=== PATIENT | male | born 1965 | race Caucasian/White ===

== ENCOUNTER 2019-01-05 01:59 | Inpatient (IN) | payer SELFPAY ==
[2019-01-05] MEDS ORDERED: MORPHINE 4 MG/ML SYR ONE ×2 (02:29→03:35)
[2019-01-05] MEDS ORDERED: ONDANSETRON 4 MG/2 ML VIAL ONE ×2 (02:29→03:35)
[2019-01-05] MEDS ORDERED: METRONIDAZOLE 500mg IVPB 500 MG/100 ML BAG IV ONE (02:30)
[2019-01-05] MEDS ORDERED: Levofloxacin 750mg IV 750 MG/150 ML BAG IV ONE (02:30)
[2019-01-05] MEDS ORDERED: NA CHLORIDE 0.9% 1,000 ML ONE (02:30)
[2019-01-05 02:39] LABS: Urine Blood NEGATIVE (NEG); Urine Glucose NEGATIVE (NEG); Urine Protein NEGATIVE (NEG); Urine Specific Gravity 1.025 (1.005-1.030); Urine pH 5.5 (5.0-7.0)
[2019-01-05 04:05] LABS: Absolute Lymphocytes (CBC) 1.2 K/uL (0.7-4.9); Absolute Neutrophil 7.2 K/uL (1.8-8.0); Basophils % 0.3 % (0-1.3); Hematocrit 43.6 % (39.6-49.0); Lymphocytes % 12.7 % (15.3-44.8); MPV 9.5 fL (7.6-11.3); Monocytes % 10.5 % (3.3-12.3); RBC Red Blood Cell Count 4.79 M/uL (4.33-5.43)
[2019-01-05 04:33] LABS: ALT/SGPT 35 U/L (12-78); AST/SGOT 19 U/L (15-37); Albumin 3.5 g/dL (3.4-5.0); Alkaline Phosphatase 77 U/L (45-117); BUN Blood Urea Nitrogen 16 mg/dL (7-18); Bicarbonate 25 mmol/L (21-32); Bilirubin Direct < 0.1 mg/dL (0-0.2); Bilirubin Total 0.2 mg/dL (0.2-1.0); Glucose Level 112 mg/dL (74-106); Lipase 124 U/L (73-393); Potassium 4.5 mmol/L (3.5-5.1); Protein, Total 7.3 g/dL (6.4-8.2); Sodium Level 139 mmol/L (136-145)
--- NOTE | 2019-01-05 05:21 | EDPHYS ---
Physician Documentation [facility] Name: Martin Napoles Age: 53 yrs Sex: Male : 1965 Arrival Date: 01/05/2019 Time: 02:01 Bed 15 Private MD: ED Physician Michael Landaverde HPI: 01/05 02:13 This 53 yrs old Male presents to ER via Unassigned with complaints of Lower jerome Abd Pain. 02:13 The patient presents with abdominal pain in the lower abdomen. Onset: The jerome symptoms/episode began/occurred 1 day(s) ago. The symptoms do not radiate. Associated signs and symptoms: none. The symptoms are described as constant, crampy. Modifying factors: The symptoms are alleviated by nothing. Severity of pain: At its worst the pain was moderate in the emergency department the pain is unchanged. The patient has not experienced similar symptoms in the past. Historical: - Allergies: 02:10 No Known Allergies; rr5 - Home Meds: 02:10 None [Active]; rr5 - PMHx: 02:10 ADD/ADHD; rr5 - PSHx: 02:10 back surgery; rr5 - Immunization history:: Adult Immunizations not up to date. - Social history:: Smoking status: Patient/guardian denies using tobacco, Patient/guardian denies using alcohol, street drugs. - Family history:: not pertinent. - Ebola Screening: : Patient negative for fever greater than or equal to 101.5 degrees Fahrenheit, and additional compatible Ebola Virus Disease symptoms Patient denies exposure to infectious person Patient denies travel to an Ebola-affected area in the 21 days before illness onset. ROS: 02:13 Constitutional: Negative for fever, chills, and weight loss, Eyes: Negative for injury, jerome pain, redness, and discharge, ENT: Negative for injury, pain, and discharge, Neck: Negative for injury, pain, and swelling, Cardiovascular: Negative for chest pain, palpitations, and edema, Respiratory: Negative for shortness of breath, cough, wheezing, and pleuritic chest pain, Back: Negative for injury and pain, : Negative for injury, bleeding, discharge, and swelling, MS/Extremity: Negative for injury and deformity, Skin: Negative for injury, rash, and discoloration, Neuro: Negative for headache, weakness, numbness, tingling, and seizure, Psych: Negative for depression, anxiety, suicide ideation, homicidal ideation, and hallucinations, Allergy/Immunology: Negative for hives, rash, and allergies, Endocrine: Negative for neck swelling, polydipsia, polyuria, polyphagia, and marked weight changes. 02:13 Abdomen/GI: Positive for abdominal pain, of the right lower quadrant and left lower quadrant. 02:15 Abdomen/GI: Positive for abdominal cramps. jerome Exam: 02:13 Constitutional: This is a well developed, well nourished patient who is awake, alert, jerome and in no acute distress. Head/Face: Normocephalic, atraumatic. Eyes: Pupils equal round and reactive to light, extra-ocular motions intact. Lids and lashes normal. Conjunctiva and sclera are non-icteric and not injected. Cornea within normal limits. Periorbital areas with no swelling, redness, or edema. ENT: Nares patent. No nasal discharge, no septal abnormalities noted. Tympanic membranes are normal and external auditory canals are clear. Oropharynx with no redness, swelling, or masses, exudates, or evidence of obstruction, uvula midline. Mucous membranes moist. Neck: Trachea midline, no thyromegaly or masses palpated, and no cervical lymphadenopathy. Supple, full range of motion without nuchal rigidity, or vertebral point tenderness. No Meningismus. Chest/axilla: Normal chest wall appearance and motion. Nontender with no deformity. No lesions are appreciated. Cardiovascular: Regular rate and rhythm with a normal S1 and S2. No gallops, murmurs, or rubs. Normal PMI, no JVD. No pulse deficits. Respiratory: Lungs have equal breath sounds bilaterally, clear to auscultation and percussion. No rales, rhonchi or wheezes noted. No increased work of breathing, no retractions or nasal flaring. Back: No spinal tenderness. No costovertebral tenderness. Full range of motion. Male : Normal genitalia with no discharge or lesions. Skin: Warm, dry with normal turgor. Normal color with no rashes, no lesions, and no evidence of cellulitis. MS/ Extremity: Pulses equal, no cyanosis. Neurovascular intact. Full, normal range of motion. Neuro: Awake and alert, GCS 15, oriented to person, place, time, and situation. Cranial nerves II-XII grossly intact. Motor strength 5/5 in all extremities. Sensory grossly intact. Cerebellar exam normal. Normal gait. Psych: Awake, alert, with orientation to person, place and time. Behavior, mood, and affect are within normal limits. 02:13 Abdomen/GI: Inspection: distension, Bowel sounds: normal, Palpation: moderate abdominal tenderness, in the right lower quadrant and left lower quadrant. 06:48 Musculoskeletal/extremity: Extremities: all appear grossly normal, with no appreciated jerome pain with palpation, ROM: no acute changes, intact in all extremities, full active range of motion, full passive range of motion, Circulation is intact in all extremities. Pulses: noted to be 4+ in the bilateral radial, brachial, femoral, popliteal, posterior tibial and and dorsalis pedis arteries., Compartment Syndrome exam of affected extremity: is normal. DVT Exam: No signs of deep vein thrombosis. no pain, no swelling, no tenderness, negative Homans' sign noted on exam, no appreciated bluish discoloration, no erythema, no increased warmth. Vital Signs: 02:10 BP 135 / 86; Pulse 78; Resp 18; Temp 97.8; Pulse Ox 99% ; Weight 83.91 kg; Height 5 ft. rr5 10 in. (177.80 cm); Pain 8/10; 03:15 BP 131 / 80; Pulse 73; Resp 17; Pulse Ox 99% ; rr5 04:15 BP 126 / 71; Pulse 64; Resp 17; Pulse Ox 97% ; rr5 05:15 BP 119 / 70; Pulse 75; Resp 20; Pulse Ox 98% ; rr5 06:00 BP 141 / 70; Pulse 79; Resp 19; Pulse Ox 98% ; Pain 0/10; rr5 06:35 BP 157 / 82; Pulse 81; Resp 17; Pulse Ox 98% ; Pain 10/10; rr5 02:10 Body Mass Index 26.54 (83.91 kg, 177.80 cm) rr5 MDM: 02:07 Patient medically screened. [facility] 02:13 Data reviewed: vital signs, nurses notes, lab test result(s), EKG, radiologic studies, [facility] CT scan. 01/05 02:12 Order name: Basic Metabolic Panel [facility] 01/05 02:12 Order name: CBC with Diff; Complete Time: 05:11 [facility] 01/05 02:12 Order name: Creatinine for Radiology; Complete Time: 05:11 [facility] 01/05 02:12 Order name: Hepatic Function; Complete Time: 05:11 jerome 01/05 02:12 Order name: Lipase; Complete Time: 05:11 jerome 01/05 02:13 Order name: Basic Metabolic Panel; Complete Time: 05:11 EDMS 01/05 02:12 Order name: CT Abd/Pelvis - W/Contrast [facility] 01/05 02:33 Order name: Urine Dipstick--Ancillary (enter results); Complete Time: 05:11 mw2 01/05 02:12 Order name: IV Saline Lock; Complete Time: 02:22 jerome 01/05 02:12 Order name: Labs collected and sent; Complete Time: : [facility] Administered Medications: 02:30 Drug: NS 0.9% 1000 ml Route: IV; Rate: 1 bolus; Site: right forearm; cc3 04:00 Follow up: Response: No adverse reaction; IV Status: Completed infusion; IV Intake: rr5 1000ml 02:30 Drug: Zofran 4 mg Route: IVP; Site: right forearm; rr5 07:00 Follow up: Response: No adverse reaction rr5 02:32 Drug: morphine 4 mg Route: IVP; Site: right forearm; rr5 07:00 Follow up: Response: No adverse reaction rr5 02:35 Drug: Flagyl 500 mg Volume: 100 ml; Route: IVPB; Rate: 200 ml/hr; Infused Over: 30 rr5 mins; Site: right forearm; 03:05 Follow up: Response: No adverse reaction; IV Status: Completed infusion; IV Intake: rr5 100ml 02:58 Drug: Zofran 4 mg Route: IVP; Site: right forearm; rr5 07:00 Follow up: Response: No adverse reaction rr5 03:03 Drug: morphine 4 mg Route: IVP; Site: right forearm; rr5 07:00 Follow up: Response: No adverse reaction rr5 03:05 Drug: levofloxacin 750 mg Volume: 150 ml; Route: IVPB; Infused Over: 90 mins; Site: rr5 right forearm; 05:00 Follow up: Response: No adverse reaction; IV Status: Completed infusion; IV Intake: rr5 150ml 05:20 Drug: Rocephin 1 grams Route: IV; Rate: per protocol; Site: right forearm; rr5 06:37 Follow up: Response: No adverse reaction; IV Status: Completed infusion; IV Intake: [id number] 05:28 Drug: NS 0.9% 1000 ml Route: IV; Rate: 1 bolus; Site: right forearm; rr5 06:35 Follow up: Response: No adverse reaction; IV Status: Completed infusion; IV Intake: rr5 1000ml 05:28 Drug: Dilaudid 1 mg Route: IVP; Site: right forearm; rr5 07:00 Follow up: Response: No adverse reaction rr5 06:36 Drug: NS 0.9% 1000 ml Route: IV; Rate: 125 ml/hr; Site: right forearm; rr5 07:00 Follow up: Response: No adverse reaction; IV Status: Infusion continued upon admission; rr5 IV Intake: 60ml 07:05 Drug: Dilaudid 1 mg Route: IVP; Site: right forearm; rr5 07:45 Follow up: Response: No adverse reaction; Pain is decreased jl7 Disposition: 01/05/19 05:20 Hospitalization ordered by Black Nowak for Inpatient Admission. Preliminary diagnosis are Abdominal tenderness, Diverticular disease of intestine, Diverticulitis of large intestine without perforation or abscess without bleeding - sigmoiddiverticulitis, no perforation , no abscess. - Bed requested for Telemetry/MedSurg (Inpatient). - Status is Inpatient Admission. jl7 - Condition is Stable. - Problem is new. - Symptoms have improved. UTI on Admission? No Signatures: Dispatcher [employer] EDMS She Crain RN RN kl Anderson, Corey, MD MD cha Leal, Jahala, RN RN jl7 Elif Ruiz 3 Garrett Patterson RN RN rr5 Corrections: (The following items were deleted from the chart) 06:36 05:20 Hospitalization Ordered by Black Nowak MD for Inpatient Admission. Preliminary shahriar diagnosis is Abdominal tenderness; Diverticular disease of intestine; Diverticulitis of large intestine without perforation or abscess without bleeding. Bed requested for Telemetry/MedSurg (Inpatient). Status is Inpatient Admission. Condition is Stable. Problem is new. Symptoms have improved. UTI on Admission? No. jerome 06:49 06:36 01/05/2019 05:20 Hospitalization Ordered by Black Nowak MD for Inpatient [facility] Admission. Preliminary diagnosis is Abdominal tenderness; Diverticular disease of intestine; Diverticulitis of large intestine without perforation or abscess without bleeding. Bed requested for Telemetry/MedSurg (Inpatient). Status is Inpatient Admission. Condition is Stable. Problem is new. Symptoms have improved. UTI on Admission? No. kl 08:09 06:49 01/05/2019 05:20 Hospitalization Ordered by Black Nowak MD for Inpatient jl7 Admission. Preliminary diagnosis is Abdominal tenderness; Diverticular disease of intestine; Diverticulitis of large intestine without perforation or abscess without bleeding - sigmoiddiverticulitis, no perforation , no abscess. Bed requested for Telemetry/MedSurg (Inpatient). Status is Inpatient Admission. Condition is Stable. Problem is new. Symptoms have improved. UTI on Admission? No. jerome
--- NOTE | 2019-01-05 05:21 | ER ---
Nurse's Notes [facility] Name: Martin Napoles Age: 53 yrs Sex: Male : 1965 Arrival Date: 01/05/2019 Time: 02:01 Bed 15 Private MD: Diagnosis: Abdominal tenderness;Diverticular disease of intestine;Diverticulitis of large intestine without perforation or abscess without bleeding-sigmoiddiverticulitis, no perforation , no abscess Presentation: 01/05 02:10 Presenting complaint: Patient states: sudden lower quadrant abdominal pain started rr5 around 1800 last night but its getting worst now. no Nausea or vomiting. had an episodes of diarrhea 2x. 02:10 Transition of care: patient was not received from another setting of care. Onset of rr5 symptoms was January 04, 2019 at 18:00. Risk Assessment: Do you want to hurt yourself or someone else? Patient reports no desire to harm self or others. Initial Sepsis Screen: Does the patient meet any 2 criteria? No. Patient's initial sepsis screen is negative. Does the patient have a suspected source of infection? No. Patient's initial sepsis screen is negative. Care prior to arrival: None. 02:10 Method Of Arrival: Ambulatory rr5 02:10 Acuity: ABBY 3 rr5 Historical: - Allergies: 02:10 No Known Allergies; rr5 - Home Meds: 02:10 None [Active]; rr5 - PMHx: 02:10 ADD/ADHD; rr5 - PSHx: 02:10 back surgery; rr5 - Immunization history:: Adult Immunizations not up to date. - Social history:: Smoking status: Patient/guardian denies using tobacco, Patient/guardian denies using alcohol, street drugs. - Family history:: not pertinent. - Ebola Screening: : Patient negative for fever greater than or equal to 101.5 degrees Fahrenheit, and additional compatible Ebola Virus Disease symptoms Patient denies exposure to infectious person Patient denies travel to an Ebola-affected area in the 21 days before illness onset. Screenin:31 Abuse screen: Denies threats or abuse. Nutritional screening: No deficits noted. rr5 Tuberculosis screening: No symptoms or risk factors identified. 02:31 Fall Risk IV access (20 points). Total Trammell Fall Scale indicates No Risk (0-24 pts). rr5 Assessment: 02:10 General: Appears in no apparent distress. uncomfortable, Behavior is calm, cooperative, rr5 appropriate for age. 02:10 Pain: Complains of pain in right lower quadrant and left lower quadrant Pain does not rr5 radiate. Pain currently is 8 out of 10 on a pain scale. Quality of pain is described as aching, Pain began suddenly, Is intermittent. Neuro: Level of Consciousness is awake, alert, obeys commands, Oriented to person, place, time, situation, Appropriate for age. Cardiovascular: Capillary refill < 3 seconds Patient's skin is warm and dry. Respiratory: Airway is patent Respiratory effort is even, unlabored, Respiratory pattern is regular, symmetrical. GI: Abdomen is round non-distended, Reports lower abdominal pain, diarrhea, gaseousness. : No signs and/or symptoms were reported regarding the genitourinary system. EENT: No signs and/or symptoms were reported regarding the EENT system. Derm: Skin is intact, Skin temperature is warm. Musculoskeletal: Capillary refill < 3 seconds, Range of motion: intact in all extremities. 02:40 Reassessment: Patient finished his oral contrast, mechanical test technician informed. cc3 02:58 Reassessment: Patient appears in no apparent distress at this time. not relieved from rr5 pain ED provider aware with order and carried out. Patient states symptoms have not improved. 04:00 Reassessment: Patient appears in no apparent distress at this time. Patient is alert, rr5 oriented x 3, equal unlabored respirations, skin warm/dry/pink. asleep on bed no complaints made. 05:00 Reassessment: Patient appears in no apparent distress at this time. back from CT scan, rr5 placed on bed comfortably, awaiting for report. 05:10 Reassessment: Patient appears in no apparent distress at this time. complaining of rr5 severe abdominal pain. ED provider informed with order made and carried out. 06:00 Reassessment: Patient appears in no apparent distress at this time. Patient is alert, rr5 oriented x 3, equal unlabored respirations, skin warm/dry/pink. pain free Patient denies pain at this time. Patient states feeling better. Patient states symptoms have improved. 06:17 Reassessment: Patient appears in no apparent distress at this time. Patient is alert, rr5 oriented x 3, equal unlabored respirations, skin warm/dry/pink. seen and examined by explained the need for admission, patients agreed. 06:55 Reassessment: Patient appears in no apparent distress at this time. complaining of rr5 abdominal pain. ED provider informed with order made and carried out. 07:45 Reassessment: Patient appears in no apparent distress at this time. Patient is alert, jl7 oriented x 3, equal unlabored respirations, skin warm/dry/pink. Vital Signs: 02:10 BP 135 / 86; Pulse 78; Resp 18; Temp 97.8; Pulse Ox 99% ; Weight 83.91 kg; Height 5 ft. rr5 10 in. (177.80 cm); Pain 8/10; 03:15 BP 131 / 80; Pulse 73; Resp 17; Pulse Ox 99% ; rr5 04:15 BP 126 / 71; Pulse 64; Resp 17; Pulse Ox 97% ; rr5 05:15 BP 119 / 70; Pulse 75; Resp 20; Pulse Ox 98% ; rr5 06:00 BP 141 / 70; Pulse 79; Resp 19; Pulse Ox 98% ; Pain 0/10; rr5 06:35 BP 157 / 82; Pulse 81; Resp 17; Pulse Ox 98% ; Pain 10/10; rr5 02:10 Body Mass Index 26.54 (83.91 kg, 177.80 cm) rr5 ED Course: 02:01 Patient arrived in ED. am2 02:07 Michael Landaverde MD is Attending Physician. jerome 02:10 Arm band placed on. rr5 02:15 Patient has correct armband on for positive identification. Placed in gown. Bed in low rr5 position. Call light in reach. Side rails up X2. Pulse ox on. NIBP on. 02:25 Garrett Patterson, YUSUF is Primary Nurse. rr5 02:28 Missed attempt(s): 22 gauge in right antecubital area. mt 02:29 Triage completed. rr5 02:30 Inserted saline lock: 20 gauge in right forearm, using aseptic technique. cc3 02:42 Oral contrast reported to be complete. eh 05:04 CT completed. Patient tolerated procedure well. Patient moved to CT via wheelchair. Patient moved back from CT. 05:09 CT Abd/Pelvis - W/Contrast In Process Unspecified. EDMS 05:17 Black Nowak MD is Hospitalizing Provider. [facility] 08:07 No provider procedures requiring assistance completed. Patient admitted, IV remains in jl7 place. intact, No redness/swelling at site. Administered Medications: 02:30 Drug: NS 0.9% 1000 ml Route: IV; Rate: 1 bolus; Site: right forearm; cc3 04:00 Follow up: Response: No adverse reaction; IV Status: Completed infusion; IV Intake: rr5 1000ml 02:30 Drug: Zofran 4 mg Route: IVP; Site: right forearm; rr5 07:00 Follow up: Response: No adverse reaction rr5 02:32 Drug: morphine 4 mg Route: IVP; Site: right forearm; rr5 07:00 Follow up: Response: No adverse reaction rr5 02:35 Drug: Flagyl 500 mg Volume: 100 ml; Route: IVPB; Rate: 200 ml/hr; Infused Over: 30 rr5 mins; Site: right forearm; 03:05 Follow up: Response: No adverse reaction; IV Status: Completed infusion; IV Intake: rr5 100ml 02:58 Drug: Zofran 4 mg Route: IVP; Site: right forearm; rr5 07:00 Follow up: Response: No adverse reaction rr5 03:03 Drug: morphine 4 mg Route: IVP; Site: right forearm; rr5 07:00 Follow up: Response: No adverse reaction rr5 03:05 Drug: levofloxacin 750 mg Volume: 150 ml; Route: IVPB; Infused Over: 90 mins; Site: rr5 right forearm; 05:00 Follow up: Response: No adverse reaction; IV Status: Completed infusion; IV Intake: rr5 150ml 05:20 Drug: Rocephin 1 grams Route: IV; Rate: per protocol; Site: right forearm; rr5 06:37 Follow up: Response: No adverse reaction; IV Status: Completed infusion; IV Intake: [id number] 05:28 Drug: NS 0.9% 1000 ml Route: IV; Rate: 1 bolus; Site: right forearm; rr5 06:35 Follow up: Response: No adverse reaction; IV Status: Completed infusion; IV Intake: rr5 1000ml 05:28 Drug: Dilaudid 1 mg Route: IVP; Site: right forearm; rr5 07:00 Follow up: Response: No adverse reaction rr5 06:36 Drug: NS 0.9% 1000 ml Route: IV; Rate: 125 ml/hr; Site: right forearm; rr5 07:00 Follow up: Response: No adverse reaction; IV Status: Infusion continued upon admission; rr5 IV Intake: 60ml 07:05 Drug: Dilaudid 1 mg Route: IVP; Site: right forearm; rr5 07:45 Follow up: Response: No adverse reaction; Pain is decreased jl7 Intake: 03:05 IV: 100ml; Total: 100ml. rr5 04:00 IV: 1000ml; Total: 1100ml. rr5 05:00 IV: 150ml; Total: 1250ml. rr5 06:35 IV: 1000ml; Total: 2250ml. rr5 06:37 IV: 10ml; Total: 2260ml. rr5 07:00 IV: 60ml; Total: 2320ml. rr5 07:00 from [id number] H voided freely 3x rr5 Outcome: 05:20 Decision to Hospitalize by Provider. jerome 08:07 Admitted to Med/surg accompanied by tech, via wheelchair, room 211, with chart, Report jl7 called to YUSUF Szymanski 08:07 Condition: stable 08:07 Discharge instructions given to patient, Instructed on the need for admit, Demonstrated understanding of instructions. 08:09 Patient left the ED. jl7 Signatures: Dispatcher [employer] EDMichael Maria MD MD cha Hagler, David Whyte RN RN jl7 Liss Contreras Moriah mt Cordel, Charlene cc3 Garrett Patterson, RN RN rr5 Corrections: (The following items were deleted from the chart) 04:21 03:00 morphine 4 mg IVP in right forearm rr5 rr5
[2019-01-05] MEDS ORDERED: CEFTRIAXONE/SWI 1gm 1 GM/10 ML SYR ONE (05:29)
[2019-01-05] MEDS ORDERED: NA CHLORIDE 0.9% 2,000 ML ONE (05:29)
[2019-01-05] MEDS ORDERED: HYDROMORPHONE HCL 2 MG/ML inj ONE (05:29)
--- NOTE | 2019-01-05 06:30 | P.HP ---
Certification for Inpatient Patient admitted to: Inpatient With expected LOS: >2 Midnights Practitioner: I am a practitioner with admitting privileges, knowledge of patient current condition, hospital course, and medical plan of care. Services: Services provided to patient in accordance with Admission requirements found in Title 42 Section 412.3 of the Code of Federal Regulations Patient History Date of Service: 01/05/19 Reason for admission: acute diverticulitis History of Present Illness: Mr Napoles is a 53 years old male with history of ADD, previous episode of diverticulitis on 09/13, who came to ED complaining of severe abdominal pain, located on LLQ, 10/10 of intensity, no radiated, associated with nausea and diarrhea, no vomiting. He denied any blood in his stools. No history of fever or chills. The pain started last night around 1800. The pain is similar to previous episodes of diverticulitis. Lab work shows normal WBC count, he is afebrile, CT abdo/pelivs consistent with diverticulitis without abscess or perforation. Allergies No Known Allergies Allergy (Verified 12/28/12 10:58) Home Medications: NK [No Home Meds] 01/05/19 - Past Medical/Surgical History Diabetic: No -: diverticulitis -: back surgery - Family History Family History: Reviewed- Non-Contributory - Social History Smoking Status: Former smoker Alcohol use: No CD- Drugs: No Caffeine use: No Place of Residence: Home Review of Systems 10-point ROS is otherwise unremarkable Physical Examination - Physical Exam General: Alert, Moderate distress (due to abdominal pain) HEENT: Atraumatic, PERRLA, Mucous membr. moist/pink, EOMI, Sclerae nonicteric Neck: Supple, 2+ carotid pulse no bruit, No LAD, Without JVD or thyroid abnormality Respiratory: Clear to auscultation bilaterally, Normal air movement Cardiovascular: Regular rate/rhythm, Normal S1 S2 Gastrointestinal: Normal bowel sounds, Tenderness (severe tender to palpation on LLQ) Musculoskeletal: No tenderness Integumentary: No rashes Neurological: Normal speech, Normal strength at 5/5 x4 extr, Normal tone, Normal affect Lymphatics: No axilla or inguinal lymphadenopathy - Studies Laboratory Data (last 24 hrs) 01/05/19 02:15: Creatinine 0.87 01/05/19 02:15: WBC 9.7, Hgb 14.7, Hct 43.6, Plt Count 194 01/05/19 02:15: Sodium 139, Potassium 4.5, BUN 16, Creatinine 0.92, Glucose 112 H, Total Bilirubin 0.2, AST 19, ALT 35, Alkaline Phosphatase 77, Lipase 124 Assessment and Plan - Problems (Diagnosis) (1) Diverticulitis Onset Date: 09/08/17 Current Visit: No Status: Resolved Qualifiers: Diverticulitis site: large intestine Diverticulitis bleeding: without bleeding Diverticulitis complication: without perforation or abscess Qualified Code(s): K57.32 - Diverticulitis of large intestine without perforation or abscess without bleeding - Plan will admit the patient to the hospital due to acute diverticulitis. Start empiric treatment with IV Cipro and Flagyl. Continue IV fluids and symptomatic medication. - Advance Directives Does patient have a Living Will: No Does patient have a Durable POA for Healthcare: No - Code Status/Comfort Care Code Status Assessed: Yes Code Status: Full Code
[2019-01-05] MEDS ORDERED: MORPHINE 2 MG/ML SYR IV PRN (08:33)
[2019-01-05] MEDS ORDERED: ONDANSETRON 4 MG/2 ML VIAL IV PRN (08:33)
[2019-01-05] MEDS: NA CHLORIDE 0.9% 1,000 ML IV SCH ×3 (08:33→23:36)
[2019-01-05] MEDS ORDERED: ACETAMINOPHEN 500 MG TAB PO PRN (08:33)
[2019-01-05 09:01] VITALS: BMI 26.5
[2019-01-05] MEDS: METRONIDAZOLE 500mg IVPB 500 MG/100 ML BAG IV SCH ×2 (09:52→17:45)
[2019-01-05] MEDS ORDERED: INFLUENZA VACCINE (for 3y+) 0.5 ML DOSE IMVAC ONE ×2 (10:00→21:30)
--- NOTE | 2019-01-05 10:45 | RAD REPORT ---
EXAM DESCRIPTION: RAD - Abdomen W Erect - 01/05/2019 10:19 am CLINICAL HISTORY: Abdominal pain, suspected free air COMPARISON: None. TECHNIQUE: Supine and upright views of the abdomen were obtained. FINDINGS: Supine and upright views of the abdomen were obtained. There is no free air under the diap hragm. No evidence for free air or pneumatosis elsewhere on the examination. Moderate stool volume di luted contrast are present throughout the colon. No small bowel dilatation identified. No suspicious calcifications. IMPRESSION: No free air confirmed on this study. Ongoing clinical concerns for bowel perforation or free air can be addressed with CT imaging. This ca n identify free air that may be occult on plain film.
[2019-01-05] MEDS: CIPROFLOXACIN 400mg IV 400 MG/200 ML BAG IV SCH ×2 (10:54→21:29)
[2019-01-05] MEDS ORDERED: HYDROMORPHONE HCL 0.5 MG/0.5 ML INJ IV SCH (12:00)
--- NOTE | 2019-01-05 17:35 | PN ---
Date of Progress Note: 01/05/2019 Subjective: The patient was seen and examined. Chart reviewed and case discussed with RN and Dr. Sandoval nick. The patient in significant amount of abdominal pain, doubled over. Medication List: Reviewed. Physical Examination: Vital Signs: Temperature 97.7, heart rate 72, blood pressure 103/69, respirations 16, O2 97% on room air. General: Awake, alert, oriented x3. Ill-appearing male. CV: S1, S2. Regular rate and rhythm. Peripheral pulses present. Respiratory: Moving air well bilaterally. No wheezing. Gastrointestinal: Abdomen is tender to palpation, mildly distended. Rebound and guarding are presen t. Bowel sounds are hypoactive. Extremities: No clubbing, cyanosis, edema. Neurologic: Nonfocal. Laboratory Data: WBC 9.7, H and H 14.7 and 43.6, platelets 194. Abdominal x-ray, personally reviewe d, shows no free air. Does show moderate stool volume diluted contrast present throughout the colon. No bowel dilatation identified. Assessment And Plan: A 53-year-old male with: 1.Acute diverticulitis without bleeding, perforation, or abscess of large intestine. We will contin ue with IV antibiotics. Appreciate Dr. Randle's input. Abdominal x-ray does not show any perforat ion or free air under the diaphragm. We will adjust pain medications. 2.Gastrointestinal and deep venous thrombosis prophylaxis addressed. 3.Attention deficit disorder. Plan: Continue IV antibiotics, follow up with surgical recommendations. /SERGEY Voice ID: [id number] Report ID: [id number]
[2019-01-05] MEDS: HYDROMORPHONE HCL 0.5 MG/0.5 ML INJ IV PRN (18:54)
--- NOTE | 2019-01-06 00:20 | CON ---
Date of Consultation: 01/05/2019 Diagnosis: Diverticulitis, left lower quadrant abdominal pain. History Of Present Illness: This is the case of a 53-year-old patient, comes to the hospital [facility] of left lower quadrant tenderness associated with nausea and diarrhea with no vomiting. He had an episode like that about 3 months ago, improved on its own. He has not followed up on that. This pain started yesterday afternoon. He came to the hospital this morning, was admitted to the hospital for diverticulitis. He denies any dysuria, hematuria, hematochezia, or melena. He denies any recen t traveling out of the country. He denies any family member sick at home. The patient was advised t he importance of colonoscopy since we have no evidence of one. Allergies: NONE. Medications: Levaquin and Flagyl. Surgical History: Back surgery. Medical Problems: Diverticulitis. Family History: Noncontributory. Social History: He does not smoke. He does not drink alcohol. Physical Examination: General: The patient is awake and alert. HEENT: Pupils are equal and reactive, anicteric. Neck: Supple. Chest: Clear. Abdomen: Left lower quadrant tenderness. No guarding. No rebound. The rest of the abdomen is soft and depressible. Rectal: Deferred. Extremities: Good capillary refill. Laboratory Data: Blood work shows WBC count of 9.7 with hemoglobin of 14.7, and potassium 4.5. CAT scan of the abdomen and pelvis, official result still pending. We have preliminary, it shows acute s igmoid diverticulitis, no free air. Assessment: A 53-year-old patient, comes to us with acute diverticulitis. The patient will need ant ibiotics if he does not improve and develops perforation. He understands the need for emergent lapar otomy, possible resection and ostomy with benefits, alternatives, and risks including, but not limite d to infection, bleeding, damage to adjacent structures, anesthesia complication, nonhealing wound, a bscesses, NC, even . He also understands this may not relieve any symptoms. He might need more than one surgical intervention. He also understands the colostomy may or may not be reversible. Ri ght now, he has no perforation so we are going to give antibiotics and explained to him the importanc e of bowel rest and being compliant with treatment. 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 Also he might have a chance to do elective resection of the area if this end out to be recurrent diverticulitis. He was fully explained the pros and cons of each intervention in details. JAIRO Voice ID: [id number] Report ID: [id number]
[2019-01-06] MEDS: METRONIDAZOLE 500mg IVPB 500 MG/100 ML BAG IV SCH ×4 (00:57→23:55)
[2019-01-06] MEDS: HYDROMORPHONE HCL 0.5 MG/0.5 ML INJ IV PRN ×2 (02:45→09:10)
[2019-01-06] MEDS: NA CHLORIDE 0.9% 1,000 ML IV SCH ×4 (04:12→23:53)
[2019-01-06 06:56] LABS: BUN Blood Urea Nitrogen 10 mg/dL (7-18); Bicarbonate 27 mmol/L (21-32); Glucose Level 99 mg/dL (74-106); Magnesium 2.2 mg/dL (1.8-2.4); Potassium 4.1 mmol/L (3.5-5.1); Sodium Level 142 mmol/L (136-145)
[2019-01-06 06:57] LABS: Absolute Lymphocytes (CBC) 1.3 K/uL (0.7-4.9); Absolute Monocytes 0.7 K/uL (0.1-1.3); Absolute Neutrophil 4.7 K/uL (1.8-8.0); Basophils % 0.3 % (0-1.3); Eosinophils % 1.3 % (0-4.4); Hematocrit 37.3 % (39.6-49.0); Lymphocytes % 18.9 % (15.3-44.8); MPV 8.8 fL (7.6-11.3); Monocytes % 10.5 % (3.3-12.3); RBC Red Blood Cell Count 4.12 M/uL (4.33-5.43)
[2019-01-06] MEDS: CIPROFLOXACIN 400mg IV 400 MG/200 ML BAG IV SCH ×2 (09:10→20:00)
[2019-01-06] MEDS: MORPHINE 2 MG/ML SYR IV PRN ×2 (12:14→17:51)
[2019-01-06] MEDS: HYDROCODONE/APAP 7.5/325 MG TAB PO PRN ×2 (15:42→19:59)
--- NOTE | 2019-01-06 16:11 | PN ---
Date of Progress Note: 01/06/2019 Subjective: The patient seen and examined. Chart reviewed and case discussed with RN. The patient had uneventful night. Per nursing staff yesterday was sleeping for most of the day. However, once e valuated, was asking for stronger pain medications. No physiological signs of pain. Medications: List reviewed. Physical Examination: Vital Signs: Temperature 98.6, heart rate 57, blood pressure 110/69, respirations 20, O2 98% on room air. General: Awake, alert, oriented x3. No acute distress. CV: S1 and S2. Regular rate and rhythm. Peripheral pulses present. Respiratory: Moving air well bilaterally. Abdomen: Tenderness to palpation in the left lower quadrant with rebound and guarding. The patient jumps off the bed with minimal palpation. Bowel sounds present. No distention. Extremities: No clubbing, cyanosis, or edema. Neurologic: Nonfocal. Laboratory Data: Sodium 142, potassium 4.1, chloride 109, CO2 27, BUN 10, creatinine 0.76, glucose 9 9, calcium 8.2, magnesium 2.2. WBC 6.8, H and H 12.6 and 37.3, platelets 166, neutrophils 69%. Assessment And Plan: A 53-year-old male with: 1.Acute diverticulitis without perforation or abscess of large intestine. We will continue with IV antibiotics. Pain seems to be out of proportion to his physiological response. We will wean off sobeida n medications. No further nausea or vomiting. Did well with ice chips. We will advance to clear li quid diet. Appreciate Dr. Randle's input. 2.Attention deficit disorder. 3.Deep vein thrombosis prophylaxis with sequential compression devices. No chemical anticoagulation due to possible surgery. Plan: We will advance diet to clear liquids. Continue IV fluids. Adjust pain medications, disconti nue once tolerating a soft diet and pain is improved. If pain does not improve may need to repeat CT scan to look for signs of perforati on on upright abdomen. SA/MODL Voice ID: [id number] Report ID: [id number]
[2019-01-06 22:40] VITALS: O2SAT 99
[2019-01-07] MEDS: NA CHLORIDE 0.9% 1,000 ML IV SCH (08:43)
[2019-01-07] MEDS: CIPROFLOXACIN 400mg IV 400 MG/200 ML BAG IV SCH (08:44)
[2019-01-07] MEDS: METRONIDAZOLE 500mg IVPB 500 MG/100 ML BAG IV SCH (08:44)
[2019-01-07] MEDS ORDERED: MORPHINE 2 MG/ML SYR IV PRN (10:10)
[2019-01-07 11:46] LABS: Absolute Lymphocytes (CBC) 0.9 K/uL (0.7-4.9); Absolute Monocytes 0.6 K/uL (0.1-1.3); Absolute Neutrophil 3.6 K/uL (1.8-8.0); Basophils % 0.3 % (0-1.3); Eosinophils % 1.6 % (0-4.4); Hematocrit 41.6 % (39.6-49.0); Lymphocytes % 17.4 % (15.3-44.8); MPV 8.7 fL (7.6-11.3); Monocytes % 11.6 % (3.3-12.3); RBC Red Blood Cell Count 4.56 M/uL (4.33-5.43)
[2019-01-07 13:39] VITALS: BP 114/70; TEMP 98
--- NOTE | 2019-01-08 11:12 | RAD REPORT ---
EXAM DESCRIPTION: CT - Abdomen Pelvis W Contrast - 01/05/2019 6:31 am CLINICAL HISTORY: 53-year-old male with lower abdominal pain since 6:00 PM with diarrhea TECHNIQUE: Axial CT images of the abdomen and pelvis was performed following the administration of intravenous c ontrast. Sagittal and coronal reconstructed images were then performed. The CT study is performed acc ording to ALARA (as low as reasonably achievable) or ALARA/IMAGE GENTLY, with automatic adjustment of mA and/or kV according to patient size. COMPARISON: Prior CT abdomen and pelvis performed on 09/07/2017 FINDINGS: Lung bases: The lung bases are clear. Liver: The liver is normal in size and configuration. No focal hepatic abnormalities are identified. Liver attenuation is within normal limits. Spleen: The spleen is normal is size, configuration and attenuation. Gallbladder and bile duct: The gallbladder is well distended and unremarkable. There is no biliary du ctal dilatation. Pancreas: The pancreas is grossly normal in size and configuration. Adrenal Glands: The adrenal glands ar normal in size and configuration. Kidneys: The kidneys are normal in size and configuration. There is no evidence of diverticulitis. Th ere is stranding of the pericolonic fat bilaterally which is nonspecific but can be seen with chronic medical renal disease. Stomach: The stomach is grossly normal. There is a very small hiatal hernia. Bowel: The bowel gas pattern is non specific and non obstructive. There is colonic diverticulosis. Th ere is stranding of the pericolonic fat in the anterior left lower quadrant consistent with acute sig moid colonic diverticulitis. There is no evidence of perforation or peridiverticular abscess. Appendix: The appendix is normal. Free air: There is no evidence of free air. Free fluid: There is no evidence of free fluid. Vasculature: The aorta is normal in caliber and contour. The inferior vena cava is grossly unremarkab le. Lymphadenopathy: No pathologic lymphadenopathy is identified. Bladder: The bladder is incompletely distended and smooth in contour. Reproductive: The prostate gland is grossly within normal limits. Bones: NO acute osseous abnormalities are identified. There is a prominent disc osteophyte complex at L5-S1 resulting in mild to moderate canal stenosis and there is bilateral renal foraminal stenosis g reater on the right. Soft tissues: No focal soft tissue abnormalities are identified. There are small bilateral fat-contai jacobo inguinal hernias. IMPRESSION: 1. Acute sigmoid colon diverticulitis without perforation or pericardial abscess. 2. Very small hiatal hernia. 3. Prominent disc osteophyte complex at L5-S1 resulting in at least mild to moderate canal stenosis a nd bilateral neural foraminal stenosis at this level greater on the right. 4. Very small bilateral fat-containing inguinal hernias. 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 The interpreting radiologist is f ully responsible for the content of the report.
--- NOTE | 2019-01-08 13:50 | DS ---
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 Procedure: None. Admitting Diagnoses: 1.Acute diverticulitis. 2.Attention deficit disorder. Discharge Diagnoses: 1.Acute diverticulitis without perforation or abscess of large intestine. 2.Attention deficit disorder. Hospital Course: The patient is a 53-year-old male, who comes into the hospital for abdominal pain, found to have acute diverticulitis. The patient was started on IV antibiotics and IV fluids. He was kept n.p.o. The patient requested pain medications by name, although physiologically did not have s igns of pain. His condition improved. He was also seen by Dr. Randle for surgical evaluation. He did not recommend any intervention at that time. Abdominal x-ray was done to rule out free air. Th ere was no free air found on the x-ray. The patient did well. His white blood cell count remained s table the entire visit. He was able to tolerate a soft diet. His pain was out of proportion to his exam. The patient would be asleep and would be requesting pain medications. He also refused morphin e when he was being weaned off Dilaudid. The patient was then cleared for discharge and was sent brian e in a stable condition. Activity: As tolerated. Diet: [place] diet. Followup: Follow up with primary care physician in 2 to 3 days. Follow up with surgeon, Dr. Elvira jade in 2 weeks. The patient needs to establish care with GI in the next 2 to 4 weeks for outpatient co lonoscopy once his diverticulitis has resolved. He is to return to the ER for worsening condition. Medications: As per medication reconciliation list. He will finish a course of Cipro and Flagyl. Physical Examination: General: Awake, alert, oriented x3, not in any acute distress. CV: S1, S2. No murmurs. Respiratory: Moving air well bilaterally. Abdomen: Soft, nontender, nondistended. Positive bowel sounds. No guarding or rigidity. No signs of peritonitis. Bowel sounds are positive. Extremities: No clubbing, cyanosis, or edema. Neurologic: Nonfocal. Total time spent discharging the patient was 33 minutes. /SERGEY Voice ID: [id number] Report ID: [id number]
== END 2019-01-07 13:14 | disposition home or self-care (01) | DRG 392 ==
LOC: ER 01:59 → ERHOLD 06:19 → 2ND 07:39
PROVIDERS: ADMIT Internal Medicine; ATTEND Family Medicine
DX: K57.32 Diverticulitis of large intestine without perforation or abscess without bleeding (principal); F98.8 Other specified behavioral and emotional disorders with onset usually occurring in childhood and adolescence
CPT/HCPCS: 36415; 74019; 74177; 80048; 80076; 81003; 83690; 83735; 85025; 96365; 96366; 96367; 96375; 99285; G0008; J0696; J0744; J1170; J2270; J2405; J7030; Q2035; Q9967

== ENCOUNTER 2019-04-19 09:32 | Emergency (ER) | payer SELFPAY ==
[2019-04-19 11:18] LABS: Absolute Lymphocytes (CBC) 1.3 K/uL (0.7-4.9); Absolute Monocytes 0.5 K/uL (0.1-1.3); Absolute Neutrophil 3.4 K/uL (1.8-8.0); Albumin 4.4 g/dL (3.4-5.0); Basophils % 0.3 % (0-1.3); Bilirubin Total 0.5 mg/dL (0.2-1.0); Eosinophils % 2.1 % (0-4.4); Hematocrit 44.9 % (39.6-49.0); Lymphocytes % 25.2 % (15.3-44.8); MPV 8.8 fL (7.6-11.3); Potassium 4.1 mmol/L (3.5-5.1); Protein, Total 7.3 g/dL (6.4-8.2); RBC Red Blood Cell Count 4.86 M/uL (4.33-5.43)
--- NOTE | 2019-04-19 11:40 | RAD REPORT ---
EXAM DESCRIPTION: MRI - Lumbar Spine Wo Con - 04/19/2019 11:15 am CLINICAL HISTORY: Right leg radiculopathy/numbness COMPARISON: None. TECHNIQUE: Sagittal T1, T2 and STIR weighted sequences were obtained. Axial T1 and T2 sequences were obtained through the lumbar disc levels. FINDINGS: L1-2, L2-3 and L3-4 demonstrate no significant abnormality Disc bulge with annular fissure L4-5. Facet hypertrophy. Mild narrowing of the neural foramina bilate rally. Thecal sac measures 10 millimeters Moderate to large right paracentral disc herniation L5-S1 compresses the right S1 nerve root Large osteophyte present as well. 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 No significant abnormal signal within the bones IMPRESSION: Moderate to large right paracentral disc herniation L5-S1
[2019-04-19] MEDS ORDERED: ONDANSETRON 4 MG/2 ML VIAL ONE (11:45)
[2019-04-19] MEDS ORDERED: MORPHINE 4 MG/ML SYR ONE ×2 (11:45→14:46)
--- NOTE | 2019-04-19 12:19 | RAD REPORT ---
EXAM DESCRIPTION: CT - Stone Protocol - 04/19/2019 12:04 pm CLINICAL HISTORY: Abdominal pain. Right lower abdominal pain COMPARISON: December 2018 TECHNIQUE: Computed axial tomography of the abdomen pelvis was obtained without oral or IV contrast. Lack of IV and oral contrast limits evaluation of solid organs, bowel, and vessels. Coronal reformat perry images were obtained and reviewed. All CT scans are performed using dose optimization technique as appropriate and may include automated exposure control or mA/KV adjustment according to patient size. FINDINGS: A renal calculus is not seen. An ureteral calculus is not noted. A bladder calculus is not present. The liver, spleen, pancreas and adrenals appear grossly normal Diverticula stem from the colon without evidence of diverticulitis. The appendix appears normal Small inguinal hernias contain fat. Small umbilical hernia Moderate to large right paracentral disc herniation L5-S1 with osteophytes IMPRESSION: Negative for a genitourinary calculus Moderate to large right paracentral disc herniation L5-S1 with osteophytes
--- NOTE | 2019-04-19 12:56 | EDPHYS ---
Physician Documentation [facility] Name: Martin Napoles Age: 53 yrs Sex: Male : 1965 Arrival Date: 04/19/2019 Time: 09:35 Bed 14 Private MD: ED Physician Jae Draper HPI: 04/19 10:43 This 53 yrs old Male presents to ER via Ambulatory with complaints of Back jmm Pain, Diarrhea. 10:43 The patient presents with pain that is chronic, with no known mechanism of injury. jmm Onset: The symptoms/episode began/occurred gradually, 3 month(s) ago. The pain radiates to the right flank. This is a 53 year old male that presents to the ED with complaints of lower back pain which radiates to his right leg. Patient states developing increased pain upon standing. Patient states symptoms have been ongoing for the past 3 months. Patient became concerned after developing episodes of loose stool and urinary symptoms over the past 2 days. Patient has a remote history of lumbar surgery performed approx 15 years ago. Patient states he has been taking alieve alternating with tylenol arthritis. Patient also complaints of mild epigastric and left lower abdominal pain. . Historical: - Allergies: 10:06 No Known Allergies; tw2 - Home Meds: 10:06 None [Active]; tw2 - PMHx: 10:06 ADD/ADHD; tw2 - PSHx: 10:06 back surgery; tw2 - Immunization history:: Adult Immunizations. - Social history:: Smoking status: Patient uses tobacco products, smokes one pack cigarettes per day. - Ebola Screening: : Patient denies travel to an Ebola-affected area in the 21 days before illness onset. ROS: 10:43 Constitutional: Negative for fever, chills, and weight loss, Cardiovascular: Negative jmm for chest pain, palpitations, and edema, Respiratory: Negative for shortness of breath, cough, wheezing, and pleuritic chest pain. 10:43 Abdomen/GI: Positive for abdominal pain, diarrhea. 10:43 Back: Positive for pain with movement. 10:43 Neuro: Positive for numbness. 10:43 All other systems are negative. Exam: 10:43 Constitutional: This is a well developed, well nourished patient who is awake, alert, jmm and in no acute distress. Head/Face: atraumatic. Eyes: EOMI, no conjunctival erythema appreciated ENT: Moist Mucus Membranes Neck: Trachea midline, Supple Chest/axilla: Normal chest wall appearance and motion. Cardiovascular: Regular rate and rhythm. No edema appreciated Respiratory: Normal respirations, no respiratory distress appreciated Abdomen/GI: Non distended, soft Back: Normal ROM 10:43 Abdomen/GI: Inspection: distension, Bowel sounds: normal, Palpation: soft, mild abdominal tenderness, in the epigastric area and left lower quadrant, Rectal exam: rectal tone normal. 10:43 Musculoskeletal/extremity: ROM: intact in all extremities. 10:43 Neuro: Orientation: is normal, Mentation: is normal, Memory: is normal, extensor hallucis longus intact bilaterally. 10:43 Psych: Behavior/mood is pleasant, cooperative. 13:13 Neuro: Deep tendon reflexes are 1 (trace) + in the right patellar and left patellar. [facility] Vital Signs: 10:05 BP 145 / 91; Pulse 79; Resp 17; Temp 96.7(TE); Pulse Ox 96% on R/A; Weight 90.72 kg tw2 (R); Height 5 ft. 10 in. (177.80 cm); Pain 3/10; 11:04 BP 122 / 74; Pulse 60; Resp 16; Pulse Ox 99% on R/A; Pain 3/10; ls4 12:00 BP 119 / 83; Pulse 64; Resp 16; Pulse Ox 99% ; Pain 3/10; ls4 13:00 BP 118 / 74; Pulse 62; Resp 16; Pulse Ox 99% on R/A; Pain 5/10; ls4 14:00 BP 116 / 70; Pulse 63; Resp 16; Pulse Ox 99% on R/A; Pain 8/10; ls4 14:44 BP 116 / 68; Pulse 62; Resp 16; Temp 98.3; Pulse Ox 100% on R/A; Pain 3/10; ls4 10:05 Body Mass Index 28.70 (90.72 kg, 177.80 cm) tw2 10:05 standing or sitting makes the pain go up to 10 tw2 MDM: 10:19 Patient medically screened. [facility] 12:53 Data reviewed: vital signs, nurses notes. Counseling: I had a detailed discussion with kumar the patient and/or guardian regarding: the historical points, exam findings, and any diagnostic results supporting the discharge/admit diagnosis, lab results, radiology results. ED course: I discussed the patient with Dr. Jefferson whom accepted transfer. . 13:21 ED course: I discussed the patient with Dr. Garcai whom accepted transfer.. ED [facility] course: Patient transferred due to no neuro or neuro surgery services. . 04/19 10:31 Order name: CBC with Diff; Complete Time: 11:35 [facility] 04/19 10:31 Order name: CMP; Complete Time: 11:29 [facility] 04/19 10:31 Order name: MRI Lumbar Spine wo Con; Complete Time: 11:44 [facility] 04/19 11:50 Order name: CT Stone Protocol; Complete Time: 12:23 [facility] 04/19 10:31 Order name: Saline Lock; Complete Time: 10:50 [facility] Administered Medications: 11:37 Drug: morphine 4 mg Route: IVP; Site: right hand; ls4 12:01 Follow up: Response: No adverse reaction; Marked relief of symptoms ls4 11:37 Drug: Zofran 4 mg Route: IVP; Site: right hand; ls4 12:01 Follow up: Response: No adverse reaction; Marked relief of symptoms ls4 14:35 Drug: morphine 4 mg Route: IVP; Site: right hand; ls4 14:42 Follow up: Response: No adverse reaction; Marked relief of symptoms ls4 Disposition: 04/20 09:12 Co-signature as Attending Physician, Jae Draper MD I agree with the assessment and kdr plan of care. Disposition: 04/19/19 12:56 Transfer ordered to [facility]. Diagnosis are Sciatica, right side, Unspecified urinary incontinence. - Reason for transfer: Higher level of care. - Accepting physician is Dr. Jefferson. - Condition is Stable. - Problem is new. - Symptoms are unchanged. Signatures: Dispatcher [employer] EDMS Jae Draper MD MD kdr Mickail, Joel, PA PA Vanessa Rdz RN RN tw2 Barby Daniel RN RN ls4 Corrections: (The following items were deleted from the chart) 04/19 14:46 12:56 04/19/2019 12:56 Transfer ordered to [facility]. Diagnosis is ls4 Sciatica, right side; Unspecified urinary incontinence. Reason for transfer: Higher level of care. Accepting physician is Dr. Jefferson. Condition is Stable. Problem is new. Symptoms are unchanged. jm
--- NOTE | 2019-04-19 12:56 | ER ---
Nurse's Notes [facility] Name: Martin Napoles Age: 53 yrs Sex: Male : 1965 Arrival Date: 04/19/2019 Time: 09:35 Bed 14 Private MD: Diagnosis: Sciatica, right side;Unspecified urinary incontinence Presentation: 04/19 10:04 Presenting complaint: Patient states: my right leg is hurting has been for 3 or 4 tw2 months, they said pinched nerve, back surgery years ago. Transition of care: patient was not received from another setting of care. Onset of symptoms was April 19, 2019. Risk Assessment: Do you want to hurt yourself or someone else? Patient reports no desire to harm self or others. Initial Sepsis Screen: Does the patient meet any 2 criteria? No. Patient's initial sepsis screen is negative. Does the patient have a suspected source of infection? No. Patient's initial sepsis screen is negative. Care prior to arrival: None. 10:04 Method Of Arrival: Ambulatory tw2 10:04 Acuity: ABBY 4 tw2 10:04 Note pt sitting in lobby chair in ER able to get up from chair and walk without tw2 problems. 10:07 Note pt in chair in triage room, able to stand quickly and walk to exam room at this tw2 time without distress. Triage Assessment: 10:05 General: Appears in no apparent distress. Behavior is calm, cooperative, appropriate tw2 for age. Pain: Complains of pain in right leg. Musculoskeletal: Range of motion: intact in all extremities, Reports pain in right leg. Historical: - Allergies: 10:06 No Known Allergies; tw2 - Home Meds: 10:06 None [Active]; tw2 - PMHx: 10:06 ADD/ADHD; tw2 - PSHx: 10:06 back surgery; tw2 - Immunization history:: Adult Immunizations. - Social history:: Smoking status: Patient uses tobacco products, smokes one pack cigarettes per day. - Ebola Screening: : Patient denies travel to an Ebola-affected area in the 21 days before illness onset. Screenin:28 Abuse screen: Denies threats or abuse. Denies injuries from another. Nutritional ls4 screening: No deficits noted. Tuberculosis screening: No symptoms or risk factors identified. The patient has not been NPO before screening. The patient is alert, able to follow commands. The patient does not exhibit slurred or garbled speech The patient is not exhibiting difficulty speaking. The patient does not exhibit difficulty understanding words. The patient is able to swallow own secretions with no drooling or need for suction. Patient tolerated one teaspoon of water. No drooling, immediate coughing, gurgling, or clearing of the throat was noted. The patient tolerated 90mL of water. No drooling, immediate coughing, gurgling, or clearing of the throat was noted. The patient passed the bedside swallow screening. Oral medications may be given as ordered. Contact Physician for further diet orders. Fall Risk No fall in past 12 months (0 pts). No secondary diagnosis (0 pts). No IV (0 pts). Ambulatory Aid- None/Bed Rest/Nurse Assist (0 pts). Gait- Normal/Bed Rest/Wheelchair (0 pts) Mental Status- Oriented to own ability (0 pts). Total Trammell Fall Scale indicates No Risk (0-24 pts). Assessment: 10:51 Neuro: Level of Consciousness is awake, alert, obeys commands, Oriented to person, ls4 place, time, situation, Certified Scrub Tech are equal bilaterally Moves all extremities. Gait is steady, Speech is normal, Facial symmetry appears normal, Pupils are PERRLA, Intact Babinski Reports uncontrollable bowel movements. Respiratory: Airway is patent Respiratory effort is even, unlabored, Respiratory pattern is regular, Breath sounds are clear bilaterally. GI: Abdomen is non-distended, Bowel sounds present X 4 quads. Abd is soft and non tender X 4 quads. Musculoskeletal: Circulation, motion, and sensation intact. Capillary refill < 3 seconds, Range of motion: intact in all extremities, Reports Pain is 3 out of 10 on a pain scale. 11:45 Reassessment: Patient and/or family updated on plan of care and expected duration. Pain ls4 level reassessed. Patient is alert, oriented x 3, equal unlabored respirations, skin warm/dry/pink. Patient states symptoms have improved. 12:45 Reassessment: Patient and/or family updated on plan of care and expected duration. Pain ls4 level reassessed. Patient is alert, oriented x 3, equal unlabored respirations, skin warm/dry/pink. Patient states symptoms have improved. Vital Signs: 10:05 BP 145 / 91; Pulse 79; Resp 17; Temp 96.7(TE); Pulse Ox 96% on R/A; Weight 90.72 kg tw2 (R); Height 5 ft. 10 in. (177.80 cm); Pain 3/10; 11:04 BP 122 / 74; Pulse 60; Resp 16; Pulse Ox 99% on R/A; Pain 3/10; ls4 12:00 BP 119 / 83; Pulse 64; Resp 16; Pulse Ox 99% ; Pain 3/10; ls4 13:00 BP 118 / 74; Pulse 62; Resp 16; Pulse Ox 99% on R/A; Pain 5/10; ls4 14:00 BP 116 / 70; Pulse 63; Resp 16; Pulse Ox 99% on R/A; Pain 8/10; ls4 14:44 BP 116 / 68; Pulse 62; Resp 16; Temp 98.3; Pulse Ox 100% on R/A; Pain 3/10; ls4 10:05 Body Mass Index 28.70 (90.72 kg, 177.80 cm) tw2 10:05 standing or sitting makes the pain go up to 10 tw2 ED Course: 09:35 Patient arrived in ED. mr 10:05 Triage completed. tw2 10:05 Arm band placed on. tw2 10:12 Silas Traore PA is PHCP. [facility] 10:12 Jae Draper MD is Attending Physician. [facility] 10:13 Barby Daniel, YUSUF is Primary Nurse. ls4 10:28 Patient has correct armband on for positive identification. Bed in low position. Call ls4 light in reach. Side rails up X 1. 10:28 No provider procedures requiring assistance completed. ls4 10:50 Pulse ox on. NIBP on. Pillow given. Verbal reassurance given. Head of bed elevated. ls4 10:50 Initial lab(s) drawn, by me, sent to lab. Inserted saline lock: 20 gauge in right hand, ls4 using aseptic technique. Blood collected. 11:01 MRI Lumbar Spine wo Con In Process Unspecified. EDMS 12:05 CT Stone Protocol In Process Unspecified. EDMS 12:05 CT completed. Patient tolerated procedure well. Patient moved to [place]. Patient moved back from [place]. 12:40 initiated a transfer with Claire at the [facility]. eb 12:49 connected the neurologist corrosion control technician for [facility] Dr. Man with Silas FERGUSON for eb patient transfer consultation. 13:19 connected the hospitalist corrosion control technician for [facility] with Silas FERGUSON for patient transfer eb consultation. 13:41 administrative approval given by Claire Chino RN at the [facility]/ eb patient has been accepted by Dr. Radha V at the [facility]/ patient is going to 22 [address] bed 2247/ report to be called to [phone]. 14:46 Patient transferred, IV remains in place. ls4 Administered Medications: 11:37 Drug: morphine 4 mg Route: IVP; Site: right hand; ls4 12:01 Follow up: Response: No adverse reaction; Marked relief of symptoms ls4 11:37 Drug: Zofran 4 mg Route: IVP; Site: right hand; ls4 12:01 Follow up: Response: No adverse reaction; Marked relief of symptoms ls4 14:35 Drug: morphine 4 mg Route: IVP; Site: right hand; ls4 14:42 Follow up: Response: No adverse reaction; Marked relief of symptoms ls4 Outcome: 12:56 ER care complete, transfer ordered by MD. heath 14:45 Transferred by ground EMS to [facility], Transfer form completed. ls4 X-rays sent w/ patient. 14:45 Transferred Note: report called to Damaso Azul RN 14:45 Condition: stable 14:45 Discharge instructions given to EMS. 14:46 Patient left the ED. ls4 Signatures: Dispatcher [employer] EDMS Silas Traore PA PA jmm Rivera, Mary mr Peñaloza, Vanessa Osullivan, RN RN tw2 Jen Negrete Lisa RN RN ls4
[2019-04-19 15:54] VITALS: BP 116/68; TEMP 98.3; O2SAT 100
== END 2019-04-19 14:46 | disposition short-term general hospital (02) ==
LOC: ER 09:32
DX: M54.31 Sciatica, right side (principal); R32 Unspecified urinary incontinence; F17.210 Nicotine dependence, cigarettes, uncomplicated
CPT/HCPCS: 36415; 72148; 74176; 76377; 80053; 85025; 96374; 96375; 99285; J2405

== ENCOUNTER 2019-05-25 21:13 | Emergency (ER) | payer SELFPAY ==
--- OUTSIDE RECORDS SUMMARY | 2019-05-25 21:15 | XMS REPORT | Clinical Summary ---
:1965 Author Organization [facility] Address [address] [place] [address] Care Team Providers Name Role Phone Unavailable Primary Care Provider Unavailable Allergies No Known Allergies Medications Medication Sig Dispensed Refills Start Date End Date Status lidocaine Place 1 patch 30 patch 0 04/26/2019 Active (LIDODERM) 5 % onto the skin 9 patch daily for 30 days Remove & Discard patch within 12 hours or as directed by MD. bisacodyl Take 1 tablet (5 30 tablet 0 04/26/2019 Active (DULCOLAX) 5 mg EC mg total) by 9 tablet mouth daily as needed for Constipation for up to 30 days. acetaminophen Take 500 mg by 0 Discontinued (TYLENOL) 325 mg mouth 4 (four) 9 CapIndications: times daily as Arthritic Pain, needed. back pain naproxen Take 220 mg by 0 Discontinued (ALEVE,ANAPROX,MID mouth 3 (three) 9 OL) 220 MG tablet times daily with meals. HYDROcodone-acetam Take 1 tablet by 30 tablet 0 04/26/2019 Discontinued inophen (NORCO mouth every 6 9 10-325) 10-325 mg (six) hours as per tablet needed for up to 10 days. Max Daily Amount: 4 tablets oxyCODONE-acetamin Take 1 tablet by 30 tablet 0 04/26/2019 ophen (PERCOCET) mouth every 6 9 10-325 mg per (six) hours as tablet needed for Pain for up to 10 days. Max Daily Amount: 4 tablets Active Problems Problem Noted Date Back pain 04/20/2019 Lumbosacral disc herniation 04/19/2019 Acute pain 04/19/2019 Radiculopathy 04/19/2019 ADHD 04/19/2019 Encounters Date Type Specialty Care Team Description 04/25/2019 Anesthesia Event Loraine Christianson, HEATER TENDER 04/25/2019 Surgery Eliu Dennis LAMINECTOMY,LUMBAR MD Sanchez W/DISCECTOMY 04/19/2019 - Hospital Encounter General Internal Kiko Garcia Lumbosacral disc 04/26/2019 Medicine Pillo HANNAH MD herniation (Primary Yudy, Yashash D Dx) Albina Hernández MD 04/19/2019 Travel after 05/24/2018 Social History Tobacco Use Types Packs/Day Years Used Date Never Smoker Alcohol Use Drinks/Week oz/Week Comments No Alcohol Habits Answer Date Recorded How often do you have a drink containing alcohol? Never 04/19/2019 How many drinks containing alcohol do you have on a typical Not asked day when you are drinking? How often do you have six or more drinks on one occasion? Not asked Sex Assigned at Date Recorded Not on file Job Start Date Occupation Industry Not on file Not on file Not on file Travel History Travel Start Travel End No recent travel history available. Last Filed Vital Signs Vital Sign Reading Time Taken Blood Pressure 122/65 04/26/2019 7:48 AM CDT Pulse 86 04/26/2019 7:48 AM CDT Temperature 36.6 C (97.9 F) 04/26/2019 7:48 AM CDT Respiratory Rate 18 04/26/2019 7:48 AM CDT Oxygen Saturation 95% 04/26/2019 7:48 AM CDT Inhaled Oxygen Concentration - - Weight 95.3 kg (210 lb) 04/19/2019 5:00 PM CDT Height 177.8 cm (5' 10") 04/19/2019 5:00 PM CDT Body Mass Index 30.13 04/19/2019 5:00 PM CDT Plan of Treatment Not on file Procedures Procedure Name Priority Date/Time Associated Comments Diagnosis CBC W/PLT COUNT & Routine 04/26/2019 6:31 Results for this AUTO DIFFERENTIAL AM CDT procedure are in the results section. PHOSPHORUS Routine 04/26/2019 6:31 Results for this AM CDT procedure are in the results section. MAGNESIUM Routine 04/26/2019 6:31 Results for this AM CDT procedure are in the results section. BASIC METABOLIC PANEL Routine 04/26/2019 6:31 Results for this (7) AM CDT procedure are in the results section. CBC W/PLT COUNT & Routine 04/26/2019 6:31 Results for this AUTO DIFFERENTIAL AM CDT procedure are in the results section. TRANSFUSION SERVICE 04/25/2019 6:04 REPORT - SCAN PM CDT NEEDLE EMG, 2 Routine 04/25/2019 5:38 Results for this EXTREMITY PM CDT procedure are in the results section. FL MANAGER ASSET MANAGEMENT IN OR 30 Routine 04/25/2019 5:20 Results for this MINUTE INCREMENTS PM CDT procedure are in the results section. TISSUE EXAM AP Routine 04/25/2019 4:27 Results for this PM CDT procedure are in the results section. PROCEDURE W/ C-ARM 04/25/2019 3:43 Radicular syndrome PM CDT of right leg Case Notes 2-3 HRS Special Needs (NO ICU BED NEEDED, REG OR TABLE, JOSE FRAME, MICROSCOPE, C-ARM)) LAMINECTOMY,LUMBAR W/DISCECTOMY 04/25/2019 3:43 PM CDT Radicular syndrome of right leg Case Notes 2-3 HRS Special Needs (NO ICU BED NEEDED, REG OR TABLE, JOSE FRAME, MICROSCOPE, C-ARM)) ABORH, MANUAL STAT 04/24/2019 3:26 PM CDT CBC W/PLT COUNT & AUTO Routine 04/24/2019 1:05 PM CDT Results for this DIFFERENTIAL procedure are in the results section. TYPE AND SCREEN, AUTOMATED Routine 04/24/2019 1:05 PM CDT PT/APTT Routine 04/24/2019 1:05 PM CDT PHOSPHORUS Routine 04/24/2019 1:05 PM CDT MAGNESIUM Routine 04/24/2019 1:05 PM CDT CBC W/PLT COUNT & AUTO Routine 04/24/2019 1:05 PM CDT Results for this DIFFERENTIAL procedure are in the results section. BASIC METABOLIC PANEL (7) Routine 04/24/2019 1:05 PM CDT LIPID PANEL Routine 04/23/2019 5:33 AM CDT ECG 12-LEAD Routine 04/22/2019 6:01 PM CDT TROPONIN I Routine 04/22/2019 5:11 PM CDT ECG 12-LEAD STAT 04/22/2019 11:34 AM CDT CREATINE KINASE (CK) Routine 04/22/2019 11:00 AM CDT TROPONIN I Routine 04/22/2019 11:00 AM CDT CBC W/PLT COUNT & AUTO Routine 04/22/2019 4:29 AM CDT Results for this DIFFERENTIAL procedure are in the results section. CBC W/PLT COUNT & AUTO Routine 04/22/2019 4:29 AM CDT Results for this DIFFERENTIAL procedure are in the results section. BASIC METABOLIC PANEL (7) Routine 04/22/2019 4:29 AM CDT CBC W/PLT COUNT & AUTO Routine 04/21/2019 5:41 AM CDT Results for this DIFFERENTIAL procedure are in the results section. CBC W/PLT COUNT & AUTO Routine 04/21/2019 5:41 AM CDT Results for this DIFFERENTIAL procedure are in the results section. BASIC METABOLIC PANEL (7) Routine 04/21/2019 5:41 AM CDT MR SPINE LUMBAR WITHOUT IV JARVIS 04/20/2019 7:01 PM CDT Results for this CONTRAST procedure are in the results section. CBC W/PLT COUNT & AUTO Routine 04/20/2019 3:42 AM CDT Results for this DIFFERENTIAL procedure are in the results section. CBC W/PLT COUNT & AUTO Routine 04/20/2019 3:42 AM CDT Results for this DIFFERENTIAL procedure are in the results section. BASIC METABOLIC PANEL (7) Routine 04/20/2019 3:42 AM CDT PROTHROMBIN TIME/INR Routine 04/19/2019 6:50 PM CDT after 05/24/2018 Results CBC with platelet count + automated diff (04/26/2019 6:31 AM CDT)Only the most recent of5 resultswithin the time period is included. WBC 7.3 3.5 - 10.5 K/L [facility] RBC 4.31 (L) 4.63 - 6.08 M/L [facility] Hemoglobin 13.2 (L) 13.7 - 17.5 GM/DL [facility] Hematocrit 40.3 40.1 - 51.0 % [facility] MCV 93.5 (H) 79.0 - 92.2 fL [facility] MCH 30.6 25.7 - 32.2 pg [facility] MCHC 32.8 32.3 - 36.5 GM/DL [facility] RDW 12.3 11.6 - 14.4 % [facility] Platelets 161 150 - 450 K/CU MM [facility] MPV 10.2 9.4 - 12.4 fL [facility] nRBC 0 0 - 0 /100 WBC [facility] % Neutros 86 % [facility] % Lymphs 7 % [facility] % Monos 6 % [facility] % Eos 0 % [facility] % Baso 0 % [facility] # Neutros 6.31 (H) 1.78 - 5.38 K/L [facility] # Lymphs 0.53 (L) 1.32 - 3.57 K/L [facility] # Monos 0.46 0.30 - 0.82 K/L [facility] # Eos 0.00 (L) 0.04 - 0.54 K/L [facility] # Baso 0.00 (L) 0.01 - 0.08 K/L [facility] Immature Granulocytes-Relative 0 0 - 1 % [facility] Specimen Blood Performing Organization Address City/State/Zipcode Phone Number [facility] [address] [place] [address] [phone] CENTER Phosphorus (04/26/2019 6:31 AM CDT)Only the most recent of2 resultswithin the time period is included. Phosphorus 2.8 2.3 - 4.7 mg/dL [facility] Specimen Blood Performing Organization Address City/[facility] Phone Number [address] [address] [phone] CENTER Magnesium (04/26/2019 6:31 AM CDT)Only the most recent of2 resultswithin the time period is included. Magnesium 2.2 1.6 - 2.6 mg/dL [facility] Specimen Blood Performing Organization Address [facility] Phone Number [address] [address] CENTER Basic Metabolic Panel (04/26/2019 6:31 AM CDT)Only the most recent of5 resultswithin the time period is included. Sodium 136 136 - 145 meq/L [facility] Potassium 4.1 3.5 - 5.1 meq/L [facility] Chloride 106 98 - 107 meq/L [facility] CO2 23 22 - 29 meq/L [facility] BUN 19 7 - 21 mg/dL [facility] Creatinine 1.08 0.57 - 1.25 mg/dL [facility] Glucose 179 (H) 70 - 105 mg/dL [facility] Calcium 8.6 8.4 - 10.2 mg/dL [facility] EGFR 71Comment: ESTIMATED GFR IS mL/min/1.[address] [facility] NOT ACCURATE CREATININE [facility] CENTER CLEARANCE IN PREDICTING GLOMERULAR FILTRATION RATE. ESTIMATED GFR IS NOT APPLICABLE FOR DIALYSIS PATIENTS. Specimen Blood Performing Organization Address City/[facility] Cent[facility]ode Phone Number [address] [address] CENTER TRANSFUSION SERVICE REPORT - SCAN (04/25/2019 6:04 PM CDT) Narrative Performed At NEEDLE EMG, 2 EXTREMITY (04/25/2019 5:38 PM CDT) Specimen Narrative Performed At [facility] INTRAOPERATIVE MONITORING REPORT Patient Name: Martin Napoles [facility], [place], [place] Surgery Date: 04/25/2019 Ideapod Pro: [id number] Monitoring began at 1547 and ended at 1738 Surgeon: Eliu Dennis M.D. Examining Physician: Lynda Goss M.D. Monitoring Technologist: ALEX Nascimento Procedure: Laminectomy L5-S1 Recording Parameters: Free-running and triggered EMG of left and right Vastus lateralis (L2-4), Tibialis Anterior (L4-5) , and Lateral Gastrocnemius (L5-S2) Description: Intraoperative neurophysiological monitoring was performed using free-running EMG of L2-S2 innervated muscle groups. Free-running EMG of L2-S2 innervated muscle group was monitored continuously throughout the operative procedure with no sustained neurotonic discharges seen. Conclusion: . The absence of sustained neurotonic discharges on free-running EMG suggests that the nerve roots monitored remained undisturbed. Lynda Goss M.D. M51.27 Procedure Note Interface, External Ris In - 04/29/2019 9:16 AM CDT INTRAOPERATIVE MONITORING REPORT Patient Name: Martin Napoles [facility], [place], [place] Surgery Date: 04/25/2019 Ideapod Pro: [id number] Monitoring began at 1547 and ended at 1738 Surgeon: Eliu Dennis M.D. Examining Physician: Lynda Goss M.D. Monitoring Technologist: ALEX Nascimento Procedure: Laminectomy L5-S1 Recording Parameters: Free-running and triggered EMG of left and right Vastus lateralis (L2-4), Tibialis Anterior (L4-5) , and Lateral Gastrocnemius (L5-S2) Description: Intraoperative neurophysiological monitoring was performed using free-running EMG of L2-S2 innervated muscle groups. Free-running EMG of L2-S2 innervated muscle group was monitored continuously throughout the operative procedure with no sustained neurotonic discharges seen. Conclusion: . The absence of sustained neurotonic discharges on free-running EMG suggests that the nerve roots monitored remained undisturbed. Lynda Goss M.D. M51.27 Performing Organization Address [facility] Cent[facility]out Phone Number [facility] [place] trade mark examiner in or 30 minute increments (04/25/2019 5:20 PM CDT) Specimen Narrative Performed At PROCEDURE PERFORMED IN O.R. - PLEASE REFER TO THE INTRAOPERATIVE GE RIS REPORT. Procedure Note Interface, External Ris In - 05/02/2019 1:38 PM CDT PROCEDURE PERFORMED IN O.R. - PLEASE REFER TO THE INTRAOPERATIVE REPORT. Performing Organization Address [facility] Phone Number [facility] Tissue Exam (04/25/2019 4:27 PM CDT) Case Report Surgical Pathology Report Case: [id number] [facility] Authorizing Provider:Eliu Dennis MDCollected: 04/25/[address] [place] [address] Ordering Location: [facility] PERIOPERATIVE Received: 04/26/2019 1011 SERVICES Pathologist: Rasheed Champagne MD Specimen:Disc L5-S1 DIAGNOSIS VERTEBRAL COLUMN, INTERVERTEBRAL DISC, L5-S1, DISCECTOMY: [facility] FRAGMENTS OF FIBROCARTILAGE WITH MILD DEGENERATIVE CHANGES [facility] Signing Pathologist Direct Phone Line: [phone] CPT Code(s) 36095; 60899 [facility] GROSS DESCRIPTION The specimen is received in [facility] a single container with [facility] another smaller container within that container. Both specimens consist of off-white disc fragments, which are submitted entirely in cassette A1. The specimen measures 2.9 x 1.3 x 0.8 cm in aggregate. ?/ew MICROSCOPIC DESCRIPTION Performed [facility] Specimen Tissue Performing Organization Address City/[facility]/Zipcode Phone Number [facility] [address] [place] [phone] CENTER ABORH, manual (04/24/2019 3:26 PM CDT) ABO Grouping O [facility] Rh Factor POS [facility] Specimen Blood Performing Organization Address [facility]/Zipcode Phone Number [address] [address] Type and screen, automated (04/24/2019 1:05 PM CDT) ABO/RH AUTOMATED (BEAKER) O POSITIVE [facility] Ab Scrn NEGATIVE [facility] Specimen Blood Performing Organization Address [facility] Centercode Phone Number [address] [phone] PT/aPTT (04/24/2019 1:05 PM CDT) Protime 12.9 11.7 - 14.7 seconds [facility] INR 1.0 <=5.9 [facility] PTT 30.9 22.5 - 36.0 seconds [facility] Specimen Blood Narrative Performed At RECOMMENDED COUMADIN/WARFARIN INR THERAPY [facility] RANGES STANDARD DOSE: 2.0 - 3.0 Includes: PROPHYLAXIS for venous thrombosis, systemic embolization; TREATMENT for venous thrombosis and/or pulmonary embolus. HIGH RISK: Target INR is 2.5-3.5 for patients with mechanical heart valves. Performing Organization Address [facility]/Zipcode Phone Number [address] [address] CENTER Lipid panel (04/23/2019 5:33 AM CDT) Triglycerides 128 mg/dL [facility] Cholesterol 159 mg/dL [facility] HDL 37 mg/dL [facility] LDL Calculated 96 mg/dL [facility] Specimen Blood Narrative Performed At Triglyceride Reference Range: [facility] Low Risk <150 [id number] High Risk 200-499 Very High Risk>=500 Cholesterol Reference Range: Low Risk <200 [id number] High Risk>240 HDL Cholesterol Reference Range: Low Risk >=60 High Risk <40 LDL Cholesterol Reference Range: Optimal<100 Near Kxoqast555-286 Uhwjncpesc024-297 Iqjh894-738 Very High >=190 Performing Organization Address City/[facility] Cent[facility]out Phone Number [facility] [address] [place] [address] [phone] CENTER EKG 12-LEAD (04/22/2019 6:01 PM CDT)Only the most recent of2 resultswithin the time period is included. Specimen Narrative Performed At Ventricular Rate 63 BPM GE MUSE Atrial Rate 63 BPM P-R Interval 150 ms QRS Duration 100 ms Q-T Interval 396 ms QTC Calculation(Bazett) 405 ms P [place] 54 degrees R [place] 36 degrees [place] -5 degrees Normal sinus rhythm Normal ECG When compared with ECG of 22-APR-2019 11:34, Inverted T waves have replaced nonspecific T wave abnormality inlead III Confirmed by MD WRIGHT YOCHAI ([id number]) on 04/24/2019 9:30:16 AM Procedure Note Interface, External Ris In - 04/24/2019 9:30 AM CDT Ventricular Rate 63 BPM Atrial Rate 63 BPM P-R Interval 150 ms QRS Duration 100 ms Q-T Interval 396 ms QTC Calculation(Bazett) 405 ms P [place] 54 degrees R [place] 36 degrees T [place] -5 degrees Normal sinus rhythm Normal ECG When compared with ECG of 22-APR-2019 11:34, Inverted T waves have replaced nonspecific T wave abnormality in lead III Confirmed by MD WRIGHT YOCHAI ([id number]) on 04/24/2019 9:30:16 AM Performing Organization Address City/[facility] Centercode Phone Number [employer] [facility] Troponin I (04/22/2019 5:11 PM CDT)Only the most recent of2 resultswithin the time period is included. Troponin I <0.01 0.00 - 0.03 ng/mL [facility] Specimen Blood Narrative Performed At Troponin I (TnI) levels must be interpreted [facility] in the context of the presenting symptoms and the clinical findings. Elevated TnI levels indicate myocardial damage, but are not specific for ischemic heart disease. Elevated TnI levels are seen in patients with other cardiac conditions (including myocarditis and congestive heart failure), and slight TnI elevations occur in patients with other conditions, including sepsis, renal failure, acidosis, acute neurological disease, and persistent tachyarrhythmia. Performing Organization Address City/[facility]/Zipcode Phone Number [address] [phone] [place] Creatine Kinase (CK) (04/22/2019 11:00 AM CDT) Total CK 71 29 - 200 U/L [facility] Specimen Blood Performing Organization Address City/[facility]/Zipcode Phone Number [address] [address] [phone] [place] MR spine lumbar without IV contrast (04/20/2019 7:01 PM CDT) Specimen Narrative Performed At FINAL REPORT [employer] INDICATION: Herniated lumbar discs.. COMPARISON: None. TECHNIQUE: MRI exam of the lumbar spine WITHOUT intravenous contrast. FINDINGS: There is a disc herniation at L5. Intervertebral disc spaces are maintained and no degenerative endplate edema is demonstrated. No fracture or suspicious marrow replacing lesion. Lumbar lordotic curvature and alignment are normal. The conus is located at the L1 level and is normal in morphology and signal. L5-S1: There is a central / right paracentral and lateral recess disc herniation measuring 2.5 cm along the circumference of the disc and measuring 8 mm AP and 16 mm CC. This disc herniation displaces the right S1 nerve root. Right posterior disc space loss, endplate spurring, and facet arthropathy result in severe right foraminal narrowing. The same on the left results in moderate left foraminal narrowing. L4-L5: There is a posterior central annular tear with a small broad-based disc bulge. Disc space is preserved and no significant endplate spurring or facet arthropathy. Foraminal narrowing is mild bilaterally. L3-L4: Unremarkable. L2-L3: Unremarkable. L1-L2: Unremarkable. T12-L1: Unremarkable. IMPRESSION: L5-S1 disc herniation displacing the right S1 nerve root. There is severe right and moderate left foraminal narrowing at this level. Signed: Jessica Syed MD Report Verified Date/Time:04/20/2019 21:50:08 Reading Location: [facility] [id number] Consult Reading Room Procedure Note Interface, External Ris In - 04/20/2019 9:52 PM CDT FINAL REPORT INDICATION: Herniated lumbar discs.. COMPARISON: None. TECHNIQUE: MRI exam of the lumbar spine WITHOUT intravenous contrast. FINDINGS: There is a disc herniation at L5. Intervertebral disc spaces are maintained and no degenerative endplate edema is demonstrated. No fracture or suspicious marrow replacing lesion. Lumbar lordotic curvature and alignment are normal. The conus is located at the L1 level and is normal in morphology and signal. L5-S1: There is a central / right paracentral and lateral recess disc herniation measuring 2.5 cm along the circumference of the disc and measuring 8 mm AP and 16 mm CC. This disc herniation displaces the right S1 nerve root. Right posterior disc space loss, endplate spurring, and facet arthropathy result in severe right foraminal narrowing. The same on the left results in moderate left foraminal narrowing. L4-L5: There is a posterior central annular tear with a small broad-based disc bulge. Disc space is preserved and no significant endplate spurring or facet arthropathy. Foraminal narrowing is mild bilaterally. L3-L4: Unremarkable. L2-L3: Unremarkable. L1-L2: Unremarkable. T12-L1: Unremarkable. IMPRESSION: L5-S1 disc herniation displacing the right S1 nerve root. There is severe right and moderate left foraminal narrowing at this level. Signed: Jessica Syed MD Report Verified Date/Time: 04/20/2019 21:50:08 Reading Location: [facility] B1 [id number] Consult Reading Room Performing Organization Address City/State/Zipcode Phone Number [facility] Prothrombin time/INR (04/19/2019 6:50 PM CDT) Protime 13.8 11.7 - 14.7 seconds [facility] INR 1.1 <=5.9 [facility] Specimen Blood Narrative Performed At RECOMMENDED COUMADIN/WARFARIN INR THERAPY [facility] RANGES STANDARD DOSE: 2.0 - 3.0 Includes: PROPHYLAXIS for venous thrombosis, systemic embolization; TREATMENT for venous thrombosis and/or pulmonary embolus. HIGH RISK: Target INR is 2.5-3.5 for patients with mechanical heart valves. Performing Organization Address [facility] Centercode Phone Number [address] [phone] CENTER after 05/24/2018 Advance Directives For more information, please contact:[address] [phone] Code Status Date Activated Date Inactivated Comments Full Code 04/25/2019 10:03 AM 04/26/2019 12:54 PM This code status was determined by: Patient
--- OUTSIDE RECORDS SUMMARY | 2019-05-25 21:16 | XMS REPORT ---
:1965 [facility] Address [address] [place] [address] [address] Care Team Providers Name Role Phone BETH HAWKINS Unavailable Unavailable Problems This patient has no known problems. Allergies, Adverse Reactions, Alerts This patient has no known allergies or adverse reactions. Medications This patient has no known medications. Results Test Description Test Time Test Comments Text Results Atomic Results Result Comments TISSUE EXAM 2019-05-04 Surgical Pathology Report 12:46:00 Case: [id number] Authorizing Provider: Eliu Dennis MD Collected: 04/25/2019 1627 Ordering Location: [facility] PERIOPERATIVE Received: 04/26/2019 1011 SERVICES Pathologist: Rasheed Champagne MD Specimen: Disc L5-S1 VERTEBRAL COLUMN, INTERVERTEBRAL DISC, L5-S1, DISCECTOMY:FRAGMENTS OF FIBROCARTILAGE WITH MILD DEGENERATIVE CHANGES Signing Pathologist Direct Phone Line: [phone] signed by Rasheed Champagne MD on 05/04/2019 at 12:46 [id number]; [id number] specimen is received in a single container with another smaller container within that container. Both specimens consist of off-white disc fragments, which are submitted entirely in cassette A1. The specimen measures 2.9 x 1.3 x 0.8 cm in aggregate. ?/ewPerformed CO, [facility] IN 2019-05-02 Reason for PROCEDURE PERFORMED IN O.R. - OR/30 MINUTE 13:38:00 exam:->PAIN PLEASE REFER TO THE INCREMENTS INTRAOPERATIVE REPORT. LE EMG, 2 2019-04-29 INTRAOPERATIVE MONITORING EXTREMITY 09:16:00 REPORT Patient Name: Estefani Mancini [facility], [place], [place] Surgery Date: 04/25/2019 [place] Pro: [id number] Monitoring began at 1547 and ended at [...] nerve roots monitored remained undisturbed. Lynda Goss M.D.[id number] PHORUS 2019-04-26 07:26:00 Test Item Value Reference Range Comments PHOSPHORUS (BEAKER) (test ywpk=048) 2.8 mg/dL 2.3-4.7 [id number] 07:26:00 Test Item Value Reference Range Comments MAGNESIUM (BEAKER) (test wxfh=096) 2.2 mg/dL 1.6-2.6 BASIC METABOLIC [id number] 07:26:00 Test Item Value Reference Range Comments SODIUM (BEAKER) (test 136 meq/L 136-145 opqu=006) POTASSIUM (BEAKER) (test 4.1 meq/L 3.5-5.1 fvvq=259) CHLORIDE (BEAKER) (test 106 meq/L 98-107 mmvs=829) CO2 (BEAKER) (test 23 meq/L 22-29 gycl=912) BLOOD UREA NITROGEN 19 mg/dL 7-21 (BEAKER) (test knfv=386) CREATININE (BEAKER) (test 1.08 mg/dL 0.57-1.25 nkac=648) GLUCOSE RANDOM (BEAKER) 179 mg/dL 70-105 (test peko=948) CALCIUM (BEAKER) (test 8.6 mg/dL 8.4-10.2 tkqr=930) EGFR (BEAKER) (test 71 mL/min/1.73 sq m ESTIMATED GFR IS NOT rksu=6449) ACCURATE CREATININE CLEARANCE IN PREDICTING GLOMERULAR FILTRATION RATE. ESTIMATED GFR IS NOT APPLICABLE FOR DIALYSIS PATIENTS. CBC W/PLT COUNT & AUTO [id number] 07:05:00 Test Item Value Reference Range Comments WHITE BLOOD CELL COUNT (BEAKER) (test mebt=509) 7.3 K/ L 3.5-10.5 RED BLOOD CELL COUNT (BEAKER) (test sbhq=025) 4.31 M/ L 4.63-6.08 HEMOGLOBIN (BEAKER) (test ajdv=938) 13.2 GM/DL 13.7-17.5 HEMATOCRIT (BEAKER) (test gczb=698) 40.3 % 40.1-51.0 MEAN CORPUSCULAR VOLUME (BEAKER) (test sehz=427) 93.5 fL 79.0-92.2 MEAN CORPUSCULAR HEMOGLOBIN (BEAKER) (test 30.6 pg 25.7-32.2 gxbo=773) MEAN CORPUSCULAR HEMOGLOBIN CONC (BEAKER) (test 32.8 GM/DL 32.3-36.5 mkdx=026) RED CELL DISTRIBUTION WIDTH (BEAKER) (test 12.3 % 11.6-14.4 ffrp=090) PLATELET COUNT (BEAKER) (test ujvc=268) 161 K/CU MM 150-450 MEAN PLATELET VOLUME (BEAKER) (test kyzw=806) 10.2 fL 9.4-12.4 NUCLEATED RED BLOOD CELLS (BEAKER) (test 0 /100 WBC 0-0 guwz=581) NEUTROPHILS RELATIVE PERCENT (BEAKER) (test 86 % bxdu=933) LYMPHOCYTES RELATIVE PERCENT (BEAKER) (test 7 % ialf=126) MONOCYTES RELATIVE PERCENT (BEAKER) (test 6 % atrz=851) EOSINOPHILS RELATIVE PERCENT (BEAKER) (test 0 % bbpa=170) BASOPHILS RELATIVE PERCENT (BEAKER) (test 0 % fahi=866) NEUTROPHILS ABSOLUTE COUNT (BEAKER) (test 6.31 K/ L 1.78-5.38 glca=397) LYMPHOCYTES ABSOLUTE COUNT (BEAKER) (test 0.53 K/ L 1.32-3.57 swwz=785) MONOCYTES ABSOLUTE COUNT (BEAKER) (test 0.46 K/ L 0.30-0.82 pbhn=775) EOSINOPHILS ABSOLUTE COUNT (BEAKER) (test 0.00 K/ L 0.04-0.54 pmrb=025) BASOPHILS ABSOLUTE COUNT (BEAKER) (test 0.00 K/ L 0.01-0.08 yyac=939) IMMATURE GRANULOCYTES-RELATIVE PERCENT (BEAKER) 0 % 0-1 (test oczc=1264) [id number] 14:04:00 Test Item Value Reference Range Comments PHOSPHORUS (BEAKER) (test sckl=958) 3.5 mg/dL 2.3-4.7 [id number] 14:04:00 Test Item Value Reference Range Comments MAGNESIUM (BEAKER) (test lsmg=040) 2.1 mg/dL 1.6-2.6 BASIC METABOLIC [id number] 14:04:00 Test Item Value Reference Range Comments SODIUM (BEAKER) (test 136 meq/L 136-145 etnm=784) POTASSIUM (BEAKER) (test 4.2 meq/L 3.5-5.1 pkhy=705) CHLORIDE (BEAKER) (test 103 meq/L 98-107 timp=378) CO2 (BEAKER) (test 27 meq/L 22-29 rzxd=694) BLOOD UREA NITROGEN 16 mg/dL 7-21 (BEAKER) (test wxjw=197) CREATININE (BEAKER) (test 0.82 mg/dL 0.57-1.25 hasv=256) GLUCOSE RANDOM (BEAKER) 100 mg/dL 70-105 (test aopo=911) CALCIUM (BEAKER) (test 9.3 mg/dL 8.4-10.2 lczp=225) EGFR (BEAKER) (test 98 mL/min/1.73 sq m ESTIMATED GFR IS NOT djaq=2845) ACCURATE CREATININE CLEARANCE IN PREDICTING GLOMERULAR FILTRATION RATE. ESTIMATED GFR IS NOT APPLICABLE FOR DIALYSIS PATIENTS. [id number] 13:39:00 Test Item Value Reference Range Comments PROTIME (BEAKER) (test cxle=031) 12.9 seconds 11.7-14.7 INR (BEAKER) (test qnaq=934) 1.0 <=5.9 PARTIAL THROMBOPLASTIN TIME (BEAKER) (test 30.9 seconds 22.5-36.0 ghou=119) RECOMMENDED COUMADIN/WARFARIN INR THERAPY RANGESSTANDARD DOSE: 2.0 - 3.0 Includes: PROPHYLAXIS forvenous thrombosis, systemic embolization; TREATMENT for venous thrombosis and/or pulmonary embolus.HIGH RISK: Target INR is 2.5-3.5 for patients with mechanical heart valves.CBC W/PLT COUNT & AUTO [id number] 13:34:00 Test Item Value Reference Range Comments WHITE BLOOD CELL COUNT (BEAKER) (test avli=222) 5.7 K/ L 3.5-10.5 RED BLOOD CELL COUNT (BEAKER) (test stxc=432) 4.45 M/ L 4.63-6.08 HEMOGLOBIN (BEAKER) (test xfkk=987) 13.8 GM/DL 13.7-17.5 HEMATOCRIT (BEAKER) (test ftty=227) 41.6 % 40.1-51.0 MEAN CORPUSCULAR VOLUME (BEAKER) (test olnd=476) 93.5 fL 79.0-92.2 MEAN CORPUSCULAR HEMOGLOBIN (BEAKER) (test 31.0 pg 25.7-32.2 kmim=444) MEAN CORPUSCULAR HEMOGLOBIN CONC (BEAKER) (test 33.2 GM/DL 32.3-36.5 lmht=254) RED CELL DISTRIBUTION WIDTH (BEAKER) (test 12.3 % 11.6-14.4 ibcw=665) PLATELET COUNT (BEAKER) (test pbmf=092) 135 K/CU MM 150-450 MEAN PLATELET VOLUME (BEAKER) (test xmgh=732) 10.3 fL 9.4-12.4 NUCLEATED RED BLOOD CELLS (BEAKER) (test 0 /100 WBC 0-0 acok=436) NEUTROPHILS RELATIVE PERCENT (BEAKER) (test 64 % pzmn=243) LYMPHOCYTES RELATIVE PERCENT (BEAKER) (test 20 % vszb=266) MONOCYTES RELATIVE PERCENT (BEAKER) (test 13 % otzt=404) EOSINOPHILS RELATIVE PERCENT (BEAKER) (test 3 % jgvb=294) BASOPHILS RELATIVE PERCENT (BEAKER) (test 0 % apcr=831) NEUTROPHILS ABSOLUTE COUNT (BEAKER) (test 3.68 K/ L 1.78-5.38 osed=550) LYMPHOCYTES ABSOLUTE COUNT (BEAKER) (test 1.13 K/ L 1.32-3.57 cclk=410) MONOCYTES ABSOLUTE COUNT (BEAKER) (test 0.73 K/ L 0.30-0.82 xikj=007) EOSINOPHILS ABSOLUTE COUNT (BEAKER) (test 0.16 K/ L 0.04-0.54 wnee=019) BASOPHILS ABSOLUTE COUNT (BEAKER) (test 0.01 K/ L 0.01-0.08 pnbl=385) IMMATURE GRANULOCYTES-RELATIVE PERCENT (BEAKER) 0 % 0-1 (test rilt=9366) LIPID [id number] 06:34:00 Test Item Value Reference Range Comments TRIGLYCERIDES (BEAKER) (test aotw=514) 128 mg/dL CHOLESTEROL (BEAKER) (test eyak=636) 159 mg/dL HDL CHOLESTEROL (BEAKER) (test auyy=686) 37 mg/dL LDL CHOLESTEROL CALCULATED (BEAKER) (test 96 mg/dL viuc=297) Triglyceride Reference Range: Low Risk <150 Borderline 150- 199 High Risk 200-499 Very High Risk >=500Cholesterol Reference Range: Low Risk <200 Borderline 200-239 High Risk > 240HDL Cholesterol Reference Range: Low Risk >=60 High Risk <40LDL Cholesterol Reference Range: Optimal <100 Near Optimal 100-129 Borderline 130-159 High 160-189 Very High >=190TROPONIN [id number] 18:17:00 Test Item Value Reference Range Comments TROPONIN I (BEAKER) (test bblc=874) < ng/mL 0.00-0.03 Troponin I (TnI) levels must be interpreted in the context of the presenting symptoms and the clinical findings. Elevated TnI levels indicate myocardial damage, but are not specific for ischemic heart disease. Elevated TnI levels are seen in patients with other cardiac conditions (including myocarditis and congestive heart failure), and slight TnI elevations occur in patients with other conditions, including sepsis, renal failure, acidosis, acute neurological disease, and persistent tachyarrhythmia.TROPONIN [id number] 12:14:00 Test Item Value Reference Range Comments TROPONIN I (BEAKER) (test onrf=782) < ng/mL 0.00-0.03 Troponin I (TnI) levels must be interpreted in the context of the presenting symptoms and the clinical findings. Elevated TnI levels indicate myocardial damage, but are not specific for ischemic heart disease. Elevated TnI levels are seen in patients with other cardiac conditions (including myocarditis and congestive heart failure), and slight TnI elevations occur in patients with other conditions, including sepsis, renal failure, acidosis, acute neurological disease, and persistent tachyarrhythmia.CREATINE KINASE (CK)2019-04-22 11:41:00 Test Item Value Reference Range Comments CREATINE KINASE TOTAL (BEAKER) (test pkor=611) 71 U/L 29-200 BASIC METABOLIC [id number] 05:41:00 Test Item Value Reference Range Comments SODIUM (BEAKER) (test 137 meq/L 136-145 xvig=271) POTASSIUM (BEAKER) (test 4.3 meq/L 3.5-5.1 Specimen slightly omwh=310) hemolyzed CHLORIDE (BEAKER) (test 105 meq/L 98-107 eebb=850) CO2 (BEAKER) (test 26 meq/L 22-29 andl=450) BLOOD UREA NITROGEN 21 mg/dL 7-21 (BEAKER) (test bhtr=523) CREATININE (BEAKER) (test 0.85 mg/dL 0.57-1.25 Specimen slightly svcp=925) hemolyzed GLUCOSE RANDOM (BEAKER) 94 mg/dL 70-105 (test qwoc=291) CALCIUM (BEAKER) (test 9.6 mg/dL 8.4-10.2 pzdt=343) EGFR (BEAKER) (test 94 mL/min/1.73 sq m ESTIMATED GFR IS NOT mmmt=0459) ACCURATE CREATININE CLEARANCE IN PREDICTING GLOMERULAR FILTRATION RATE. ESTIMATED GFR IS NOT APPLICABLE FOR DIALYSIS PATIENTS. CBC W/PLT COUNT & AUTO [id number] 05:13:00 Test Item Value Reference Range Comments WHITE BLOOD CELL COUNT (BEAKER) (test htcj=828) 6.4 K/ L 3.5-10.5 RED BLOOD CELL COUNT (BEAKER) (test iraa=691) 4.80 M/ L 4.63-6.08 HEMOGLOBIN (BEAKER) (test oiuj=552) 14.7 GM/DL 13.7-17.5 HEMATOCRIT (BEAKER) (test lpwo=058) 44.9 % 40.1-51.0 MEAN CORPUSCULAR VOLUME (BEAKER) (test rqgy=307) 93.5 fL 79.0-92.2 MEAN CORPUSCULAR HEMOGLOBIN (BEAKER) (test 30.6 pg 25.7-32.2 hnqa=617) MEAN CORPUSCULAR HEMOGLOBIN CONC (BEAKER) (test 32.7 GM/DL 32.3-36.5 eiup=640) RED CELL DISTRIBUTION WIDTH (BEAKER) (test 12.7 % 11.6-14.4 gire=640) PLATELET COUNT (BEAKER) (test chej=546) 143 K/CU MM 150-450 MEAN PLATELET VOLUME (BEAKER) (test zhhf=173) 10.2 fL 9.4-12.4 NUCLEATED RED BLOOD CELLS (BEAKER) (test 0 /100 WBC 0-0 vkmv=334) NEUTROPHILS RELATIVE PERCENT (BEAKER) (test 64 % thtk=079) LYMPHOCYTES RELATIVE PERCENT (BEAKER) (test 24 % favi=958) MONOCYTES RELATIVE PERCENT (BEAKER) (test 10 % xeyn=696) EOSINOPHILS RELATIVE PERCENT (BEAKER) (test 2 % tbvy=636) BASOPHILS RELATIVE PERCENT (BEAKER) (test 0 % ytku=874) NEUTROPHILS ABSOLUTE COUNT (BEAKER) (test 4.09 K/ L 1.78-5.38 plzf=936) LYMPHOCYTES ABSOLUTE COUNT (BEAKER) (test 1.51 K/ L 1.32-3.57 snar=198) MONOCYTES ABSOLUTE COUNT (BEAKER) (test 0.61 K/ L 0.30-0.82 bxrp=052) EOSINOPHILS ABSOLUTE COUNT (BEAKER) (test 0.13 K/ L 0.04-0.54 mdag=452) BASOPHILS ABSOLUTE COUNT (BEAKER) (test 0.02 K/ L 0.01-0.08 egvb=874) IMMATURE GRANULOCYTES-RELATIVE PERCENT (BEAKER) 0 % 0-1 (test jgxk=8752) BASIC METABOLIC [id number] 06:59:00 Test Item Value Reference Range Comments SODIUM (BEAKER) (test 137 meq/L 136-145 xdwy=391) POTASSIUM (BEAKER) (test 4.2 meq/L 3.5-5.1 ooqh=161) CHLORIDE (BEAKER) (test 107 meq/L 98-107 hipy=206) CO2 (BEAKER) (test 23 meq/L 22-29 krqr=000) BLOOD UREA NITROGEN 24 mg/dL 7-21 (BEAKER) (test aacv=314) CREATININE (BEAKER) (test 0.79 mg/dL 0.57-1.25 uuqu=202) GLUCOSE RANDOM (BEAKER) 99 mg/dL 70-105 (test glcr=649) CALCIUM (BEAKER) (test 9.1 mg/dL 8.4-10.2 bsvj=684) EGFR (BEAKER) (test 102 mL/min/1.73 sq m ESTIMATED GFR IS NOT pzmp=3542) ACCURATE CREATININE CLEARANCE IN PREDICTING GLOMERULAR FILTRATION RATE. ESTIMATED GFR IS NOT APPLICABLE FOR DIALYSIS PATIENTS. CBC W/PLT COUNT & AUTO [id number] 06:58:00 Test Item Value Reference Range Comments WHITE BLOOD CELL COUNT (BEAKER) (test kwua=904) 7.0 K/ L 3.5-10.5 RED BLOOD CELL COUNT (BEAKER) (test yniy=680) 4.91 M/ L 4.63-6.08 HEMOGLOBIN (BEAKER) (test atvu=816) 15.1 GM/DL 13.7-17.5 HEMATOCRIT (BEAKER) (test lwsy=292) 46.5 % 40.1-51.0 MEAN CORPUSCULAR VOLUME (BEAKER) (test jdty=433) 94.7 fL 79.0-92.2 MEAN CORPUSCULAR HEMOGLOBIN (BEAKER) (test 30.8 pg 25.7-32.2 tafa=645) MEAN CORPUSCULAR HEMOGLOBIN CONC (BEAKER) (test 32.5 GM/DL 32.3-36.5 kdyq=379) RED CELL DISTRIBUTION WIDTH (BEAKER) (test 12.7 % 11.6-14.4 xsij=595) PLATELET COUNT (BEAKER) (test yphv=952) 133 K/CU MM 150-450 MEAN PLATELET VOLUME (BEAKER) (test vsks=533) 10.2 fL 9.4-12.4 NUCLEATED RED BLOOD CELLS (BEAKER) (test 0 /100 WBC 0-0 uneq=529) NEUTROPHILS RELATIVE PERCENT (BEAKER) (test 68 % xxdb=162) LYMPHOCYTES RELATIVE PERCENT (BEAKER) (test 19 % wsqg=117) MONOCYTES RELATIVE PERCENT (BEAKER) (test 10 % dlps=193) EOSINOPHILS RELATIVE PERCENT (BEAKER) (test 2 % aief=731) BASOPHILS RELATIVE PERCENT (BEAKER) (test 0 % eudj=509) NEUTROPHILS ABSOLUTE COUNT (BEAKER) (test 4.74 K/ L 1.78-5.38 ebuk=688) LYMPHOCYTES ABSOLUTE COUNT (BEAKER) (test 1.35 K/ L 1.32-3.57 dztw=068) MONOCYTES ABSOLUTE COUNT (BEAKER) (test 0.66 K/ L 0.30-0.82 gyme=348) EOSINOPHILS ABSOLUTE COUNT (BEAKER) (test 0.17 K/ L 0.04-0.54 yioe=135) BASOPHILS ABSOLUTE COUNT (BEAKER) (test 0.02 K/ L 0.01-0.08 ymkw=951) IMMATURE GRANULOCYTES-RELATIVE PERCENT (BEAKER) 0 % 0-1 (test yhzp=8494) MR, SPINE, LUMBAR, WITHOUT [id number] 21:50:00 Include Sacral spine Tarlov cystsFINAL REPORT INDICATION: Herniated lumbar discs.. COMPARISON:None. TECHNIQUE:MRI exam of the lumbar spine WITHOUT intravenous contrast. FINDINGS:There is a disc herniation at L5. Intervertebral disc spaces are maintained and no degenerative endplate edema is demonstrated. No fracture or suspicious marrow replacing lesion. Lumbar lordotic curvature and alignment are normal. [place]us is located at the L1 level and is normal in morphology and signal. L5-S1: There is a central /right paracentral and lateral recess disc herniation measuring 2.5 cm along the circumference of thedisc and measuring 8 mm AP and 16 [...] is severe right and moderate left foraminal narrowingat this level. Signed: Jessica Syed MDReport Verified Date/Time: 04/20/2019 21:50:08 Reading Location: [address] Consult Reading Room 09: [facility] [id number] 04:59:00 Test Item Value Reference Range Comments SODIUM (BEAKER) (test 136 meq/L 136-145 ogol=050) POTASSIUM (BEAKER) (test 4.2 meq/L 3.5-5.1 Specimen slightly ghgw=649) hemolyzed CHLORIDE (BEAKER) (test 108 meq/L 98-107 nbkp=202) CO2 (BEAKER) (test 23 meq/L 22-29 rcje=280) BLOOD UREA NITROGEN 24 mg/dL 7-21 (BEAKER) (test ygzf=727) CREATININE (BEAKER) (test 0.88 mg/dL 0.57-1.25 Specimen slightly cntx=598) hemolyzed GLUCOSE RANDOM (BEAKER) 105 mg/dL 70-105 (test jdud=211) CALCIUM (BEAKER) (test 9.1 mg/dL 8.4-10.2 ojkg=558) EGFR (BEAKER) (test 90 mL/min/1.73 sq m ESTIMATED GFR IS NOT vtvw=7844) ACCURATE CREATININE CLEARANCE IN PREDICTING GLOMERULAR FILTRATION RATE. ESTIMATED GFR IS NOT APPLICABLE FOR DIALYSIS PATIENTS. CBC W/PLT COUNT & AUTO [id number] 04:33:00 Test Item Value Reference Range Comments WHITE BLOOD CELL COUNT (BEAKER) (test mrfw=563) 5.2 K/ L 3.5-10.5 RED BLOOD CELL COUNT (BEAKER) (test dvih=816) 4.52 M/ L 4.63-6.08 HEMOGLOBIN (BEAKER) (test fabk=467) 14.0 GM/DL 13.7-17.5 HEMATOCRIT (BEAKER) (test ygyv=291) 42.6 % 40.1-51.0 MEAN CORPUSCULAR VOLUME (BEAKER) (test raly=111) 94.2 fL 79.0-92.2 MEAN CORPUSCULAR HEMOGLOBIN (BEAKER) (test 31.0 pg 25.7-32.2 nuyy=239) MEAN CORPUSCULAR HEMOGLOBIN CONC (BEAKER) (test 32.9 GM/DL 32.3-36.5 kayg=702) RED CELL DISTRIBUTION WIDTH (BEAKER) (test 12.9 % 11.6-14.4 mjnn=627) PLATELET COUNT (BEAKER) (test hees=106) 145 K/CU MM 150-450 MEAN PLATELET VOLUME (BEAKER) (test qwpa=383) 10.2 fL 9.4-12.4 NUCLEATED RED BLOOD CELLS (BEAKER) (test 0 /100 WBC 0-0 vsaw=703) NEUTROPHILS RELATIVE PERCENT (BEAKER) (test 54 % cqlb=724) LYMPHOCYTES RELATIVE PERCENT (BEAKER) (test 32 % fivc=784) MONOCYTES RELATIVE PERCENT (BEAKER) (test 10 % bhxz=506) EOSINOPHILS RELATIVE PERCENT (BEAKER) (test 3 % retj=956) BASOPHILS RELATIVE PERCENT (BEAKER) (test 0 % ozqw=520) NEUTROPHILS ABSOLUTE COUNT (BEAKER) (test 2.84 K/ L 1.78-5.38 fplp=059) LYMPHOCYTES ABSOLUTE COUNT (BEAKER) (test 1.66 K/ L 1.32-3.57 kjyy=327) MONOCYTES ABSOLUTE COUNT (BEAKER) (test 0.52 K/ L 0.30-0.82 gjol=676) EOSINOPHILS ABSOLUTE COUNT (BEAKER) (test 0.16 K/ L 0.04-0.54 xmet=959) BASOPHILS ABSOLUTE COUNT (BEAKER) (test 0.02 K/ L 0.01-0.08 grdg=971) IMMATURE GRANULOCYTES-RELATIVE PERCENT (BEAKER) 0 % 0-1 (test tsfs=4609) PROTHROMBIN [id number] 19:17:00 Test Item Value Reference Range Comments PROTIME (BEAKER) (test thsq=750) 13.8 seconds 11.7-14.7 INR (BEAKER) (test jcbc=208) 1.1 <=5.9 RECOMMENDED COUMADIN/WARFARIN INR THERAPY RANGESSTANDARD DOSE: 2.0 - 3.0 Includes: PROPHYLAXIS forvenous thrombosis, systemic embolization; TREATMENT for venous thrombosis and/or pulmonary embolus.HIGH RISK: Target INR is 2.5-3.5 for patients with mechanical heart valves.
--- NOTE | 2019-05-25 22:06 | RAD REPORT ---
EXAM DESCRIPTION: Joelle Single View05/25/2019 9:57 pm CLINICAL HISTORY: Chest pain COMPARISON: none FINDINGS: The lungs appear clear of acute infiltrate. The heart is normal size IMPRESSION: No acute abnormalities displayed
[2019-05-25 22:22] LABS: Absolute Lymphocytes (CBC) 1.7 K/uL (0.7-4.9); Basophils % 0.5 % (0-1.3); Eosinophils % 2.2 % (0-4.4); Hematocrit 38.8 % (39.6-49.0); Lymphocytes % 32.5 % (15.3-44.8); MPV 8.6 fL (7.6-11.3); Monocytes % 13.5 % (3.3-12.3); RBC Red Blood Cell Count 4.12 M/uL (4.33-5.43)
[2019-05-25 22:27] LABS: Protime INR 0.94
[2019-05-25 22:39] LABS: ALT/SGPT 55 U/L (12-78); AST/SGOT 20 U/L (15-37); Albumin 3.9 g/dL (3.4-5.0); Alkaline Phosphatase 71 U/L (45-117); BUN Blood Urea Nitrogen 30 mg/dL (7-18); Bicarbonate 22 mmol/L (21-32); Bilirubin Direct 0.1 mg/dL (0-0.2); Bilirubin Total 0.4 mg/dL (0.2-1.0); Glucose Level 90 mg/dL (74-106); Magnesium 2.3 mg/dL (1.8-2.4); NT PRO-BNP 29 pg/mL (<125); Potassium 3.4 mmol/L (3.5-5.1); Protein, Total 6.7 g/dL (6.4-8.2); Sodium Level 141 mmol/L (136-145); Troponin (Emerg Dept Use Only) < 0.02 ng/mL (0.0-0.045)
--- NOTE | 2019-05-25 22:49 | ER ---
Nurse's Notes [facility] Name: Martin Napoles Age: 53 yrs Sex: Male : 1965 Arrival Date: 05/25/2019 Time: 21:14 Bed 24 Private MD: Diagnosis: Pain in left arm;Radiculopathy, cervical region Presentation: 05/25 21:27 Presenting complaint: Patient states: Pt reports he started having left arm numbness ea one weeks ago. Denies chest pain. Transition of care: patient was not received from another setting of care. Onset of symptoms was May 25, 2019. Risk Assessment: Do you want to hurt yourself or someone else? Patient reports no desire to harm self or others. Initial Sepsis Screen: Does the patient meet any 2 criteria? No. Patient's initial sepsis screen is negative. Does the patient have a suspected source of infection? No. Patient's initial sepsis screen is negative. Care prior to arrival: None. 21:27 Method Of Arrival: Ambulatory ea 21:27 Acuity: ABBY 3 ea Triage Assessment: 21:31 General: Appears in no apparent distress. Behavior is cooperative. Pain: Complains of ea pain in left arm. Neuro: Reports numbness in palmar aspect of distal phalanx of left middle finger, palmar aspect of middle phalanx of left middle finger, palmar aspect of proximal phalanx of left middle finger, palmar aspect of distal phalanx of left index finger, palmar aspect of middle phalanx of left index finger, palmar aspect of proximal phalanx of left index finger, palmar aspect of distal phalanx of left thumb and palmar aspect of proximal phalanx of left thumb. Cardiovascular: Patient's skin is warm and dry. Respiratory: Airway is patent Respiratory effort is even, unlabored, Respiratory pattern is regular, symmetrical. Derm: Skin is pink, warm \T\ dry. Historical: - Allergies: 21:30 No Known Allergies; ea - Home Meds: 21:30 None [Active]; ea - PMHx: 21:30 ADD/ADHD; ea - PSHx: 21:30 back surgery; ea - Immunization history:: Adult Immunizations up to date. - Social history:: Smoking status: Patient uses tobacco products, denies chronic smoking, but will smoke occasionally. - Ebola Screening: : No symptoms or risks identified at this time. Screenin:28 Abuse screen: Denies threats or abuse. Nutritional screening: No deficits noted. ea Tuberculosis screening: No symptoms or risk factors identified. Fall Risk None identified. 21:28 Abuse screen: Denies threats or abuse. Denies injuries from another. Nutritional mg2 screening: No deficits noted. Tuberculosis screening: No symptoms or risk factors identified. Fall Risk IV access (20 points). Assessment: 21:29 General: Appears in no apparent distress. comfortable, Behavior is calm, cooperative. mg2 Pain: Complains of pain in left arm Quality of pain is described as aching. Neuro: Level of Consciousness is awake, alert, obeys commands, Oriented to person, place, time, situation. Cardiovascular: Capillary refill < 3 seconds Patient's skin is warm and dry. Cardiovascular:. Respiratory: Airway is patent Respiratory effort is even, unlabored, Respiratory pattern is regular, symmetrical. GI: No signs and/or symptoms were reported involving the gastrointestinal system. : No signs and/or symptoms were reported regarding the genitourinary system. EENT: No signs and/or symptoms were reported regarding the EENT system. Derm: Skin is intact, is healthy with good turgor, Skin is pink, warm \T\ dry. normal. Musculoskeletal: Circulation, motion, and sensation intact. Capillary refill < 3 seconds. 21:43 Neuro: Reports numbness in left arm since 1 week. mg2 Vital Signs: 21:30 BP 93 / 67; Pulse 84; Resp 18; Temp 98.1; Pulse Ox 97% on R/A; Weight 83.91 kg; Height ea 5 ft. 11 in. (180.34 cm); Pain 8/10; 23:02 BP 101 / 68; Pulse 81; Resp 16; Temp 98; Pulse Ox 97% ; rv 21:30 Body Mass Index 25.80 (83.91 kg, 180.34 cm) ea ED Course: 21:14 Patient arrived in ED. as 21:21 Sanju Moore NP is PHCP. pm1 21:21 Robson Collado MD is Attending Physician. pm1 21:22 Raz Bunch RN is Primary Nurse. mg2 21:28 Triage completed. ea 21:29 Arm band placed on right wrist. Patient placed in an exam room, on a stretcher, on ea pulse oximetry. 21:29 Patient has correct armband on for positive identification. patient monitor on. Pulse mg2 ox on. NIBP on. Door closed. Warm blanket given. 21:39 No provider procedures requiring assistance completed. Inserted saline lock: 22 gauge mg2 in left forearm, using aseptic technique. Blood collected. by YUSUF Samuel. 21:55 XRAY Chest (1 view) In Process Unspecified. EDMS 23:03 IV discontinued, intact, bleeding controlled, No redness/swelling at site. Pressure rv dressing applied. Administered Medications: No medications were administered Outcome: 22:48 Discharge ordered by MD. pm1 23:03 Discharged to home ambulatory. rv 23:03 Condition: good 23:03 Discharge instructions given to patient, Instructed on discharge instructions, follow up and referral plans. medication usage, Demonstrated understanding of instructions, follow-up care, medications, Prescriptions given X 3. 23:03 Patient left the ED. rv Signatures: Dispatcher [employer] EDMS Irene Randle Patrick, SPINE NURSE SPINE NURSE pm1 Azalea William RN RN ea Gardose, Michele, RN RN mg2 Vicente, Ronaldo, RN RN rv
--- NOTE | 2019-05-25 22:50 | EDPHYS ---
Physician Documentation [facility] Name: Martin Napoles Age: 53 yrs Sex: Male : 1965 Arrival Date: 05/25/2019 Time: 21:14 Bed 24 Private MD: ED Physician Robson Collado HPI: 05/25 22:14 This 53 yrs old Male presents to ER via Ambulatory with complaints of Left pm1 Arm Pain. 22:14 The patient or guardian complains of pain, that is acute. The complaints affect the pm1 left arm. Context: The problem was sustained at an unknown location, resulted from unknown cause. Onset: The symptoms/episode began/occurred 1 week(s) ago. Treatment prior to arrival includes: no previous treatment. Modifying factors: The symptoms are alleviated by nothing. the symptoms are aggravated by nothing. Associated signs and symptoms: Pertinent positives: numbness, tingling, of the palmar aspect of distal phalanx of left index finger and palmar aspect of distal phalanx of left thumb, Pertinent negatives: decreased range of motion, deformity, fever, swelling. Severity of symptoms: in the emergency department the symptoms are unchanged. The patient has experienced similar episodes in the past, history of chronic neck and back issues. The patient has not recently seen a physician. Historical: - Allergies: 21:30 No Known Allergies; ea - Home Meds: 21:30 None [Active]; ea - PMHx: 21:30 ADD/ADHD; ea - PSHx: 21:30 back surgery; ea - Immunization history:: Adult Immunizations up to date. - Social history:: Smoking status: Patient uses tobacco products, denies chronic smoking, but will smoke occasionally. - Ebola Screening: : No symptoms or risks identified at this time. ROS: 22:14 Constitutional: Negative for fever, chills, and weight loss, Eyes: Negative for injury, pm1 pain, redness, and discharge, ENT: Negative for injury, pain, and discharge, Neck: Negative for injury, pain, and swelling, Cardiovascular: Negative for chest pain, palpitations, and edema, Respiratory: Negative for shortness of breath, cough, wheezing, and pleuritic chest pain, Abdomen/GI: Negative for abdominal pain, nausea, vomiting, diarrhea, and constipation, Back: Negative for injury and pain, : Negative for injury, bleeding, discharge, and swelling. 22:14 Skin: Negative for injury, rash, and discoloration, Neuro: Negative for headache, weakness, numbness, tingling, and seizure. 22:14 MS/extremity: Positive for pain, of the left arm, paresthesias palmar aspect of left thumb and left index finger, Negative for decreased range of motion, deformity. Exam: 22:14 Constitutional: This is a well developed, well nourished patient who is awake, alert, pm1 and in no acute distress. Head/Face: Normocephalic, atraumatic. Eyes: Pupils equal round and reactive to light, extra-ocular motions intact. Lids and lashes normal. Conjunctiva and sclera are non-icteric and not injected. Cornea within normal limits. Periorbital areas with no swelling, redness, or edema. ENT: Nares patent. No nasal discharge, no septal abnormalities noted. Tympanic membranes are normal and external auditory canals are clear. Oropharynx with no redness, swelling, or masses, exudates, or evidence of obstruction, uvula midline. Mucous membranes moist. Neck: Trachea midline, no thyromegaly or masses palpated, and no cervical lymphadenopathy. Supple, full range of motion without nuchal rigidity, or vertebral point tenderness. No Meningismus. Chest/axilla: Normal chest wall appearance and motion. Nontender with no deformity. No lesions are appreciated. Cardiovascular: Regular rate and rhythm with a normal S1 and S2. No gallops, murmurs, or rubs. Normal PMI, no JVD. No pulse deficits. Respiratory: Lungs have equal breath sounds bilaterally, clear to auscultation and percussion. No rales, rhonchi or wheezes noted. No increased work of breathing, no retractions or nasal flaring. Abdomen/GI: Soft, non-tender, with normal bowel sounds. No distension or tympany. No guarding or rebound. No evidence of tenderness throughout. Back: No spinal tenderness. No costovertebral tenderness. Full range of motion. Skin: Warm, dry with normal turgor. Normal color with no rashes, no lesions, and no evidence of cellulitis. MS/ Extremity: Pulses equal, no cyanosis. Neurovascular intact. Full, normal range of motion. 22:14 Neuro: Orientation: is normal, Mentation: is normal, Motor: is normal, moves all fours, strength is normal, strength is 5/5 in all extremities, Sensation: is normal, no obvious gross deficits. Vital Signs: 21:30 BP 93 / 67; Pulse 84; Resp 18; Temp 98.1; Pulse Ox 97% on R/A; Weight 83.91 kg; Height ea 5 ft. 11 in. (180.34 cm); Pain 8/10; 23:02 BP 101 / 68; Pulse 81; Resp 16; Temp 98; Pulse Ox 97% ; rv 21:30 Body Mass Index 25.80 (83.91 kg, 180.34 cm) ea MDM: 21:26 Patient medically screened. pm1 22:47 Data reviewed: vital signs. Data interpreted: Pulse oximetry: on room air is 97 %. pm1 Interpretation: normal. Counseling: I had a detailed discussion with the patient and/or guardian regarding: the historical points, exam findings, and any diagnostic results supporting the discharge/admit diagnosis, lab results, radiology results, the need for outpatient follow up, to return to the emergency department if symptoms worsen or persist or if there are any questions or concerns that arise at home. 05/25 21:26 Order name: Basic Metabolic Panel pm1 05/25 21:26 Order name: CBC with Diff pm1 05/25 21:26 Order name: LFT's pm1 05/25 21:26 Order name: Magnesium; Complete Time: 22:47 pm1 05/25 21:26 Order name: NT PRO-BNP; Complete Time: 22:47 pm1 05/25 21:26 Order name: PT-INR; Complete Time: 22:47 pm05/25 21:26 Order name: Troponin (emerg Dept Use Only); Complete Time: 22:47 pm1 05/25 21:26 Order name: XRAY Chest (1 view); Complete Time: 22:14 pm1 05/25 21:26 Order name: EKG; Complete Time: 21:28 pm05/25 21:26 Order name: Cardiac monitoring; Complete Time: 21:42 pm1 05/25 21:26 Order name: EKG - Nurse/Tech; Complete Time: 21:42 pm1 05/25 21:27 Order name: Basic Metabolic Panel; Complete Time: 22:47 EDMS 05/25 21:27 Order name: CBC with Automated Diff; Complete Time: 22:47 EDOK 05/25 21:28 Order name: Liver (Hepatic) Function; Complete Time: 22:47 [facility] 05/25 21:26 Order name: IV Saline Lock; Complete Time: 21:42 pm1 05/25 21:26 Order name: Labs collected and sent; Complete Time: 21:42 pm1 05/25 21:26 Order name: O2 Per Protocol; Complete Time: 21:42 pm1 05/25 21:26 Order name: O2 Sat Monitoring; Complete Time: 21:42 pm1 Administered Medications: No medications were administered Disposition: 05/25/19 22:48 Discharged to Home. Impression: Pain in left arm, Radiculopathy, cervical region. - Condition is Stable. - Discharge Instructions: Cervical Radiculopathy, Musculoskeletal Pain. - Prescriptions for Cyclobenzaprine 10 mg Oral Tablet - take 1 tablet by ORAL route every 8 hours As needed; 30 tablet. Diclofenac Sodium 75 mg Oral Tablet Sustained Release - take 1 tablet by ORAL route 2 times per day; 30 tablet. Medrol (Simone) 4 mg Oral Tablets, Dose Pack - take 1 tablet by ORAL route as directed - follow package instructions; 1 packet. - Medication Reconciliation Form, Thank You Letter, Antibiotic Education, Prescription Opioid Use form. - Follow up: Emergency Department; When: As needed; Reason: Worsening of condition. Follow up: Private Physician; When: 2 - 3 days; Reason: Recheck today's complaints, Continuance of care, Re-evaluation by your physician. - Problem is new. - Symptoms have improved. Addendum: 05/28/2019 13:58 Co-signature as Attending Physician, Robson Collado MD Available for consultation at p s1 all times . Signatures: Dispatcher [employer] [facility] Sanju Moore, ASSOCIATE PROFESSOR OF VIOLIN ASSOCIATE PROFESSOR OF [employer]OL[employer] pm1 Azalea William RN RN ea Singer, Phillip, MD MD ps1 Jacob Vasquez RN RN rv Corrections: (The following items were deleted from the chart) 05/25 23:03 22:48 05/25/2019 22:48 Discharged to Home. Impression: Pain in left arm; Radiculopathy, rv cervical region. Condition is Stable. Forms are Medication Reconciliation Form, Thank You Letter, Antibiotic Education, Prescription Opioid Use. Follow up: Emergency Department; When: As needed; Reason: Worsening of condition. Follow up: Private Physician; When: 2 - 3 days; Reason: Recheck today's complaints, Continuance of care, Re-evaluation by your physician. Problem is new. Symptoms have improved. pm1
[2019-05-26 01:41] VITALS: O2SAT 97
[2019-05-26 01:42] VITALS: BP 101/68; TEMP 98
--- NOTE | 2019-05-26 09:54 | EKG ---
Test Date: 2019-05-25 Test Time: 21:32:11 Crab Picker: [email or web address] MEASUREMENT RESULTS: Intervals: Rate: 73 NC: 148 QRSD: 90 QT: 402 QTc: 442 [place]: P: 47 NC: 148 QRS: 24 T: 25 INTERPRETIVE STATEMENTS: Normal sinus rhythm Normal ECG Compared to ECG 06/19/2017 16:57:54 Atrial premature complex(es) no longer present Electronically Signed On 05-26-19 09:53:30 CDT by Pramod Paniagua
== END 2019-05-25 23:03 | disposition home or self-care (01) ==
LOC: ER 21:13
DX: M54.12 Radiculopathy, cervical region (principal); Z72.0 Tobacco use
CPT/HCPCS: 36415; 71045; 80048; 80076; 83735; 83880; 84484; 85025; 85610; 93005; 99284

== ENCOUNTER 2019-06-13 07:03 | Emergency (ER) | payer SELFPAY ==
--- OUTSIDE RECORDS SUMMARY | 2019-06-13 07:06 | XMS REPORT | Clinical Summary ---
:1965 Author Organization [facility] Address [address] [place] [address] Care Team Providers Name Role Phone Unavailable Primary Care Provider Unavailable Allergies No Known Allergies Medications Medication Sig Dispensed Refills Start End Date Status Date docusate sodium Take 1 capsule 30 capsule 0 06/20/20 Active (COLACE) 100 MG (100 mg total) by 08 16 capsule mouth 3 (three) times daily for 10 days. methocarbamol Take 1 tablet 60 tablet 0 06/20/20 Active (ROBAXIN) 750 MG (750 mg total) by 08 16 tablet mouth 4 (four) times daily for 10 days. ondansetron Take 1 tablet (4 20 tablet 0 06/17/20 Active (ZOFRAN-ODT) 4 MG mg total) by 08 16 disintegrating mouth every 6 tablet (six) hours as needed for up to 7 days. polyethylene glycol Take 17 g by 30 each 0 06/13/20 Active (GLYCOLAX) 17 gram mouth 2 (two) 08 16 packet times daily for 3 days. acetaminophen-codei Take 2 tablets by 60 tablet 0 06/20/20 Active ne (TYLENOL-CODEINE mouth every 4 9 19 #3) 300-30 mg per (four) hours as tablet needed for Pain for up to 10 days. Max Daily Amount: 12 tablets acetaminophen Take 500 mg by 0 20 Discontinued (TYLENOL) 325 mg mouth 4 (four) 19 CapIndications: times daily as arthritic pain, needed. back pain naproxen Take 220 mg by 0 20 Discontinued (ALEVE,ANAPROX,MIDO mouth 3 (three) 19 L) 220 MG tablet times daily with meals. HYDROcodone-acetami Take 1 tablet by 30 tablet 0 04/26/20 Discontinued nophen (NORCO mouth every 6 08 16 10-325) 10-325 mg (six) hours as per tablet needed for up to 10 days. Max Daily Amount: [address] 1 patch 30 patch 0 05/26/20 (LIDODERM) 5 % onto the skin 08 16 patch daily for 30 days Remove & Discard patch within 12 hours or as directed by MD. oxyCODONE-acetamino Take 1 tablet by 30 tablet 0 05/06/20 phen (PERCOCET) mouth every 6 08 16 10-325 mg per (six) hours as tablet needed for Pain for up to 10 days. Max Daily Amount: 4 tablets bisacodyl Take 1 tablet (5 30 tablet 0 05/26/20 (DULCOLAX) 5 mg EC mg total) by 08 16 tablet mouth daily as needed for Constipation for up to 30 days. docusate sodium Take 1 capsule 30 capsule 0 06/10/20 Discontinued (COLACE) 100 MG (100 mg total) by 08 16 capsule mouth 3 (three) times daily for 10 days. methocarbamol Take 1 tablet 60 tablet 0 06/10/20 Discontinued (ROBAXIN) 750 MG (750 mg total) by 08 16 tablet mouth 4 (four) times daily for 10 days. ondansetron Take 1 tablet (4 20 tablet 0 06/10/20 Discontinued (ZOFRAN-ODT) 4 MG mg total) by 08 16 disintegrating mouth every 6 tablet (six) hours as needed for up to 7 days. polyethylene glycol Take 17 g by 30 each 0 06/10/20 Discontinued (GLYCOLAX) 17 gram mouth 2 (two) 08 16 packet times daily for 3 days. acetaminophen-codei Take 2 tablets by 60 tablet 0 06/10/20 Discontinued ne (TYLENOL-CODEINE mouth every 4 08 16 #3) 300-30 mg per (four) hours as tablet needed for Pain for up to 10 days. Max Daily Amount: 12 tablets Active Problems Problem Noted Date Back pain 04/20/2019 Lumbosacral disc herniation 04/19/2019 Acute pain 04/19/2019 Radiculopathy 04/19/2019 ADHD 04/19/2019 Encounters Date Type Specialty Care Team Description 06/08/2019 Surgery Eliu Dennis FUSION,TRANSFORAMINAL MD Gavin LUMBAR INTERBODY (TLIF) 06/08/2019 Anesthesia Event Deloris Casas MD 06/08/2019 Travel 06/05/2019 - Hospital Encounter General Internal Darrick Beck Acute right -sided low back pain with sciatica, sciatica laterality unspecified (Primary Dx) ; 06/10/2019 Medicine MD Samm S/P diskectomy; Humberto Valente, Herniated lumbar intervertebral disc Eliu Valencia MD 06/05/2019 Travel 04/25/2019 Anesthesia Event Meghan Lorainenneka Bautista CRNA 04/25/2019 Surgery Eliu Dennis LAMINECTOMY,LUMBAR MD Gavin W/DISCECTOMY 04/19/2019 - Hospital Encounter General Internal Radha, Kiko Lumbosacral disc 04/26/2019 Medicine Pillo HANNAH MD herniation (Primary Yudy, Yashash D Dx) Albina Hernández MD 04/19/2019 Travel after 06/12/2018 Social History Tobacco Use Types Packs/Day Years [...] Vital Sign Reading Time Taken Blood Pressure 109/59 06/10/2019 11:14 AM CDT Pulse 75 06/10/2019 11:14 AM CDT Temperature 36.3 C (97.4 F) 06/10/2019 11:14 AM CDT Respiratory Rate 19 06/10/2019 11:14 AM CDT Oxygen Saturation 97% 06/10/2019 11:14 AM CDT Inhaled Oxygen Concentration - - Weight 86.2 kg (190 lb) 06/05/2019 12:29 PM CDT Height 170.2 cm (5' 7") 06/05/2019 12:29 PM CDT Body Mass Index 29.76 06/05/2019 12:29 PM CDT Plan of Treatment Not on file Implants Implanted Type Area Web Solutions Architect Device Shelf Model / Identifier Expiration Serial / Date Lot Jo-Ann Romero Dbm +10cc 8103.0210s - [id number] IMPLANTS N/A: Spine GLOBUS MED 02/13/2021 [id number] / Implanted: Qty: 1 on 06/08/2019 by Eliu Dennis MD Lumbar / [id number] Tulip Polyax Mod Mis Creo 30mm 1134.0100 - [id number] IMPLANTS N/A: Spine GLOBUS MED 1134.0100 / Implanted: Qty: 4 on 06/08/2019 by Eliu Dennis MD Lumbar / Cap Cole Creo Mis 1134.0010 - [id number] IMPLANTS N/A: Spine GLOBUS MED 1134.0010 / Implanted: Qty: 4 on 06/08/2019 by Eliu Dennis MD Lumbar / Spcr Rise Exp 10d 8-15 [id number] 193.122 - [id number] IMPLANTS N/A: Spine GLOBUS MED 193.122 / Implanted: Qty: 1 on 06/08/2019 by Eliu Dennis MD Lumbar / Wire K [id number] 685.005 - [id number] IMPLANTS N/A: Spine GLOBUS MED 685.005 / Implanted: Qty: 4 on 06/08/2019 by Eliu Dennis MD Lumbar / Screws Spine N/A: Spine GLOBUS MED 1067.4745 / Implanted: Qty: 4 on 06/08/2019 by Eliu Dennis MD Lumbar / Rods Spine N/A: Spine GLOBUS MEDICAL 1134.7055 / Implanted: Qty: 2 on 06/08/2019 by Eliu Dennis MD Lumbar / Procedures Procedure Name Priority Date/Time Associated Diagnosis Comments XR SPINE LUMBER 2 Routine 06/09/2019 9:30 Results for this OR 3 VIEWS AM CDT procedure are in the results section. FL SWITCHBOARD AND CONTROL ROOM OPERATOR IN OR Routine 06/08/2019 10:00 Results for this 30 MINUTE AM CDT procedure are in INCREMENTS the results section. PROCEDURE W/ 06/08/2019 7:30 Recurrent herniation STEALTH AM CDT of lumbar disc Lumbar radiculopathy Special Needs (C-ARM, O-ARM, STEALTH, PRO AXIS JERARDO TABLE, BONE SCALPEL, AQUAMANTYS, BOVIES X2) PROCEDURE W/ C-ARM 06/08/2019 7:30 AM CDT Recurrent herniation of lumbar disc Lumbar radiculopathy Special Needs (C-ARM, O-ARM, STEALTH, PRO AXIS JERARDO TABLE, BONE SCALPEL, AQUAMANTYS, BOVIES X2) FUSION,TRANSFORAMINAL LUMBAR 06/08/2019 7:30 AM Recurrent herniation of INTERBODY (TLIF) CDT lumbar disc Lumbar radiculopathy Special Needs (C-ARM, O-ARM, STEALTH, PRO AXIS JERARDO TABLE, BONE SCALPEL, AQUAMANTYS, BOVIES X2) CBC W/PLT COUNT & Routine 06/08/2019 3:41 AM Results for this AUTO DIFFERENTIAL CDT procedure are in the results section. BASIC METABOLIC PANEL Routine 06/08/2019 3:41 AM Results for this (7) CDT procedure are in the results section. CBC W/PLT COUNT & Routine 06/08/2019 3:41 AM Results for this AUTO DIFFERENTIAL CDT procedure are in the results section. TRANSFUSION SERVICE 06/07/2019 5:50 PM REPORT - SCAN CDT PT/APTT Routine 06/07/2019 9:13 AM Results for this CDT procedure are in the results section. CBC W/PLT COUNT & Routine 06/07/2019 8:19 AM Results for this AUTO DIFFERENTIAL CDT procedure are in the results section. BASIC METABOLIC PANEL Routine 06/07/2019 8:19 AM Results for this (7) CDT procedure are in the results section. CBC W/PLT COUNT & Routine 06/07/2019 8:19 AM Results for this AUTO DIFFERENTIAL CDT procedure are in the results section. CBC W/PLT COUNT & Routine 06/06/2019 4:38 AM Results for this AUTO DIFFERENTIAL CDT procedure are in the results section. TYPE AND SCREEN, Routine 06/06/2019 4:38 AM Results for this AUTOMATED CDT procedure are in the results section. PT/APTT Routine 06/06/2019 4:38 AM Results for this CDT procedure are in the results section. BASIC METABOLIC PANEL Routine 06/06/2019 4:38 AM Results for this (7) CDT procedure are in the results section. CBC W/PLT COUNT & Routine 06/06/2019 4:38 AM Results for this AUTO DIFFERENTIAL CDT procedure are in the results section. PT/APTT STAT 06/05/2019 2:55 PM Results for this CDT procedure are in the results section. CBC W/PLT COUNT & STAT 06/05/2019 2:26 PM Results for this AUTO DIFFERENTIAL CDT procedure are in the results section. BASIC METABOLIC PANEL STAT 06/05/2019 2:26 PM Results for this (7) CDT procedure are in the results section. CBC W/PLT COUNT & STAT 06/05/2019 2:26 PM Results for this AUTO DIFFERENTIAL CDT procedure are in the results section. MR SPINE LUMBAR STAT 06/05/2019 1:41 PM Results for this WITHOUT IV CONTRAST CDT procedure are in the results section. CBC W/PLT COUNT & Routine 04/26/2019 6:31 AM Results for this AUTO DIFFERENTIAL CDT procedure are in the results section. PHOSPHORUS Routine 04/26/2019 6:31 AM Results for this CDT procedure are in the results section. MAGNESIUM Routine 04/26/2019 6:31 AM Results for this CDT procedure are in the results section. BASIC METABOLIC PANEL Routine 04/26/2019 6:31 AM Results for this (7) CDT procedure are in the results section. CBC W/PLT COUNT & Routine 04/26/2019 6:31 AM Results for this AUTO DIFFERENTIAL CDT procedure are in the results section. TRANSFUSION SERVICE 04/25/2019 6:04 PM REPORT - SCAN CDT NEEDLE EMG, 2 Routine 04/25/2019 5:38 PM Results for this EXTREMITY CDT procedure are in the results section. FL SWITCHBOARD AND CONTROL ROOM OPERATOR IN OR 30 Routine 04/25/2019 5:20 PM Results for this MINUTE INCREMENTS CDT procedure are in the results section. TISSUE EXAM AP Routine 04/25/2019 4:27 PM Results for this CDT procedure are in the results section. PROCEDURE W/ C-ARM 04/25/2019 3:43 PM Radicular CDT syndrome of right leg Case Notes 2-3 [...] TIME/INR Routine 04/19/2019 6:50 PM CDT after 06/12/2018 Results XR spine lumbar 2 or 3 views (06/09/2019 9:30 AM CDT) Specimen Narrative Performed At FINAL REPORT [facility] LUMBAR SPINE 2 VIEWS HISTORY: Low back pain, status post lumbar spine fusion COMPARISON: MRI lumbar spine of 06/05/2019 FINDINGS: AP and lateral lumbar spine radiographs were performed. Interval posterior lumbar interbody fusion at L5-S1. Bilateral pedicle screws and posterior rods are present as is an interbody spacer. Lumbar spine is otherwise unchanged in appearance. Signed: Deshaun Cantrell MD Report Verified Date/Time:06/09/2019 10:53:58 Reading Location: [address] Transitional Reading Room Procedure Note Interface, External Ris In - 06/09/2019 10:56 AM CDT FINAL REPORT LUMBAR SPINE 2 VIEWS HISTORY: Low back pain, status post lumbar spine fusion COMPARISON: MRI lumbar spine of 06/05/2019 FINDINGS: AP and lateral lumbar spine radiographs were performed. Interval posterior lumbar interbody fusion at L5-S1. Bilateral pedicle screws and posterior rods are present as is an interbody spacer. Lumbar spine is otherwise unchanged in appearance. Signed: Deshaun Cantrell MD Report Verified Date/Time: 06/09/2019 10:53:58 Reading Location: [address] Transitional Reading Room Performing Organization Address [facility] Services[facility] Phone Number [facility] FL green meat grader in or 30 minute increments (06/08/2019 10:00 AM CDT)Only the most recent of2 resultswithin the time period is included. Specimen Narrative Performed At FINAL REPORT [facility] Exam: Intraoperative fluoroscopic lumbar spine radiograph History: Lumbar stenosis Comparison: Lumbar spine MRI 06/05/2019 Discussion : Single portable lateral intraoperative fluoroscopic image of the lower lumbar spine demonstrates posterior surgical instrumentation and screw fixation at L5 and S1. Alignment is anatomic. No acute fracture. Impression: Intraoperative image with interval posterior screw fixation at L5 and S1. Signed: Zayda Cole MD Report Verified Date/Time:06/08/2019 10:08:27 Reading Location: [facility] Radiology Reading Room Procedure Note Interface, External Ris In - 06/08/2019 10:16 AM CDT FINAL REPORT Exam: Intraoperative fluoroscopic lumbar spine radiograph History: Lumbar stenosis Comparison: Lumbar spine MRI 06/05/2019 Discussion : Single portable lateral intraoperative fluoroscopic image of the lower lumbar spine demonstrates posterior surgical instrumentation and screw fixation at L5 and S1. Alignment is anatomic. No acute fracture. Impression: Intraoperative image with interval posterior screw fixation at L5 and S1. Signed: Zayda Cole MD Report Verified Date/Time: 06/08/2019 10:08:27 Reading Location: [facility] Radiology Reading Room Performing Organization Address [facility] Servicescook Phone Number [facility] CBC with platelet count + automated diff (06/08/2019 3:41 AM CDT)Only the most recent of9 resultswithin the time period is included. WBC 7.0 3.5 - 10.5 K/L [facility] RBC 4.73 4.63 - 6.08 M/L [facility] Hemoglobin 14.7 13.7 - 17.5 GM/DL [facility] Hematocrit 44.5 40.1 - 51.0 % [facility] MCV 94.1 (H)Comment: 79.0 - 92.2 fL [facility] Discordant MCV results [facility] compared to previous results; clinical correlation required. MCH 31.1 25.7 - 32.2 pg [facility] MCHC 33.0 32.3 - 36.5 GM/DL [facility] RDW 12.3 11.6 - 14.4 % [facility] Platelets 199 150 - 450 K/CU MM [facility] MPV 10.0 9.4 - 12.4 fL [facility] nRBC 0 0 - 0 /100 WBC [facility] % Neutros 62 % [facility] % Lymphs 28 % [facility] % Monos 8 % [facility] % Eos 1 % [facility] % Baso 0 % [facility] # Neutros 4.34 1.78 - 5.38 K/L [facility] # Lymphs 1.92 1.32 - 3.57 K/L [facility] # Monos 0.58 0.30 - 0.82 K/L [facility] # Eos 0.10 0.04 - 0.54 K/L [facility] # Baso 0.03 0.01 - 0.08 K/L [facility] Immature 0 0 - 1 % [facility] Granulocytes-Relative [facility] Specimen Blood Performing Organization Address City/State/Zipcode Phone Number [facility] [address] [place] [address] CENTER Basic Metabolic Panel (06/08/2019 3:41 AM CDT)Only the most recent of9 resultswithin the time period is included. Sodium 135 (L) 136 - 145 meq/L [facility] Potassium 4.7 3.5 - 5.1 meq/L [facility] Chloride 104 98 - 107 meq/L [facility] CO2 25 22 - 29 meq/L [facility] BUN 15 7 - 21 mg/dL [facility] Creatinine 0.89 0.57 - 1.25 mg/dL [facility] Glucose 95 70 - 105 mg/dL [facility] Calcium 8.9 8.4 - 10.2 mg/dL [facility] EGFR 89Comment: ESTIMATED GFR IS mL/min/1.73 sq m [facility] NOT ACCURATE CREATININE [facility] CLEARANCE IN PREDICTING GLOMERULAR FILTRATION RATE. ESTIMATED GFR IS NOT APPLICABLE FOR DIALYSIS PATIENTS. Specimen Blood Performing Organization Address City/State/Zipcode Phone Number [facility] [address] [place] [address] CENTER TRANSFUSION SERVICE REPORT - SCAN (06/07/2019 5:50 PM CDT)Only the most recent of2 resultswithin the time period is included. Narrative Performed At PT/aPTT (06/07/2019 9:13 AM CDT)Only the most recent of4 resultswithin the time period is included. Protime 12.7 11.9 - 14.2 seconds [facility] INR 1.0 <=5.9 [facility] PTT 26.9 22.5 - 36.0 seconds [facility] Specimen Blood Narrative Performed At Effective 04/25/2019: PT Reference Range [facility] Change New: 11.9-14.2Previous: 11.7-14.7 RECOMMENDED COUMADIN/WARFARIN INR THERAPY RANGES STANDARD DOSE: 2.0-3.0Includes: PROPHYLAXIS for venous thrombosis, systemic embolization; TREATMENT for venous thrombosis and/or pulmonary embolus. HIGH RISK: Target INR is 2.5-3.5 for patients wiht mechanical heart valves. Performing Organization Address City/State/Zipcode Phone Number [facility] [address] [place] [phone] CENTER Type and screen, automated (06/06/2019 4:38 AM CDT)Only the most recent of2 resultswithin the time period is included. ABO/RH AUTOMATED (BEAKER) O POSITIVE [facility] Ab Scrn NEGATIVE [facility] Specimen Blood Performing Organization Address City/[facility]/Zipcode Phone Number [facility] [address] [place], [place] [id number] MR spine lumbar without IV contrast (06/05/2019 1:41 PM CDT)Only the most recent of2 resultswithin the time period is included. Specimen Narrative Performed At FINAL REPORT [facility] MR, SPINE, LUMBAR, WITHOUT CONTRAST INDICATION: back pain post op 04/25 COMPARISON: April 20, 2019 TECHNIQUE: Multiplanar, multisequence MR images of the lumbar spine without contrast. FINDINGS: Numbering: Last fully formed disc space is designated L5-S1. Spinal cord: The conus medullaris is normal is size, signal intensity, and position, terminating at theL1 level. Osseous structures: The lumbar spine demonstrates normal alignment without scoliosis or listhesis. Vertebral bodies are normal in height and signal intensity. Pedicles are short at all levels. There is mild multilevel facet arthropathy without significant ligamentous redundancy. No aggressive osseous lesions are identified. The patient is status post right hemilaminectomy at L5 with partial discectomy. Discs:There is multilevel disc dessication without loss of disc space height. Surgical changes are present in the disc space at L5-S1 with increased edema in this region and operative changes. Evaluation of the individual levels demonstrates persistent effacement of the right lateral recess due to disc extrusion and minimal inferior migration despite partial, prior resection. There is posterior displacement of the descending S1 nerve root posteriorly and medially. Severe stenosis is evident in the distal foraminal zone on the right with suggestion of nerve root edema at this level. Paraspinal soft tissues: Paraspinal soft tissues and visible retroperitoneal structures are unremarkable. Superficial soft tissues demonstrates changes compatible with aforementioned surgical approach. There is no discrete fluid collection along the operative tract. IMPRESSION: Posterior disc extrusion and minimal inferior migration in right paracentral, subarticular and foraminal zones at the site of prior partial discectomy, effacing the right lateral recess and displacing the descending S1 nerve posteriorly and medially. Associated severe right foraminal stenosis and consequent nerve root edema. Signed: JR Nadia, Gavin RAWLS Report Verified Date/Time:06/05/2019 13:50:56 Reading Location: [facility] Radiology Reading Room Procedure Note Interface, External Ris In - 06/05/2019 1:53 PM CDT FINAL REPORT MR, SPINE, LUMBAR, WITHOUT CONTRAST INDICATION: back pain post op 04/25 COMPARISON: April 20, 2019 TECHNIQUE: Multiplanar, multisequence MR images of the lumbar spine without contrast. FINDINGS: Numbering: Last fully formed disc space is designated L5-S1. Spinal cord: The conus medullaris is normal is size, signal intensity, and position, terminating at the L1 level. Osseous structures: The lumbar spine demonstrates normal alignment without scoliosis or listhesis. Vertebral bodies are normal in height and signal intensity. Pedicles are short at all levels. There is mild multilevel facet arthropathy without significant ligamentous redundancy. No aggressive osseous lesions are identified. The patient is status post right hemilaminectomy at L5 with partial discectomy. Discs: There is multilevel disc dessication without loss of disc space height. Surgical changes are present in the disc space at L5-S1 with increased edema in this region and operative changes. Evaluation of the individual levels demonstrates persistent effacement of the right lateral recess due to disc extrusion and minimal inferior migration despite partial, prior resection. There is posterior displacement of the descending S1 nerve root posteriorly and medially. Severe stenosis is evident in the distal foraminal zone on the right with suggestion of nerve root edema at this level. Paraspinal soft tissues: Paraspinal soft tissues and visible retroperitoneal structures are unremarkable. Superficial soft tissues demonstrates changes compatible with aforementioned surgical approach. There is no discrete fluid collection along the operative tract. IMPRESSION: Posterior disc extrusion and minimal inferior migration in right paracentral, subarticular and foraminal zones at the site of prior partial discectomy, effacing the right lateral recess and displacing the descending S1 nerve posteriorly and medially. Associated severe right foraminal stenosis and consequent nerve root edema. Signed: JR Nadia, Gavin RAWLS Report Verified Date/Time: 06/05/2019 13:50:56 Reading Location: [facility] Radiology Reading Room Performing Organization Address City/State/Zipcode Phone Number [facility] Phosphorus (04/26/2019 6:31 AM CDT)Only the most recent of2 resultswithin the time period is included. Phosphorus 2.8 2.3 - 4.7 mg/dL [facility] Specimen Blood Performing Organization Address [facility] Services[facility] Phone Number [address] [address] [phone] CENTER Magnesium (04/26/2019 6:31 AM CDT)Only the most recent of2 resultswithin the time period is included. Magnesium 2.2 1.6 - 2.6 mg/dL [facility] Specimen Blood Performing Organization Address [facility] Services[facility] Phone Number [address] [address] CENTER NEEDLE EMG, 2 EXTREMITY (04/25/2019 5:38 PM CDT) Specimen Narrative Performed At [facility] INTRAOPERATIVE MONITORING REPORT Patient Name: Martin Napoles [facility], [place], [place] Surgery Date: 04/25/2019 Laquey Pro: [id number] Monitoring began at 1547 and ended at 1738 Surgeon: Eliu Dennis M.D. Examining Physician: Karishma Goss M.D. Monitoring Technologist: ALEX Nascimento Procedure: [...] that the nerve roots monitored remained undisturbed. Karishma Goss M.D. M51.27 Procedure Note Interface, External Ris In - 04/29/2019 9:16 AM CDT INTRAOPERATIVE MONITORING REPORT Patient Name: Martin Napoles [facility], [place], [place] Surgery Date: 04/25/2019 Laquey Pro: [id number] Monitoring began at 1547 and ended at 1738 Surgeon: Eliu Dennis M.D. Examining Physician: Karishma Goss M.D. Monitoring Technologist: ALEX Nascimento Procedure: [...] that the nerve roots monitored remained undisturbed. Karishma Goss M.D. M51.27 Performing Organization Address City/State/Zipcode Phone Number [facility] Tissue Exam (04/25/2019 4:27 PM CDT) Case Report Surgical Pathology Report Case: [id number] [facility] Authorizing Provider:Eliu Dennis MDCollected: 04/25/2019 1627 [facility] Ordering Location: [facility] PERIOPERATIVE Received: 04/26/2019 1011 SERVICES Pathologist: Rasheed Champagne MD Specimen:Disc L5-S1 DIAGNOSIS VERTEBRAL COLUMN, INTERVERTEBRAL DISC, L5-S1, DISCECTOMY: [facility] FRAGMENTS OF [place] WITH MILD DEGENERATIVE CHANGES [facility] Signing Pathologist Direct Phone Line: [phone] CPT Code(s) 91353; [address] [facility] GROSS DESCRIPTION The specimen is received in [facility] a single container with [facility] another smaller container within that container. Both specimens consist of off-white disc fragments, which are submitted entirely in cassette A1. The specimen measures 2.9 x 1.3 x 0.8 cm in aggregate. ?/ew MICROSCOPIC DESCRIPTION Performed [facility] Specimen Tissue Performing Organization Address City/[facility]/Zipcode Phone Number [address] [address] [place], manual (04/24/2019 3:26 PM CDT) ABO Grouping O [facility] Rh Factor POS [facility] Specimen Blood Performing Organization Address City/State/Zipcode Phone Number [address] [phone] Lipid panel (04/23/2019 5:33 AM CDT) Triglycerides 128 mg/dL [facility] Cholesterol 159 mg/dL [facility] HDL 37 mg/dL [facility] LDL Calculated 96 mg/dL [facility] Specimen Blood Narrative Performed At Triglyceride Reference Range: [facility] Low Risk <150 [id number] High Risk 200-499 Very High Risk>=500 Cholesterol Reference Range: Low Risk <200 [id number] High Risk>240 HDL Cholesterol Reference Range: Low Risk >=60 High Risk <40 LDL Cholesterol Reference Range: Optimal<100 Near [id number] [id number] Very High >=190 Performing Organization Address City/[facility]/Zipcode Phone Number [facility] [address] [place] [address] [phone] CENTER EKG 12-LEAD (04/22/2019 6:01 PM CDT)Only the most recent of2 resultswithin the time period is included. Specimen Narrative Performed At Ventricular Rate 63 BPM GE MUSE Atrial Rate 63 BPM P-R Interval 150 ms QRS Duration 100 ms Q-T Interval 396 ms QTC Calculation(Bazett) 405 ms P [place] 54 degrees R [place] 36 degrees T [place] -5 degrees Normal sinus rhythm Normal ECG When compared with ECG of 22-APR-2019 11:34, Inverted T waves have replaced nonspecific T wave abnormality inlead III Confirmed by MD WRIGHT YOCHAI ([id number]) on 04/24/2019 9:30:16 AM Procedure Note Interface, External Ris In - 04/24/2019 9:30 AM CDT Ventricular Rate 63 BPM Atrial Rate 63 BPM P-R Interval 150 ms QRS Duration 100 ms Q-T Interval 396 ms QTC Calculation(Bazett) 405 ms P [place] 54 degrees R [place] 36 degrees T [place] -5 degrees Normal sinus rhythm Normal ECG When compared with ECG of 22-APR-2019 11:34, Inverted T waves have replaced nonspecific T wave abnormality in lead III Confirmed by MD WRIGHT YOCHAI ([id number]) on 04/24/2019 9:30:16 AM Performing Organization Address [facility] Phone Number [facility] Troponin I (04/22/2019 5:11 PM CDT)Only the most recent of2 resultswithin the time period is included. Troponin I <0.01 0.00 - 0.03 ng/mL [facility] Specimen Blood Narrative Performed At Troponin I (TnI) levels must be interpreted [facility] in the context of the presenting symptoms [...] disease, and persistent tachyarrhythmia. Performing Organization Address City/State/Zipcode Phone Number [address] [address] [place] Creatine Kinase (CK) (04/22/2019 11:00 AM CDT) Total CK 71 29 - 200 U/L [facility] Specimen Blood Performing Organization Address City/[facility]/Zipcode Phone Number [place] [phone] [place] [address] [place] Prothrombin time/INR (04/19/2019 6:50 PM CDT) Protime 13.8 11.7 - 14.7 seconds [facility] INR 1.1 <=5.9 [facility] Specimen Blood Narrative Performed At RECOMMENDED COUMADIN/WARFARIN INR THERAPY [facility] RANGES STANDARD DOSE: 2.0 - 3.0 Includes: PROPHYLAXIS for venous thrombosis, systemic embolization; TREATMENT for venous thrombosis and/or pulmonary embolus. HIGH RISK: Target INR is 2.5-3.5 for patients with mechanical heart valves. Performing Organization Address [facility] Servicescook Phone Number [address] [address] [place] after 06/12/2018 Advance Directives For more information, please contact:[address] [phone] Code Status Date Activated Date Inactivated Comments Full Code 06/05/2019 5:20 PM 06/10/2019 4:58 PM This code status was determined by: Patient Full Code 04/25/2019 10:03 AM 04/26/2019 12:54 PM This code status was determined by: Patient
--- OUTSIDE RECORDS SUMMARY | 2019-06-13 07:07 | XMS REPORT ---
:1965 [facility] Address [address] [place] [address] Care Team Providers Name Role Phone JC DUFF Unavailable Unavailable BETH HAWKINS DELMA Unavailable Unavailable Problems This patient has no known problems. Allergies, Adverse Reactions, Alerts This patient has no known allergies or adverse reactions. Medications This patient has no known medications. Results Test Description Test Time Test Comments Text Results Atomic Results Result Comments RAD, SPINE, LUMBAR, 2019-06-09 10:53:00 Reason for FINAL REPORT PATIENT ID: 2 OR 3 VIEWS exam:->s/p L5-S1 [id number] LUMBAR SPINE fusion 2 VIEWS HISTORY: Low back pain, status post lumbar spine fusion COMPARISON: MRI lumbar spine of 06/05/2019 FINDINGS: AP and lateral lumbar spine radiographs were performed. Interval posterior lumbar interbody fusion at L5-S1. Bilateral pedicle screws and posterior rods are present as is an interbody spacer. Lumbar spine is otherwise unchanged in appearance. Signed: Deshaun Cantrell Verified Date/Time: 06/09/2019 10:53:58 Reading Location: [address] Transitional Reading Room , [facility] [place] 2019-06-08 10:08:00 Reason for FINAL REPORT PATIENT ID: OR/30 MINUTE exam:->lumbar [id number] Exam: INCREMENTS stenosis Intraoperative fluoroscopic lumbar spine radiograph History: Lumbar stenosis Comparison: Lumbar spine MRI 06/05/2019 Discussion : Single portable lateral intraoperative fluoroscopic image of the lower lumbar spine demonstrates posterior surgical instrumentation and screw fixation at L5 and S1. Alignment is anatomic. No acute fracture. Impression:Intraoperativ e image with interval posterior screw fixation at L5 and S1. Signed: Zayda Cole Verified Date/Time: 06/08/2019 10:08:27 Reading Location: [facility] Radiology Reading Room C METABOLIC PANEL 2019-06-08 05:42:00 Test Item Value Reference Range Comments SODIUM (BEAKER) (test 135 meq/L 136-145 sffn=068) POTASSIUM (BEAKER) (test 4.7 meq/L 3.5-5.1 rjiq=660) CHLORIDE (BEAKER) (test 104 meq/L 98-107 jmny=520) CO2 (BEAKER) (test ggrq=745) 25 meq/L 22-29 BLOOD UREA NITROGEN (BEAKER) 15 mg/dL 7-21 (test bdcs=315) CREATININE (BEAKER) (test 0.89 mg/dL 0.57-1.25 qxcs=129) GLUCOSE RANDOM (BEAKER) 95 mg/dL 70-105 (test snnk=321) CALCIUM (BEAKER) (test 8.9 mg/dL 8.4-10.2 baao=877) EGFR (BEAKER) (test 89 mL/min/1.73 sq m ESTIMATED GFR IS NOT vdea=5834) ACCURATE CREATININE CLEARANCE IN PREDICTING GLOMERULAR FILTRATION RATE. ESTIMATED GFR IS NOT APPLICABLE FOR DIALYSIS PATIENTS. CBC W/PLT COUNT & AUTO [id number] 04:52:00 Test Item Value Reference Range Comments WHITE BLOOD CELL COUNT 7.0 K/ L 3.5-10.5 (BEAKER) (test fbad=411) RED BLOOD CELL COUNT (BEAKER) 4.73 M/ L 4.63-6.08 (test jarq=995) HEMOGLOBIN (BEAKER) (test 14.7 GM/DL 13.7-17.5 ryhg=456) HEMATOCRIT (BEAKER) (test 44.5 % 40.1-51.0 mryt=247) MEAN CORPUSCULAR VOLUME 94.1 fL 79.0-92.2 Discordant MCV results (BEAKER) (test dyzm=923) compared to previous results; clinical correlation required. MEAN CORPUSCULAR HEMOGLOBIN 31.1 pg 25.7-32.2 (BEAKER) (test dmgw=919) MEAN CORPUSCULAR HEMOGLOBIN 33.0 GM/DL 32.3-36.5 CONC (BEAKER) (test ioxf=341) RED CELL DISTRIBUTION WIDTH 12.3 % 11.6-14.4 (BEAKER) (test lnvw=795) PLATELET COUNT (BEAKER) (test 199 K/CU MM 150-450 dabd=849) MEAN PLATELET VOLUME (BEAKER) 10.0 fL 9.4-12.4 (test lwvo=809) NUCLEATED RED BLOOD CELLS 0 /100 WBC 0-0 (BEAKER) (test cqqs=626) NEUTROPHILS RELATIVE PERCENT 62 % (BEAKER) (test drxf=355) LYMPHOCYTES RELATIVE PERCENT 28 % (BEAKER) (test ivmc=519) MONOCYTES RELATIVE PERCENT 8 % (BEAKER) (test burd=345) EOSINOPHILS RELATIVE PERCENT 1 % (BEAKER) (test ahpi=745) BASOPHILS RELATIVE PERCENT 0 % (BEAKER) (test ejan=057) NEUTROPHILS ABSOLUTE COUNT 4.34 K/ L 1.78-5.38 (BEAKER) (test bknj=216) LYMPHOCYTES ABSOLUTE COUNT 1.92 K/ L 1.32-3.57 (BEAKER) (test nsrw=181) MONOCYTES ABSOLUTE COUNT 0.58 K/ L 0.30-0.82 (BEAKER) (test mnri=854) EOSINOPHILS ABSOLUTE COUNT 0.10 K/ L 0.04-0.54 (BEAKER) (test lprb=018) BASOPHILS ABSOLUTE COUNT 0.03 K/ L 0.01-0.08 (BEAKER) (test sely=869) IMMATURE 0 % 0-1 GRANULOCYTES-RELATIVE PERCENT (BEAKER) (test fdyi=4226) PT/[id number] 09:32:00 Test Item Value Reference Range Comments PROTIME (BEAKER) (test lozg=488) 12.7 seconds 11.9-14.2 INR (BEAKER) (test hsgf=745) 1.0 <=5.9 PARTIAL THROMBOPLASTIN TIME (BEAKER) (test 26.9 seconds 22.5-36.0 mfxp=743) Effective 04/25/2019: PT Reference Range ChangeNew: 11.9-14.2 Previous: 11.7- 14.7RECOMMENDED COUMADIN/WARFARIN INR THERAPY RANGESSTANDARD DOSE: 2.0-3.0 Includes: PROPHYLAXIS for venous thrombosis, systemic embolization; TREATMENT for venous thrombosis and/or pulmonary embolus.HIGH RISK: Target INR is2.5-3.5 for patients wiht mechanical heart valves.CBC W/PLT COUNT & AUTO [id number] 08:50:00 Test Item Value Reference Range Comments WHITE BLOOD CELL COUNT (BEAKER) (test ysst=974) 6.1 K/ L 3.5-10.5 RED BLOOD CELL COUNT (BEAKER) (test jhlq=798) 4.71 M/ L 4.63-6.08 HEMOGLOBIN (BEAKER) (test vkgl=226) 14.6 GM/DL 13.7-17.5 HEMATOCRIT (BEAKER) (test ejmt=975) 47.0 % 40.1-51.0 MEAN CORPUSCULAR VOLUME (BEAKER) (test jygb=533) 99.8 fL 79.0-92.2 MEAN CORPUSCULAR HEMOGLOBIN (BEAKER) (test 31.0 pg 25.7-32.2 aibd=117) MEAN CORPUSCULAR HEMOGLOBIN CONC (BEAKER) (test 31.1 GM/DL 32.3-36.5 qiod=453) RED CELL DISTRIBUTION WIDTH (BEAKER) (test 12.3 % 11.6-14.4 zosj=973) PLATELET COUNT (BEAKER) (test wrhi=543) 139 K/CU MM 150-450 MEAN PLATELET VOLUME (BEAKER) (test oeju=541) 10.2 fL 9.4-12.4 NUCLEATED RED BLOOD CELLS (BEAKER) (test 0 /100 WBC 0-0 ejgl=543) NEUTROPHILS RELATIVE PERCENT (BEAKER) (test 65 % ngdb=812) LYMPHOCYTES RELATIVE PERCENT (BEAKER) (test 23 % taza=748) MONOCYTES RELATIVE PERCENT (BEAKER) (test 10 % kwce=839) EOSINOPHILS RELATIVE PERCENT (BEAKER) (test 2 % xhcy=991) BASOPHILS RELATIVE PERCENT (BEAKER) (test 1 % lcvd=549) NEUTROPHILS ABSOLUTE COUNT (BEAKER) (test 3.94 K/ L 1.78-5.38 jqwc=059) LYMPHOCYTES ABSOLUTE COUNT (BEAKER) (test 1.42 K/ L 1.32-3.57 hgsn=139) MONOCYTES ABSOLUTE COUNT (BEAKER) (test 0.58 K/ L 0.30-0.82 qolv=234) EOSINOPHILS ABSOLUTE COUNT (BEAKER) (test 0.09 K/ L 0.04-0.54 kovg=172) BASOPHILS ABSOLUTE COUNT (BEAKER) (test 0.03 K/ L 0.01-0.08 qgxg=806) IMMATURE GRANULOCYTES-RELATIVE PERCENT (BEAKER) 1 % 0-1 (test faby=1143) BASIC METABOLIC [id number] 08:45:00 Test Item Value Reference Range Comments SODIUM (BEAKER) (test 134 meq/L 136-145 tqko=714) POTASSIUM (BEAKER) (test 4.4 meq/L 3.5-5.1 Specimen slightly cfkf=553) hemolyzed CHLORIDE (BEAKER) (test 108 meq/L 98-107 ooni=002) CO2 (BEAKER) (test 17 meq/L 22-29 dhgg=095) BLOOD UREA NITROGEN 18 mg/dL 7-21 (BEAKER) (test xqus=853) CREATININE (BEAKER) (test 0.76 mg/dL 0.57-1.25 Specimen slightly wqnw=544) hemolyzed GLUCOSE RANDOM (BEAKER) 94 mg/dL 70-105 (test ewrg=673) CALCIUM (BEAKER) (test 8.9 mg/dL 8.4-10.2 zkhq=403) EGFR (BEAKER) (test 107 mL/min/1.73 sq m ESTIMATED GFR IS NOT jwde=5054) ACCURATE CREATININE CLEARANCE IN PREDICTING GLOMERULAR FILTRATION RATE. ESTIMATED GFR IS NOT APPLICABLE FOR DIALYSIS PATIENTS. BASIC METABOLIC [id number] 07:28:00 Test Item Value Reference Range Comments SODIUM (BEAKER) (test 136 meq/L 136-145 nebc=760) POTASSIUM (BEAKER) (test 4.1 meq/L 3.5-5.1 udgn=955) CHLORIDE (BEAKER) (test 105 meq/L 98-107 oclw=545) CO2 (BEAKER) (test 22 meq/L 22-29 bjmd=631) BLOOD UREA NITROGEN 22 mg/dL 7-21 (BEAKER) (test mzqe=995) CREATININE (BEAKER) (test 0.88 mg/dL 0.57-1.25 pirk=915) GLUCOSE RANDOM (BEAKER) 86 mg/dL 70-105 (test taux=433) CALCIUM (BEAKER) (test 9.1 mg/dL 8.4-10.2 iijh=475) EGFR (BEAKER) (test 90 mL/min/1.73 sq m ESTIMATED GFR IS NOT pqtu=1378) ACCURATE CREATININE CLEARANCE IN PREDICTING GLOMERULAR FILTRATION RATE. ESTIMATED GFR IS NOT APPLICABLE FOR DIALYSIS PATIENTS. [id number] 06:29:00 Test Item Value Reference Range Comments PROTIME (BEAKER) (test mqew=760) 13.0 seconds 11.9-14.2 INR (BEAKER) (test ociy=570) 1.0 <=5.9 PARTIAL THROMBOPLASTIN TIME (BEAKER) (test 26.2 seconds 22.5-36.0 jqot=017) Effective 04/25/2019: PT Reference Range ChangeNew: 11.9-14.2 Previous: 11.7- 14.7RECOMMENDED COUMADIN/WARFARIN INR THERAPY RANGESSTANDARD DOSE: 2.0-3.0 Includes: PROPHYLAXIS for venous thrombosis, systemic embolization; TREATMENT for venous thrombosis and/or pulmonary embolus.HIGH RISK: Target INR is2.5-3.5 for patients wiht mechanical heart valves.CBC W/PLT COUNT & AUTO [id number] 06:22:00 Test Item Value Reference Range Comments WHITE BLOOD CELL COUNT (BEAKER) (test fgow=361) 7.0 K/ L 3.5-10.5 RED BLOOD CELL COUNT (BEAKER) (test hodi=154) 4.65 M/ L 4.63-6.08 HEMOGLOBIN (BEAKER) (test dbia=706) 14.3 GM/DL 13.7-17.5 HEMATOCRIT (BEAKER) (test aofu=405) 44.4 % 40.1-51.0 MEAN CORPUSCULAR VOLUME (BEAKER) (test sgjv=288) 95.5 fL 79.0-92.2 MEAN CORPUSCULAR HEMOGLOBIN (BEAKER) (test 30.8 pg 25.7-32.2 nljs=607) MEAN CORPUSCULAR HEMOGLOBIN CONC (BEAKER) (test 32.2 GM/DL 32.3-36.5 zonr=289) RED CELL DISTRIBUTION WIDTH (BEAKER) (test 12.5 % 11.6-14.4 bvvb=140) PLATELET COUNT (BEAKER) (test yjfo=874) 194 K/CU MM 150-450 MEAN PLATELET VOLUME (BEAKER) (test epib=481) 10.3 fL 9.4-12.4 NUCLEATED RED BLOOD CELLS (BEAKER) (test 0 /100 WBC 0-0 akfn=618) NEUTROPHILS RELATIVE PERCENT (BEAKER) (test 59 % qdoo=358) LYMPHOCYTES RELATIVE PERCENT (BEAKER) (test 28 % oslt=799) MONOCYTES RELATIVE PERCENT (BEAKER) (test 11 % pdag=846) EOSINOPHILS RELATIVE PERCENT (BEAKER) (test 2 % txux=356) BASOPHILS RELATIVE PERCENT (BEAKER) (test 0 % xezv=777) NEUTROPHILS ABSOLUTE COUNT (BEAKER) (test 4.10 K/ L 1.78-5.38 kceq=398) LYMPHOCYTES ABSOLUTE COUNT (BEAKER) (test 1.94 K/ L 1.32-3.57 hajw=351) MONOCYTES ABSOLUTE COUNT (BEAKER) (test 0.75 K/ L 0.30-0.82 akuy=459) EOSINOPHILS ABSOLUTE COUNT (BEAKER) (test 0.11 K/ L 0.04-0.54 isvw=396) BASOPHILS ABSOLUTE COUNT (BEAKER) (test 0.03 K/ L 0.01-0.08 iyrs=145) IMMATURE GRANULOCYTES-RELATIVE PERCENT (BEAKER) 1 % 0-1 (test xsnj=2176) [id number] 15:26:00 Test Item Value Reference Range Comments PROTIME (BEAKER) (test xbar=915) 13.2 seconds 11.9-14.2 INR (BEAKER) (test dwvm=858) 1.1 <=5.9 PARTIAL THROMBOPLASTIN TIME (BEAKER) (test 25.2 seconds 22.5-36.0 hrfe=423) Effective 04/25/2019: PT Reference Range ChangeNew: 11.9-14.2 Previous: 11.7- 14.7RECOMMENDED COUMADIN/WARFARIN INR THERAPY RANGESSTANDARD DOSE: 2.0-3.0 Includes: PROPHYLAXIS for venous thrombosis, systemic embolization; TREATMENT for venous thrombosis and/or pulmonary embolus.HIGH RISK: Target INR is2.5-3.5 for patients wiht mechanical heart valves.CBC W/PLT COUNT & AUTO [id number] 15:14:00 Test Item Value Reference Range Comments WHITE BLOOD CELL COUNT (BEAKER) (test aneu=180) 7.1 K/ L 3.5-10.5 RED BLOOD CELL COUNT (BEAKER) (test spmx=899) 4.81 M/ L 4.63-6.08 HEMOGLOBIN (BEAKER) (test gxen=859) 15.0 GM/DL 13.7-17.5 HEMATOCRIT (BEAKER) (test oudt=750) 45.2 % 40.1-51.0 MEAN CORPUSCULAR VOLUME (BEAKER) (test bivy=238) 94.0 fL 79.0-92.2 MEAN CORPUSCULAR HEMOGLOBIN (BEAKER) (test 31.2 pg 25.7-32.2 puol=364) MEAN CORPUSCULAR HEMOGLOBIN CONC (BEAKER) (test 33.2 GM/DL 32.3-36.5 ldzy=420) RED CELL DISTRIBUTION WIDTH (BEAKER) (test 12.5 % 11.6-14.4 btuj=943) PLATELET COUNT (BEAKER) (test dauq=132) 183 K/CU MM 150-450 MEAN PLATELET VOLUME (BEAKER) (test drrv=955) 10.7 fL 9.4-12.4 NUCLEATED RED BLOOD CELLS (BEAKER) (test 0 /100 WBC 0-0 kkjk=301) NEUTROPHILS RELATIVE PERCENT (BEAKER) (test 66 % aktw=486) LYMPHOCYTES RELATIVE PERCENT (BEAKER) (test 24 % jrbc=553) MONOCYTES RELATIVE PERCENT (BEAKER) (test 9 % qcth=833) EOSINOPHILS RELATIVE PERCENT (BEAKER) (test 1 % qqjk=054) BASOPHILS RELATIVE PERCENT (BEAKER) (test 0 % fest=481) NEUTROPHILS ABSOLUTE COUNT (BEAKER) (test 4.68 K/ L 1.78-5.38 vmhn=996) LYMPHOCYTES ABSOLUTE COUNT (BEAKER) (test 1.67 K/ L 1.32-3.57 yonv=774) MONOCYTES ABSOLUTE COUNT (BEAKER) (test 0.60 K/ L 0.30-0.82 gzfe=495) EOSINOPHILS ABSOLUTE COUNT (BEAKER) (test 0.08 K/ L 0.04-0.54 arcs=644) BASOPHILS ABSOLUTE COUNT (BEAKER) (test 0.03 K/ L 0.01-0.08 ifpy=811) IMMATURE GRANULOCYTES-RELATIVE PERCENT (BEAKER) 1 % 0-1 (test cpkb=9571) BASIC METABOLIC [id number] 14:55:00 Test Item Value Reference Range Comments SODIUM (BEAKER) (test 136 meq/L 136-145 lpzb=136) POTASSIUM (BEAKER) (test 4.6 meq/L 3.5-5.1 Specimen slightly kqgb=410) hemolyzed CHLORIDE (BEAKER) (test 106 meq/L 98-107 voiu=761) CO2 (BEAKER) (test 21 meq/L 22-29 levy=585) BLOOD UREA NITROGEN 23 mg/dL 7-21 (BEAKER) (test kzqv=156) CREATININE (BEAKER) (test 1.23 mg/dL 0.57-1.25 Specimen slightly xjke=755) hemolyzed GLUCOSE RANDOM (BEAKER) 103 mg/dL 70-105 (test sfgx=221) CALCIUM (BEAKER) (test 9.2 mg/dL 8.4-10.2 alxe=169) EGFR (BEAKER) (test 61 mL/min/1.73 sq m ESTIMATED GFR IS NOT jpmd=5403) ACCURATE CREATININE CLEARANCE IN PREDICTING GLOMERULAR FILTRATION RATE. ESTIMATED GFR IS NOT APPLICABLE FOR DIALYSIS PATIENTS. MR, SPINE, LUMBAR, WITHOUT [id number] 13:50:00FINAL REPORT MR, SPINE, LUMBAR, WITHOUT CONTRAST INDICATION: back pain post op COMPARISON: April 20, 2019 TECHNIQUE: Multiplanar, multisequence [...] intensity. Pedicles are short at all levels. Thereis mild multilevel facet arthropathy without significant ligamentous [...] persistent effacement of the right lateral recess dueto disc extrusion and minimal inferior migration despite [...] and consequent nerve root edema. Signed: JR Zuniga Robert MDReport Verified Date/Time: 06/05/2019 13:50: 56 Reading Location: [facility] Radiology Reading Room TISSUE [id number] 12 :46:00Surgical Pathology Report Case: [id number] Authorizing Provider: Eliu Dennis MD Collected: 04/25/2019 1627 Ordering Location: [facility] PERIOPERATIVE Received: 04/26/2019 1011 SERVICES Pathologist: Rasheed Champagne MD Specimen: Disc L5-S1 VERTEBRAL COLUMN,INTERVERTEBRAL DISC, L5- S1, DISCECTOMY:FRAGMENTS OF FIBROCARTILAGE WITH MILD DEGENERATIVE CHANGES Signing Pathologist Direct Phone Line: [phone] signed by Rasheed Champagne MD on05/04/2019 at 12:46 [id number]; [id number] specimen is received in a single container with another smaller container within that container. Both specimens consist of off-white disc fragments, which are submitted entirely in cassette A1. The specimen measures 2.9 x 1.3 x 0.8 cm in aggregate. ?/ ewPerformedFL, HUMAN RESOURCES TRAINEE IN OR/30 MINUTE [id number] 13:38:00Reason for exam:->PAINPROCEDURE PERFORMED IN O.R. - PLEASE REFER TO THE INTRAOPERATIVE REPORT. NEEDLE EMG, 2 [id number] 09:16:00 INTRAOPERATIVE MONITORING REPORT Patient Name: Estefani Mancini [facility], [place], [place] Surgery Date: 04/25/2019 Alondra Pro: [id number] Monitoring began at 1547 and ended at 1738 Surgeon: Eliu Dennis M.D. Examining Physician: Lynda Goss M.D. Monitoring Technologist: ALEX Nascimento Procedure: Laminectomy L5-S1 Recording Parameters: Free-running and triggered EMG of left and right Vastus lateralis (L2-4), Tibialis Anterior (L4-5) , and Lateral Gastrocnemius (L5-S2) Description: Intraoperative neurophysiological monitoring was performed using free-running EMGof L2-S2 innervated muscle groups. Free-running EMG of L2-S2 innervated muscle group was monitored continuously throughout the operative procedure with no sustained neurotonic discharges seen. Conclusion: . The absence of sustained neurotonic discharges on free-running EMG suggests that the nerve roots monitored remained undisturbed. Lynda Goss M.D.M51.27 [id number] 07:26:00 Test Item Value Reference Range Comments PHOSPHORUS (BEAKER) (test lygl=547) 2.8 mg/dL 2.3-4.7 [id number] 07:26:00 Test Item Value Reference Range Comments MAGNESIUM (BEAKER) (test flrz=599) 2.2 mg/dL 1.6-2.6 BASIC METABOLIC [id number] 07:26:00 Test Item Value Reference Range Comments SODIUM (BEAKER) (test 136 meq/L 136-145 rxlv=677) POTASSIUM (BEAKER) (test 4.1 meq/L 3.5-5.1 loji=654) CHLORIDE (BEAKER) (test 106 meq/L 98-107 wnuy=777) CO2 (BEAKER) (test 23 meq/L 22-29 vgux=455) BLOOD UREA NITROGEN 19 mg/dL 7-21 (BEAKER) (test jhsc=646) CREATININE (BEAKER) (test 1.08 mg/dL 0.57-1.25 nlii=112) GLUCOSE RANDOM (BEAKER) 179 mg/dL 70-105 (test fqyb=147) CALCIUM (BEAKER) (test 8.6 mg/dL 8.4-10.2 anoj=180) EGFR (BEAKER) (test 71 mL/min/1.73 sq m ESTIMATED GFR IS NOT vpsg=2416) ACCURATE CREATININE CLEARANCE IN PREDICTING GLOMERULAR FILTRATION RATE. ESTIMATED GFR IS NOT APPLICABLE FOR DIALYSIS PATIENTS. CBC W/PLT COUNT & AUTO [id number] 07:05:00 Test Item Value Reference Range Comments WHITE BLOOD CELL COUNT (BEAKER) (test tpcn=551) 7.3 K/ L 3.5-10.5 RED BLOOD CELL COUNT (BEAKER) (test jaia=148) 4.31 M/ L 4.63-6.08 HEMOGLOBIN (BEAKER) (test tiam=869) 13.2 GM/DL 13.7-17.5 HEMATOCRIT (BEAKER) (test tczs=047) 40.3 % 40.1-51.0 MEAN CORPUSCULAR VOLUME (BEAKER) (test fbjt=579) 93.5 fL 79.0-92.2 MEAN CORPUSCULAR HEMOGLOBIN (BEAKER) (test 30.6 pg 25.7-32.2 ncef=638) MEAN CORPUSCULAR HEMOGLOBIN CONC (BEAKER) (test 32.8 GM/DL 32.3-36.5 gxii=787) RED CELL DISTRIBUTION WIDTH (BEAKER) (test 12.3 % 11.6-14.4 ryhl=056) PLATELET COUNT (BEAKER) (test btor=825) 161 K/CU MM 150-450 MEAN PLATELET VOLUME (BEAKER) (test vqqu=752) 10.2 fL 9.4-12.4 NUCLEATED RED BLOOD CELLS (BEAKER) (test 0 /100 WBC 0-0 twjd=534) NEUTROPHILS RELATIVE PERCENT (BEAKER) (test 86 % ovhl=219) LYMPHOCYTES RELATIVE PERCENT (BEAKER) (test 7 % nkda=588) MONOCYTES RELATIVE PERCENT (BEAKER) (test 6 % uspu=931) EOSINOPHILS RELATIVE PERCENT (BEAKER) (test 0 % dyuk=700) BASOPHILS RELATIVE PERCENT (BEAKER) (test 0 % cblj=232) NEUTROPHILS ABSOLUTE COUNT (BEAKER) (test 6.31 K/ L 1.78-5.38 nmzh=499) LYMPHOCYTES ABSOLUTE COUNT (BEAKER) (test 0.53 K/ L 1.32-3.57 qkow=870) MONOCYTES ABSOLUTE COUNT (BEAKER) (test 0.46 K/ L 0.30-0.82 dpak=495) EOSINOPHILS ABSOLUTE COUNT (BEAKER) (test 0.00 K/ L 0.04-0.54 levv=476) BASOPHILS ABSOLUTE COUNT (BEAKER) (test 0.00 K/ L 0.01-0.08 irjj=998) IMMATURE GRANULOCYTES-RELATIVE PERCENT (BEAKER) 0 % 0-1 (test clpa=5547) [id number] 14:04:00 Test Item Value Reference Range Comments PHOSPHORUS (BEAKER) (test baee=751) 3.5 mg/dL 2.3-4.7 [id number] 14:04:00 Test Item Value Reference Range Comments MAGNESIUM (BEAKER) (test qwrp=868) 2.1 mg/dL 1.6-2.6 BASIC METABOLIC [id number] 14:04:00 Test Item Value Reference Range Comments SODIUM (BEAKER) (test 136 meq/L 136-145 fqiz=508) POTASSIUM (BEAKER) (test 4.2 meq/L 3.5-5.1 xgwm=916) CHLORIDE (BEAKER) (test 103 meq/L 98-107 snoh=958) CO2 (BEAKER) (test 27 meq/L 22-29 kopr=890) BLOOD UREA NITROGEN 16 mg/dL 7-21 (BEAKER) (test rfms=744) CREATININE (BEAKER) (test 0.82 mg/dL 0.57-1.25 gnnc=351) GLUCOSE RANDOM (BEAKER) 100 mg/dL 70-105 (test soae=931) CALCIUM (BEAKER) (test 9.3 mg/dL 8.4-10.2 qics=724) EGFR (BEAKER) (test 98 mL/min/1.73 sq m ESTIMATED GFR IS NOT zeoq=2324) ACCURATE CREATININE CLEARANCE IN PREDICTING GLOMERULAR FILTRATION RATE. ESTIMATED GFR IS NOT APPLICABLE FOR DIALYSIS PATIENTS. [id number] 13:39:00 Test Item Value Reference Range Comments PROTIME (BEAKER) (test yotz=837) 12.9 seconds 11.7-14.7 INR (BEAKER) (test bmiz=032) 1.0 <=5.9 PARTIAL THROMBOPLASTIN TIME (BEAKER) (test 30.9 seconds 22.5-36.0 qmys=713) RECOMMENDED COUMADIN/WARFARIN INR THERAPY RANGESSTANDARD DOSE: 2.0 - 3.0 Includes: PROPHYLAXIS forvenous thrombosis, systemic embolization; TREATMENT for venous thrombosis and/or pulmonary embolus.HIGH RISK: Target INR is 2.5-3.5 for patients with mechanical heart valves.CBC W/PLT COUNT & AUTO [id number] 13:34:00 Test Item Value Reference Range Comments WHITE BLOOD CELL COUNT (BEAKER) (test bovl=540) 5.7 K/ L 3.5-10.5 RED BLOOD CELL COUNT (BEAKER) (test ppln=743) 4.45 M/ L 4.63-6.08 HEMOGLOBIN (BEAKER) (test exye=082) 13.8 GM/DL 13.7-17.5 HEMATOCRIT (BEAKER) (test sgiu=267) 41.6 % 40.1-51.0 MEAN CORPUSCULAR VOLUME (BEAKER) (test dtrr=472) 93.5 fL 79.0-92.2 MEAN CORPUSCULAR HEMOGLOBIN (BEAKER) (test 31.0 pg 25.7-32.2 afxe=993) MEAN CORPUSCULAR HEMOGLOBIN CONC (BEAKER) (test 33.2 GM/DL 32.3-36.5 ltan=014) RED CELL DISTRIBUTION WIDTH (BEAKER) (test 12.3 % 11.6-14.4 cipn=096) PLATELET COUNT (BEAKER) (test pnbi=459) 135 K/CU MM 150-450 MEAN PLATELET VOLUME (BEAKER) (test vqqr=953) 10.3 fL 9.4-12.4 NUCLEATED RED BLOOD CELLS (BEAKER) (test 0 /100 WBC 0-0 rtgh=441) NEUTROPHILS RELATIVE PERCENT (BEAKER) (test 64 % nfym=399) LYMPHOCYTES RELATIVE PERCENT (BEAKER) (test 20 % ntdz=594) MONOCYTES RELATIVE PERCENT (BEAKER) (test 13 % rzun=026) EOSINOPHILS RELATIVE PERCENT (BEAKER) (test 3 % vmmi=004) BASOPHILS RELATIVE PERCENT (BEAKER) (test 0 % ltds=196) NEUTROPHILS ABSOLUTE COUNT (BEAKER) (test 3.68 K/ L 1.78-5.38 bxds=161) LYMPHOCYTES ABSOLUTE COUNT (BEAKER) (test 1.13 K/ L 1.32-3.57 uycd=681) MONOCYTES ABSOLUTE COUNT (BEAKER) (test 0.73 K/ L 0.30-0.82 asik=278) EOSINOPHILS ABSOLUTE COUNT (BEAKER) (test 0.16 K/ L 0.04-0.54 gxln=726) BASOPHILS ABSOLUTE COUNT (BEAKER) (test 0.01 K/ L 0.01-0.08 loub=282) IMMATURE GRANULOCYTES-RELATIVE PERCENT (BEAKER) 0 % 0-1 (test eqyp=1664) LIPID [id number] 06:34:00 Test Item Value Reference Range Comments TRIGLYCERIDES (BEAKER) (test mhdh=557) 128 mg/dL CHOLESTEROL (BEAKER) (test pkes=598) 159 mg/dL HDL CHOLESTEROL (BEAKER) (test ziry=239) 37 mg/dL LDL CHOLESTEROL CALCULATED (BEAKER) (test 96 mg/dL xldx=538) Triglyceride Reference Range: Low Risk <150 Borderline 150- 199 High Risk 200-499 Very High Risk >=500Cholesterol Reference Range: Low Risk <200 Borderline 200-239 High Risk > 240HDL Cholesterol Reference Range: Low Risk >=60 High Risk <40LDL Cholesterol Reference Range: Optimal <100 Near Optimal 100-129 Borderline 130-159 High 160-189 Very High >=190TROPONIN [id number] 18:17:00 Test Item Value Reference Range Comments TROPONIN I (BEAKER) (test krhf=717) < ng/mL 0.00-0.03 Troponin I (TnI) levels [...] acidosis, acute neurological disease, and persistent tachyarrhythmia.TROPONIN [id number] 12:14:00 Test Item Value Reference Range Comments TROPONIN I (BEAKER) (test nbxn=638) < ng/mL 0.00-0.03 Troponin I (TnI) levels [...] Range Comments CREATINE KINASE TOTAL (BEAKER) (test xszj=571) 71 U/L 29-200 BASIC METABOLIC [id number] 05:41:00 Test Item Value Reference Range Comments SODIUM (BEAKER) (test 137 meq/L 136-145 clea=407) POTASSIUM (BEAKER) (test 4.3 meq/L 3.5-5.1 Specimen slightly orid=659) hemolyzed CHLORIDE (BEAKER) (test 105 meq/L 98-107 glpo=930) CO2 (BEAKER) (test 26 meq/L 22-29 ymuq=763) BLOOD UREA NITROGEN 21 mg/dL 7-21 (BEAKER) (test gifq=759) CREATININE (BEAKER) (test 0.85 mg/dL 0.57-1.25 Specimen slightly qoyl=534) hemolyzed GLUCOSE RANDOM (BEAKER) 94 mg/dL 70-105 (test linq=221) CALCIUM (BEAKER) (test 9.6 mg/dL 8.4-10.2 iahr=676) EGFR (BEAKER) (test 94 mL/min/1.73 sq m ESTIMATED GFR IS NOT jyvu=7636) ACCURATE CREATININE CLEARANCE IN PREDICTING GLOMERULAR FILTRATION RATE. ESTIMATED GFR IS NOT APPLICABLE FOR DIALYSIS PATIENTS. CBC W/PLT COUNT & AUTO [id number] 05:13:00 Test Item Value Reference Range Comments WHITE BLOOD CELL COUNT (BEAKER) (test mlyb=278) 6.4 K/ L 3.5-10.5 RED BLOOD CELL COUNT (BEAKER) (test etrx=332) 4.80 M/ L 4.63-6.08 HEMOGLOBIN (BEAKER) (test odcq=344) 14.7 GM/DL 13.7-17.5 HEMATOCRIT (BEAKER) (test jtfu=744) 44.9 % 40.1-51.0 MEAN CORPUSCULAR VOLUME (BEAKER) (test ymiu=596) 93.5 fL 79.0-92.2 MEAN CORPUSCULAR HEMOGLOBIN (BEAKER) (test 30.6 pg 25.7-32.2 ihpw=795) MEAN CORPUSCULAR HEMOGLOBIN CONC (BEAKER) (test 32.7 GM/DL 32.3-36.5 dqdx=671) RED CELL DISTRIBUTION WIDTH (BEAKER) (test 12.7 % 11.6-14.4 pwta=702) PLATELET COUNT (BEAKER) (test gmtt=746) 143 K/CU MM 150-450 MEAN PLATELET VOLUME (BEAKER) (test ybuu=524) 10.2 fL 9.4-12.4 NUCLEATED RED BLOOD CELLS (BEAKER) (test 0 /100 WBC 0-0 vgad=479) NEUTROPHILS RELATIVE PERCENT (BEAKER) (test 64 % mykc=763) LYMPHOCYTES RELATIVE PERCENT (BEAKER) (test 24 % aadk=029) MONOCYTES RELATIVE PERCENT (BEAKER) (test 10 % zodv=005) EOSINOPHILS RELATIVE PERCENT (BEAKER) (test 2 % tqzp=253) BASOPHILS RELATIVE PERCENT (BEAKER) (test 0 % epqj=427) NEUTROPHILS ABSOLUTE COUNT (BEAKER) (test 4.09 K/ L 1.78-5.38 glnd=700) LYMPHOCYTES ABSOLUTE COUNT (BEAKER) (test 1.51 K/ L 1.32-3.57 qnef=103) MONOCYTES ABSOLUTE COUNT (BEAKER) (test 0.61 K/ L 0.30-0.82 wblx=545) EOSINOPHILS ABSOLUTE COUNT (BEAKER) (test 0.13 K/ L 0.04-0.54 drvl=246) BASOPHILS ABSOLUTE COUNT (BEAKER) (test 0.02 K/ L 0.01-0.08 babb=903) IMMATURE GRANULOCYTES-RELATIVE PERCENT (BEAKER) 0 % 0-1 (test xzim=8075) BASIC METABOLIC [id number] 06:59:00 Test Item Value Reference Range Comments SODIUM (BEAKER) (test 137 meq/L 136-145 rdas=232) POTASSIUM (BEAKER) (test 4.2 meq/L 3.5-5.1 wtlq=734) CHLORIDE (BEAKER) (test 107 meq/L 98-107 avbp=397) CO2 (BEAKER) (test 23 meq/L 22-29 vwad=528) BLOOD UREA NITROGEN 24 mg/dL 7-21 (BEAKER) (test hpwd=640) CREATININE (BEAKER) (test 0.79 mg/dL 0.57-1.25 scrt=354) GLUCOSE RANDOM (BEAKER) 99 mg/dL 70-105 (test pbdq=942) CALCIUM (BEAKER) (test 9.1 mg/dL 8.4-10.2 srpa=631) EGFR (BEAKER) (test 102 mL/min/1.73 sq m ESTIMATED GFR IS NOT yqjc=6280) ACCURATE CREATININE CLEARANCE IN PREDICTING GLOMERULAR FILTRATION RATE. ESTIMATED GFR IS NOT APPLICABLE FOR DIALYSIS PATIENTS. CBC W/PLT COUNT & AUTO [id number] 06:58:00 Test Item Value Reference Range Comments WHITE BLOOD CELL COUNT (BEAKER) (test apel=490) 7.0 K/ L 3.5-10.5 RED BLOOD CELL COUNT (BEAKER) (test zfht=185) 4.91 M/ L 4.63-6.08 HEMOGLOBIN (BEAKER) (test crpt=018) 15.1 GM/DL 13.7-17.5 HEMATOCRIT (BEAKER) (test kavi=924) 46.5 % 40.1-51.0 MEAN CORPUSCULAR VOLUME (BEAKER) (test jgly=724) 94.7 fL 79.0-92.2 MEAN CORPUSCULAR HEMOGLOBIN (BEAKER) (test 30.8 pg 25.7-32.2 eham=453) MEAN CORPUSCULAR HEMOGLOBIN CONC (BEAKER) (test 32.5 GM/DL 32.3-36.5 crxf=615) RED CELL DISTRIBUTION WIDTH (BEAKER) (test 12.7 % 11.6-14.4 qsue=370) PLATELET COUNT (BEAKER) (test ctcy=629) 133 K/CU MM 150-450 MEAN PLATELET VOLUME (BEAKER) (test tgwi=372) 10.2 fL 9.4-12.4 NUCLEATED RED BLOOD CELLS (BEAKER) (test 0 /100 WBC 0-0 qjtf=388) NEUTROPHILS RELATIVE PERCENT (BEAKER) (test 68 % uxbk=692) LYMPHOCYTES RELATIVE PERCENT (BEAKER) (test 19 % nbsx=511) MONOCYTES RELATIVE PERCENT (BEAKER) (test 10 % uvtj=114) EOSINOPHILS RELATIVE PERCENT (BEAKER) (test 2 % rljs=376) BASOPHILS RELATIVE PERCENT (BEAKER) (test 0 % agki=346) NEUTROPHILS ABSOLUTE COUNT (BEAKER) (test 4.74 K/ L 1.78-5.38 zzhi=729) LYMPHOCYTES ABSOLUTE COUNT (BEAKER) (test 1.35 K/ L 1.32-3.57 fxsw=024) MONOCYTES ABSOLUTE COUNT (BEAKER) (test 0.66 K/ L 0.30-0.82 rbin=422) EOSINOPHILS ABSOLUTE COUNT (BEAKER) (test 0.17 K/ L 0.04-0.54 npaz=401) BASOPHILS ABSOLUTE COUNT (BEAKER) (test 0.02 K/ L 0.01-0.08 qaux=457) IMMATURE GRANULOCYTES-RELATIVE PERCENT (BEAKER) 0 % 0-1 (test idbb=5162) MR, SPINE, LUMBAR, WITHOUT [id number] 21:50:00 Include Sacral spine Tarlov cystsFINAL REPORT [...] MDReport Verified Date/Time: 04/20/2019 21:50:08 Reading Location: [facility] [id number] Consult Reading Room 09: 50 PMBASI METABOLIC [id number] 04:59:00 Test Item Value Reference Range Comments SODIUM (BEAKER) (test 136 meq/L 136-145 kjxb=324) POTASSIUM (BEAKER) (test 4.2 meq/L 3.5-5.1 Specimen slightly hrev=024) hemolyzed CHLORIDE (BEAKER) (test 108 meq/L 98-107 iove=477) CO2 (BEAKER) (test 23 meq/L 22-29 syff=033) BLOOD UREA NITROGEN 24 mg/dL 7-21 (BEAKER) (test owfa=082) CREATININE (BEAKER) (test 0.88 mg/dL 0.57-1.25 Specimen slightly phdi=327) hemolyzed GLUCOSE RANDOM (BEAKER) 105 mg/dL 70-105 (test duhg=649) CALCIUM (BEAKER) (test 9.1 mg/dL 8.4-10.2 msht=443) EGFR (BEAKER) (test 90 mL/min/1.73 sq m ESTIMATED GFR IS NOT iich=7245) ACCURATE CREATININE CLEARANCE IN PREDICTING GLOMERULAR FILTRATION RATE. ESTIMATED GFR IS NOT APPLICABLE FOR DIALYSIS PATIENTS. CBC W/PLT COUNT & AUTO [id number] 04:33:00 Test Item Value Reference Range Comments WHITE BLOOD CELL COUNT (BEAKER) (test fkmy=913) 5.2 K/ L 3.5-10.5 RED BLOOD CELL COUNT (BEAKER) (test wxcd=344) 4.52 M/ L 4.63-6.08 HEMOGLOBIN (BEAKER) (test dvai=426) 14.0 GM/DL 13.7-17.5 HEMATOCRIT (BEAKER) (test cssf=328) 42.6 % 40.1-51.0 MEAN CORPUSCULAR VOLUME (BEAKER) (test hpxy=100) 94.2 fL 79.0-92.2 MEAN CORPUSCULAR HEMOGLOBIN (BEAKER) (test 31.0 pg 25.7-32.2 scgg=734) MEAN CORPUSCULAR HEMOGLOBIN CONC (BEAKER) (test 32.9 GM/DL 32.3-36.5 ofqx=855) RED CELL DISTRIBUTION WIDTH (BEAKER) (test 12.9 % 11.6-14.4 elfy=508) PLATELET COUNT (BEAKER) (test juic=584) 145 K/CU MM 150-450 MEAN PLATELET VOLUME (BEAKER) (test lcfe=038) 10.2 fL 9.4-12.4 NUCLEATED RED BLOOD CELLS (BEAKER) (test 0 /100 WBC 0-0 evok=448) NEUTROPHILS RELATIVE PERCENT (BEAKER) (test 54 % yvhd=914) LYMPHOCYTES RELATIVE PERCENT (BEAKER) (test 32 % xmtb=666) MONOCYTES RELATIVE PERCENT (BEAKER) (test 10 % kwvg=726) EOSINOPHILS RELATIVE PERCENT (BEAKER) (test 3 % xmmx=915) BASOPHILS RELATIVE PERCENT (BEAKER) (test 0 % utfz=164) NEUTROPHILS ABSOLUTE COUNT (BEAKER) (test 2.84 K/ L 1.78-5.38 sqjj=295) LYMPHOCYTES ABSOLUTE COUNT (BEAKER) (test 1.66 K/ L 1.32-3.57 mubd=545) MONOCYTES ABSOLUTE COUNT (BEAKER) (test 0.52 K/ L 0.30-0.82 mbjr=769) EOSINOPHILS ABSOLUTE COUNT (BEAKER) (test 0.16 K/ L 0.04-0.54 srbv=820) BASOPHILS ABSOLUTE COUNT (BEAKER) (test 0.02 K/ L 0.01-0.08 xnsr=628) IMMATURE GRANULOCYTES-RELATIVE PERCENT (BEAKER) 0 % 0-1 (test fkkv=0356) PROTHROMBIN [id number] 19:17:00 Test Item Value Reference Range Comments PROTIME (BEAKER) (test jven=897) 13.8 seconds 11.7-14.7 INR (BEAKER) (test hwdj=247) 1.1 <=5.9 RECOMMENDED COUMADIN/WARFARIN INR THERAPY RANGESSTANDARD DOSE: 2.0 - 3.0 Includes: PROPHYLAXIS forvenous thrombosis, systemic embolization; TREATMENT for venous thrombosis and/or pulmonary embolus.HIGH RISK: Target INR is 2.5-3.5 for patients with mechanical heart valves.
[2019-06-13 07:39] LABS: Absolute Lymphocytes (CBC) 1.1 K/uL (0.7-4.9); Basophils % 0.4 % (0-1.3); Eosinophils % 0.1 % (0-4.4); Hematocrit 41.8 % (39.6-49.0); Lymphocytes % 11.6 % (15.3-44.8); MPV 8.4 fL (7.6-11.3); Monocytes % 10.3 % (3.3-12.3)
[2019-06-13 07:43] LABS: Protime INR 1.12
[2019-06-13] MEDS ORDERED: NA CHLORIDE 0.9% 1,000 ML ONE (08:22)
[2019-06-13 09:45] LABS: Albumin 4.2 g/dL (3.4-5.0); Bilirubin Direct 0.4 mg/dL (0-0.2); Bilirubin Total 1.3 mg/dL (0.2-1.0)
--- NOTE | 2019-06-13 15:05 | EKG ---
Test Date: 2019-06-13 Test Time: 07:11:10 Bend Sorter: MITUL MEASUREMENT RESULTS: Intervals: Rate: 91 NC: 134 QRSD: 84 QT: 370 QTc: 455 [place]: P: 55 NC: 134 QRS: 32 T: 34 INTERPRETIVE STATEMENTS: Normal sinus rhythm Normal ECG Compared to ECG 05/25/2019 21:32:11 No significant changes Electronically Signed On 06-13-19 15:04:39 CDT by Pramod Paniagua
[2019-06-14] MEDS ORDERED: NA CHLORIDE 0.9% 1,000 ML ONE ×2 (02:58→16:03)
[2019-06-14 03:40] LABS: Urine Blood NEGATIVE (NEG); Urine Glucose NEGATIVE (NEG); Urine Protein NEGATIVE (NEG); Urine Specific Gravity 1.025 (1.005-1.030); Urine pH 5.5 (5.0-7.0)
[2019-06-14 14:17] LABS: Barbiturates NEGATIVE (NEGATIVE); Benzodiazepines POSITIVE (NEGATIVE); Cocaine NEGATIVE (NEGATIVE); METHAMPHETAM POSITIVE (NEGATIVE); Methadone NEGATIVE (NEGATIVE); Opiates POSITIVE (NEGATIVE); Phencyclidine NEGATIVE (NEGATIVE); THC Cannibis NEGATIVE (NEGATIVE)
[2019-06-14 16:30] LABS: Potassium 4.2 mmol/L (3.5-5.1)
[2019-06-14] MEDS ORDERED: IBUPROFEN 400 MG TAB ONE (20:27)
[2019-06-15] MEDS ORDERED: NA CHLORIDE 0.9% 1,000 ML ONE (02:40)
[2019-06-15] MEDS ORDERED: ONDANSETRON 4 MG/2 ML VIAL ONE (02:40)
--- NOTE | 2019-06-15 04:44 | EDPHYS ---
Physician Documentation [facility] Name: Martin Napoles Age: 53 yrs Sex: Male : 1965 Arrival Date: 06/13/2019 Time: 07:09 Bed 16 Private MD: ED Physician Michael Landaverde HPI: 06/13 10:06 This 53 yrs old Male presents to ER via EMS with complaints of Suicidal jr8 attempt. 10:06 The patient presents to the emergency department with depression. Onset: The jr8 symptoms/episode began/occurred acutely, today. Associated signs and symptoms: Pertinent positives; depression. Severity of symptoms: At their worst the symptoms were moderate in the emergency department the symptoms are unchanged. It is unknown whether or not the patient has had similar symptoms in the past. It is unknown whether or not the patient has recently seen a physician. Patient came in via EMS after police found him. Stated that he was slurring his speech wanting to find his son. Stated that he no longer wants to live and took a bunch of his Tylenol #3 and Robaxin. Patient had written a suicidal note which police had found. Patient with minimal verbal response. Only responsive to painful stimulus at this time but maintaining airway. EMS had given narcan on scene. 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 Historical: - Allergies: 07:39 No Known Allergies; ph - Home Meds: 07:39 Tylenol #3 Oral [Active]; Methocarbamol Oral [Active]; ph - PMHx: 07:39 ADD/ADHD; ph - PSHx: 07:39 back surgery; ph - Immunization history:: Adult Immunizations unknown. - Social history:: Smoking status: Patient uses tobacco products, smokes one-half pack cigarettes per day. - Ebola Screening: : No symptoms or risks identified at this time. ROS: 10:06 Eyes: Negative for injury, pain, redness, and discharge, ENT: Negative for injury, jr8 pain, and discharge, Neck: Negative for injury, pain, and swelling, Cardiovascular: Negative for chest pain, palpitations, and edema, Respiratory: Negative for shortness of breath, cough, wheezing, and pleuritic chest pain, Abdomen/GI: Negative for abdominal pain, nausea, vomiting, diarrhea, and constipation, Back: Negative for injury and pain, MS/Extremity: Negative for injury and deformity, Skin: Negative for injury, rash, and discoloration. 10:06 Neuro: Positive for altered mental status. 10:06 Psych: Positive for depression, suicide gesture, suicidal ideation. Exam: 10:06 Eyes: Pupils equal round and reactive to light, extra-ocular motions intact. Lids and jr8 lashes normal. Conjunctiva and sclera are non-icteric and not injected. Cornea within normal limits. Periorbital areas with no swelling, redness, or edema. ENT: Nares patent. No nasal discharge, no septal abnormalities noted. Tympanic membranes are normal and external auditory canals are clear. Oropharynx with no redness, swelling, or masses, exudates, or evidence of obstruction, uvula midline. Mucous membranes moist. Neck: Trachea midline, no thyromegaly or masses palpated, and no cervical lymphadenopathy. Supple, full range of motion without nuchal rigidity, or vertebral point tenderness. No Meningismus. Cardiovascular: Regular rate and rhythm with a normal S1 and S2. No gallops, murmurs, or rubs. Normal PMI, no JVD. No pulse deficits. Respiratory: Lungs have equal breath sounds bilaterally, clear to auscultation and percussion. No rales, rhonchi or wheezes noted. No increased work of breathing, no retractions or nasal flaring. Abdomen/GI: Soft, non-tender, with normal bowel sounds. No distension or tympany. No guarding or rebound. No evidence of tenderness throughout. Back: No spinal tenderness. No costovertebral tenderness. Full range of motion. Patient has two paraspinal 2.5 cm incisions noted on each side that appear to be internally closed. No shelton or stiches present. No erythema/cellulitis, discharge, or active bleeding at this time. Appears to be healing well. Skin: Warm, dry with normal turgor. Normal color with no rashes, no lesions, and no evidence of cellulitis. MS/ Extremity: Pulses equal, no cyanosis. Neurovascular intact. Full, normal range of motion. 10:06 Neuro: Orientation: to person, Mentation: able to follow commands, slow to respond, confused, Memory: unable to test, Cranial nerves: extraocular movements are intact, Speech is slowed, slurred, Motor: moves all fours, Sensation: no obvious gross deficits, Gait: not tested. seizure activity, is not displayed by the patient, Abnormal movements: there are no abnormal movements. Vital Signs: 07:37 BP 123 / 103; Pulse 84; Resp 18; Pulse Ox 98% on R/A; Weight 86.18 kg; ph 08:13 BP 129 / 68; Pulse 81; Resp 20; Pulse Ox 97% on R/A; em1 08:53 BP 126 / 90; Pulse 73; Resp 18; Pulse Ox 97% on R/A; em1 09:56 BP 143 / 83; Pulse 78; Resp 18; Pulse Ox 98% on R/A; Pain 0/10; em1 11:16 BP 100 / 77; Pulse 64; Resp 18; Temp 97.7; Pulse Ox 98% on R/A; Pain 0/10; em5 18:15 BP 105 / 71; Pulse 57; Resp 16; Temp 97.2(TE); Pulse Ox 100% ; lt1 23:40 BP 112 / 76; Pulse 62; Resp 18 S; Temp 97.5(TE); Pulse Ox 99% on R/A; ca1 06/14 05:10 BP 122 / 82; Pulse 52; Resp 18; Temp 98.7; Pulse Ox 100% ; mw2 09:00 BP 100 / 57; Pulse 82; Resp 18; Temp 97.8(O); Pulse Ox 95% on R/A; kj1 13:00 BP 135 / 83; Pulse 75; Resp 18; Temp 97.8(O); Pulse Ox 100% on R/A; kj1 16:00 BP 118 / 53; Pulse 70; Resp 18; Temp 98.0(O); Pulse Ox 100% on R/A; kj1 20:00 BP 95 / 63; Pulse 52; Resp 17; Temp 97.7(O); Pulse Ox 98% on R/A; ar5 06/15 00:00 BP 90 / 52; Pulse 57; Resp 16; Temp 97.8(O); Pulse Ox 98% on R/A; ar5 04:00 BP 111 / 75; Pulse 63; Resp 17; Temp 97.9(O); Pulse Ox 99% on R/A; ar5 Johanna Coma Score: 06/13 10:06 Eye Response: to pain(2). Verbal Response: confused(4). Motor Response: localizes jr8 pain(5). Total: 11. MDM: 07:10 Patient medically screened. 06/14 02:47 Data reviewed: vital signs, nurses notes. Data interpreted: Pulse oximetry: on room air snw is 99 %. Interpretation: normal. Counseling: I had a detailed discussion with the patient and/or guardian regarding: the historical points, exam findings, and any diagnostic results supporting the discharge/admit diagnosis, the need to transfer to another facility, for higher level of care, [facility] does not immediately have the required specialist. Transition of care: After a detail discussion of the patient's case, care is transferred to Jim Nava MD. ED course: pt slept most of shift, intermittent tearful moments, pt cooperative and understands need for transfer. Voluntary at this time. Did not consume much of dinner. States he is not feeling very hungry.. 15:40 ED course: Reordered C7, creatinine back within normal. Called [facility] for Provider to Provider. They stated they would page provider.. 16:00 ED course: HCP repaged Provider. snw 06/15 00:59 ED course: All psych facilities re contacted for potential placement.. ED course: Tried snw to do Provider to Provider, re paged per HCP. 06/13 07:12 Order name: Acetaminophen [facility] 06/13 07:12 Order name: Basic Metabolic Panel [facility] 06/13 07:12 Order name: CBC with Diff [facility] 06/13 07:12 Order name: ETOH Level [facility] 06/13 07:12 Order name: Hepatic Function [facility] 06/13 07:12 Order name: PT-INR; Complete Time: 08:01 [facility] 06/13 07:12 Order name: Ptt, Activated; Complete Time: 08:01 06/13 07:12 Order name: Salicylate; Complete Time: 09:56 [facility] 06/13 07:12 Order name: Urine Drug Screen; Complete Time: 15:13 [facility] 06/13 07:13 Order name: Acetaminophen Level; Complete Time: 09:56 [facility] 06/13 07:13 Order name: Basic Metabolic Panel; Complete Time: 09:56 [facility] 06/13 07:13 Order name: CBC with Automated Diff; Complete Time: 08:01 [facility] 06/13 07:13 Order name: Alcohol Serum/Plasma; Complete Time: 08:01 EDMS 06/13 07:13 Order name: Liver (Hepatic) Function; Complete Time: 09:56 [facility] 06/13 07:12 Order name: EKG; Complete Time: 07:14 [facility] 06/13 07:12 Order name: EKG - Nurse/Tech; Complete Time: 07:33 [facility] 06/13 07:12 Order name: IV Saline Lock; Complete Time: 07:42 [facility] 06/13 07:12 Order name: Labs collected and sent; Complete Time: 07:42 [facility] 06/13 07:12 Order name: Urine Dipstick-Ancillary (obtain specimen); Complete Time: 01:19 [facility] 06/13 11:06 Order name: Tylenol Level; Complete Time: 14:42 [facility] 06/13 11:28 Order name: Diet Regular; Complete Time: 11:29 aa5 06/13 16:12 Order name: Diet Finger Food; Complete Time: 16:12 bd 06/14 01:12 Order name: Urine Dipstick--Ancillary (enter results); Complete Time: 06:03 ar5 06/14 08:17 Order name: Diet Regular; Complete Time: 08:18 5 06/14 15:29 Order name: Chem 7: post 1 L NS bolus completion; Complete Time: 17:15 snw Administered Medications: 06/13 08:11 Drug: NS 0.9% 1000 ml Route: IV; Rate: 1000 ml; Site: right antecubital; ph 06/14 02:45 Drug: NS 0.9% 1000 ml Route: IV; Rate: 1 bolus; Site: right antecubital; tl2 16:08 Drug: NS 0.9% 1000 ml Route: IV; Rate: 1 bolus; Site: right antecubital; rb1 19:00 Follow up: Response: No adverse reaction; IV Status: Completed infusion; IV Intake: jd3 1000ml 20:14 Drug: Motrin 400 mg Route: PO; jd3 21:02 Follow up: Response: No adverse reaction jd3 Disposition: 06/15 04:36 Co-signature as Attending Physician, Michael Landaverde MD I agree with the assessment and jerome plan of care. Disposition: 06/15/19 04:41 Transfer ordered to [facility]. Diagnosis are Major depressive disorder, recurrent, Unspecified kidney failure - insufficency, Abuse of non-psychoactive substances, Suicidal ideations, Suicide attempt. - Reason for transfer: Higher level of care. - Accepting physician is dr ramos. - Condition is Stable. - Problem is new. - Symptoms have improved. Signatures: Dispatcher [employer] EDMS Michael Landaverde MD MD cha Therrien, Shelly, AUTISM TEACHER-C AUTISM TEACHER-Csnw Hossein Waldrop, PA PA jr8 Ciara Dominguez RN RN ph Katya Garcia RN RN rb1 Sanju Moore NP LICENSED PSYCHOLOGIST DIRECTOR pm1 Nancy Lindquist RN RN tl2 [place] RN RN jd3 Corrections: (The following items were deleted from the chart) 01:06/14 16:58 NS 0.9% 1000 ml IV at 1 bolus Per protocol; 1000 mL bolus given. rb1 snw 06/15 01:07 00:59 ED course: Tried to do Provider to Provider, re paged per HCP. snw snw 01:07 00:59 ED course: Tried to do Provider to Provider again. HCP to page Provider. snw snw 04:53 04:41 06/15/2019 04:41 Transfer ordered to Psych Facility. Diagnosis is Major jerome depressive disorder, recurrent; Unspecified kidney failure - insufficency; Abuse of non-psychoactive substances. Reason for transfer: Higher level of care. Accepting physician is dr ramos. Condition is Stable. Problem is new. Symptoms have improved. jerome 05:27 04:53 06/15/2019 04:41 Transfer ordered to Psych Facility. Diagnosis is Major jd3 depressive disorder, recurrent; Unspecified kidney failure - insufficency; Abuse of non-psychoactive substances; Suicidal ideations; Suicide attempt. Reason for transfer: Higher level of care. Accepting physician is dr ramos. Condition is Stable. Problem is new. Symptoms have improved. jerome 08:34 06/13 10:06 Eyes: Pupils equal round and reactive to light, extra-ocular motions jr8 intact. Lids and lashes normal. Conjunctiva and sclera are non-icteric and not injected. Cornea within normal limits. Periorbital areas with no swelling, redness, or edema. ENT: Nares patent. No nasal discharge, no septal abnormalities noted. Tympanic membranes are normal and external auditory canals are clear. Oropharynx with no redness, swelling, or masses, exudates, or evidence of obstruction, uvula midline. Mucous membranes moist. Neck: Trachea midline, no thyromegaly or masses palpated, and no cervical lymphadenopathy. Supple, full range of motion without nuchal rigidity, or vertebral point tenderness. No Meningismus. Cardiovascular: Regular rate and rhythm with a normal S1 and S2. No gallops, murmurs, or rubs. Normal PMI, no JVD. No pulse deficits. Respiratory: Lungs have equal breath sounds bilaterally, clear to auscultation and percussion. No rales, rhonchi or wheezes noted. No increased work of breathing, no retractions or nasal flaring. Abdomen/GI: Soft, non-tender, with normal bowel sounds. No distension or tympany. No guarding or rebound. No evidence of tenderness throughout. Back: No spinal tenderness. No costovertebral tenderness. Full range of motion. Skin: Warm, dry with normal turgor. Normal color with no rashes, no lesions, and no evidence of cellulitis. MS/ Extremity: Pulses equal, no cyanosis. Neurovascular intact. Full, normal range of motion. jr8
--- NOTE | 2019-06-15 04:44 | ER ---
Nurse's Notes [facility] Name: Martin Napoles Age: 53 yrs Sex: Male : 1965 Arrival Date: 06/13/2019 Time: 07:09 Bed 16 Private MD: Diagnosis: Major depressive disorder, recurrent;Unspecified kidney failure-insufficency;Abuse of non-psychoactive substances;Suicidal ideations;Suicide attempt Presentation: 06/13 07:33 Presenting complaint: EMS states: Found unresponsive under overpass, suicide note found ph in pill bottle, pt was arousable to physical stimuli , admits to taking Tylenol #3 and Robaxin, estimates approx 30 pills total, VSS. Transition of care: patient was not received from another setting of care. Onset of symptoms was June 13, 2019. Risk Assessment: Do you want to hurt yourself or someone else? Patient reports desire/thoughts of hurting themselves or someone else. Provider notified. Initial Sepsis Screen: Does the patient meet any 2 criteria? No. Patient's initial sepsis screen is negative. Does the patient have a suspected source of infection? No. Patient's initial sepsis screen is negative. Care prior to arrival: IV initiated. 20 GA, in the left antecubital area, Oxygen administered. 07:33 Method Of Arrival: EMS: [facility] ph 07:33 Acuity: ABBY 2 ph Historical: - Allergies: 07:39 No Known Allergies; ph - Home Meds: 07:39 Tylenol #3 Oral [Active]; Methocarbamol Oral [Active]; ph - PMHx: 07:39 ADD/ADHD; ph - PSHx: 07:39 back surgery; ph - Immunization history:: Adult Immunizations unknown. - Social history:: Smoking status: Patient uses tobacco products, smokes one-half pack cigarettes per day. - Ebola Screening: : No symptoms or risks identified at this time. Screenin:02 Abuse screen: Denies threats or abuse. Denies injuries from another. Nutritional ph screening: No deficits noted. Tuberculosis screening: No symptoms or risk factors identified. Fall Risk No fall in past 12 months (0 pts). No secondary diagnosis (0 pts). IV access (20 points). Ambulatory Aid- None/Bed Rest/Nurse Assist (0 pts). Gait- Weak (10 pts.). Mental Status- Overestimates/Forgets Limitations (15 pts.). Total Trammell Fall Scale indicates High Risk Score (45 or more points). Fall prevention measures have been instituted. Side Rails Up X 2 Placed Close to Nursing Station 1:1 Attendant Assigned Frequent Obs/Assessments Occuring As available patient and family educated on Fall Prevention Program and Strategies. Assessment: 07:15 General: Appears in no apparent distress. uncomfortable, unkempt, Behavior is ph cooperative, appropriate for age, anxious, drowsy. Pain: Complains of pain in back. Neuro: Level of Consciousness is awake, obeys commands, Oriented to person, place, situation. Cardiovascular: Capillary refill < 3 seconds in bilateral fingers Patient's skin is warm and dry. Rhythm is sinus rhythm. Respiratory: Airway is patent Respiratory effort is even, unlabored, Respiratory pattern is regular, symmetrical. GI: Patient currently denies abdominal pain, nausea. : No signs and/or symptoms were reported regarding the genitourinary system. Derm: Skin is healthy with good turgor, Skin is pink, warm \T\ dry. surgical site x 2 noted to anthony lower back, pt reports recent back sx, no redness, swelling, or warmth noted, small amount of serosanguinous fluid noted to be seeping from wound/site to R, non adherent gauze dressing and tegaderm placed to both sites by cryptologic technician. Musculoskeletal: Circulation, motion, and sensation intact. Range of motion: intact in all extremities. 07:58 Reassessment: Contacted poison control recommended tox work up w/ repeat Tylenol level ph at around 1100, monitor for cardiac arrythmia, serotonin syndrome, seizures, administer IV fluids and possibly charcoal 50 gr. Case # [id number]. 08:30 Reassessment: Patient appears in no apparent distress at this time. Patient and/or ph family updated on plan of care and expected duration. Pain level reassessed. Patient is alert, oriented x 3, equal unlabored respirations, skin warm/dry/pink. 09:30 Reassessment: Patient appears in no apparent distress at this time. Patient and/or ph family updated on plan of care and expected duration. Pain level reassessed. Patient is alert, oriented x 3, equal unlabored respirations, skin warm/dry/pink. Son at bedside. 10:54 Pain: Denies pain. Neuro: No deficits noted. Cardiovascular: No deficits noted. em5 Respiratory: No deficits noted. GI: No signs and/or symptoms were reported involving the gastrointestinal system. : No signs and/or symptoms were reported regarding the genitourinary system. EENT: No signs and/or symptoms were reported regarding the EENT system. Musculoskeletal: No deficits noted. 10:55 Derm: Parent/caregiver reports the patient having 2 incisions at the back from spinal em5 fusion done recently with serosanguineous drainage noted; dressing changed with aseptic technique applied gauze. Patient tolerated denies any pain. 13:30 Reassessment: Pt's is resting with eyes closed. Easily awaken with verbal stimuli. Not ca1 in respiratory distress, skin is pink, warm and dry. 14:30 Reassessment: Patient appears in no apparent distress at this time. No changes from ca1 previously documented assessment. Pt's is resting with eyes closed. Easily awaken with verbal stimuli. Not in respiratory distress, skin is pink, warm and dry. 15:30 Reassessment: Patient appears in no apparent distress at this time. Patient is alert, ca1 oriented x 3, equal unlabored respirations, skin warm/dry/pink. 16:30 Reassessment: Patient appears in no apparent distress at this time. Pt's is resting ca1 with eyes closed. Easily awaken with verbal stimuli. Not in respiratory distress, skin is pink, warm and dry. 17:27 Reassessment: Patient appears in no apparent distress at this time. Patient is alert, ca1 oriented x 3, equal unlabored respirations, skin warm/dry/pink. Pt now awake, sits on bed. Meal served. Pt now eating dinner. 18:28 Reassessment: Patient appears in no apparent distress at this time. Pt asked to call ca1 son to come visit him tonight after work. Talked to son, says he is coming later tonight. Son's name is Bradley with phone number [phone]. 18:30 Reassessment: Patient appears in no apparent distress at this time. Patient is alert, ca1 oriented x 3, equal unlabored respirations, skin warm/dry/pink. General: Behavior is crying. 19:30 Reassessment: Patient appears in no apparent distress at this time. Patient is alert, ca1 oriented x 3, equal unlabored respirations, skin warm/dry/pink. 20:30 Reassessment: Patient appears in no apparent distress at this time. Patient is alert, ca1 oriented x 3, equal unlabored respirations, skin warm/dry/pink. 21:18 Reassessment: Patient appears in no apparent distress at this time. Patient is alert, ca1 oriented x 3, equal unlabored respirations, skin warm/dry/pink. Son at bedside. 22:20 Reassessment: Patient appears in no apparent distress at this time. Pt's is resting ca1 with eyes closed. Easily awaken with verbal stimuli. Not in respiratory distress, skin is pink, warm and dry. 23:25 Reassessment: Patient appears in no apparent distress at this time. Pt's is resting ca1 with eyes closed. Not in respiratory distress, skin is pink, warm and dry. Kept undisturbed. 06/14 00:50 Reassessment: Patient appears in no apparent distress at this time. Patient is alert, ca1 oriented x 3, equal unlabored respirations, skin warm/dry/pink. Pt's is resting with eyes closed. Easily awaken with verbal stimuli. Not in respiratory distress, skin is pink, warm and dry. 01:20 Reassessment: patient's dr number (surgeon) Dr. aniceto Dennis- [phone]. mg2 07:00 General: Appears in no apparent distress. comfortable, Behavior is calm, cooperative. rb1 Pain: Complains of pain in back Pain currently is 7 out of 10 on a pain scale. Neuro: Level of Consciousness is awake, alert, obeys commands, Oriented to person, place, time, situation. Cardiovascular: Capillary refill < 3 seconds is brisk in bilateral fingers. Respiratory: Airway is patent Respiratory effort is even, unlabored, Respiratory pattern is regular, symmetrical. GI: No signs and/or symptoms were reported involving the gastrointestinal system. : No signs and/or symptoms were reported regarding the genitourinary system. Derm: Skin is pink, warm \T\ dry. Musculoskeletal: Range of motion: intact in all extremities. 08:00 Reassessment: Patient appears in no apparent distress at this time. Pt. is resting with rb1 eyes closed, respirations even, unlabored. Sitter at bedside. 09:00 Reassessment: Patient appears in no apparent distress at this time. No changes from rb1 previously documented assessment. 10:00 Reassessment: Patient appears in no apparent distress at this time. Pt. is sitting up rb1 on the side of the bed. 11:00 Reassessment: Patient appears in no apparent distress at this time. Patient and/or rb1 family updated on plan of care and expected duration. Pain level reassessed. Patient is alert, oriented x 3, equal unlabored respirations, skin warm/dry/pink. Pain 6/10. 12:00 Reassessment: Patient appears in no apparent distress at this time. No changes from rb1 previously documented assessment. 13:00 Reassessment: Patient appears in no apparent distress at this time. Patient and/or rb1 family updated on plan of care and expected duration. Pain level reassessed. Patient is alert, oriented x 3, equal unlabored respirations, skin warm/dry/pink. 13:58 Reassessment: Pt. is watching TV. rb1 14:58 Reassessment: Patient appears in no apparent distress at this time. No changes from rb1 previously documented assessment. I sat at the pt. bedside and listened as he talked about his personal struggles. 15:46 Reassessment: Patient appears in no apparent distress at this time. Patient and/or rb1 family updated on plan of care and expected duration. Pain level reassessed. Patient is alert, oriented x 3, equal unlabored respirations, skin warm/dry/pink. 16:44 Reassessment: Patient appears in no apparent distress at this time. No changes from rb1 previously documented assessment. Pt. is watching TV. 17:44 Reassessment: Patient appears in no apparent distress at this time. Patient and/or rb1 family updated on plan of care and expected duration. Pain level reassessed. Patient is alert, oriented x 3, equal unlabored respirations, skin warm/dry/pink. Pain 5/10. 18:40 Reassessment: Pt. is resting with eyes closed, respirations even, unlabored. rb1 19:00 Reassessment: Patient appears in no apparent distress at this time. No changes from jd3 previously documented assessment. Patient and/or family updated on plan of care and expected duration. Pain level reassessed. Patient is alert, oriented x 3, equal unlabored respirations, skin warm/dry/pink. 20:12 General: Appears in no apparent distress. uncomfortable, Behavior is calm, cooperative, jd3 appropriate for age. Pain: Complains of pain in back Quality of pain is described as aching, provider notified. Neuro: Level of Consciousness is awake, alert, obeys commands, Oriented to person, place, time, situation. Cardiovascular: Capillary refill < 3 seconds Patient's skin is warm and dry. Respiratory: Airway is patent Respiratory effort is even, unlabored, Respiratory pattern is regular, symmetrical. GI: No signs and/or symptoms were reported involving the gastrointestinal system. : No signs and/or symptoms were reported regarding the genitourinary system. EENT: No signs and/or symptoms were reported regarding the EENT system. Derm: Skin is intact, Skin is dry, Skin is normal, Skin temperature is warm. Musculoskeletal: Circulation, motion, and sensation intact. Range of motion: intact in all extremities. 21:00 Reassessment: Patient appears in no apparent distress at this time. Patient and/or jd3 family updated on plan of care and expected duration. Pain level reassessed. Patient is alert, oriented x 3, equal unlabored respirations, skin warm/dry/pink. pt resting in bed with eyes closed, even and unlabored respirations. 22:00 Reassessment: Patient appears in no apparent distress at this time. Patient and/or jd3 family updated on plan of care and expected duration. Pain level reassessed. Patient is alert, oriented x 3, equal unlabored respirations, skin warm/dry/pink. Patient denies pain at this time. 23:00 Reassessment: Patient appears in no apparent distress at this time. No changes from jd3 previously documented assessment. Patient and/or family updated on plan of care and expected duration. Pain level reassessed. Patient is alert, oriented x 3, equal unlabored respirations, skin warm/dry/pink. 06/15 00:00 Reassessment: Patient appears in no apparent distress at this time. No changes from jd3 previously documented assessment. Patient and/or family updated on plan of care and expected duration. Pain level reassessed. Patient is alert, oriented x 3, equal unlabored respirations, skin warm/dry/pink. 01:00 Reassessment: Patient appears in no apparent distress at this time. No changes from jd3 previously documented assessment. Patient and/or family updated on plan of care and expected duration. Pain level reassessed. Patient is alert, oriented x 3, equal unlabored respirations, skin warm/dry/pink. 02:00 Reassessment: Patient appears in no apparent distress at this time. No changes from jd3 previously documented assessment. Patient and/or family updated on plan of care and expected duration. Pain level reassessed. Patient is alert, oriented x 3, equal unlabored respirations, skin warm/dry/pink. 03:00 Reassessment: Patient appears in no apparent distress at this time. No changes from jd3 previously documented assessment. Patient and/or family updated on plan of care and expected duration. Pain level reassessed. Patient is alert, oriented x 3, equal unlabored respirations, skin warm/dry/pink. 04:00 Reassessment: Patient appears in no apparent distress at this time. Patient and/or jd3 family updated on plan of care and expected duration. Pain level reassessed. Patient is alert, oriented x 3, equal unlabored respirations, skin warm/dry/pink. pt resting in bed with eyes closed, even and unlabored respirations noted. side rails up X 2. sitter at bedside. bed locked and in a low position. no distress noted at this time. 04:58 Reassessment: Patient appears in no apparent distress at this time. Patient and/or jd3 family updated on plan of care and expected duration. Pain level reassessed. Patient is alert, oriented x 3, equal unlabored respirations, skin warm/dry/pink. signed for transfer. Patient denies pain at this time. 05:24 Reassessment: Patient appears in no apparent distress at this time. Patient and/or jd3 family updated on plan of care and expected duration. Pain level reassessed. Patient is alert, oriented x 3, equal unlabored respirations, skin warm/dry/pink. reported understanding of need for transfer. report given to EMS. belongings given to EMS. Patient denies pain at this time. Psych: 06/13 08:00 Subjective: Patient's mood is sad, Delusions are denied, Hallucinations are denied ph Having thoughts of suicide. Plan for suicide is overdose on home medications. Objective: Patient is cooperative, restless, Speech is slurred, Affect is appropriate. Interventions: Removed personal items and placed in bag. Patient placed in hospital gown. Searched person for dangerous items. Suicide Risk Assessment: Sad Person Scale: Sex of patient: Male: Score 1 point. Age of patient: Score 0 point if patient falls outside of specified age parameters. Depression: Score 1 point if signs of depression are present. Previous Attempt: Score 0 point if patient has not previously attempted suicide. Substance Abuse: Score 1 point if patient abuses alcohol or drugs. Rational Thinking: Score 1 point if patient is lacking rational thinking. Social Support: Score 0 if social support is present/available. Organized Plan: Score 1 point if patient had a plan in place. Relationship: Score 1 point if patient is , , , or for a single male Chronic Sickness: Score 0 point if patient does not have a chronic illness, debilitating, or severe disorder. TOTAL POINTS: If total points are 5-6, proposed clinical action is to strongly consider hospitalization, depending upon confidence in the follow-up arrangement. Implement suicide precautions. Safety Checks: Personal items have been removed. Door is open. No visitors are present at this time. Pt denies substance abuse. 06/15 04:59 Commitment: Patient will be a voluntary commitment. jd3 Vital Signs: 06/13 07:37 BP 123 / 103; Pulse 84; Resp 18; Pulse Ox 98% on R/A; Weight 86.18 kg; ph 08:13 BP 129 / 68; Pulse 81; Resp 20; Pulse Ox 97% on R/A; em1 08:53 BP 126 / 90; Pulse 73; Resp 18; Pulse Ox 97% on R/A; em1 09:56 BP 143 / 83; Pulse 78; Resp 18; Pulse Ox 98% on R/A; Pain 0/10; em1 11:16 BP 100 / 77; Pulse 64; Resp 18; Temp 97.7; Pulse Ox 98% on R/A; Pain 0/10; em5 18:15 BP 105 / 71; Pulse 57; Resp 16; Temp 97.2(TE); Pulse Ox 100% ; lt1 23:40 BP 112 / 76; Pulse 62; Resp 18 S; Temp 97.5(TE); Pulse Ox 99% on R/A; ca1 06/14 05:10 BP 122 / 82; Pulse 52; Resp 18; Temp 98.7; Pulse Ox 100% ; mw2 09:00 BP 100 / 57; Pulse 82; Resp 18; Temp 97.8(O); Pulse Ox 95% on R/A; kj1 13:00 BP 135 / 83; Pulse 75; Resp 18; Temp 97.8(O); Pulse Ox 100% on R/A; kj1 16:00 BP 118 / 53; Pulse 70; Resp 18; Temp 98.0(O); Pulse Ox 100% on R/A; kj1 20:00 BP 95 / 63; Pulse 52; Resp 17; Temp 97.7(O); Pulse Ox 98% on R/A; ar5 07 00:00 BP 90 / 52; Pulse 57; Resp 16; Temp 97.8(O); Pulse Ox 98% on R/A; ar5 04:00 BP 111 / 75; Pulse 63; Resp 17; Temp 97.9(O); Pulse Ox 99% on R/A; ar5 Johanna Coma Score: 06/13 10:06 Eye Response: to pain(2). Verbal Response: confused(4). Motor Response: localizes jr8 pain(5). Total: 11. ED Course: 07:09 Patient arrived in ED. iw 07:10 Hossein Waldrop PA is PHCP. jr8 07:10 Adarsh Magana MD is Attending Physician. jr8 07:30 Ciara Dominguez RN is Primary Nurse. ph 07:30 Safety checks: Items removed: yes. Door open/sign placed on door: yes. Family/friend em1 present: no. Sitter present: Yes. 07:30 Arm band placed on. ph 07:30 Patient has correct armband on for positive identification. Placed in gown. Bed in low ph position. Call light in reach. Side rails up X 1. 07:33 EKG done, by ED staff, reviewed by Hossein FERGUSON. em1 07:37 Triage completed. ph 07:45 Safety checks: Items removed: yes. Door open/sign placed on door: yes. Family/friend em1 present: no. Sitter present: Yes. 08:00 Safety checks: Items removed: yes. Door open/sign placed on door: yes. Family/friend em1 present: no. Sitter present: Yes. 08:15 Safety checks: Items removed: yes. Door open/sign placed on door: yes. Family/friend em1 present: no. Sitter present: Yes. 08:30 Safety checks: Items removed: yes. Door open/sign placed on door: yes. Family/friend em1 present: no. Sitter present: Yes. 08:45 Safety checks: Items removed: yes. Door open/sign placed on door: yes. Family/friend em1 present: no. Sitter present: Yes. 09:00 Safety checks: Items removed: yes. Door open/sign placed on door: yes. Family/friend em1 present: yes. Family/friends encouraged to stay with patient. Sitter present: Yes. 09:15 Safety checks: Items removed: yes. Door open/sign placed on door: yes. Family/friend em1 present: no. Sitter present: Yes. 09:30 Safety checks: Items removed: yes. Door open/sign placed on door: yes. Family/friend em1 present: no. Sitter present: Yes. 09:45 Safety checks: Items removed: yes. Door open/sign placed on door: yes. Family/friend em1 present: no. Sitter present: Yes. 10:00 No apparent distress. Resting quietly. Safety Checks: Personal items have been removed. em5 The door is open or patient has been placed in a hallway bed/chair. A family member and/or friend is present and encouraged to stay. Sitter present at this time. 10:15 Safety Checks: Personal items have been removed. The door is open or patient has been em5 placed in a hallway bed/chair. A family member and/or friend is present and encouraged to stay. Sitter present at this time. 10:30 Safety Checks: Personal items have been removed. The door is open or patient has been em5 placed in a hallway bed/chair. A family member and/or friend is present and encouraged to stay. Sitter present at this time. 10:45 No apparent distress. Resting quietly. Safety Checks: Personal items have been removed. em5 The door is open or patient has been placed in a hallway bed/chair. There are no family/friend visitors at this time Sitter present at this time. 11:00 Safety Checks: The door is open or patient has been placed in a hallway bed/chair. em5 There are no family/friend visitors at this time Sitter present at this time. 11:15 Safety Checks: Personal items have been removed. The door is open or patient has been em5 placed in a hallway bed/chair. There are no family/friend visitors at this time Sitter present at this time. 11:30 Appears to be sleeping. Safety Checks: Personal items have been removed. The door is em5 open or patient has been placed in a hallway bed/chair. There are no family/friend visitors at this time Sitter present at this time. 11:45 Assisted to the bathroom. Safety Checks: Personal items have been removed. The door is em5 open or patient has been placed in a hallway bed/chair. There are no family/friend visitors at this time Sitter present at this time. 12:00 No apparent distress. Resting quietly. Safety Checks: Personal items have been removed. em5 The door is open or patient has been placed in a hallway bed/chair. There are no family/friend visitors at this time Sitter present at this time. 12:15 No apparent distress. eating lunch and blood extraction facilitated. Safety Checks: em5 Personal items have been removed. The door is open or patient has been placed in a hallway bed/chair. There are no family/friend visitors at this time Sitter present at this time. 12:23 Tylenol Level Sent. em5 12:30 Appears to be sleeping. Safety Checks: Personal items have been removed. The door is em5 open or patient has been placed in a hallway bed/chair. There are no family/friend visitors at this time Sitter present at this time. 12:36 Tylenol Level Sent. em5 12:45 No apparent distress. Resting quietly. Safety Checks: Personal items have been removed. em5 The door is open or patient has been placed in a hallway bed/chair. There are no family/friend visitors at this time Sitter present at this time. 13:00 Safety Checks: Personal items have been removed. The door is open or patient has been em5 placed in a hallway bed/chair. There are no family/friend visitors at this time Sitter present at this time. 13:15 Safety Checks: Personal items have been removed. The door is open or patient has been em5 placed in a hallway bed/chair. There are no family/friend visitors at this time Sitter present at this time. 13:30 Safety Checks: Personal items have been removed. The door is open or patient has been em5 placed in a hallway bed/chair. A family member and/or friend is present and encouraged to stay. Sitter present at this time. 13:45 Safety Checks: Personal items have been removed. The door is open or patient has been em5 placed in a hallway bed/chair. There are no family/friend visitors at this time Sitter present at this time. 14:00 Safety Checks: Personal items have been removed. The door is open or patient has been em5 placed in a hallway bed/chair. There are no family/friend visitors at this time Sitter present at this time. 14:00 Lab(s) recollected, by me, sent to lab. 14:15 Safety Checks: Personal items have been removed. The door is open or patient has been em5 placed in a hallway bed/chair. There are no family/friend visitors at this time Sitter present at this time. 14:30 Safety checks: Items removed: yes. Door open/sign placed on door: yes. Family/friend lt1 present: no. Sitter present: Yes. 14:45 Safety checks: Items removed: yes. Door open/sign placed on door: yes. Family/friend lt1 present: no. Sitter present: Yes. 15:00 Safety checks: Items removed: yes. Door open/sign placed on door: yes. Family/friend lt1 present: no. Sitter present: Yes. 15:15 Safety checks: Items removed: yes. Door open/sign placed on door: yes. Family/friend lt1 present: no. Sitter present: Yes. 15:45 Safety checks: Items removed: yes. Door open/sign placed on door: yes. Family/friend lt1 present: no. Sitter present: Yes. 16:00 Safety checks: Items removed: yes. Door open/sign placed on door: yes. Family/friend lt1 present: no. Sitter present: Yes. 16:15 Safety checks: Items removed: yes. Door open/sign placed on door: yes. Family/friend lt1 present: no. Sitter present: Yes. 16:30 Safety checks: Items removed: yes. Door open/sign placed on door: yes. Family/friend lt1 present: no. Sitter present: Yes. 16:45 Safety checks: Items removed: yes. Door open/sign placed on door: yes. Family/friend lt1 present: no. Sitter present: Yes. 17:00 Safety checks: Items removed: yes. Door open/sign placed on door: yes. Family/friend lt1 present: no. Sitter present: Yes. 17:15 Safety checks: Items removed: yes. Door open/sign placed on door: yes. Family/friend lt1 present: no. Sitter present: Yes. 17:30 Safety checks: Items removed: yes. Door open/sign placed on door: yes. Family/friend lt1 present: no. Sitter present: Yes. 17:35 PHCP role handed off by Hossein Waldrop PA snw 17:35 Sunni Rocha FNP-C is PHCP. snw 17:41 faxed chart to [facility], [facility], [facility], [facility], [facility] and [facility]. pt is on waiting list at [facility]. 17:45 Safety checks: Items removed: yes. Door open/sign placed on door: yes. Family/friend lt1 present: no. Sitter present: Yes. 18:00 Safety checks: Items removed: yes. Door open/sign placed on door: yes. Family/friend lt1 present: no. Sitter present: Yes. 18:15 Safety checks: Items removed: yes. Door open/sign placed on door: yes. Family/friend lt1 present: no. Sitter present: Yes. 18:30 Safety checks: Items removed: yes. Door open/sign placed on door: yes. Family/friend lt1 present: no. Sitter present: Yes. 18:45 Safety checks: Items removed: yes. Door open/sign placed on door: yes. Family/friend lt1 present: no. Sitter present: Yes. 19:00 Safety checks: Items removed: yes. Door open/sign placed on door: yes. Family/friend lt1 present: no. Sitter present: Yes. 19:15 Safety checks: Items removed: yes. Door open/sign placed on door: yes. Family/friend lt1 present: no. Sitter present: Yes. 19:30 Safety checks: Items removed: yes. Door open/sign placed on door: yes. Family/friend lt1 present: no. Sitter present: Yes. 19:45 Safety checks: Items removed: yes. Door open/sign placed on door: yes. Family/friend lt1 present: no. Sitter present: Yes. 20:00 Safety checks: Items removed: yes. Door open/sign placed on door: yes. Family/friend lt1 present: no. Sitter present: Yes. 20:15 Safety checks: Items removed: yes. Door open/sign placed on door: yes. Family/friend lt1 present: no. Sitter present: Yes. 20:30 Safety checks: Items removed: yes. Door open/sign placed on door: yes. Family/friend lt1 present: no. Sitter present: Yes. 20:45 Safety checks: Items removed: yes. Door open/sign placed on door: yes. Family/friend lt1 present: no. Sitter present:. 21:00 Safety checks: Items removed: yes. Door open/sign placed on door: yes. Family/friend lt1 present: no. Sitter present: Yes. 21:15 Safety checks: Items removed: yes. Door open/sign placed on door: yes. Family/friend lt1 present: no. Sitter present: Yes. 21:30 Safety checks: Items removed: yes. Door open/sign placed on door: yes. Family/friend lt1 present: no. Sitter present: Yes. :45 Safety checks: Items removed: yes. Door open/sign placed on door: yes. Family/friend lt1 present: yes. Sitter present: Yes. 22:00 Safety checks: Items removed: yes. Door open/sign placed on door: yes. Family/friend lt1 present: no. Sitter present: Yes. 22:15 Safety checks: Items removed: yes. Door open/sign placed on door: yes. Family/friend lt1 present: no. Sitter present: Yes. 22:30 Safety checks: Items removed: yes. Door open/sign placed on door: yes. Family/friend lt1 present: no. Sitter present: Yes. 22:45 Safety checks: Items removed: yes. Door open/sign placed on door: yes. Family/friend lt1 present: no. Sitter present: Yes. 23:00 Safety checks: Items removed: yes. Door open/sign placed on door: yes. Family/friend lt1 present: no. Sitter present: Yes. 23:15 Safety checks: Items removed: yes. Door open/sign placed on door: yes. Family/friend lt1 present: no. Sitter present: Yes. 23:30 Safety checks: Items removed: yes. Door open/sign placed on door: yes. Family/friend lt1 present: no. Sitter present: Yes. 23:38 Dressings: non-adherent dressing x 2 lumbar area. Wound care: to surgical incision ca1 located on back was cleaned with Betadine, dressed with 4X4s, Patient tolerated well. 23:45 Safety checks: Items removed: yes. Door open/sign placed on door: yes. Family/friend lt1 present: no. Sitter present: Yes. 06/14 00:00 Safety checks: Items removed: yes. Door open/sign placed on door: yes. Family/friend lt1 present: no. Sitter present: Yes. 00:15 Safety checks: Items removed: yes. Door open/sign placed on door: yes. Family/friend lt1 present: no. Sitter present: Yes. 00:30 Safety checks: Items removed: yes. Door open/sign placed on door: yes. Family/friend lt1 present: no. Sitter present: Yes. 00:45 Safety checks: Items removed: no. Reason for not removing items: Door open/sign placed ag4 on door: yes. Family/friend present: no. Sitter present: Yes. 01:00 Safety checks: Items removed: yes. Door open/sign placed on door: yes. Family/friend ag4 present: no. Sitter present: Yes. 01:15 Safety checks: Items removed: no. Reason for not removing items: Door open/sign placed ag4 on door: yes. Family/friend present: no. Sitter present: Yes. 01:25 No provider procedures requiring assistance completed. mg2 01:30 Safety checks: Items removed: yes. Door open/sign placed on door: yes. Family/friend ag4 present: no. Sitter present: Yes. 01:45 Safety checks: Items removed: yes. Door open/sign placed on door: yes. Family/friend ag4 present: no. Sitter present: Yes. 02:00 Safety checks: Items removed: yes. Door open/sign placed on door: yes. Family/friend ag4 present: no. Sitter present: Yes. 02:15 Safety checks: Items removed: yes. Door open/sign placed on door: yes. Family/friend ag4 present: no. Sitter present: Yes. 02:30 Safety checks: Items removed: yes. Door open/sign placed on door: yes. Family/friend ag4 present: no. Sitter present: Yes. 02:45 Safety checks: Items removed: yes. Door open/sign placed on door: no. Family/friend ag4 present: no. Sitter present: Yes. 03:00 Safety checks: Items removed: yes. Door open/sign placed on door: yes. Family/friend ag4 present: no. Sitter present: Yes. 03:15 Safety checks: Items removed: yes. Door open/sign placed on door: yes. no. mw2 Family/friend present: no. Sitter present: Yes. 03:30 Safety checks: Items removed: yes. Door open/sign placed on door: no. Family/friend mw2 present: yes. Sitter present: Yes. 03:45 Safety checks: Items removed: yes. Door open/sign placed on door: yes. Family/friend mw2 present: no. Sitter present: Yes. 04:00 Safety checks: Items removed: yes. Door open/sign placed on door: yes. Family/friend mw2 present: no. Sitter present: Yes. 04:15 Safety checks: Items removed: yes. Door open/sign placed on door: yes. Family/friend mw2 present: no. Sitter present: Yes. 04:30 Safety checks: Items removed: yes. Door open/sign placed on door: yes. Family/friend mw2 present: no. Sitter present: Yes. 04:45 Safety checks: Items removed: yes. Door open/sign placed on door: yes. Family/friend mw2 present: no. Sitter present: Yes. 05:00 Safety checks: Items removed: yes. Door open/sign placed on door: yes. Family/friend mw2 present: no. Sitter present: Yes. 05:15 Safety checks: Items removed: yes. Door open/sign placed on door: yes. Family/friend mw2 present: no. Sitter present: Yes. 05:30 Safety checks: Items removed: yes. Door open/sign placed on door: yes. Family/friend mw2 present: no. Sitter present: Yes. 05:45 Safety checks: Items removed: yes. Door open/sign placed on door: yes. Family/friend mw2 present: no. Sitter present: Yes. 06:00 Safety checks: Items removed: yes. Door open/sign placed on door: yes. Family/friend mw2 present: no. Sitter present: Yes. 06:15 Safety checks: Items removed: yes. Door open/sign placed on door: yes. Family/friend mw2 present: yes. Sitter present: Yes. 06:30 Safety checks: Items removed: yes. Door open/sign placed on door: yes. Family/friend mw2 present: no. Sitter present: Yes. 06:45 Safety checks: Items removed: yes. Door open/sign placed on door: yes. Family/friend mw2 present: no. Sitter present: Yes. 07:00 Safety checks: Items removed: yes. Door open/sign placed on door: yes. Family/friend mh5 present: no. Sitter present: Yes. 07:15 Safety checks: Items removed: yes. Door open/sign placed on door: yes. Family/friend mh5 present: no. Sitter present: Yes. 07:30 Safety checks: Items removed: yes. Door open/sign placed on door: yes. Family/friend mh5 present: no. Sitter present: Yes. 07:45 Safety checks: Items removed: yes. Door open/sign placed on door: yes. Family/friend mh5 present: no. Sitter present: Yes. 08:00 Safety checks: Items removed: yes. Door open/sign placed on door: yes. Family/friend mh5 present: no. Sitter present: Yes. 08:15 Safety checks: Items removed: yes. Door open/sign placed on door: yes. Family/friend mh5 present: no. Sitter present: Yes. 08:30 Safety checks: Items removed: yes. Door open/sign placed on door: yes. Family/friend mh5 present: no. Sitter present: Yes. 08:45 Safety checks: Items removed: yes. Door open/sign placed on door: yes. Family/friend mh5 present: no. Sitter present: Yes. 09:00 Safety checks: Items removed: yes. Door open/sign placed on door: yes. Family/friend mh5 present: no. Sitter present: Yes. 09:15 Safety checks: Items removed: yes. Door open/sign placed on door: yes. Family/friend kj1 present: no. Sitter present: Yes. 09:30 Safety checks: Items removed: yes. Door open/sign placed on door: yes. Family/friend kj1 present: no. Sitter present: Yes. 09:45 Safety checks: Items removed: yes. Door open/sign placed on door: yes. Family/friend kj1 present: no. Sitter present: Yes. 10:00 Safety checks: Items removed: yes. Door open/sign placed on door: yes. Family/friend kj1 present: no. Sitter present: Yes. 10:15 Safety checks: Items removed: yes. Door open/sign placed on door: yes. Family/friend kj1 present: no. Sitter present: Yes. 10:30 Safety checks: Items removed: yes. Door open/sign placed on door: yes. Family/friend kj1 present: no. Sitter present: Yes. 10:45 Safety checks: Items removed: yes. Door open/sign placed on door: yes. Family/friend kj1 present: no. Sitter present: Yes. 11:00 Safety checks: Items removed: yes. Door open/sign placed on door: yes. Family/friend kj1 present: no. Sitter present: Yes. 11:15 Safety checks: Items removed: yes. Door open/sign placed on door: yes. Family/friend kj1 present: no. Sitter present: Yes. 11:30 Safety checks: Items removed: yes. Door open/sign placed on door: yes. Family/friend kj1 present: yes. Family/friends encouraged to stay with patient. Sitter present: Yes. 11:45 Safety checks: Items removed: yes. Door open/sign placed on door: yes. Family/friend kj1 present: no. Sitter present: Yes. 12:00 Safety checks: Items removed: yes. Door open/sign placed on door: yes. Family/friend kj1 present: no. Sitter present: Yes. 12:15 Safety checks: Items removed: yes. Door open/sign placed on door: yes. Family/friend kj1 present: no. Sitter present: Yes. 12:30 Safety checks: Items removed: yes. Door open/sign placed on door: yes. Family/friend kj1 present: no. Sitter present: Yes. 12:45 Safety checks: Items removed: yes. Door open/sign placed on door: yes. Family/friend kj1 present: no. Sitter present: Yes. 13:00 Safety checks: Items removed: yes. Door open/sign placed on door: yes. Family/friend kj1 present: no. Sitter present: Yes. 13:15 Safety checks: Items removed: yes. Door open/sign placed on door: yes. Family/friend kj1 present: no. Sitter present: Yes. 13:30 Safety checks: Items removed: yes. Door open/sign placed on door: yes. Family/friend kj1 present: no. Sitter present: Yes. 13:45 Safety checks: Items removed: yes. Door open/sign placed on door: yes. Family/friend kj1 present: no. Sitter present: Yes. 14:00 Safety checks: Items removed: yes. Door open/sign placed on door: yes. Family/friend kj1 present: no. Sitter present: Yes. 14:15 Safety checks: Items removed: yes. Door open/sign placed on door: yes. Family/friend kj1 present: no. Sitter present: Yes. 14:30 Safety checks: Items removed: yes. Door open/sign placed on door: yes. Family/friend kj1 present: no. Sitter present: Yes. 14:45 Safety checks: Items removed: yes. Door open/sign placed on door: yes. Family/friend kj1 present: no. Sitter present: Yes. 15:00 Safety checks: Items removed: yes. Door open/sign placed on door: yes. Family/friend kj1 present: no. Sitter present: Yes. 15:15 Safety checks: Items removed: yes. Door open/sign placed on door: yes. Family/friend kj1 present: no. Sitter present: Yes. 15:30 Safety checks: Items removed: yes. Door open/sign placed on door: yes. Family/friend mh5 present: no. Sitter present: Yes. 15:32 spoke with Li at [facility] they do have a bed for the patient and will need doc to doc eb done/ for our provider to please call [phone] to have the have the pci security consultant doc paged. 15:45 Safety checks: Items removed: yes. Door open/sign placed on door: yes. Family/friend kj1 present: no. Sitter present: Yes. 16:00 Inserted saline lock: 22 gauge in right antecubital area, using aseptic technique. kj1 16:00 Safety checks: Items removed: yes. Door open/sign placed on door: yes. Family/friend kj1 present: no. Sitter present: Yes. 16:00 pci security consultant provider for [facility] paged juan carlos Moeller NP. eb 16:11 Acetaminophen Sent. kj1 16:11 Basic Metabolic Panel Sent. kj1 16:11 CBC with Diff Sent. kj1 16:11 ETOH Level Sent. kj1 16:11 Hepatic Function Sent. kj1 16:15 Safety checks: Items removed: yes. Door open/sign placed on door: yes. Family/friend kj1 present: no. Sitter present: Yes. 16:30 Safety checks: Items removed: yes. Door open/sign placed on door: yes. Family/friend kj1 present: no. Sitter present: Yes. 16:45 Safety checks: Items removed: yes. Door open/sign placed on door: yes. Family/friend kj1 present: no. Sitter present: Yes. 17:00 Safety checks: Items removed: yes. Door open/sign placed on door: yes. Family/friend kj1 present: no. Sitter present: Yes. 17:15 Safety checks: Items removed: yes. Door open/sign placed on door: yes. Family/friend kj1 present: no. Sitter present: Yes. 17:30 Safety checks: Items removed: yes. Door open/sign placed on door: yes. Family/friend kj1 present: no. Sitter present: Yes. 17:43 repeat page made to the provider pci security consultant for [facility] by Sunni ROSS. eb 17:45 Safety checks: Items removed: yes. Door open/sign placed on door: yes. Family/friend kj1 present: no. Sitter present: Yes. 18:00 Safety checks: Items removed: yes. Door open/sign placed on door: yes. Family/friend kj1 present: no. Sitter present: Yes. 18:00 Diet: Patient given a regular meal tray. kj1 18:15 Safety checks: Items removed: yes. Door open/sign placed on door: yes. Family/friend kj1 present: no. Sitter present: Yes. 18:30 Safety checks: Items removed: yes. Door open/sign placed on door: yes. Family/friend kj1 present: no. Sitter present: Yes. 18:45 Safety checks: Items removed: yes. Door open/sign placed on door: yes. Family/friend kj1 present: no. Sitter present: Yes. 19:00 Safety checks: Items removed: yes. Door open/sign placed on door: yes. Family/friend ar5 present: no. Sitter present: Yes. 19:15 Safety checks: Items removed: yes. Door open/sign placed on door: yes. Family/friend ar5 present: no. Sitter present: Yes. 19:30 Safety checks: Items removed: yes. Door open/sign placed on door: yes. Family/friend ar5 present: no. Sitter present: Yes. 19:45 Safety checks: Items removed: yes. Door open/sign placed on door: yes. Family/friend ar5 present: no. Sitter present: Yes. 20:00 Safety checks: Items removed: yes. Door open/sign placed on door: yes. Family/friend ar5 present: no. Sitter present: Yes. 20:15 Safety checks: Items removed: yes. Door open/sign placed on door: yes. Family/friend ar5 present: no. Sitter present: Yes. 20:30 Safety checks: Items removed: yes. Door open/sign placed on door: yes. Family/friend ar5 present: no. Sitter present: Yes. 20:45 Safety checks: Items removed: yes. Door open/sign placed on door: yes. Family/friend ar5 present: no. Sitter present:. 21:00 Safety checks: Items removed: yes. Door open/sign placed on door: yes. Family/friend ar5 present: no. Sitter present: Yes. 21:15 Safety checks: Items removed: yes. Door open/sign placed on door: yes. Family/friend ar5 present: no. Sitter present: Yes. 21:17 called [facility] about Doc to Doc they said they will page the doctor. mw2 21:30 Safety checks: Items removed: yes. Door open/sign placed on door: yes. Family/friend ar5 present: no. Sitter present: Yes. 21:45 Safety checks: Items removed: yes. Door open/sign placed on door: yes. Family/friend ar5 present: no. Sitter present: Yes. 22:00 Safety checks: Items removed: yes. Door open/sign placed on door: yes. Family/friend ar5 present: no. Sitter present: Yes. 22:15 Safety checks: Items removed: yes. Door open/sign placed on door: yes. Family/friend ar5 present: no. Sitter present: Yes. 22:30 Safety checks: Items removed: yes. Door open/sign placed on door: yes. Family/friend ar5 present: no. Sitter present: Yes. 22:45 Safety checks: Items removed: yes. Door open/sign placed on door: yes. Family/friend ar5 present: no. Sitter present: Yes. 23:00 Safety checks: Items removed: yes. Door open/sign placed on door: yes. Family/friend ar5 present: no. Sitter present: Yes. 23:15 Safety checks: Items removed: yes. Door open/sign placed on door: yes. Family/friend ar5 present: no. Sitter present: Yes. 23:30 Safety checks: Items removed: yes. Door open/sign placed on door: yes. Family/friend ar5 present: no. Sitter present: Yes. 23:45 Safety checks: Items removed: yes. Door open/sign placed on door: yes. Family/friend ar5 present: no. Sitter present: Yes. 06/15 00:00 Safety checks: Items removed: yes. Door open/sign placed on door: yes. Family/friend ar5 present: no. Sitter present: Yes. 00:00 called [facility] back they said they will page the doctor. mw2 00:15 Safety checks: Items removed: yes. Door open/sign placed on door: yes. Family/friend ar5 present: no. Sitter present: Yes. 00:30 Safety checks: Items removed: yes. Door open/sign placed on door: yes. Family/friend ar5 present: no. Sitter present: Yes. 00:45 Safety checks: Items removed: yes. Door open/sign placed on door: yes. Family/friend ar5 present: no. Sitter present: Yes. 01:00 Safety checks: Items removed: yes. Door open/sign placed on door: yes. Family/friend ar5 present: no. Sitter present: Yes. 01:15 Safety checks: Items removed: yes. Door open/sign placed on door: yes. Family/friend ar5 present: no. Sitter present: Yes. 01:30 Safety checks: Items removed: yes. Door open/sign placed on door: yes. Family/friend ar5 present: no. Sitter present: Yes. 01:45 Safety checks: Items removed: yes. Door open/sign placed on door: yes. Family/friend ar5 present: no. Sitter present: Yes. 02:00 Safety checks: Items removed: yes. Door open/sign placed on door: yes. Family/friend ar5 present: no. Sitter present: Yes. 02:15 Safety checks: Items removed: yes. Door open/sign placed on door: yes. Family/friend ar5 present: no. Sitter present: Yes. 02:30 Safety checks: Items removed: yes. Door open/sign placed on door: yes. Family/friend ar5 present: no. Sitter present: Yes. 02:45 Safety checks: Items removed: yes. Door open/sign placed on door: yes. Family/friend ar5 present: no. Sitter present: Yes. 03:00 Safety checks: Items removed: yes. Door open/sign placed on door: yes. Family/friend ar5 present: no. Sitter present: Yes. 03:15 Safety checks: Items removed: yes. Door open/sign placed on door: yes. Family/friend ar5 present: no. Sitter present: Yes. 03:30 Safety checks: Items removed: yes. Door open/sign placed on door: yes. Family/friend ar5 present: no. Sitter present: Yes. 03:45 Safety checks: Items removed: yes. Door open/sign placed on door: yes. Family/friend ar5 present: no. Sitter present: Yes. 04:00 Safety checks: Items removed: yes. Door open/sign placed on door: yes. Family/friend ar5 present: no. Sitter present: Yes. 04:15 Safety checks: Items removed: yes. Door open/sign placed on door: yes. Family/friend ar5 present: no. Sitter present: Yes. 04:30 Safety checks: Items removed: yes. Door open/sign placed on door: yes. Family/friend ar5 present: no. Sitter present: Yes. 04:41 Attending Physician role handed off by Adarsh Magana MD cha 04:41 Michael Landaverde MD is Attending Physician. [facility] 04:45 Safety checks: Items removed: yes. Door open/sign placed on door: yes. Family/friend ar5 present: no. Sitter present: Yes. 05:00 Safety checks: Items removed: yes. Door open/sign placed on door: yes. Family/friend ar5 present: no. Sitter present: Yes. 05:24 IV discontinued, intact, bleeding controlled, No redness/swelling at site. Pressure jd3 dressing applied. Administered Medications: 06/13 08:11 Drug: NS 0.9% 1000 ml Route: IV; Rate: 1000 ml; Site: right antecubital; ph 06/14 02:45 Drug: NS 0.9% 1000 ml Route: IV; Rate: 1 bolus; Site: right antecubital; tl2 16:08 Drug: NS 0.9% 1000 ml Route: IV; Rate: 1 bolus; Site: right antecubital; rb1 19:00 Follow up: Response: No adverse reaction; IV Status: Completed infusion; IV Intake: jd3 1000ml 20:14 Drug: Motrin 400 mg Route: PO; jd3 21:02 Follow up: Response: No adverse reaction jd3 Intake: 19:00 IV: 1000ml; Total: 1000ml. [facility] Outcome: 06/15 04:41 ER care complete, transfer ordered by . jerome 05:23 Transferred by ground EMS Transfer form completed. Note: going to [place] [id number] [facility] facility. 05:23 Condition: stable 05:23 Instructed on the need for transfer, Demonstrated understanding of instructions. 05:27 Patient left the ED. j Signatures: Christi Arrieta Corey, MD MD cha Therrien, Shelly, BOOTH SUPERVISOR-C BOOTH SUPERVISOR-Csnw Orquidea Chatman RN RN iw Martinez, Eric em1 Hossein Waldrop PA PA jr8 Ciara Dominguez RN RN Katya Padilla, RN RN rb1 Nancy Lindquist RN RN tl2 Tanya Randle 5 [place] RN RN jd3 Joel Pierson 2 Jen Negrete Michele RN RN mg2 RamonEfrain ag4 Chavez, Mary ar5 Dede Ferro RN RN ca1 Martinez, Tati lt1 Tomas, Praveena kj1 Sridhar, Renae em5 Corrections: (The following items were deleted from the chart) 06/13 09:04 09:03 Safety checks: Items removed: yes. Door open/sign placed on door: yes. em1 Family/friend present: yes. Family/friends encouraged to stay with patient. Sitter present: Yes. em1 09:21 09:19 Safety checks: Items removed: yes. Door open/sign placed on door: yes. em1 Family/friend present: no. Sitter present: Yes. em1 09:46 09:30 Safety checks: Items removed: yes. Door open/sign placed on door: yes. em1 Family/friend present: yes. Sitter present: Yes. em1 17:35 17:15 Safety checks: Items removed: yes. Door open/sign placed on door: yes. lt1 Family/friend present: Sitter present: Yes. lt1 18:16 13:30 Reassessment: Pt's is resting with eyes closed. Easily awaken with verbal ca1 stimuli. Not in respiratory distress, skin is pink, warm and dry ca1 18:30 18:28 Reassessment: Pt asked to call son to come visit him tonight after work. Talked ca1 to son, says he is coming later tonight. Son's name is Bradley with phone number [phone] ca1 06/14 00:09 06/13 23:27 Safety checks: Items removed: yes. Door open/sign placed on door: yes. lt1 Family/friend present: lt1 06/15 00:06 06/14 23:15 Safety checks: Items removed: yes. Door open/sign placed on door: yes. ar5 Family/friend present: yes. Sitter present: Yes. ar5 06/15 02:59 06/14 21:00 Reassessment: Patient appears in no apparent distress at this time. No jd3 changes from previously documented assessment. Patient and/or family updated on plan of care and expected duration. Pain level reassessed. Patient is alert, oriented x 3, equal unlabored respirations, skin warm/dry/pink. jd3 06/15 04:32 03:04 Safety checks: Items removed: yes. Door open/sign placed on door: yes. ar5 Family/friend present: no. Sitter present: Yes. ar5 05:26 05:24 Reassessment: Patient appears in no apparent distress at this time. Patient jd3 and/or family updated on plan of care and expected duration. Pain level reassessed. Patient is alert, oriented x 3, equal unlabored respirations, skin warm/dry/pink. reported understanding of need for transfer. report given to EMS. Patient denies pain at this time. jd3 :18 06/13 07:15 Derm: Skin is healthy with good turgor, Skin is pink, warm \T\ dry. surgical ph site x 2 noted to lower back ph
[2019-06-15 05:51] VITALS: BP 111/75; TEMP 97.9; O2SAT 99
== END 2019-06-15 05:27 ==
LOC: ER 07:03
DX: T40.2X2A Poisoning by other opioids, intentional self-harm, initial encounter (principal); T42.8X2A Poisoning by antiparkinsonism drugs and other central muscle-tone depressants, intentional self-harm, initial encounter; F55.8 Abuse of other non-psychoactive substances; N19 Unspecified kidney failure; F90.9 Attention-deficit hyperactivity disorder, unspecified type; F17.210 Nicotine dependence, cigarettes, uncomplicated
CPT/HCPCS: 36415; 80048; 80076; 80320; 80329; 85025; 85610; 85730; 93005; 96360; 96361; 99285; J2405; J7030

== ENCOUNTER 2019-11-11 03:18 | Emergency (ER) | payer SELFPAY ==
--- OUTSIDE RECORDS SUMMARY | 2019-11-11 03:24 | XMS REPORT | Summary of Care ---
:1965 Author Name ARTEMIO WINTER Address [facility] Unavailable , Care Team Providers Name Role Phone ARTEMIO WINTER Unavailable Unavailable KATINA MCLEAN MD Unavailable Unavailable [facility] ARTEMIO HOLLAND Unavailable Unavailable Functional Status Name Dates Details Functional status health issues are not documented Status: Name Dates Details Cognitive status health issues are not documented Status: Problems Name Dates Details Active medical history not documented Status: Medications Name Dates Details Medications not documented Allergies and Adverse Reactions Name Dates Details Allergy history not documented Status: Procedures Procedure Dates Details Procedures not documented Immunization Name Dates Details Immunizations not documented Social History Name Dates Details Unknown if ever smoked Vital Signs Date Test Result Details No Known Vitals to report Results Date Description Value Details Results not documented Plan of Care Name Dates Details Planned Observations Planned Goals not documented Instructions Name Dates Details Instructions not documented Encounters Appointment; ARTEMIO WINTER On: 28-May-2019 10:00 Encounter Diagnosis: Problem not documented Appointment; ARTEMIO WINTER On: 09-Jul-2019 15:00 Encounter Diagnosis: Problem not documented
--- OUTSIDE RECORDS SUMMARY | 2019-11-11 03:24 | XMS REPORT ---
:1965 Author Organization [facility] Address [address] [place] [address] [place] [id number] Care Team Providers Name Role Phone BRIGID LOCK Unavailable Unavailable BEERSJC Unavailable Unavailable SHRUTHI, BETH NGUYỄN Unavailable Unavailable Problems This patient has no known problems. Allergies, Adverse Reactions, Alerts This patient has no known allergies or adverse reactions. Medications This patient has no known medications. Results Test Description Test Time Test Comments Text Results Atomic Results Result Comments NERVE 2019-06-22 Reason for INTRAOPERATIVE MONITORING REPORT CONDUCTION 09:17:00 exam:->lumbar Patient Name: Estefani Mancini MRN: STUDIES; 3-4 stenosis [id number] [facility] Surgery Date: 06/08/2019 [place] Pro: [id number] Monitoring began at 0726 and ended at 1221 Surgeon: Eliu Dennis M.D. Examining Neurologist: Sabina Piper Monitoring Technologists: ALEX Fong Procedure: L5-S1 TLIF Stimulation Parameters: Ulnar nerves individually stimulated at the wristRate 4.7Hz, Intensity 45mA, Duration 0.3msPosterior Tibial nerves individually stimulated at the ankleRate 4.7Hz, Intensity 80mA, Duration 0.3msFilters 30-500Hz, Notch OffStimulation Parameters: Cortical screw and regino construct individually stimulated by the surgeon Rate 2.1Hz, Intensity 0-20mA, Duration 0.2ms Filters 20-2KHz, Notch Off Free-running and triggered EMG of left and right Vastus Lateralis (L2-4), Tibialis Anterior (L4-5), Lateral Gastrocnemius (L5-S2) muscle groups. Description: Intraoperative neurophysiological monitoring was performed using a combination of upperand lower extremity somatosensory evoked potentials, free-running and triggered EMG of L2-S2 innervated muscle groups. A real-time connection with the examining neurologist was established and maintained throughout the operative procedure by the monitoring technologist.Upper extremity somatosensory evoked potentials were recorded peripherally and centrally at the cervicaland cortical levels following ulnar nerve stimulation at the wrist. Lower extremity somatosensory evokedpotentials were recorded centrally at the cervical and cortical levels following posterior tibial nervestimulation at the ankle. Bilateral upper and lower SSEP responses were present and reproducible at baseline. Free-running EMG of L2-S2 innervated muscle group was monitored continuously throughout the operative procedure with no sustained neurotonic discharges seen. Triggered EMG was performed following the placement of cortical screws via a sterile Prass probe held by the surgeon. The resulting intensity values required to elicit a response from each placement were reported to the surgeon (Left L5=14mA, left S1 > 20mA, right L5 > 20mA, right S1 > 20mA). The resulting intensity values required to elicit a response from each placement were greater than alert criteria. Conclusion: These results suggest the absence of untoward, secondary effects on the posteriorcolumn function as a consequence of this surgical procedure. In addition, the absence of sustained neurotonic discharges on free-running EMG suggests that the nerve roots monitored remained undisturbed. All values elicited by triggered EMG during pedicle screw placement were reported to the surgeon. Karishma Goss M.D.M51.26, M54.40 D CULTURE 2019-06-20 20:01:00 Test Item Value Reference Range Comments CULTURE (AKER) (test vkku=7969) No growth in 5 days WOUND CULTURE + GRAM [id number] 10:18:00 Test Item Value Reference Range Comments CULTURE (BEAKER) (test STAPHYLOCOCCUS 3+ Staphylococcus fsym=6972) EPIDERMIDIS epidermidis Clindamycin (test code=10) Erythromycin (test code=4) Linezolid (test code=40) Nitrofurantoin (test code=23) Oxacillin (test code=14) Rifampin (test code=43) Tetracycline (test code=2) Trimethoprim + Sulfamethoxazole (test code=47) Vancomycin (test code=13) GRAM STAIN RESULT No WBCs (BEAKER) (test yeen=6260) GRAM STAIN RESULT No organisms seen (BEAKER) (test vyeo=385760) <1+ Skin floraBASIC METABOLIC [id number] 13:42:00 Test Item Value Reference Range Comments SODIUM (BEAKER) (test 137 meq/L 136-145 wqnc=749) POTASSIUM (BEAKER) (test 4.1 meq/L 3.5-5.1 pzwu=509) CHLORIDE (BEAKER) (test 107 meq/L 98-107 zsqa=348) CO2 (BEAKER) (test 23 meq/L 22-29 itgz=554) BLOOD UREA NITROGEN 14 mg/dL 7-21 (BEAKER) (test eikx=512) CREATININE (BEAKER) (test 0.72 mg/dL 0.57-1.25 ekqo=073) GLUCOSE RANDOM (BEAKER) 92 mg/dL 70-105 (test cbwg=294) CALCIUM (BEAKER) (test 8.5 mg/dL 8.4-10.2 edjb=555) EGFR (BEAKER) (test 114 mL/min/1.73 sq m ESTIMATED GFR IS NOT mbmz=4767) ACCURATE CREATININE CLEARANCE IN PREDICTING GLOMERULAR FILTRATION RATE. ESTIMATED GFR IS NOT APPLICABLE FOR DIALYSIS PATIENTS. CBC W/PLT COUNT & AUTO [id number] 13:26:00 Test Item Value Reference Range Comments WHITE BLOOD CELL COUNT (BEAKER) (test lzbg=836) 4.8 K/ L 3.5-10.5 RED BLOOD CELL COUNT (BEAKER) (test qfqx=657) 3.90 M/ L 4.63-6.08 HEMOGLOBIN (BEAKER) (test pybf=733) 12.4 GM/DL 13.7-17.5 HEMATOCRIT (BEAKER) (test nlyf=681) 37.0 % 40.1-51.0 MEAN CORPUSCULAR VOLUME (BEAKER) (test omsd=091) 94.9 fL 79.0-92.2 MEAN CORPUSCULAR HEMOGLOBIN (BEAKER) (test 31.8 pg 25.7-32.2 viuk=310) MEAN CORPUSCULAR HEMOGLOBIN CONC (BEAKER) (test 33.5 GM/DL 32.3-36.5 pdfk=922) RED CELL DISTRIBUTION WIDTH (BEAKER) (test 12.0 % 11.6-14.4 zetb=657) PLATELET COUNT (BEAKER) (test kdiw=558) 161 K/CU MM 150-450 MEAN PLATELET VOLUME (BEAKER) (test vsnc=909) 10.0 fL 9.4-12.4 NUCLEATED RED BLOOD CELLS (BEAKER) (test 0 /100 WBC 0-0 xrqf=546) NEUTROPHILS RELATIVE PERCENT (BEAKER) (test 63 % jzti=229) LYMPHOCYTES RELATIVE PERCENT (BEAKER) (test 26 % lhml=256) MONOCYTES RELATIVE PERCENT (BEAKER) (test 10 % tdqv=105) EOSINOPHILS RELATIVE PERCENT (BEAKER) (test 1 % tpno=949) BASOPHILS RELATIVE PERCENT (BEAKER) (test 0 % pwcf=070) NEUTROPHILS ABSOLUTE COUNT (BEAKER) (test 3.00 K/ L 1.78-5.38 cnkf=793) LYMPHOCYTES ABSOLUTE COUNT (BEAKER) (test 1.22 K/ L 1.32-3.57 gxdk=844) MONOCYTES ABSOLUTE COUNT (BEAKER) (test 0.48 K/ L 0.30-0.82 fopd=546) EOSINOPHILS ABSOLUTE COUNT (BEAKER) (test 0.04 K/ L 0.04-0.54 daom=290) BASOPHILS ABSOLUTE COUNT (BEAKER) (test 0.01 K/ L 0.01-0.08 adgz=129) IMMATURE GRANULOCYTES-RELATIVE PERCENT (BEAKER) 0 % 0-1 (test hlti=4714) TISSUE [id number] 16:40:00Surgical Pathology Report Case: [id number] Authorizing Provider: Eliu Dennis MD Collected: 06/08/2019 1242 Ordering Location: [address] Received: 06/08/2019 1401 Service Pathologist: Rasheed Champagne MD Specimen: Disc L5-S1 VERTEBRAL COLUMN,INTERVERTEBRAL DISC, L5-S1, DISCECTOMY:FRAGMENTS OF FIBROCARTILAGE WITH MILD DEGENERATIVE CHANGES Signing Pathologist Direct Phone Line: [phone] signed by Rasheed Champagne MD on06/14/2019 at 4:40 [id number]; [id number] L5- Y5Rzrflljy in formalin labeled "disc L5-S1" consists of a 3x 2 x 1.5 cm aggregate of white rubbery tissue. Meatcutter portions of the tissue submitted in a single cassette A1 (about 60% of the tissue) for decal./bc PerformedFL, POWDER COATER IN OR/30 MINUTE [id number] 12:59:00Reason for exam:->lumbar stenosisFLUOROSCOPIC UNIT UTILIZED-NO INTERPRETATION REQUESTED. Electronically signed by: ELECTRONICALLYVER BY RADIOLOGY on 2018 12:59 PMRAD, SPINE, LUMBAR, 2 OR 3 [id number] 10:53:00Reason for exam: ->s/p L5-S1 fusionFINAL REPORT LUMBAR SPINE 2 VIEWS HISTORY: Low [...] Cantrell Verified Date/Time: 06/09/2019 10:53:58 Reading Location: [address] Transitional Reading Room FL, POWDER COATER IN OR/30 MINUTE [id number] 10:08: 00Reason for exam:->lumbar stenosisFINAL REPORT Exam: Intraoperative fluoroscopic lumbar spine radiograph History: Lumbar stenosis Comparison: Lumbar spine MRI 06/05/2019 Discussion : Single portable lateral intraoperative fluoroscopic image of the lower lumbar spine demonstrates posterior surgical instrumentationand screw fixation at L5 and S1. Alignment is anatomic. No acute fracture. Impression:Intraoperativeimage with interval posterior screw fixation at L5 and S1. Signed: Zayda Cole MDRrhettort Verified Date/Time: 06/08/2019 10:08:27 Reading Location: [facility] Radiology Reading Room 10: 08 AMBASIC METABOLIC [id number] 05:42:00 Test Item Value Reference Range Comments SODIUM (BEAKER) (test 135 meq/L 136-145 inxo=254) POTASSIUM (BEAKER) (test 4.7 meq/L 3.5-5.1 pqof=613) CHLORIDE (BEAKER) (test 104 meq/L 98-107 ypiq=885) CO2 (BEAKER) (test 25 meq/L 22-29 bsxr=200) BLOOD UREA NITROGEN 15 mg/dL 7-21 (BEAKER) (test ynhm=864) CREATININE (BEAKER) (test 0.89 mg/dL 0.57-1.25 mmni=960) GLUCOSE RANDOM (BEAKER) 95 mg/dL 70-105 (test spxe=829) CALCIUM (BEAKER) (test 8.9 mg/dL 8.4-10.2 prdr=386) EGFR (BEAKER) (test 89 mL/min/1.73 sq m ESTIMATED GFR IS NOT csvf=2259) ACCURATE CREATININE CLEARANCE IN PREDICTING GLOMERULAR FILTRATION RATE. ESTIMATED GFR IS NOT APPLICABLE FOR DIALYSIS PATIENTS. CBC W/PLT COUNT & AUTO [id number] 04:52:00 Test Item Value Reference Range Comments WHITE BLOOD CELL COUNT 7.0 K/ L 3.5-10.5 (BEAKER) (test pbxy=323) RED BLOOD CELL COUNT (BEAKER) 4.73 M/ L 4.63-6.08 (test kqlq=982) HEMOGLOBIN (BEAKER) (test 14.7 GM/DL 13.7-17.5 mpfr=018) HEMATOCRIT (BEAKER) (test 44.5 % 40.1-51.0 bhkr=875) MEAN CORPUSCULAR VOLUME 94.1 fL 79.0-92.2 Discordant MCV results (BEAKER) (test pkif=524) compared to previous results; clinical correlation required. MEAN CORPUSCULAR HEMOGLOBIN 31.1 pg 25.7-32.2 (BEAKER) (test tkqs=455) MEAN CORPUSCULAR HEMOGLOBIN 33.0 GM/DL 32.3-36.5 CONC (BEAKER) (test otaa=975) RED CELL DISTRIBUTION WIDTH 12.3 % 11.6-14.4 (BEAKER) (test tgyh=296) PLATELET COUNT (BEAKER) (test 199 K/CU MM 150-450 qhyk=894) MEAN PLATELET VOLUME (BEAKER) 10.0 fL 9.4-12.4 (test euul=081) NUCLEATED RED BLOOD CELLS 0 /100 WBC 0-0 (BEAKER) (test silr=589) NEUTROPHILS RELATIVE PERCENT 62 % (BEAKER) (test jvoi=316) LYMPHOCYTES RELATIVE PERCENT 28 % (BEAKER) (test tbvs=633) MONOCYTES RELATIVE PERCENT 8 % (BEAKER) (test nxvb=934) EOSINOPHILS RELATIVE PERCENT 1 % (BEAKER) (test uauf=853) BASOPHILS RELATIVE PERCENT 0 % (BEAKER) (test nzfq=410) NEUTROPHILS ABSOLUTE COUNT 4.34 K/ L 1.78-5.38 (BEAKER) (test czed=789) LYMPHOCYTES ABSOLUTE COUNT 1.92 K/ L 1.32-3.57 (BEAKER) (test didu=759) MONOCYTES ABSOLUTE COUNT 0.58 K/ L 0.30-0.82 (BEAKER) (test imef=435) EOSINOPHILS ABSOLUTE COUNT 0.10 K/ L 0.04-0.54 (BEAKER) (test ptcd=768) BASOPHILS ABSOLUTE COUNT 0.03 K/ L 0.01-0.08 (BEAKER) (test hrrn=921) IMMATURE 0 % 0-1 GRANULOCYTES-RELATIVE PERCENT (BEAKER) (test gltc=6340) [id number] 09:32:00 Test Item Value Reference Range Comments PROTIME (BEAKER) (test ozpo=306) 12.7 seconds 11.9-14.2 INR (BEAKER) (test nxuh=582) 1.0 <=5.9 PARTIAL THROMBOPLASTIN TIME (BEAKER) (test 26.9 seconds 22.5-36.0 mjri=898) Effective 04/25/2019: PT Reference Range ChangeNew: 11.9-14.2 Previous: 11.7- 14.7RECOMMENDED COUMADIN/WARFARIN INR THERAPY RANGESSTANDARD DOSE: 2.0-3.0 Includes: PROPHYLAXIS for venous thrombosis, systemic embolization; TREATMENT for venous thrombosis and/or pulmonary embolus.HIGH RISK: Target INR is2.5-3.5 for patients wiht mechanical heart valves.CBC W/PLT COUNT & AUTO [id number] 08:50:00 Test Item Value Reference Range Comments WHITE BLOOD CELL COUNT (BEAKER) (test ahuf=389) 6.1 K/ L 3.5-10.5 RED BLOOD CELL COUNT (BEAKER) (test mgsn=253) 4.71 M/ L 4.63-6.08 HEMOGLOBIN (BEAKER) (test ezya=968) 14.6 GM/DL 13.7-17.5 HEMATOCRIT (BEAKER) (test ghdz=005) 47.0 % 40.1-51.0 MEAN CORPUSCULAR VOLUME (BEAKER) (test vdjq=443) 99.8 fL 79.0-92.2 MEAN CORPUSCULAR HEMOGLOBIN (BEAKER) (test 31.0 pg 25.7-32.2 ujux=648) MEAN CORPUSCULAR HEMOGLOBIN CONC (BEAKER) (test 31.1 GM/DL 32.3-36.5 cwyy=534) RED CELL DISTRIBUTION WIDTH (BEAKER) (test 12.3 % 11.6-14.4 cwvv=116) PLATELET COUNT (BEAKER) (test zsyr=930) 139 K/CU MM 150-450 MEAN PLATELET VOLUME (BEAKER) (test jrhq=213) 10.2 fL 9.4-12.4 NUCLEATED RED BLOOD CELLS (BEAKER) (test 0 /100 WBC 0-0 mvuw=436) NEUTROPHILS RELATIVE PERCENT (BEAKER) (test 65 % oijy=756) LYMPHOCYTES RELATIVE PERCENT (BEAKER) (test 23 % rmux=783) MONOCYTES RELATIVE PERCENT (BEAKER) (test 10 % niya=593) EOSINOPHILS RELATIVE PERCENT (BEAKER) (test 2 % cqkj=339) BASOPHILS RELATIVE PERCENT (BEAKER) (test 1 % rgtv=149) NEUTROPHILS ABSOLUTE COUNT (BEAKER) (test 3.94 K/ L 1.78-5.38 kpsc=495) LYMPHOCYTES ABSOLUTE COUNT (BEAKER) (test 1.42 K/ L 1.32-3.57 qmqm=014) MONOCYTES ABSOLUTE COUNT (BEAKER) (test 0.58 K/ L 0.30-0.82 vpkv=187) EOSINOPHILS ABSOLUTE COUNT (BEAKER) (test 0.09 K/ L 0.04-0.54 fyal=499) BASOPHILS ABSOLUTE COUNT (BEAKER) (test 0.03 K/ L 0.01-0.08 xins=843) IMMATURE GRANULOCYTES-RELATIVE PERCENT (BEAKER) 1 % 0-1 (test jfcs=3883) BASIC METABOLIC [id number] 08:45:00 Test Item Value Reference Range Comments SODIUM (BEAKER) (test 134 meq/L 136-145 gdrl=317) POTASSIUM (BEAKER) (test 4.4 meq/L 3.5-5.1 Specimen slightly lmwv=034) hemolyzed CHLORIDE (BEAKER) (test 108 meq/L 98-107 qodv=149) CO2 (BEAKER) (test 17 meq/L 22-29 wuzt=444) BLOOD UREA NITROGEN 18 mg/dL 7-21 (BEAKER) (test lkds=131) CREATININE (BEAKER) (test 0.76 mg/dL 0.57-1.25 Specimen slightly uhaz=300) hemolyzed GLUCOSE RANDOM (BEAKER) 94 mg/dL 70-105 (test pbnf=383) CALCIUM (BEAKER) (test 8.9 mg/dL 8.4-10.2 jror=759) EGFR (BEAKER) (test 107 mL/min/1.73 sq m ESTIMATED GFR IS NOT ztqz=6488) ACCURATE CREATININE CLEARANCE IN PREDICTING GLOMERULAR FILTRATION RATE. ESTIMATED GFR IS NOT APPLICABLE FOR DIALYSIS PATIENTS. BASIC METABOLIC [id number] 07:28:00 Test Item Value Reference Range Comments SODIUM (BEAKER) (test 136 meq/L 136-145 spxp=442) POTASSIUM (BEAKER) (test 4.1 meq/L 3.5-5.1 sdqs=404) CHLORIDE (BEAKER) (test 105 meq/L 98-107 meir=909) CO2 (BEAKER) (test 22 meq/L 22-29 hbul=060) BLOOD UREA NITROGEN 22 mg/dL 7-21 (BEAKER) (test oaeo=557) CREATININE (BEAKER) (test 0.88 mg/dL 0.57-1.25 logg=264) GLUCOSE RANDOM (BEAKER) 86 mg/dL 70-105 (test yjms=769) CALCIUM (BEAKER) (test 9.1 mg/dL 8.4-10.2 louf=565) EGFR (BEAKER) (test 90 mL/min/1.73 sq m ESTIMATED GFR IS NOT wscq=9338) ACCURATE CREATININE CLEARANCE IN PREDICTING GLOMERULAR FILTRATION RATE. ESTIMATED GFR IS NOT APPLICABLE FOR DIALYSIS PATIENTS. [id number] 06:29:00 Test Item Value Reference Range Comments PROTIME (BEAKER) (test fxue=365) 13.0 seconds 11.9-14.2 INR (BEAKER) (test gxmy=671) 1.0 <=5.9 PARTIAL THROMBOPLASTIN TIME (BEAKER) (test 26.2 seconds 22.5-36.0 iqya=848) Effective 04/25/2019: PT Reference Range ChangeNew: 11.9-14.2 Previous: 11.7- 14.7RECOMMENDED COUMADIN/WARFARIN INR THERAPY RANGESSTANDARD DOSE: 2.0-3.0 Includes: PROPHYLAXIS for venous thrombosis, systemic embolization; TREATMENT for venous thrombosis and/or pulmonary embolus.HIGH RISK: Target INR is2.5-3.5 for patients wiht mechanical heart valves.CBC W/PLT COUNT & AUTO [id number] 06:22:00 Test Item Value Reference Range Comments WHITE BLOOD CELL COUNT (BEAKER) (test ijlr=139) 7.0 K/ L 3.5-10.5 RED BLOOD CELL COUNT (BEAKER) (test jlbb=212) 4.65 M/ L 4.63-6.08 HEMOGLOBIN (BEAKER) (test tutn=422) 14.3 GM/DL 13.7-17.5 HEMATOCRIT (BEAKER) (test awdt=426) 44.4 % 40.1-51.0 MEAN CORPUSCULAR VOLUME (BEAKER) (test lgfh=090) 95.5 fL 79.0-92.2 MEAN CORPUSCULAR HEMOGLOBIN (BEAKER) (test 30.8 pg 25.7-32.2 lhvo=834) MEAN CORPUSCULAR HEMOGLOBIN CONC (BEAKER) (test 32.2 GM/DL 32.3-36.5 scdr=619) RED CELL DISTRIBUTION WIDTH (BEAKER) (test 12.5 % 11.6-14.4 wqks=213) PLATELET COUNT (BEAKER) (test umel=576) 194 K/CU MM 150-450 MEAN PLATELET VOLUME (BEAKER) (test yvjg=401) 10.3 fL 9.4-12.4 NUCLEATED RED BLOOD CELLS (BEAKER) (test 0 /100 WBC 0-0 puvs=868) NEUTROPHILS RELATIVE PERCENT (BEAKER) (test 59 % vexr=960) LYMPHOCYTES RELATIVE PERCENT (BEAKER) (test 28 % bfiy=937) MONOCYTES RELATIVE PERCENT (BEAKER) (test 11 % ipki=948) EOSINOPHILS RELATIVE PERCENT (BEAKER) (test 2 % abdx=151) BASOPHILS RELATIVE PERCENT (BEAKER) (test 0 % uphn=882) NEUTROPHILS ABSOLUTE COUNT (BEAKER) (test 4.10 K/ L 1.78-5.38 dlvc=668) LYMPHOCYTES ABSOLUTE COUNT (BEAKER) (test 1.94 K/ L 1.32-3.57 zbmz=857) MONOCYTES ABSOLUTE COUNT (BEAKER) (test 0.75 K/ L 0.30-0.82 jidl=510) EOSINOPHILS ABSOLUTE COUNT (BEAKER) (test 0.11 K/ L 0.04-0.54 ucyt=181) BASOPHILS ABSOLUTE COUNT (BEAKER) (test 0.03 K/ L 0.01-0.08 qyja=671) IMMATURE GRANULOCYTES-RELATIVE PERCENT (BEAKER) 1 % 0-1 (test vsha=5363) [id number] 15:26:00 Test Item Value Reference Range Comments PROTIME (BEAKER) (test ansd=322) 13.2 seconds 11.9-14.2 INR (BEAKER) (test cjlg=309) 1.1 <=5.9 PARTIAL THROMBOPLASTIN TIME (BEAKER) (test 25.2 seconds 22.5-36.0 vlzt=439) Effective 04/25/2019: PT Reference Range ChangeNew: 11.9-14.2 Previous: 11.7- 14.7RECOMMENDED COUMADIN/WARFARIN INR THERAPY RANGESSTANDARD DOSE: 2.0-3.0 Includes: PROPHYLAXIS for venous thrombosis, systemic embolization; TREATMENT for venous thrombosis and/or pulmonary embolus.HIGH RISK: Target INR is2.5-3.5 for patients wiht mechanical heart valves.CBC W/PLT COUNT & AUTO [id number] 15:14:00 Test Item Value Reference Range Comments WHITE BLOOD CELL COUNT (BEAKER) (test igql=110) 7.1 K/ L 3.5-10.5 RED BLOOD CELL COUNT (BEAKER) (test uktm=109) 4.81 M/ L 4.63-6.08 HEMOGLOBIN (BEAKER) (test bvlo=945) 15.0 GM/DL 13.7-17.5 HEMATOCRIT (BEAKER) (test ojlz=654) 45.2 % 40.1-51.0 MEAN CORPUSCULAR VOLUME (BEAKER) (test ncbo=952) 94.0 fL 79.0-92.2 MEAN CORPUSCULAR HEMOGLOBIN (BEAKER) (test 31.2 pg 25.7-32.2 gsnx=124) MEAN CORPUSCULAR HEMOGLOBIN CONC (BEAKER) (test 33.2 GM/DL 32.3-36.5 uvqk=915) RED CELL DISTRIBUTION WIDTH (BEAKER) (test 12.5 % 11.6-14.4 dvbq=129) PLATELET COUNT (BEAKER) (test duqm=484) 183 K/CU MM 150-450 MEAN PLATELET VOLUME (BEAKER) (test iemu=602) 10.7 fL 9.4-12.4 NUCLEATED RED BLOOD CELLS (BEAKER) (test 0 /100 WBC 0-0 ecvn=784) NEUTROPHILS RELATIVE PERCENT (BEAKER) (test 66 % ryfr=254) LYMPHOCYTES RELATIVE PERCENT (BEAKER) (test 24 % umbw=215) MONOCYTES RELATIVE PERCENT (BEAKER) (test 9 % lhxb=181) EOSINOPHILS RELATIVE PERCENT (BEAKER) (test 1 % snkh=798) BASOPHILS RELATIVE PERCENT (BEAKER) (test 0 % pxbf=388) NEUTROPHILS ABSOLUTE COUNT (BEAKER) (test 4.68 K/ L 1.78-5.38 vpgw=508) LYMPHOCYTES ABSOLUTE COUNT (BEAKER) (test 1.67 K/ L 1.32-3.57 ydsc=447) MONOCYTES ABSOLUTE COUNT (BEAKER) (test 0.60 K/ L 0.30-0.82 rvhy=353) EOSINOPHILS ABSOLUTE COUNT (BEAKER) (test 0.08 K/ L 0.04-0.54 bfcb=840) BASOPHILS ABSOLUTE COUNT (BEAKER) (test 0.03 K/ L 0.01-0.08 nmwz=759) IMMATURE GRANULOCYTES-RELATIVE PERCENT (BEAKER) 1 % 0-1 (test gtaz=0478) BASIC METABOLIC [id number] 14:55:00 Test Item Value Reference Range Comments SODIUM (BEAKER) (test 136 meq/L 136-145 aeca=169) POTASSIUM (BEAKER) (test 4.6 meq/L 3.5-5.1 Specimen slightly jsaj=098) hemolyzed CHLORIDE (BEAKER) (test 106 meq/L 98-107 eehy=580) CO2 (BEAKER) (test 21 meq/L 22-29 qmpd=008) BLOOD UREA NITROGEN 23 mg/dL 7-21 (BEAKER) (test ihoc=986) CREATININE (BEAKER) (test 1.23 mg/dL 0.57-1.25 Specimen slightly kxfx=193) hemolyzed GLUCOSE RANDOM (BEAKER) 103 mg/dL 70-105 (test rbes=077) CALCIUM (BEAKER) (test 9.2 mg/dL 8.4-10.2 dupz=620) EGFR (MARCOS) (test 61 mL/min/1.73 sq m ESTIMATED GFR IS NOT jmaa=1723) ACCURATE CREATININE CLEARANCE IN PREDICTING GLOMERULAR FILTRATION RATE. ESTIMATED GFR IS NOT APPLICABLE FOR DIALYSIS PATIENTS. MR, SPINE, LUMBAR, WITHOUT [id number] 13:50:00FINAL REPORT MR, SPINE, LUMBAR, WITHOUT CONTRAST [...] Verified Date/Time: 06/05/2019 13:50: 56 Reading Location: [facility] Radiology Reading Room TISSUE [id number] 12 :46:00Surgical Pathology Report Case: [id number] Authorizing Provider: Eliu Dennis MD Collected: 04/25/2019 1627 Ordering Location: [facility] PERIOPERATIVE Received: 04/26/2019 1011 SERVICES Pathologist: Rasheed Champagne MD Specimen: Disc L5-S1 VERTEBRAL COLUMN,INTERVERTEBRAL DISC, L5- S1, DISCECTOMY:FRAGMENTS OF FIBROCARTILAGE WITH MILD DEGENERATIVE CHANGES Signing Pathologist Direct Phone Line: [phone] signed by Rasheed Champagne MD on05/04/2019 at 12:46 [id number]; [id number] specimen is received in a single container with another smaller container within that container. Both specimens consist of off-white disc fragments, which are submitted entirely in cassette A1. The specimen measures 2.9 x 1.3 x 0.8 cm in aggregate. ?/ ewPerformedFL, POWDER COATER IN OR/30 MINUTE [id number] 13:38:00Reason for exam:->PAINPROCEDURE PERFORMED IN O.R. - PLEASE REFER TO THE INTRAOPERATIVE REPORT. NEEDLE EMG, 2 [id number] 09:16:00 INTRAOPERATIVE MONITORING REPORT Patient Name: Estefani Mancini [facility], [place], [place] Surgery Date: 04/25/2019 [place]: [id number] Monitoring began at 1547 and ended at [...] nerve roots monitored remained undisturbed. Karishma Goss M.D.M51.27 [id number] 07:26:00 Test Item Value Reference Range Comments PHOSPHORUS (BEAKER) (test llhj=086) 2.8 mg/dL 2.3-4.7 [id number] 07:26:00 Test Item Value Reference Range Comments MAGNESIUM (BEAKER) (test trpy=374) 2.2 mg/dL 1.6-2.6 BASIC METABOLIC [id number] 07:26:00 Test Item Value Reference Range Comments SODIUM (BEAKER) (test 136 meq/L 136-145 iivg=140) POTASSIUM (BEAKER) (test 4.1 meq/L 3.5-5.1 gwaw=671) CHLORIDE (BEAKER) (test 106 meq/L 98-107 nubo=601) CO2 (BEAKER) (test 23 meq/L 22-29 gypx=778) BLOOD UREA NITROGEN 19 mg/dL 7-21 (BEAKER) (test wllv=324) CREATININE (BEAKER) (test 1.08 mg/dL 0.57-1.25 ltmk=876) GLUCOSE RANDOM (BEAKER) 179 mg/dL 70-105 (test ohcu=352) CALCIUM (BEAKER) (test 8.6 mg/dL 8.4-10.2 nfyk=334) EGFR (BEAKER) (test 71 mL/min/1.73 sq m ESTIMATED GFR IS NOT gwql=5101) ACCURATE CREATININE CLEARANCE IN PREDICTING GLOMERULAR FILTRATION RATE. ESTIMATED GFR IS NOT APPLICABLE FOR DIALYSIS PATIENTS. CBC W/PLT COUNT & AUTO [id number] 07:05:00 Test Item Value Reference Range Comments WHITE BLOOD CELL COUNT (BEAKER) (test mbii=156) 7.3 K/ L 3.5-10.5 RED BLOOD CELL COUNT (BEAKER) (test ldhs=360) 4.31 M/ L 4.63-6.08 HEMOGLOBIN (BEAKER) (test ckbv=624) 13.2 GM/DL 13.7-17.5 HEMATOCRIT (BEAKER) (test dppm=672) 40.3 % 40.1-51.0 MEAN CORPUSCULAR VOLUME (BEAKER) (test izfh=111) 93.5 fL 79.0-92.2 MEAN CORPUSCULAR HEMOGLOBIN (BEAKER) (test 30.6 pg 25.7-32.2 fbgs=270) MEAN CORPUSCULAR HEMOGLOBIN CONC (BEAKER) (test 32.8 GM/DL 32.3-36.5 mgue=817) RED CELL DISTRIBUTION WIDTH (BEAKER) (test 12.3 % 11.6-14.4 toki=089) PLATELET COUNT (BEAKER) (test aaic=922) 161 K/CU MM 150-450 MEAN PLATELET VOLUME (BEAKER) (test jgzs=458) 10.2 fL 9.4-12.4 NUCLEATED RED BLOOD CELLS (BEAKER) (test 0 /100 WBC 0-0 ydtd=886) NEUTROPHILS RELATIVE PERCENT (BEAKER) (test 86 % yema=984) LYMPHOCYTES RELATIVE PERCENT (BEAKER) (test 7 % heha=000) MONOCYTES RELATIVE PERCENT (BEAKER) (test 6 % rnjx=283) EOSINOPHILS RELATIVE PERCENT (BEAKER) (test 0 % kjob=868) BASOPHILS RELATIVE PERCENT (BEAKER) (test 0 % fxem=841) NEUTROPHILS ABSOLUTE COUNT (BEAKER) (test 6.31 K/ L 1.78-5.38 ykze=372) LYMPHOCYTES ABSOLUTE COUNT (BEAKER) (test 0.53 K/ L 1.32-3.57 pwsy=735) MONOCYTES ABSOLUTE COUNT (BEAKER) (test 0.46 K/ L 0.30-0.82 blgk=702) EOSINOPHILS ABSOLUTE COUNT (BEAKER) (test 0.00 K/ L 0.04-0.54 coyo=298) BASOPHILS ABSOLUTE COUNT (BEAKER) (test 0.00 K/ L 0.01-0.08 tplc=985) IMMATURE GRANULOCYTES-RELATIVE PERCENT (BEAKER) 0 % 0-1 (test pcqw=2153) [id number] 14:04:00 Test Item Value Reference Range Comments PHOSPHORUS (BEAKER) (test wwrf=398) 3.5 mg/dL 2.3-4.7 [id number] 14:04:00 Test Item Value Reference Range Comments MAGNESIUM (BEAKER) (test zzkw=367) 2.1 mg/dL 1.6-2.6 BASIC METABOLIC [id number] 14:04:00 Test Item Value Reference Range Comments SODIUM (BEAKER) (test 136 meq/L 136-145 jzzs=009) POTASSIUM (BEAKER) (test 4.2 meq/L 3.5-5.1 ktls=418) CHLORIDE (BEAKER) (test 103 meq/L 98-107 lcwd=531) CO2 (BEAKER) (test 27 meq/L 22-29 sqqh=685) BLOOD UREA NITROGEN 16 mg/dL 7-21 (BEAKER) (test bwmw=849) CREATININE (BEAKER) (test 0.82 mg/dL 0.57-1.25 pxwy=474) GLUCOSE RANDOM (BEAKER) 100 mg/dL 70-105 (test iwgt=914) CALCIUM (BEAKER) (test 9.3 mg/dL 8.4-10.2 bdla=408) EGFR (BEAKER) (test 98 mL/min/1.73 sq m ESTIMATED GFR IS NOT vgwi=4299) ACCURATE CREATININE CLEARANCE IN PREDICTING GLOMERULAR FILTRATION RATE. ESTIMATED GFR IS NOT APPLICABLE FOR DIALYSIS PATIENTS. [id number] 13:39:00 Test Item Value Reference Range Comments PROTIME (BEAKER) (test chjq=983) 12.9 seconds 11.7-14.7 INR (BEAKER) (test goxr=131) 1.0 <=5.9 PARTIAL THROMBOPLASTIN TIME (BEAKER) (test 30.9 seconds 22.5-36.0 nwhx=260) RECOMMENDED COUMADIN/WARFARIN INR THERAPY RANGESSTANDARD DOSE: 2.0 - 3.0 Includes: PROPHYLAXIS forvenous thrombosis, systemic embolization; TREATMENT for venous thrombosis and/or pulmonary embolus.HIGH RISK: Target INR is 2.5-3.5 for patients with mechanical heart valves.CBC W/PLT COUNT & AUTO [id number] 13:34:00 Test Item Value Reference Range Comments WHITE BLOOD CELL COUNT (BEAKER) (test fdmu=427) 5.7 K/ L 3.5-10.5 RED BLOOD CELL COUNT (BEAKER) (test ztwl=001) 4.45 M/ L 4.63-6.08 HEMOGLOBIN (BEAKER) (test fgkk=008) 13.8 GM/DL 13.7-17.5 HEMATOCRIT (BEAKER) (test cghs=125) 41.6 % 40.1-51.0 MEAN CORPUSCULAR VOLUME (BEAKER) (test ymwx=331) 93.5 fL 79.0-92.2 MEAN CORPUSCULAR HEMOGLOBIN (BEAKER) (test 31.0 pg 25.7-32.2 biwj=528) MEAN CORPUSCULAR HEMOGLOBIN CONC (BEAKER) (test 33.2 GM/DL 32.3-36.5 agxr=605) RED CELL DISTRIBUTION WIDTH (BEAKER) (test 12.3 % 11.6-14.4 yrkz=794) PLATELET COUNT (BEAKER) (test gtyr=657) 135 K/CU MM 150-450 MEAN PLATELET VOLUME (BEAKER) (test mmzz=081) 10.3 fL 9.4-12.4 NUCLEATED RED BLOOD CELLS (BEAKER) (test 0 /100 WBC 0-0 sukq=795) NEUTROPHILS RELATIVE PERCENT (BEAKER) (test 64 % aqux=903) LYMPHOCYTES RELATIVE PERCENT (BEAKER) (test 20 % rbem=989) MONOCYTES RELATIVE PERCENT (BEAKER) (test 13 % tbit=125) EOSINOPHILS RELATIVE PERCENT (BEAKER) (test 3 % cckz=583) BASOPHILS RELATIVE PERCENT (BEAKER) (test 0 % bpag=528) NEUTROPHILS ABSOLUTE COUNT (BEAKER) (test 3.68 K/ L 1.78-5.38 yhfp=535) LYMPHOCYTES ABSOLUTE COUNT (BEAKER) (test 1.13 K/ L 1.32-3.57 kfjh=864) MONOCYTES ABSOLUTE COUNT (BEAKER) (test 0.73 K/ L 0.30-0.82 hmus=369) EOSINOPHILS ABSOLUTE COUNT (BEAKER) (test 0.16 K/ L 0.04-0.54 meix=636) BASOPHILS ABSOLUTE COUNT (BEAKER) (test 0.01 K/ L 0.01-0.08 rpxu=985) IMMATURE GRANULOCYTES-RELATIVE PERCENT (BEAKER) 0 % 0-1 (test wplm=7019) LIPID [id number] 06:34:00 Test Item Value Reference Range Comments TRIGLYCERIDES (BEAKER) (test wjvf=877) 128 mg/dL CHOLESTEROL (BEAKER) (test fstj=625) 159 mg/dL HDL CHOLESTEROL (BEAKER) (test czrv=451) 37 mg/dL LDL CHOLESTEROL CALCULATED (BEAKER) (test 96 mg/dL hked=357) Triglyceride Reference Range: Low Risk <150 Borderline 150- 199 High Risk 200-499 Very High Risk >=500Cholesterol Reference Range: Low Risk <200 Borderline 200-239 High Risk > 240HDL Cholesterol Reference Range: Low Risk >=60 High Risk <40LDL Cholesterol Reference Range: Optimal <100 Near Optimal 100-129 Borderline 130-159 High 160-189 Very High >=190TROPONIN [id number] 18:17:00 Test Item Value Reference Range Comments TROPONIN I (BEAKER) (test icad=874) < ng/mL 0.00-0.03 Troponin I (TnI) levels [...] acidosis, acute neurological disease, and persistent tachyarrhythmia.TROPONIN [id number] 12:14:00 Test Item Value Reference Range Comments TROPONIN I (BEAKER) (test vfok=828) < ng/mL 0.00-0.03 Troponin I (TnI) levels [...] Range Comments CREATINE KINASE TOTAL (BEAKER) (test nvvf=677) 71 U/L 29-200 BASIC METABOLIC [id number] 05:41:00 Test Item Value Reference Range Comments SODIUM (BEAKER) (test 137 meq/L 136-145 ulko=569) POTASSIUM (BEAKER) (test 4.3 meq/L 3.5-5.1 Specimen slightly xvhe=965) hemolyzed CHLORIDE (BEAKER) (test 105 meq/L 98-107 kbyd=587) CO2 (BEAKER) (test 26 meq/L 22-29 nkvw=163) BLOOD UREA NITROGEN 21 mg/dL 7-21 (BEAKER) (test ryqm=764) CREATININE (BEAKER) (test 0.85 mg/dL 0.57-1.25 Specimen slightly pzkc=322) hemolyzed GLUCOSE RANDOM (BEAKER) 94 mg/dL 70-105 (test alfj=556) CALCIUM (BEAKER) (test 9.6 mg/dL 8.4-10.2 rlkt=165) EGFR (BEAKER) (test 94 mL/min/1.73 sq m ESTIMATED GFR IS NOT vpth=9727) ACCURATE CREATININE CLEARANCE IN PREDICTING GLOMERULAR FILTRATION RATE. ESTIMATED GFR IS NOT APPLICABLE FOR DIALYSIS PATIENTS. CBC W/PLT COUNT & AUTO [id number] 05:13:00 Test Item Value Reference Range Comments WHITE BLOOD CELL COUNT (BEAKER) (test oots=551) 6.4 K/ L 3.5-10.5 RED BLOOD CELL COUNT (BEAKER) (test ohri=248) 4.80 M/ L 4.63-6.08 HEMOGLOBIN (BEAKER) (test xhco=908) 14.7 GM/DL 13.7-17.5 HEMATOCRIT (BEAKER) (test bkgb=726) 44.9 % 40.1-51.0 MEAN CORPUSCULAR VOLUME (BEAKER) (test dznp=685) 93.5 fL 79.0-92.2 MEAN CORPUSCULAR HEMOGLOBIN (BEAKER) (test 30.6 pg 25.7-32.2 trpj=273) MEAN CORPUSCULAR HEMOGLOBIN CONC (BEAKER) (test 32.7 GM/DL 32.3-36.5 xbld=295) RED CELL DISTRIBUTION WIDTH (BEAKER) (test 12.7 % 11.6-14.4 qckn=977) PLATELET COUNT (BEAKER) (test jbyg=991) 143 K/CU MM 150-450 MEAN PLATELET VOLUME (BEAKER) (test mbeo=254) 10.2 fL 9.4-12.4 NUCLEATED RED BLOOD CELLS (BEAKER) (test 0 /100 WBC 0-0 yfxq=211) NEUTROPHILS RELATIVE PERCENT (BEAKER) (test 64 % jces=841) LYMPHOCYTES RELATIVE PERCENT (BEAKER) (test 24 % bmri=883) MONOCYTES RELATIVE PERCENT (BEAKER) (test 10 % kzxr=854) EOSINOPHILS RELATIVE PERCENT (BEAKER) (test 2 % rgba=851) BASOPHILS RELATIVE PERCENT (BEAKER) (test 0 % xkrk=439) NEUTROPHILS ABSOLUTE COUNT (BEAKER) (test 4.09 K/ L 1.78-5.38 zgss=984) LYMPHOCYTES ABSOLUTE COUNT (BEAKER) (test 1.51 K/ L 1.32-3.57 lctq=518) MONOCYTES ABSOLUTE COUNT (BEAKER) (test 0.61 K/ L 0.30-0.82 nnzt=435) EOSINOPHILS ABSOLUTE COUNT (BEAKER) (test 0.13 K/ L 0.04-0.54 hfxe=549) BASOPHILS ABSOLUTE COUNT (BEAKER) (test 0.02 K/ L 0.01-0.08 vbtr=930) IMMATURE GRANULOCYTES-RELATIVE PERCENT (BEAKER) 0 % 0-1 (test rgzh=9666) BASIC METABOLIC [id number] 06:59:00 Test Item Value Reference Range Comments SODIUM (BEAKER) (test 137 meq/L 136-145 phny=526) POTASSIUM (BEAKER) (test 4.2 meq/L 3.5-5.1 ydsm=633) CHLORIDE (BEAKER) (test 107 meq/L 98-107 bltt=954) CO2 (BEAKER) (test 23 meq/L 22-29 ammi=288) BLOOD UREA NITROGEN 24 mg/dL 7-21 (BEAKER) (test uskn=667) CREATININE (BEAKER) (test 0.79 mg/dL 0.57-1.25 rbes=767) GLUCOSE RANDOM (BEAKER) 99 mg/dL 70-105 (test vrpe=881) CALCIUM (BEAKER) (test 9.1 mg/dL 8.4-10.2 kces=914) EGFR (BEAKER) (test 102 mL/min/1.73 sq m ESTIMATED GFR IS NOT hbgs=7378) ACCURATE CREATININE CLEARANCE IN PREDICTING GLOMERULAR FILTRATION RATE. ESTIMATED GFR IS NOT APPLICABLE FOR DIALYSIS PATIENTS. CBC W/PLT COUNT & AUTO [id number] 06:58:00 Test Item Value Reference Range Comments WHITE BLOOD CELL COUNT (BEAKER) (test leiw=698) 7.0 K/ L 3.5-10.5 RED BLOOD CELL COUNT (BEAKER) (test aszk=726) 4.91 M/ L 4.63-6.08 HEMOGLOBIN (BEAKER) (test nzea=649) 15.1 GM/DL 13.7-17.5 HEMATOCRIT (BEAKER) (test jahl=484) 46.5 % 40.1-51.0 MEAN CORPUSCULAR VOLUME (BEAKER) (test xnjy=722) 94.7 fL 79.0-92.2 MEAN CORPUSCULAR HEMOGLOBIN (BEAKER) (test 30.8 pg 25.7-32.2 ezmg=842) MEAN CORPUSCULAR HEMOGLOBIN CONC (BEAKER) (test 32.5 GM/DL 32.3-36.5 zutv=085) RED CELL DISTRIBUTION WIDTH (BEAKER) (test 12.7 % 11.6-14.4 mrwo=414) PLATELET COUNT (BEAKER) (test skcw=180) 133 K/CU MM 150-450 MEAN PLATELET VOLUME (BEAKER) (test lzui=679) 10.2 fL 9.4-12.4 NUCLEATED RED BLOOD CELLS (BEAKER) (test 0 /100 WBC 0-0 vuji=343) NEUTROPHILS RELATIVE PERCENT (BEAKER) (test 68 % onvy=881) LYMPHOCYTES RELATIVE PERCENT (BEAKER) (test 19 % kroo=748) MONOCYTES RELATIVE PERCENT (BEAKER) (test 10 % jvqm=839) EOSINOPHILS RELATIVE PERCENT (BEAKER) (test 2 % sdch=706) BASOPHILS RELATIVE PERCENT (BEAKER) (test 0 % wwhl=183) NEUTROPHILS ABSOLUTE COUNT (BEAKER) (test 4.74 K/ L 1.78-5.38 iotl=882) LYMPHOCYTES ABSOLUTE COUNT (BEAKER) (test 1.35 K/ L 1.32-3.57 tsde=452) MONOCYTES ABSOLUTE COUNT (BEAKER) (test 0.66 K/ L 0.30-0.82 zsuq=126) EOSINOPHILS ABSOLUTE COUNT (BEAKER) (test 0.17 K/ L 0.04-0.54 ikds=018) BASOPHILS ABSOLUTE COUNT (BEAKER) (test 0.02 K/ L 0.01-0.08 wyoi=623) IMMATURE GRANULOCYTES-RELATIVE PERCENT (BEAKER) 0 % 0-1 (test odip=3448) MR, SPINE, LUMBAR, WITHOUT [id number] 21:50:00 Include Sacral spine Tarlov cystsFINAL REPORT [...] moderate left foraminal narrowingat this level. Signed: Fredy Siddiqui MDReport Verified Date/Time: 04/20/2019 21:50:08 Reading Location: [address] Consult Reading Room 09: 50 [facility]BAUN[facility] METABOLIC [id number] 04:59:00 Test Item Value Reference Range Comments SODIUM (BEAKER) (test 136 meq/L 136-145 rnut=586) POTASSIUM (BEAKER) (test 4.2 meq/L 3.5-5.1 Specimen slightly htkc=004) hemolyzed CHLORIDE (BEAKER) (test 108 meq/L 98-107 cigs=858) CO2 (BEAKER) (test 23 meq/L 22-29 fgcn=275) BLOOD UREA NITROGEN 24 mg/dL 7-21 (BEAKER) (test ylcn=594) CREATININE (BEAKER) (test 0.88 mg/dL 0.57-1.25 Specimen slightly ucjv=512) hemolyzed GLUCOSE RANDOM (BEAKER) 105 mg/dL 70-105 (test wcdx=259) CALCIUM (BEAKER) (test 9.1 mg/dL 8.4-10.2 uolc=153) EGFR (BEAKER) (test 90 mL/min/1.73 sq m ESTIMATED GFR IS NOT htek=1431) ACCURATE CREATININE CLEARANCE IN PREDICTING GLOMERULAR FILTRATION RATE. ESTIMATED GFR IS NOT APPLICABLE FOR DIALYSIS PATIENTS. CBC W/PLT COUNT & AUTO [id number] 04:33:00 Test Item Value Reference Range Comments WHITE BLOOD CELL COUNT (BEAKER) (test rfqf=368) 5.2 K/ L 3.5-10.5 RED BLOOD CELL COUNT (BEAKER) (test aqat=898) 4.52 M/ L 4.63-6.08 HEMOGLOBIN (BEAKER) (test mxyb=481) 14.0 GM/DL 13.7-17.5 HEMATOCRIT (BEAKER) (test hldo=668) 42.6 % 40.1-51.0 MEAN CORPUSCULAR VOLUME (BEAKER) (test tjnw=840) 94.2 fL 79.0-92.2 MEAN CORPUSCULAR HEMOGLOBIN (BEAKER) (test 31.0 pg 25.7-32.2 mvsi=701) MEAN CORPUSCULAR HEMOGLOBIN CONC (BEAKER) (test 32.9 GM/DL 32.3-36.5 wtwn=165) RED CELL DISTRIBUTION WIDTH (BEAKER) (test 12.9 % 11.6-14.4 yjto=691) PLATELET COUNT (BEAKER) (test amoi=061) 145 K/CU MM 150-450 MEAN PLATELET VOLUME (BEAKER) (test dtsn=757) 10.2 fL 9.4-12.4 NUCLEATED RED BLOOD CELLS (BEAKER) (test 0 /100 WBC 0-0 xyfh=104) NEUTROPHILS RELATIVE PERCENT (BEAKER) (test 54 % kzwq=990) LYMPHOCYTES RELATIVE PERCENT (BEAKER) (test 32 % tjtu=313) MONOCYTES RELATIVE PERCENT (BEAKER) (test 10 % svnn=702) EOSINOPHILS RELATIVE PERCENT (BEAKER) (test 3 % vxwx=765) BASOPHILS RELATIVE PERCENT (BEAKER) (test 0 % rmkw=017) NEUTROPHILS ABSOLUTE COUNT (BEAKER) (test 2.84 K/ L 1.78-5.38 felw=094) LYMPHOCYTES ABSOLUTE COUNT (BEAKER) (test 1.66 K/ L 1.32-3.57 ndxn=425) MONOCYTES ABSOLUTE COUNT (BEAKER) (test 0.52 K/ L 0.30-0.82 brei=545) EOSINOPHILS ABSOLUTE COUNT (BEAKER) (test 0.16 K/ L 0.04-0.54 vczh=614) BASOPHILS ABSOLUTE COUNT (BEAKER) (test 0.02 K/ L 0.01-0.08 vggf=189) IMMATURE GRANULOCYTES-RELATIVE PERCENT (BEAKER) 0 % 0-1 (test itbf=0781) PROTHROMBIN [id number] 19:17:00 Test Item Value Reference Range Comments PROTIME (BEAKER) (test jeao=111) 13.8 seconds 11.7-14.7 INR (BEAKER) (test xoar=963) 1.1 <=5.9 RECOMMENDED COUMADIN/WARFARIN INR THERAPY RANGESSTANDARD DOSE: 2.0 - 3.0 Includes: PROPHYLAXIS forvenous thrombosis, systemic embolization; TREATMENT for venous thrombosis and/or pulmonary embolus.HIGH RISK: Target INR is 2.5-3.5 for patients with mechanical heart valves.
--- OUTSIDE RECORDS SUMMARY | 2019-11-11 03:24 | XMS REPORT | Summary of Care ---
:1965 Author Organization [facility] [place] [address] Care Team Providers Name Role Phone Unavailable Primary Care Provider Unavailable Reason for Referral (Routine) Status Reason Specialty Diagnoses / Referred By Referred To Procedures Contact Contact Pending Consult, Physical Therapy Diagnoses S/P lumbar spinal fusion Weakness of right foot Gait disturbance Post-op pain Lumbar radicular pain Eliu Dennis, and MD Sanchez [facility] [address] [facility] [address] [place] [address] Reason for Visit Reason Comments Post-op Follow-up Encounter Details Date Type Department Care Team Description 07/19/2019 Office Visit [facility] Eliu Schneider Post-op Follow-up Medicine Neurosurgery MD Sanchez [address]. [address], [address] [place] [address] [place] [address] Allergies No Known Allergiesdocumented as of this encounter (statuses as of 07/24/2019) Medications Medication Sig Dispensed Refills Start Date End Date Status cyclobenzaprine TAKE 1 TABLET 0 05/26/2019 07/19/20 Discontinued (FLEXERIL) 10 MG tablet BY MOUTH 19 EVERY 8 HOURS NEEDED FOR MUSCLE SPASMS methylPREDNISolone 4 MG TAKE 0 05/26/2019 07/19/20 Discontinued TBPK DIRECTED ON 19 PACKAGE Acetaminophen (TYLENOL Take by 0 07/19/20 Discontinued OR) mouth. 19 gabapentin (NEURONTIN) Take 1 Cap by 90 Cap 1 07/09/2019 07/19/20 Discontinued 300 MG mouth 3 times 19 capsuleIndications: daily. Start Lumbar radicular pain, 1 cap at S/P lumbar spinal night for 3 fusion nights, then increase to twice a day for 3 days, and then 3 times per day documented as of this encounter (statuses as of 07/24/2019) Active Problems Not on filedocumented as of this encounter (statuses as of 07/24/2019) Social History Tobacco Use Types Packs/Day Years Used Date Never Smoker Smokeless Tobacco: Never Used Alcohol Use Drinks/Week oz/Week Comments Not Currently Sex Assigned at Date Recorded Not on file Job Start Date Occupation Industry Not on file Not on file Not on file Travel History Travel Start Travel End No recent travel history available. documented as of this encounter Last Filed Vital Signs Vital Sign Reading Time Taken Comments Blood Pressure 109/72 07/19/2019 10:09 AM CDT Pulse 56 07/19/2019 10:09 AM CDT Temperature 36.5 C (97.7 F) 07/19/2019 10:09 AM CDT Respiratory Rate 15 07/19/2019 10:09 AM CDT Oxygen Saturation - - Inhaled Oxygen Concentration - - Weight 90.7 kg (200 lb) 07/19/2019 10:09 AM CDT Height 182.9 cm (6') 07/19/2019 10:09 AM CDT Body Mass Index 27.12 07/19/2019 10:09 AM CDT documented in this encounter Patient Instructions Patient InstructionsPauline Blanchard NP - 07/19/2019 10:00 AM CDTPost Operative Instructions 1. Walking is encouraged. Increase distance gradually. 2. No lifting greater than 15 pounds until seen at follow up appointment. 3. Avoid extreme bending and twisting of the lumbar spine. 4. Avoid activity with a potential for falling until cleared by surgeon. 5. Sexual activity may be resumed when it is comfortable to do so . 6. Please call and follow up for: fever greater than 101.5; drainage from incision; pain increases at the incision site; newor persistent pain and weakness or numbness in you back/neck and arms/legs; swelling or tenderness develops in your legs; and problems controlling your bladder and bowels. 7. Do NOT take NSAID medications (ibuprofen, aspirin, aleve, mobic, diclofenac, naproxen, etc.) or Cummings-2 inhibitors (Celebrex) for 3-6 months following surgery. These medications may delay or prevent proper fusion of the spine. 8. Please schedule 3 month post operative follow up appointment with Dr. Dennis prior to leaving clinic today or call [phone] to schedule. 9. Please contact our office sooner for questions or concerns. Your Body mass index is 27.12 kg/m. Body mass index (BMI) can help you see if your weight is raising your risk for health problems. It uses a formula to compare how much you weigh with how tall you are. A BMI between 18.5 and 24.9 is considered healthy. A BMI between 25 and 29.9 is considered overweight. A BMI of 30 or higher is considered obese. If your BMI is in the normal range, it means that you have a lower risk for weight-related health problems. If your BMI is in the overweight or obese range , you may be at increased risk for weight-related health problems, such as high blood pressure, heart disease, stroke, arthritis or joint pain, anddiabetes. BMI is just one measure of your risk for weight-related health problems. You may be at higher risk for health problems if you are not active, you eat an unhealthy diet, or you drink too much alcohol oruse tobacco products. Follow-up care is a price part of your treatment and safety. Be sure to make and go to all appointments, and call your doctor if you are having problems. It's also a good idea to know your test results and keep a list of the medicines you take. How can you care for yourself at home? Practice healthy eating habits. This includes eating plenty of fruits, vegetables, whole grains, lean protein, and low-fat dairy. Get at least 30 minutes of exercise 5 days a week or more. Brisk walking is a good choice. You also may want to do other activities, such as running, swimming, cycling, or playing tennis or team sports. Do not smoke. Smoking can increase your risk for health problems. If you need help quitting, talkto your doctor about stop-smoking programs and medicines. These can increase your chances of quitting for good. Limit alcohol Where can you learn more? Go to [email or web address] [email or web address] Go to the Search tab with the magnifying glass on the right side of [employer] home page. Enter S176 in the search box to learn more about "Body Mass Index: Care Instructions." documented in this encounter Progress Notes Eliu Dennis MD - 07/19/2019 10:00 AM CDT Referring Doctor: [facility] [address] [place] [address] Reason for visit: Post op follow up visit. I had the pleasure of seeing Mr. Napoles at the neurosurgery clinic. The patient is a 53 y.o. male who underwent right L5-S1 microdiscectomy on 04/25/19 for a right L5-S1 disc herniation. He later had right L5-S1 TLIF on 06/08/19 for recurrent L5-S1 disc herniation and symptomatic S1 radiculopathy. Symptoms are improving. He has some weakness in the right lower extremity and numbness in the lateral andplantar aspect of the right foot. He has not started gabapentin due to cost. Right lower extremity pain level is rated 1-3/10. Back pain is minimal. Patient returns for follow up to discuss his progress. CURRENT MEDICATIONS: No current outpatient medications on file. No current facility-administered medications for this visit. ALLERGIES: No Known Allergies PAST MEDICAL HISTORY: Past Medical History: Diagnosis Date ADD (attention deficit disorder) DDD (degenerative disc disease), lumbar HNP (herniated nucleus pulposus), lumbar PAST SURGICAL HISTORY: Past Surgical History: Procedure Laterality Date HX LUMBAR DISC SURGERY 04/25/2019 Right L5-S1 microdiscectomy - Dr. Dennis HX LUMBAR DISC SURGERY 2004 HX LUMBAR FUSION 06/08/2019 right L5-S1 TLIF SOCIAL HISTORY: Social History Tobacco Use Smoking status: Never Smoker Smokeless tobacco: Never Used Substance Use Topics Alcohol use: Not Currently REVIEW OF SYSTEMS: Review of Systems Constitutional: Negative for chills, diaphoresis, fever, malaise/fatigue and weight loss. HENT: Negative for ear discharge, ear pain, hearing loss, nosebleeds, sinus pain and tinnitus. Eyes: Negative for blurred vision, double vision, photophobia, pain, discharge and redness. Respiratory: Negative for cough, shortness of breath and wheezing. Cardiovascular: Negative for chest pain, palpitations and leg swelling. Gastrointestinal: Negative for abdominal pain, blood in stool, constipation, diarrhea, heartburn, melena, nausea and vomiting. Genitourinary: Negative for dysuria, flank pain, frequency, hematuria and urgency. Musculoskeletal: Positive for back pain. Negative for falls, joint pain and neck pain. Skin: Negative for itching and rash. Neurological: Positive for sensory change and weakness. Negative for dizziness, tingling, tremors and headaches. Endo/Heme/Allergies: Negative for environmental allergies and polydipsia. Bruises/bleeds easily. Psychiatric/Behavioral: Positive for depression. Negative for suicidal ideas. The patient is not nervous/anxious and does not have insomnia. OSWESTRY DISABILITY SCORE: 44% PHYSICAL EXAM: Vitals: 07/19/19 1009 BP: 109/72 BP Location: left arm Patient Position: Sitting Cuff Size: large Pulse: 56 Resp: 15 Temp: 97.7 F (36.5 C) TempSrc: Oral Weight: 200 lb (90.7 kg) Height: 6' (1.829 m) Patient is oriented to person, place and time. CN 2-12 are grossly intact bilaterally Motor exam: UE D B T WF WE IM Rt 5/5 5/5 5/5 5/5 5/5 5/5 Lt 5/5 5/5 5/5 5/5 5/5 5/5 LE: IP KE KF DF PF EHL Rt 5/5 5/5 5/5 5/5 5/5 5/5 Lt 5/5 5/5 5/5 5/5 4/5 5/5 Sensory exam : decreased in the right s1 dermatome Gait: limping on the right Incision: No edema, erythema, tenderness, or drainage noted to the midline and MIS posterior lumbar incisions DIAGNOSIS: Encounter Diagnosis and Orders ICD-10-CM 1. S/P lumbar spinal fusion Z98.1 AMB REF TO PT EXTERNAL 2. Weakness of right foot M21.41 AMB REF TO PT EXTERNAL 3. Gait disturbance R26.9 AMB REF TO PT EXTERNAL 4. Post-op pain G89.18 AMB REF TO PT EXTERNAL 5. Lumbar radicular pain M54.16 AMB REF TO PT EXTERNAL ASSESSMENT/PLAN: Mr. Martin Napoles is a pleasant 53 y.o. male who underwent a right L5- S1 microdiscectomy on 04/25/19 and right L5-S1 TLIF on 06/08/19. Patient is doing very well. Lumbar incision has healed nicely. We discussed the surgical procedure performed and expected post operative course. He was referred to outpatient PT for right lower extremity strengthening. I will see Martin Napoles at 3 months post op for follow up. We will obtain lumbar AP & amp; lateral x-rays at follow up to evaluate the status of fusion Post Operative Instructions 1. Walking is encouraged. Increase distance gradually. 2. No lifting greater than 15 pounds until seen at follow up appointment. 3. Avoid extreme bending and twisting of the lumbar spine. 4. Avoid activity with a potential for falling until cleared by surgeon. 5. Sexual activity may be resumed when it is comfortable to do so . 6. Please call and follow up for: fever greater than 101.5; drainage from incision; pain increases at the incision site; newor persistent pain and weakness or numbness in you back/neck and arms/legs; swelling or tenderness develops in your legs; and problems controlling your bladder and bowels. 7. Do NOT take NSAID medications (ibuprofen, aspirin, aleve, mobic, diclofenac, naproxen, etc.) or Cummings-2 inhibitors (Celebrex) for 3-6 months following surgery. These medications may delay or prevent proper fusion of the spine. 8. Please schedule 3 month post operative follow up appointment with Dr. Dennis prior to leaving clinic today or call [phone] to schedule. 9. Please contact our office sooner for questions or concerns. Eliu Dennis MD [employer] [facility] Department of Neurosurgery documented in this encounter Plan of Treatment Date Type Specialty Care Team Description 08/14/2019 Office Visit Neurosurgery Eliu Dennis MD [address] [place] [id number] [phone] Name Type Priority Associated Diagnoses Order Schedule AMB REF TO PT Outpatient Referral Routine S/P lumbar spinal Ordered: EXTERNAL fusion 07/19/2019 Weakness of right foot Gait disturbance Post-op pain Lumbar radicular pain Health Maintenance Due Date Last Done Comments COLON CANCER SCREENING: COLONOSCOPY 1965 TETANUS SHOT (ADULT) 1979 HEPATITIS C SCREENING 1982 HIV SCREENING 1982 FLU VACCINE > 6 MONTHS 06/28/2019 BMI FOLLOW UP PLAN 07/19/2020 07/19/2019 documented as of this encounter Results Not on filedocumented in this encounter Visit Diagnoses Diagnosis S/P lumbar spinal fusion - Primary Arthrodesis status Weakness of right foot Gait disturbance Abnormality of gait Post-op pain Other acute postoperative pain Lumbar radicular pain Thoracic or lumbosacral neuritis or radiculitis, unspecified documented in this encounter
[2019-11-11] MEDS ORDERED: LIDOCAINE VISCOUS 2% SOLN 15 ML UDC ONE (03:53)
[2019-11-11] MEDS ORDERED: MAGNE/ALUM HYDROXD 30 ML UCUP ONE (03:53)
--- NOTE | 2019-11-11 04:40 | ER ---
Nurse's Notes [facility] Name: Martin Napoles Age: 54 yrs Sex: Male : 1965 Arrival Date: 11/11/2019 Time: 03:23 Bed 7 Private MD: Diagnosis: Gastro-esophageal reflux disease Presentation: 11/11 03:31 Presenting complaint: Patient states: he started having a sore throat yesterday then bb woke up tonight feeling like his throat was closed and he was having difficulty breathing. Transition of care: patient was not received from another setting of care. Onset of symptoms was November 11, 2019. Risk Assessment: Do you want to hurt yourself or someone else? Patient reports no desire to harm self or others. Initial Sepsis Screen: Does the patient meet any 2 criteria? No. Patient's initial sepsis screen is negative. Does the patient have a suspected source of infection? No. Patient's initial sepsis screen is negative. Care prior to arrival: None. 03:31 Method Of Arrival: Ambulatory bb 03:31 Acuity: ABBY 3 bb Historical: - Allergies: 03:33 No Known Allergies; bb - Home Meds: 03:33 None [Active]; bb - PMHx: 03:33 ADD/ADHD; bb - PSHx: 03:33 back surgery; bb - Immunization history:: Adult Immunizations up to date. - Social history:: Smoking status: Patient/guardian denies using tobacco. - Ebola Screening: : No symptoms or risks identified at this time. - Family history:: not pertinent. - Hospitalizations: : No recent hospitalization is reported. Screenin:59 Abuse screen: Denies threats or abuse. Nutritional screening: No deficits noted. ea Tuberculosis screening: No symptoms or risk factors identified. Assessment: 03:40 General: Appears in no apparent distress. Pain: Denies pain. Neuro: Level of ea Consciousness is awake, alert, obeys commands, Oriented to person, place, time. Cardiovascular: Patient's skin is warm and dry. Respiratory: Airway is patent Respiratory effort is even, unlabored, Respiratory pattern is regular, symmetrical, Breath sounds are clear bilaterally. Derm: Skin is pink, warm \T\ dry. Musculoskeletal: Circulation, motion, and sensation intact. 04:59 Reassessment: Patient and/or family updated on plan of care and expected duration. Pain ea level reassessed. Patient is alert, oriented x 3, equal unlabored respirations, skin warm/dry/pink. General: Appears in no apparent distress. Vital Signs: 03:33 BP 120 / 68; Pulse 76; Resp 18 S; Temp 97.8(O); Pulse Ox 98% on R/A; Weight 81.65 kg bb (R); Height 5 ft. 11 in. (180.34 cm) (R); Pain 8/10; 04:04 BP 122 / 92; Pulse 65; Resp 18; Pulse Ox 95% ; ea 04:50 Temp 97.8(TE); ea 03:33 Body Mass Index 25.10 (81.65 kg, 180.34 cm) bb ED Course: 03:23 Patient arrived in ED. [id number] 03:27 Adarsh Magana MD is Attending Physician. rn 03:33 Triage completed. bb 03:33 Arm band placed on Patient placed in an exam room, on a stretcher, on pulse oximetry. bb 03:43 Azalea William RN is Primary Nurse. ea 03:52 XRAY Chest (1 view) In Process Unspecified. EDMS 03:59 Patient has correct armband on for positive identification. Bed in low position. Call ea light in reach. 04:39 Zack Feng MD is Referral Physician. rn 04:59 No provider procedures requiring assistance completed. Patient did not have IV access ea during this emergency room visit. Administered Medications: 03:56 Drug: GI Cocktail without - (Maalox Suspension 30 ml, Lidocaine Liquid 2 % 15 ea ml) Route: PO; 05:01 Follow up: Response: No adverse reaction ea Outcome: 04:39 Discharge ordered by . rn 05:00 Discharged to home ambulatory. ea 05:00 Condition: stable 05:00 Discharge instructions given to patient, Instructed on discharge instructions, follow up and referral plans. Demonstrated understanding of instructions, follow-up care. 05:00 Patient left the ED. ea Signatures: Dispatcher [employer] EDMS Lilli Cruz RN RN bb Nieto, Roman, MD MD rn Antunez, Elena, RN RN ea Gutierrez, Jessica jg7
--- NOTE | 2019-11-11 04:40 | EDPHYS ---
Physician Documentation [facility] Name: Martin Napoles Age: 54 yrs Sex: Male : 1965 Arrival Date: 11/11/2019 Time: 03:23 Bed 7 Private MD: ED Physician Adarsh Magana HPI: 11/11 03:38 This 54 yrs old Male presents to ER via Ambulatory with complaints of rn Breathing Difficulty. 03:38 The patient has shortness of breath at rest, that woke him/her from sleep. Onset: The rn symptoms/episode began/occurred just prior to arrival. The patient's shortness of breath is aggravated by nothing, is alleviated by nothing. Severity of symptoms: At their worst the symptoms were moderate in the emergency department the symptoms have resolved. The patient has not experienced similar symptoms in the past. Reports woke up from sleep, felt like "regurgitated in mouth", tastes acid in mouth, felt like couldn't breathe, did not throw up. Now feels better, resolved. No chest pain/current sob/cough/pleuritic pain. No abd pain. . Historical: - Allergies: 03:33 No Known Allergies; bb - Home Meds: 03:33 None [Active]; bb - PMHx: 03:33 ADD/ADHD; bb - PSHx: 03:33 back surgery; bb - Immunization history:: Adult Immunizations up to date. - Social history:: Smoking status: Patient/guardian denies using tobacco. - Ebola Screening: : No symptoms or risks identified at this time. - Family history:: not pertinent. - Hospitalizations: : No recent hospitalization is reported. ROS: 03:38 Constitutional: Negative for fever, chills, and weight loss, Eyes: Negative for injury, rn pain, redness, and discharge, Neck: Negative for injury, pain, and swelling, Cardiovascular: Negative for chest pain, palpitations, and edema, Respiratory: Negative for wheezing, and pleuritic chest pain, Abdomen/GI: Negative for abdominal pain, nausea, vomiting, diarrhea, and constipation, MS/Extremity: Negative for injury and deformity, Skin: Negative for injury, rash, and discoloration, Neuro: Negative for headache, weakness, numbness, tingling, and seizure. Exam: 03:38 Constitutional: This is a well developed, well nourished patient who is awake, alert, rn and in no acute distress. Head/Face: Normocephalic, atraumatic. ENT: MMM, no swelling or stridor Neck: Trachea midline, no thyromegaly or masses palpated, and no cervical lymphadenopathy. Supple, full range of motion without nuchal rigidity, or vertebral point tenderness. No Meningismus. Cardiovascular: Regular rate and rhythm. No pulse deficits. Respiratory: Lungs have equal breath sounds bilaterally, clear to auscultation. No increased work of breathing, no retractions or nasal flaring. Abdomen/GI: soft, non-tender MS/ Extremity: Pulses equal, no cyanosis. Neurovascular intact. Full, normal range of motion. Equal circumference. Neuro: Awake and alert, GCS 15, oriented to person, place, time, and situation. Cranial nerves II-XII grossly intact. Motor strength 5/5 in all extremities. Sensory grossly intact. Cerebellar exam normal. Vital Signs: 03:33 BP 120 / 68; Pulse 76; Resp 18 S; Temp 97.8(O); Pulse Ox 98% on R/A; Weight 81.65 kg bb (R); Height 5 ft. 11 in. (180.34 cm) (R); Pain 8/10; 04:04 BP 122 / 92; Pulse 65; Resp 18; Pulse Ox 95% ; ea 04:50 Temp 97.8(TE); ea 03:33 Body Mass Index 25.10 (81.65 kg, 180.34 cm) bb MDM: 03:27 Patient medically screened. rn 04:16 Differential diagnosis: Anxiety Reaction bronchospasm, aspiration. Data reviewed: vital rn signs, nurses notes, radiologic studies, plain films, and as a result, I will discharge patient. Test interpretation: by ED physician or midlevel provider: plain radiologic studies, CXR neg for acute findings. Counseling: I had a detailed discussion with the patient and/or guardian regarding: the historical points, exam findings, and any diagnostic results supporting the discharge/admit diagnosis, radiology results, the need for outpatient follow up, to return to the emergency department if symptoms worsen or persist or if there are any questions or concerns that arise at home. Response to treatment: the patient's symptoms have markedly improved after treatment, the patient's symptoms have resolved after treatment, the patient is now symptom free, and as a result, I will discharge patient. Special discussion: I discussed with the patient/guardian in detail that at this point there is no indication for admission to the hospital. It is understood, however, that if the symptoms persist or worsen the patient needs to return immediately for re-evaluation. ED course: Patient back to baseline, rapid improvement without intervention. Most likely aspiration vs acid reflux with bronchospasm, given states ate late last night and heavy drinker. Sleeping now with normal vitals. . 04:25 ED course: No indication for abx at this point, explained more of chemical process, but rn to watch for onset of delayed pneumonia, and return precautions given and understood.. 04:38 Antibiotic administration: Not indicated, the patient does not have an appreciated rn infiltrate. 11/11 03:37 Order name: XRAY Chest (1 view) rn Administered Medications: 03:56 Drug: GI Cocktail without - (Maalox Suspension 30 ml, Lidocaine Liquid 2 % 15 ea ml) Route: PO; 05:01 Follow up: Response: No adverse reaction ea Disposition: 11/11/19 04:39 Discharged to Home. Impression: Gastro-esophageal reflux disease. - Condition is Stable. - Discharge Instructions: Gastroesophageal Reflux Disease, Adult. - Medication Reconciliation Form, Thank You Letter, Antibiotic Education, Prescription Opioid Use form. - Follow up: Zack Feng MD; When: As needed; Reason: Recheck today's complaints, Re-evaluation by your physician. - Problem is new. - Symptoms have improved. Signatures: Dispatcher [employer] EDMS Lilli Cruz RN RN bb Nieto, Roman, MD MD rn Antunez, Elena, RN RN ea Corrections: (The following items were deleted from the chart) 05:00 04:39 11/11/2019 04:39 Discharged to Home. Impression: Gastro-esophageal reflux ea disease. Condition is Stable. Forms are Medication Reconciliation Form, Thank You Letter, Antibiotic Education, Prescription Opioid Use. Follow up: Zack Feng; When: As needed; Reason: Recheck today's complaints, Re-evaluation by your physician. Problem is new. Symptoms have improved. rn
[2019-11-11 05:06] VITALS: TEMP 97.8
[2019-11-11 05:07] VITALS: BP 122/92; O2SAT 95
--- NOTE | 2019-11-11 09:19 | RAD REPORT ---
EXAM DESCRIPTION: RAD - Chest Single View - 11/11/2019 3:51 am CLINICAL HISTORY: Cough, sore throat COMPARISON: May 25 TECHNIQUE: AP portable chest image was obtained 0349 hours . FINDINGS: Lungs are clear. Heart and vasculature are normal. No measurable pleural effusion and no p neumothorax. No acute bony abnormality seen. No acute aortic findings suspected. IMPRESSION: No acute cardiopulmonary process. No significant change.
== END 2019-11-11 05:00 | disposition home or self-care (01) ==
LOC: ER 03:18
DX: K21.9 Gastro-esophageal reflux disease without esophagitis (principal)
CPT/HCPCS: 71045; 99283

== ENCOUNTER 2020-06-28 10:13 | Emergency (ER) | payer BC, SELFPAY ==
--- OUTSIDE RECORDS SUMMARY | 2020-06-28 10:14 | XMS REPORT | Clinical Summary ---
:1965 Author Organization [facility] Address [address] [place] [address] Care Team Providers Name Role Phone Pcp Primary Care Provider Unavailable Allergies No Known Allergies Medications No known medications Active Problems Problem Noted Date Back pain 04/20/2019 Lumbosacral disc herniation 04/19/2019 Acute pain 04/19/2019 Radiculopathy 04/19/2019 ADHD 04/19/2019 Encounters Date Type Specialty Care Team Description 09/03/2019 Outside Orders Central Scheduling Eliu Dennis S/P s tony fusion (Primary Dx); MD Sanchez Weakness of donte t, right; Postoperative p ain 09/03/2019 Outside Orders Central Scheduling Eliu Dennis MD after 06/28/2019 Social History Tobacco Use Types Packs/Day Years Used Date Never Smoker Smokeless Tobacco: Never Used Tobacco Cessation: Counseling Given: No Alcohol Use Drinks/Week oz/Week Comments No Alcohol Habits Answer Date Recorded How often do you have a drink containing alcohol? Never 04/19/2019 How many drinks containing alcohol do you have on a typical Not asked day when you are drinking? How often do you have six or more drinks on one occasion? No t asked Sex Assigned at Date Recorded Not on file Job Start Date Occupation Industry Not on file Not on file Not on file Travel History Travel Start Travel End No recent travel history available. Last Filed Vital Signs Not on file Plan of Treatment Not on file Implants Implanted Type [employer] Device Shelf Model / Identifier Expiration Serial / Date Lot Kameronty Xemplifi Dbm +10cc 8103.0210s - [id number] IMPLANTS N/A: Spine GLOBUS MED 02/13/2021 [id number] / Implanted: Qty: 1 on 06/08/2019 by Eliu Dennis MD Lumbar / [id number] Tulip Polyax Mod Mis Creo 30mm 1134.0100 - [id number] IMPLANTS N/A: Spine GLOBUS MED 1134.0100 / Implanted: Qty: 4 on 06/08/2019 by Eliu Dennis MD Lumbar / Cap Cole Creo Mis 1134.0010 - [id number] IMPLANTS N/A: Spine GLOBUS MED 1134.0010 / Implanted: Qty: 4 on 06/08/2019 by Eliu Dennis MD Lumbar / Spcr Rise Exp 10d 8-15 [id number] 193.122 - [id number] IMPLANTS N/A: Spine GLOBUS MED 193.122 / Implanted: Qty: 1 on 06/08/2019 by Eliu Dennis MD Lumbar / Wire K [id number] 685.005 - [id number] IMPLANTS N/A: Spine GLOBUS MED 685.005 / Implanted: Qty: 4 on 06/08/2019 by Eliu Dennis MD Lumbar / Screws Spine N/A: Spine GLOBUS MED [id number] 5 / Implanted: Qty: 4 on 06/08/2019 by Eliu Dennis MD Lumbar / Rods Spine N/A: Spine GLOBUS MEDICAL 1134 .7055 / Implanted: Qty: 2 on 06/08/2019 by Eliu Dennis MD Lumbar / Results Not on fileafter 06/28/2019 Advance Directives For more information, please contact:[address] [phone] Code Status Date Activated Date Inactivated Comments Full Code 06/05/2019 5:20 PM 06/10/2019 4:58 PM This code status was determined by: Patient Full Code 04/25/2019 10:03 AM 04/26/2019 12:54 PM This code status was determined by: Patient
--- OUTSIDE RECORDS SUMMARY | 2020-06-28 10:16 | XMS REPORT | Continuity of Care Document ---
:1965 Author Organization [facility] t Address [address] [place] [address] Care Team Providers Name Role Phone Pcp Primary Care Physician Unavailable Gavin Dennis MD Attending Clinician Gavin Dennis MD Attending Clinician MAGGY Attending Clinician Unavailable ABBEY LOCK Attending Clinician Unavailable ROSALIND DUFF Attending Clinician Unavailable DELMA HAWKINS Attending Clinician Unavailable DONNA ARCHIBALD Admitting Clinician Unavailable GAVIN DENNIS Admitting Clinician Unavailable DELMA HAWKINS Admitting Clinician Unavailable Problems Condition Condition Condition Status Onset Resolution Last Treating Co mments Source Name Details Category Date Date Treatment Clinician Date Back pain Back pain Disease [facility] [place] Lumbosacra Lumbosacra Disease [facility] herniation [facility]: Nm dical 00 Center Acute pain Acute pain Disease [facility] 00 [place] Radiculopa Radiculopa Disease Active [facility] 00 [place] ADHD ADHD Disease [facility] Allergies, Adverse Reactions, Alerts This patient has no known allergies or adverse reactions. Social History Social Habit Start Date Stop Date Quantity Comments Source History SDOH Alcohol [facility] - Std Drinks [facility] History SDOH Alcohol [facility] Sex Assigned At [facility] - [facility] History SDOH Alcohol 2019-04-19 2019-04-[address] [facility] - Frequency 00:00:00 00:00:00 [facility] Center Smoking Status Start Date Stop Date Source Never smoker [facility] Medications This patient has no known medications. Procedures This patient has no known procedures. Encounters Start End Encounter Admission Attending Care Care Encounter Source Date/Time Date/Time Type Type Clinicians Facility Department ID 2019-07-19 2019-07-19 Office Jeannie CHRISTINA [id number] 09:43:21 11:48:28 Visit Eliu MULLINSATOR [id number] Gavin Rafael [id number] 2019-07-09 2019-07-09 AppointKEYLA [place] Otorhinolar [id number] [facility] 15:00:00 15:00:00 t; ARTEMIO WINTERngology - i ty of [facility] [place] ans 2019-05-28 2019-05-28 AppointKEYLA [place] [id number] [facility] 10:00:00 10:00:00 t; ARTEMIO WINTER of [facility] Results Test Description Test Time Test Comments Results Result Sourc e Comments NERVE CONDUCTION 2019-06-22 Reason for INTRAOPERATIVE STUDIES; 3-4 09:17:00 exam:->lumbar MONITORING REPORT STUDIES stenosis Patient Name: Estefani Mancini [facility] Surgery Date: 06/08/2019 [place] Pro: [id number] Monitoring began at 0726 and ended at [...] placement were reported to the surgeon (Left L5 = 14mA, left S1 > 20mA, right L5 > [...] 2019-06-20 20:01:00 Test Item Value Reference Range Interpretation Comme nts CULTURE (BEAKER) (test code = 1095) No growth in 5 days WOUND CULTURE + GRAM [id number] 10:18:00 Test Item Value Reference Interpretation Comments Range CULTURE (BEAKER) STAPHYLOCOCCUS A 3+ Staphy lococcus (test code = 1095) EPIDERMIDIS epidermid is Clindamycin (test R code = 10) Erythromycin (test R code = 4) Linezolid (test code S = 40) Nitrofurantoin (test S code = 23) Oxacillin (test code R = 14) Rifampin (test code = S 43) Tetracycline (test S code = 2) Trimethoprim + R Sulfamethoxazole (test code = 47) Vancomycin (test code S = 13) GRAM STAIN RESULT No WBCs (BEAKER) (test code = 1123) GRAM STAIN RESULT No organisms seen (BEAKER) (test code = 602665) <1+ Skin floraBASIC METABOLIC [id number] 13:42:00 Test Item Value Reference Range Interpretation Comments SODIUM (BEAKER) 137 meq/L 136-145 (test code = 381) POTASSIUM (BEAKER) 4.1 meq/L 3.5-5.1 (test code = 379) CHLORIDE (BEAKER) 107 meq/L 98-107 (test code = 382) CO2 (BEAKER) (test 23 meq/L 22-29 code = 355) BLOOD UREA NITROGEN 14 mg/dL 7-21 (BEAKER) (test code = 354) CREATININE (BEAKER) 0.72 mg/dL 0.57-1.25 (test code = 358) GLUCOSE RANDOM 92 mg/dL 70-105 (BEAKER) (test code = 652) CALCIUM (BEAKER) 8.5 mg/dL 8.4-10.2 (test code = 697) EGFR (BEAKER) (test 114 mL/min/1.73 ESTIM ATED GFR IS code = 1092) sq m NOT ACCURATE CREATININE CLEARANCE IN PREDICTING GLOMERULAR FILTRATION RATE . ESTIMATED GFR I S NOT APPLICABLE FOR DIALYSIS PATIEN TS. CBC W/PLT COUNT & AUTO [id number] 13:26:00 Test Item Value Reference Range Interpretation Comments WHITE BLOOD CELL COUNT (BEAKER) 4.8 K/ L 3.5-10.5 (test code = 775) RED BLOOD CELL COUNT (BEAKER) 3.90 M/ L 4.63-6.08 L (test code = 761) HEMOGLOBIN (BEAKER) (test code = 12.4 GM/DL 13.7-17.5 L 410) HEMATOCRIT (BEAKER) (test code = 37.0 % 40.1-51.0 L 411) MEAN CORPUSCULAR VOLUME (BEAKER) 94.9 fL 79.0-92.2 H (test code = 753) MEAN CORPUSCULAR HEMOGLOBIN 31.8 pg 25.7-32.2 (BEAKER) (test code = 751) MEAN CORPUSCULAR HEMOGLOBIN CONC 33.5 GM/DL 32.3-36.5 (BEAKER) (test code = 752) RED CELL DISTRIBUTION WIDTH 12.0 % 11.6-14.4 (BEAKER) (test code = 412) PLATELET COUNT (BEAKER) (test 161 K/CU MM 150-450 code = 756) MEAN PLATELET VOLUME (BEAKER) 10.0 fL 9.4-12.4 (test code = 754) NUCLEATED RED BLOOD CELLS 0 /100 WBC 0-0 (BEAKER) (test code = 413) NEUTROPHILS RELATIVE PERCENT 63 % (BEAKER) (test code = 429) LYMPHOCYTES RELATIVE PERCENT 26 % (BEAKER) (test code = 430) MONOCYTES RELATIVE PERCENT 10 % (BEAKER) (test code = 431) EOSINOPHILS RELATIVE PERCENT 1 % (BEAKER) (test code = 432) BASOPHILS RELATIVE PERCENT 0 % (BEAKER) (test code = 437) NEUTROPHILS ABSOLUTE COUNT 3.00 K/ L 1.78-5.38 (BEAKER) (test code = 670) LYMPHOCYTES ABSOLUTE COUNT 1.22 K/ L 1.32-3.57 L (BEAKER) (test code = 414) MONOCYTES ABSOLUTE COUNT (BEAKER) 0.48 K/ L 0.30-0.82 (test code = 415) EOSINOPHILS ABSOLUTE COUNT 0.04 K/ L 0.04-0.54 (BEAKER) (test code = 416) BASOPHILS ABSOLUTE COUNT (BEAKER) 0.01 K/ L 0.01-0.08 (test code = 417) IMMATURE GRANULOCYTES-RELATIVE 0 % 0-1 PERCENT (BEAKER) (test code = 2801) TISSUE [id number] 16:40:00Surgical Pathology Report Case: [id number] Authorizing Provider: Eliu Dennis MD Collected: 06/08/2019 1242 Ordering Location: [address] Received: 06/08/2019 1401 Service Pathologist: Rasheed Champagne MD Specimen: Disc L5-S1 VERTEBRAL COLUMN,INTERVERTEBRAL DISC, L5- S1, DISCECTOMY:FRAGMENTS OF FIBROCARTILAGE WITH MILD DEGENERATIVE CHANGES Signing Pathologist Direct Phone Line: [phone] signed by Rasheed Champagne MD on06/14/2019 at 4:40 [id number]; [id number] L5-C5Rmpnjzus in formalin labeled "disc L5-S1" consists of a 3x 2 x 1.5 cm aggregate of white rubbery tissue. Garnetter portions of the tissue submitted in a single cassette A1 (about 60% of the tissue) for decal./bc PerformedFL, CUT ROLL MACHINE OFFBEARER IN OR/30 MINUTE [id number] 12:59:00Reason for exam:->lumbar stenosis FLUOROSCOPIC UNIT UTILIZED-NO INTERPRETATION REQUESTED. RAD, SPINE, LUMBAR, 2 OR 3 [id number] 10:53:00Reason for exam:->s/p L5-S1 fusionFINAL REPORT LUMBAR SPINE 2 VIEWS [...] Cantrell Verified Date/Time: 06/09/2019 10:53:58 Reading Location: [address] Transitional Reading Room FL, CUT ROLL MACHINE OFFBEARER IN OR/30 MINUTE [id number] 10:08:00Reason for exam:->lumbar stenosisFINAL REPORT Exam: Intraoperative fluoroscopic [...] Cole Verified Date/Time: 06/08/2019 10:08:27 Reading Location: [facility] Reading Room BASIC METABOLIC [id number] 05:42:00 Test Item Value Reference Range Interpretation Comments SODIUM (BEAKER) 135 meq/L 136-145 L (test code = 381) POTASSIUM (BEAKER) 4.7 meq/L 3.5-5.1 (test code = 379) CHLORIDE (BEAKER) 104 meq/L 98-107 (test code = 382) CO2 (BEAKER) (test 25 meq/L 22-29 code = 355) BLOOD UREA NITROGEN 15 mg/dL 7-21 (BEAKER) (test code = 354) CREATININE (BEAKER) 0.89 mg/dL 0.57-1.25 (test code = 358) GLUCOSE RANDOM 95 mg/dL 70-105 (BEAKER) (test code = 652) CALCIUM (BEAKER) 8.9 mg/dL 8.4-10.2 (test code = 697) EGFR (BEAKER) (test 89 mL/min/1.73 ESTIMA CON GFR IS code = 1092) sq m NOT ACCURATE CREATININE CLEARANCE IN PREDICTING GLOMERULAR FILTRATION RATE . ESTIMATED GFR I S NOT APPLICABLE FOR DIALYSIS PATIEN TS. CBC W/PLT COUNT & AUTO [id number] 04:52:00 Test Item Value Reference Range Interpretation Comments WHITE BLOOD CELL COUNT 7.0 K/ L 3.5-10.5 (BEAKER) (test code = 775) RED BLOOD CELL COUNT 4.73 M/ L 4.63-6.08 (BEAKER) (test code = 761) HEMOGLOBIN (BEAKER) 14.7 GM/DL 13.7-17.5 (test code = 410) HEMATOCRIT (BEAKER) 44.5 % 40.1-51.0 (test code = 411) MEAN CORPUSCULAR 94.1 fL 79.0-92.2 H Discordant MCV VOLUME (BEAKER) (test result s compared to code = 753) previous result s; clinical correl ation required. MEAN CORPUSCULAR 31.1 pg 25.7-32.2 HEMOGLOBIN (BEAKER) (test code = 751) MEAN CORPUSCULAR 33.0 GM/DL 32.3-36.5 HEMOGLOBIN CONC (BEAKER) (test code = 752) RED CELL DISTRIBUTION 12.3 % 11.6-14.4 WIDTH (BEAKER) (test code = 412) PLATELET COUNT 199 K/CU MM 150-450 (BEAKER) (test code = 756) MEAN PLATELET VOLUME 10.0 fL 9.4-12.4 (BEAKER) (test code = 754) NUCLEATED RED BLOOD 0 /100 WBC 0-0 CELLS (BEAKER) (test code = 413) NEUTROPHILS RELATIVE 62 % PERCENT (BEAKER) (test code = 429) LYMPHOCYTES RELATIVE 28 % PERCENT (BEAKER) (test code = 430) MONOCYTES RELATIVE 8 % PERCENT (BEAKER) (test code = 431) EOSINOPHILS RELATIVE 1 % PERCENT (BEAKER) (test code = 432) BASOPHILS RELATIVE 0 % PERCENT (BEAKER) (test code = 437) NEUTROPHILS ABSOLUTE 4.34 K/ L 1.78-5.38 COUNT (BEAKER) (test code = 670) LYMPHOCYTES ABSOLUTE 1.92 K/ L 1.32-3.57 COUNT (BEAKER) (test code = 414) MONOCYTES ABSOLUTE 0.58 K/ L 0.30-0.82 COUNT (BEAKER) (test code = 415) EOSINOPHILS ABSOLUTE 0.10 K/ L 0.04-0.54 COUNT (BEAKER) (test code = 416) BASOPHILS ABSOLUTE 0.03 K/ L 0.01-0.08 COUNT (BEAKER) (test code = 417) IMMATURE 0 % 0-1 GRANULOCYTES-RELATIVE PERCENT (BEAKER) (test code = 2801) [id number] 09:32:00 Test Item Value Reference Range Interpretation Comments PROTIME (BEAKER) (test code = 12.7 seconds 11.9-14.2 759) INR (BEAKER) (test code = 370) 1.0 <=5.9 PARTIAL THROMBOPLASTIN TIME 26.9 seconds 22.5-36.0 (BEAKER) (test code = 760) Effective 04/25/2019: PT Reference Range ChangeNew: 11.9-14.2 Previous: 11.7- 14.7RECOMMENDED COUMADIN/WARFARIN INR THERAPY RANGESSTANDARD DOSE: 2.0-3.0 Includes: PROPHYLAXIS for venous thrombosis, systemic embolization; TREATMENT for venous thrombosis and/or pulmonary embolus.HIGH RISK: Target INR is2.5-3.5 for patients wiht mechanical heart valves.CBC W/PLT COUNT & AUTO [id number] 08:50:00 Test Item Value Reference Range Interpretation Comments WHITE BLOOD CELL COUNT (BEAKER) 6.1 K/ L 3.5-10.5 (test code = 775) RED BLOOD CELL COUNT (BEAKER) 4.71 M/ L 4.63-6.08 (test code = 761) HEMOGLOBIN (BEAKER) (test code = 14.6 GM/DL 13.7-17.5 410) HEMATOCRIT (BEAKER) (test code = 47.0 % 40.1-51.0 411) MEAN CORPUSCULAR VOLUME (BEAKER) 99.8 fL 79.0-92.2 H (test code = 753) MEAN CORPUSCULAR HEMOGLOBIN 31.0 pg 25.7-32.2 (BEAKER) (test code = 751) MEAN CORPUSCULAR HEMOGLOBIN CONC 31.1 GM/DL 32.3-36.5 L (BEAKER) (test code = 752) RED CELL DISTRIBUTION WIDTH 12.3 % 11.6-14.4 (BEAKER) (test code = 412) PLATELET COUNT (BEAKER) (test 139 K/CU MM 150-450 L code = 756) MEAN PLATELET VOLUME (BEAKER) 10.2 fL 9.4-12.4 (test code = 754) NUCLEATED RED BLOOD CELLS 0 /100 WBC 0-0 (BEAKER) (test code = 413) NEUTROPHILS RELATIVE PERCENT 65 % (BEAKER) (test code = 429) LYMPHOCYTES RELATIVE PERCENT 23 % (BEAKER) (test code = 430) MONOCYTES RELATIVE PERCENT 10 % (BEAKER) (test code = 431) EOSINOPHILS RELATIVE PERCENT 2 % (BEAKER) (test code = 432) BASOPHILS RELATIVE PERCENT 1 % (BEAKER) (test code = 437) NEUTROPHILS ABSOLUTE COUNT 3.94 K/ L 1.78-5.38 (BEAKER) (test code = 670) LYMPHOCYTES ABSOLUTE COUNT 1.42 K/ L 1.32-3.57 (BEAKER) (test code = 414) MONOCYTES ABSOLUTE COUNT (BEAKER) 0.58 K/ L 0.30-0.82 (test code = 415) EOSINOPHILS ABSOLUTE COUNT 0.09 K/ L 0.04-0.54 (BEAKER) (test code = 416) BASOPHILS ABSOLUTE COUNT (BEAKER) 0.03 K/ L 0.01-0.08 (test code = 417) IMMATURE GRANULOCYTES-RELATIVE 1 % 0-1 PERCENT (BEAKER) (test code = 2801) BASIC METABOLIC [id number] 08:45:00 Test Item Value Reference Range Interpretation Comments SODIUM (BEAKER) 134 meq/L 136-145 L (test code = 381) POTASSIUM (BEAKER) 4.4 meq/L 3.5-5.1 Specimen slightly (test code = 379) hemolyzed CHLORIDE (BEAKER) 108 meq/L 98-107 H (test code = 382) CO2 (BEAKER) (test 17 meq/L 22-29 L code = 355) BLOOD UREA NITROGEN 18 mg/dL 7-21 (BEAKER) (test code = 354) CREATININE (BEAKER) 0.76 mg/dL 0.57-1.25 Specimen slightly (test code = 358) hemolyzed GLUCOSE RANDOM 94 mg/dL 70-105 (BEAKER) (test code = 652) CALCIUM (BEAKER) 8.9 mg/dL 8.4-10.2 (test code = 697) EGFR (BEAKER) (test 107 mL/min/1.73 ESTIM ATED GFR IS code = 1092) sq m NOT ACCURATE CREATININE CLEARANCE IN PREDICTING GLOMERULAR FILTRATION RATE . ESTIMATED GFR I S NOT APPLICABLE FOR DIALYSIS PATIEN TS. BASIC METABOLIC [id number] 07:28:00 Test Item Value Reference Range Interpretation Comments SODIUM (BEAKER) 136 meq/L 136-145 (test code = 381) POTASSIUM (BEAKER) 4.1 meq/L 3.5-5.1 (test code = 379) CHLORIDE (BEAKER) 105 meq/L 98-107 (test code = 382) CO2 (BEAKER) (test 22 meq/L 22-29 code = 355) BLOOD UREA NITROGEN 22 mg/dL 7-21 H (BEAKER) (test code = 354) CREATININE (BEAKER) 0.88 mg/dL 0.57-1.25 (test code = 358) GLUCOSE RANDOM 86 mg/dL 70-105 (BEAKER) (test code = 652) CALCIUM (BEAKER) 9.1 mg/dL 8.4-10.2 (test code = 697) EGFR (BEAKER) (test 90 mL/min/1.73 ESTIMA CON GFR IS code = 1092) sq m NOT ACCURATE CREATININE CLEARANCE IN PREDICTING GLOMERULAR FILTRATION RATE . ESTIMATED GFR I S NOT APPLICABLE FOR DIALYSIS PATIEN TS. [id number] 06:29:00 Test Item Value Reference Range Interpretation Comments PROTIME (BEAKER) (test code = 13.0 seconds 11.9-14.2 759) INR (BEAKER) (test code = 370) 1.0 <=5.9 PARTIAL THROMBOPLASTIN TIME 26.2 seconds 22.5-36.0 (BEAKER) (test code = 760) Effective 04/25/2019: PT Reference Range ChangeNew: 11.9-14.2 Previous: 11.7- 14.7RECOMMENDED COUMADIN/WARFARIN INR THERAPY RANGESSTANDARD DOSE: 2.0-3.0 Includes: PROPHYLAXIS for venous thrombosis, systemic embolization; TREATMENT for venous thrombosis and/or pulmonary embolus.HIGH RISK: Target INR is2.5-3.5 for patients wiht mechanical heart valves.CBC W/PLT COUNT & AUTO [id number] 06:22:00 Test Item Value Reference Range Interpretation Comments WHITE BLOOD CELL COUNT (BEAKER) 7.0 K/ L 3.5-10.5 (test code = 775) RED BLOOD CELL COUNT (BEAKER) 4.65 M/ L 4.63-6.08 (test code = 761) HEMOGLOBIN (BEAKER) (test code = 14.3 GM/DL 13.7-17.5 410) HEMATOCRIT (BEAKER) (test code = 44.4 % 40.1-51.0 411) MEAN CORPUSCULAR VOLUME (BEAKER) 95.5 fL 79.0-92.2 H (test code = 753) MEAN CORPUSCULAR HEMOGLOBIN 30.8 pg 25.7-32.2 (BEAKER) (test code = 751) MEAN CORPUSCULAR HEMOGLOBIN CONC 32.2 GM/DL 32.3-36.5 L (BEAKER) (test code = 752) RED CELL DISTRIBUTION WIDTH 12.5 % 11.6-14.4 (BEAKER) (test code = 412) PLATELET COUNT (BEAKER) (test 194 K/CU MM 150-450 code = 756) MEAN PLATELET VOLUME (BEAKER) 10.3 fL 9.4-12.4 (test code = 754) NUCLEATED RED BLOOD CELLS 0 /100 WBC 0-0 (BEAKER) (test code = 413) NEUTROPHILS RELATIVE PERCENT 59 % (BEAKER) (test code = 429) LYMPHOCYTES RELATIVE PERCENT 28 % (BEAKER) (test code = 430) MONOCYTES RELATIVE PERCENT 11 % (BEAKER) (test code = 431) EOSINOPHILS RELATIVE PERCENT 2 % (BEAKER) (test code = 432) BASOPHILS RELATIVE PERCENT 0 % (BEAKER) (test code = 437) NEUTROPHILS ABSOLUTE COUNT 4.10 K/ L 1.78-5.38 (BEAKER) (test code = 670) LYMPHOCYTES ABSOLUTE COUNT 1.94 K/ L 1.32-3.57 (BEAKER) (test code = 414) MONOCYTES ABSOLUTE COUNT (BEAKER) 0.75 K/ L 0.30-0.82 (test code = 415) EOSINOPHILS ABSOLUTE COUNT 0.11 K/ L 0.04-0.54 (BEAKER) (test code = 416) BASOPHILS ABSOLUTE COUNT (BEAKER) 0.03 K/ L 0.01-0.08 (test code = 417) IMMATURE GRANULOCYTES-RELATIVE 1 % 0-1 PERCENT (BEAKER) (test code = 2801) [id number] 15:26:00 Test Item Value Reference Range Interpretation Comments PROTIME (BEAKER) (test code = 13.2 seconds 11.9-14.2 759) INR (BEAKER) (test code = 370) 1.1 <=5.9 PARTIAL THROMBOPLASTIN TIME 25.2 seconds 22.5-36.0 (BEAKER) (test code = 760) Effective 04/25/2019: PT Reference Range ChangeNew: 11.9-14.2 Previous: 11.7- 14.7RECOMMENDED COUMADIN/WARFARIN INR THERAPY RANGESSTANDARD DOSE: 2.0-3.0 Includes: PROPHYLAXIS for venous thrombosis, systemic embolization; TREATMENT for venous thrombosis and/or pulmonary embolus.HIGH RISK: Target INR is2.5-3.5 for patients wiht mechanical heart valves.CBC W/PLT COUNT & AUTO [id number] 15:14:00 Test Item Value Reference Range Interpretation Comments WHITE BLOOD CELL COUNT (BEAKER) 7.1 K/ L 3.5-10.5 (test code = 775) RED BLOOD CELL COUNT (BEAKER) 4.81 M/ L 4.63-6.08 (test code = 761) HEMOGLOBIN (BEAKER) (test code = 15.0 GM/DL 13.7-17.5 410) HEMATOCRIT (BEAKER) (test code = 45.2 % 40.1-51.0 411) MEAN CORPUSCULAR VOLUME (BEAKER) 94.0 fL 79.0-92.2 H (test code = 753) MEAN CORPUSCULAR HEMOGLOBIN 31.2 pg 25.7-32.2 (BEAKER) (test code = 751) MEAN CORPUSCULAR HEMOGLOBIN CONC 33.2 GM/DL 32.3-36.5 (BEAKER) (test code = 752) RED CELL DISTRIBUTION WIDTH 12.5 % 11.6-14.4 (BEAKER) (test code = 412) PLATELET COUNT (BEAKER) (test 183 K/CU MM 150-450 code = 756) MEAN PLATELET VOLUME (BEAKER) 10.7 fL 9.4-12.4 (test code = 754) NUCLEATED RED BLOOD CELLS 0 /100 WBC 0-0 (BEAKER) (test code = 413) NEUTROPHILS RELATIVE PERCENT 66 % (BEAKER) (test code = 429) LYMPHOCYTES RELATIVE PERCENT 24 % (BEAKER) (test code = 430) MONOCYTES RELATIVE PERCENT 9 % (BEAKER) (test code = 431) EOSINOPHILS RELATIVE PERCENT 1 % (BEAKER) (test code = 432) BASOPHILS RELATIVE PERCENT 0 % (BEAKER) (test code = 437) NEUTROPHILS ABSOLUTE COUNT 4.68 K/ L 1.78-5.38 (BEAKER) (test code = 670) LYMPHOCYTES ABSOLUTE COUNT 1.67 K/ L 1.32-3.57 (BEAKER) (test code = 414) MONOCYTES ABSOLUTE COUNT (BEAKER) 0.60 K/ L 0.30-0.82 (test code = 415) EOSINOPHILS ABSOLUTE COUNT 0.08 K/ L 0.04-0.54 (BEAKER) (test code = 416) BASOPHILS ABSOLUTE COUNT (BEAKER) 0.03 K/ L 0.01-0.08 (test code = 417) IMMATURE GRANULOCYTES-RELATIVE 1 % 0-1 PERCENT (BEAKER) (test code = 2801) BASIC METABOLIC [id number] 14:55:00 Test Item Value Reference Range Interpretation Comments SODIUM (BEAKER) 136 meq/L 136-145 (test code = 381) POTASSIUM (BEAKER) 4.6 meq/L 3.5-5.1 Specimen slightly (test code = 379) hemolyzed CHLORIDE (BEAKER) 106 meq/L 98-107 (test code = 382) CO2 (BEAKER) (test 21 meq/L 22-29 L code = 355) BLOOD UREA NITROGEN 23 mg/dL 7-21 H (BEAKER) (test code = 354) CREATININE (BEAKER) 1.23 mg/dL 0.57-1.25 Specimen slightly (test code = 358) hemolyzed GLUCOSE RANDOM 103 mg/dL 70-105 (BEAKER) (test code = 652) CALCIUM (BEAKER) 9.2 mg/dL 8.4-10.2 (test code = 697) EGFR (BEAKER) (test 61 mL/min/1.73 ESTIMA CON GFR IS code = 1092) sq m NOT ACCURATE CREATININE CLEARANCE IN PREDICTING GLOMERULAR FILTRATION RATE . ESTIMATED GFR I S NOT APPLICABLE FOR DIALYSIS PATIEN TS. MR, SPINE, LUMBAR, WITHOUT [id number] 13:50:00FINAL REPORT MR, SPINE, LUMBAR, WITHOUT CONTRAST [...] JR Zuniga Robert MDReport Verified Date/Time: 06/05/2019 13:50:56 Reading Location: [facility] Reading Room TISSUE [id number] 12:46:00Surgical Pathology Report Case: [id number] Authorizing Provider: Eliu Dennis MD Collected: 04/25/2019 1627 Ordering Location: [facility] Received: 04/26/2019 1011 SERVICES Pathologist: Rasheed Champagne MD Specimen: Disc L5-S1 VERTEBRAL COLUMN, INTERVERTEBRAL DISC, L5-S1, DISCECTOMY:FRAGMENTS OF FIBROCARTILAGE WITH MILD DEGENERATIVE CHANGES Signing Pathologist Direct Phone Line: [phone] signed by Rasheed Champagne MD on05/04/2019 at 12:46 [id number]; [id number] specimen is received in a single container with another smaller container within that container. Both specimens consist of off-white disc fragments, which are submitted entirely in cassette A1. The specimen measures 2.9 x 1.3 x 0.8 cm in aggregate. ?/ewPerformedFL, CUT ROLL MACHINE OFFBEARER IN OR/30 MINUTE [id number] 13:38:00Reason for exam:->PAINPROCEDURE PERFORMED IN O.R. - PLEASE REFER TO THE INTRAOPERATIVE REPORT. NEEDLE EMG, 2 EXTREMITY 2019-04-29 09:16:00 INTRAOPERATIVE MONITORING REPORT Patient Name: Estefani Mancini [facility], [place], [place] Surgery Date: 04/25/2019 [place] Pro: [id number] Monitoring began at 1547 and ended at 1738 Surgeon: Eliu Dennis M.D. Examining Physician: Karishma Goss M.D. Monitoring Technologist: ALEX Panchal Procedure: Laminectomy L5-S1 Recording Parameters: Free- running and triggered EMG of left and right [...] roots monitored remained undisturbed. Karishma Goss M.D.M51.27 [id number] 07:26:00 Test Item Value Reference Range Interpretation Comments PHOSPHORUS (BEAKER) (test code = 2.8 mg/dL 2.3-4.7 604) [id number] 07:26:00 Test Item Value Reference Range Interpretation Comments MAGNESIUM (BEAKER) (test code = 2.2 mg/dL 1.6-2.6 627) BASIC METABOLIC [id number] 07:26:00 Test Item Value Reference Range Interpretation Comments SODIUM (BEAKER) 136 meq/L 136-145 (test code = 381) POTASSIUM (BEAKER) 4.1 meq/L 3.5-5.1 (test code = 379) CHLORIDE (BEAKER) 106 meq/L 98-107 (test code = 382) CO2 (BEAKER) (test 23 meq/L 22-29 code = 355) BLOOD UREA NITROGEN 19 mg/dL 7-21 (BEAKER) (test code = 354) CREATININE (BEAKER) 1.08 mg/dL 0.57-1.25 (test code = 358) GLUCOSE RANDOM 179 mg/dL 70-105 H (BEAKER) (test code = 652) CALCIUM (BEAKER) 8.6 mg/dL 8.4-10.2 (test code = 697) EGFR (BEAKER) (test 71 mL/min/1.73 ESTIMA CON GFR IS code = 1092) sq m NOT ACCURATE CREATININE CLEARANCE IN PREDICTING GLOMERULAR FILTRATION RATE . ESTIMATED GFR I S NOT APPLICABLE FOR DIALYSIS PATIEN TS. CBC W/PLT COUNT & AUTO [id number] 07:05:00 Test Item Value Reference Range Interpretation Comments WHITE BLOOD CELL COUNT (BEAKER) 7.3 K/ L 3.5-10.5 (test code = 775) RED BLOOD CELL COUNT (BEAKER) 4.31 M/ L 4.63-6.08 L (test code = 761) HEMOGLOBIN (BEAKER) (test code = 13.2 GM/DL 13.7-17.5 L 410) HEMATOCRIT (BEAKER) (test code = 40.3 % 40.1-51.0 411) MEAN CORPUSCULAR VOLUME (BEAKER) 93.5 fL 79.0-92.2 H (test code = 753) MEAN CORPUSCULAR HEMOGLOBIN 30.6 pg 25.7-32.2 (BEAKER) (test code = 751) MEAN CORPUSCULAR HEMOGLOBIN CONC 32.8 GM/DL 32.3-36.5 (BEAKER) (test code = 752) RED CELL DISTRIBUTION WIDTH 12.3 % 11.6-14.4 (BEAKER) (test code = 412) PLATELET COUNT (BEAKER) (test 161 K/CU MM 150-450 code = 756) MEAN PLATELET VOLUME (BEAKER) 10.2 fL 9.4-12.4 (test code = 754) NUCLEATED RED BLOOD CELLS 0 /100 WBC 0-0 (BEAKER) (test code = 413) NEUTROPHILS RELATIVE PERCENT 86 % (BEAKER) (test code = 429) LYMPHOCYTES RELATIVE PERCENT 7 % (BEAKER) (test code = 430) MONOCYTES RELATIVE PERCENT 6 % (BEAKER) (test code = 431) EOSINOPHILS RELATIVE PERCENT 0 % (BEAKER) (test code = 432) BASOPHILS RELATIVE PERCENT 0 % (BEAKER) (test code = 437) NEUTROPHILS ABSOLUTE COUNT 6.31 K/ L 1.78-5.38 H (BEAKER) (test code = 670) LYMPHOCYTES ABSOLUTE COUNT 0.53 K/ L 1.32-3.57 L (BEAKER) (test code = 414) MONOCYTES ABSOLUTE COUNT (BEAKER) 0.46 K/ L 0.30-0.82 (test code = 415) EOSINOPHILS ABSOLUTE COUNT 0.00 K/ L 0.04-0.54 L (BEAKER) (test code = 416) BASOPHILS ABSOLUTE COUNT (BEAKER) 0.00 K/ L 0.01-0.08 L (test code = 417) IMMATURE GRANULOCYTES-RELATIVE 0 % 0-1 PERCENT (BEAKER) (test code = 2801) [id number] 14:04:00 Test Item Value Reference Range Interpretation Comments PHOSPHORUS (BEAKER) (test code = 3.5 mg/dL 2.3-4.7 604) [id number] 14:04:00 Test Item Value Reference Range Interpretation Comments MAGNESIUM (BEAKER) (test code = 2.1 mg/dL 1.6-2.6 627) BASIC METABOLIC [id number] 14:04:00 Test Item Value Reference Range Interpretation Comments SODIUM (BEAKER) 136 meq/L 136-145 (test code = 381) POTASSIUM (BEAKER) 4.2 meq/L 3.5-5.1 (test code = 379) CHLORIDE (BEAKER) 103 meq/L 98-107 (test code = 382) CO2 (BEAKER) (test 27 meq/L 22-29 code = 355) BLOOD UREA NITROGEN 16 mg/dL 7-21 (BEAKER) (test code = 354) CREATININE (BEAKER) 0.82 mg/dL 0.57-1.25 (test code = 358) GLUCOSE RANDOM 100 mg/dL 70-105 (BEAKER) (test code = 652) CALCIUM (BEAKER) 9.3 mg/dL 8.4-10.2 (test code = 697) EGFR (BEAKER) (test 98 mL/min/1.73 ESTIMA CON GFR IS code = 1092) sq m NOT ACCURATE CREATININE CLEARANCE IN PREDICTING GLOMERULAR FILTRATION RATE . ESTIMATED GFR I S NOT APPLICABLE FOR DIALYSIS PATIEN TS. [id number] 13:39:00 Test Item Value Reference Range Interpretation Comments PROTIME (BEAKER) (test code = 12.9 seconds 11.7-14.7 759) INR (BEAKER) (test code = 370) 1.0 <=5.9 PARTIAL THROMBOPLASTIN TIME 30.9 seconds 22.5-36.0 (BEAKER) (test code = 760) RECOMMENDED COUMADIN/WARFARIN INR THERAPY RANGESSTANDARD DOSE: 2.0 - 3.0 Includes: PROPHYLAXIS forvenous thrombosis, systemic embolization; TREATMENT for venous thrombosis and/or pulmonary embolus.HIGH RISK: Target INR is 2.5-3.5 for patients with mechanical heart valves.CBC W/PLT COUNT & AUTO DIFFERENTIAL 2019-04-24 13:34:00 Test Item Value Reference Range Interpretation Comments WHITE BLOOD CELL COUNT (BEAKER) 5.7 K/ L 3.5-10.5 (test code = 775) RED BLOOD CELL COUNT (BEAKER) 4.45 M/ L 4.63-6.08 L (test code = 761) HEMOGLOBIN (BEAKER) (test code = 13.8 GM/DL 13.7-17.5 410) HEMATOCRIT (BEAKER) (test code = 41.6 % 40.1-51.0 411) MEAN CORPUSCULAR VOLUME (BEAKER) 93.5 fL 79.0-92.2 H (test code = 753) MEAN CORPUSCULAR HEMOGLOBIN 31.0 pg 25.7-32.2 (BEAKER) (test code = 751) MEAN CORPUSCULAR HEMOGLOBIN CONC 33.2 GM/DL 32.3-36.5 (BEAKER) (test code = 752) RED CELL DISTRIBUTION WIDTH 12.3 % 11.6-14.4 (BEAKER) (test code = 412) PLATELET COUNT (BEAKER) (test 135 K/CU MM 150-450 L code = 756) MEAN PLATELET VOLUME (BEAKER) 10.3 fL 9.4-12.4 (test code = 754) NUCLEATED RED BLOOD CELLS 0 /100 WBC 0-0 (BEAKER) (test code = 413) NEUTROPHILS RELATIVE PERCENT 64 % (BEAKER) (test code = 429) LYMPHOCYTES RELATIVE PERCENT 20 % (BEAKER) (test code = 430) MONOCYTES RELATIVE PERCENT 13 % (BEAKER) (test code = 431) EOSINOPHILS RELATIVE PERCENT 3 % (BEAKER) (test code = 432) BASOPHILS RELATIVE PERCENT 0 % (BEAKER) (test code = 437) NEUTROPHILS ABSOLUTE COUNT 3.68 K/ L 1.78-5.38 (BEAKER) (test code = 670) LYMPHOCYTES ABSOLUTE COUNT 1.13 K/ L 1.32-3.57 L (BEAKER) (test code = 414) MONOCYTES ABSOLUTE COUNT (BEAKER) 0.73 K/ L 0.30-0.82 (test code = 415) EOSINOPHILS ABSOLUTE COUNT 0.16 K/ L 0.04-0.54 (BEAKER) (test code = 416) BASOPHILS ABSOLUTE COUNT (BEAKER) 0.01 K/ L 0.01-0.08 (test code = 417) IMMATURE GRANULOCYTES-RELATIVE 0 % 0-1 PERCENT (BEAKER) (test code = 2801) LIPID [id number] 06:34:00 Test Item Value Reference Range Interpretation Comments TRIGLYCERIDES (BEAKER) (test code = 128 mg/dL 540) CHOLESTEROL (BEAKER) (test code = 159 mg/dL 631) HDL CHOLESTEROL (BEAKER) (test code 37 mg/dL = 976) LDL CHOLESTEROL CALCULATED (BEAKER) 96 mg/dL (test code = 633) Triglyceride Reference Range: Low Risk <150 Borderline 150-199 High Risk 200-499 Very High Risk >=500Cholesterol Reference Range: Low Risk <200 Borderline 200-239 High Risk >240HDL Cholesterol Reference Range: Low Risk >=60 High Risk <40LDL Cholesterol Reference Range: Optimal <100 Near Optimal 100-129 Borderline 130-159 High 160-189 Very High >=190TROPONIN [id number] 18:17:00 Test Item Value Reference Range Interpretation Comments TROPONIN I (BEAKER) (test code = 397) < ng/mL 0.00-0.03 Troponin I (TnI) levels [...] acidosis, acute neurological disease, and persistent tachyarrhythmia.TROPONIN [id number] 12:14:00 Test Item Value Reference Range Interpretation Comments TROPONIN I (BEAKER) (test code = 397) < ng/mL 0.00-0.03 Troponin I (TnI) levels [...] (CK)2019-04-22 11:41:00 Test Item Value Reference Range Interpretation Comments CREATINE KINASE TOTAL (BEAKER) (test 71 U/L 29-200 code = 380) BASIC METABOLIC [id number] 05:41:00 Test Item Value Reference Range Interpretation Comments SODIUM (BEAKER) 137 meq/L 136-145 (test code = 381) POTASSIUM (BEAKER) 4.3 meq/L 3.5-5.1 Specimen slightly (test code = 379) hemolyzed CHLORIDE (BEAKER) 105 meq/L 98-107 (test code = 382) CO2 (BEAKER) (test 26 meq/L 22-29 code = 355) BLOOD UREA NITROGEN 21 mg/dL 7-21 (BEAKER) (test code = 354) CREATININE (BEAKER) 0.85 mg/dL 0.57-1.25 Specimen slightly (test code = 358) hemolyzed GLUCOSE RANDOM 94 mg/dL 70-105 (BEAKER) (test code = 652) CALCIUM (BEAKER) 9.6 mg/dL 8.4-10.2 (test code = 697) EGFR (BEAKER) (test 94 mL/min/1.73 ESTIMA CON GFR IS code = 1092) sq m NOT ACCURATE CREATININE CLEARANCE IN PREDICTING GLOMERULAR FILTRATION RATE . ESTIMATED GFR I S NOT APPLICABLE FOR DIALYSIS PATIEN TS. CBC W/PLT COUNT & AUTO [id number] 05:13:00 Test Item Value Reference Range Interpretation Comments WHITE BLOOD CELL COUNT (BEAKER) 6.4 K/ L 3.5-10.5 (test code = 775) RED BLOOD CELL COUNT (BEAKER) 4.80 M/ L 4.63-6.08 (test code = 761) HEMOGLOBIN (BEAKER) (test code = 14.7 GM/DL 13.7-17.5 410) HEMATOCRIT (BEAKER) (test code = 44.9 % 40.1-51.0 411) MEAN CORPUSCULAR VOLUME (BEAKER) 93.5 fL 79.0-92.2 H (test code = 753) MEAN CORPUSCULAR HEMOGLOBIN 30.6 pg 25.7-32.2 (BEAKER) (test code = 751) MEAN CORPUSCULAR HEMOGLOBIN CONC 32.7 GM/DL 32.3-36.5 (BEAKER) (test code = 752) RED CELL DISTRIBUTION WIDTH 12.7 % 11.6-14.4 (BEAKER) (test code = 412) PLATELET COUNT (BEAKER) (test 143 K/CU MM 150-450 L code = 756) MEAN PLATELET VOLUME (BEAKER) 10.2 fL 9.4-12.4 (test code = 754) NUCLEATED RED BLOOD CELLS 0 /100 WBC 0-0 (BEAKER) (test code = 413) NEUTROPHILS RELATIVE PERCENT 64 % (BEAKER) (test code = 429) LYMPHOCYTES RELATIVE PERCENT 24 % (BEAKER) (test code = 430) MONOCYTES RELATIVE PERCENT 10 % (BEAKER) (test code = 431) EOSINOPHILS RELATIVE PERCENT 2 % (BEAKER) (test code = 432) BASOPHILS RELATIVE PERCENT 0 % (BEAKER) (test code = 437) NEUTROPHILS ABSOLUTE COUNT 4.09 K/ L 1.78-5.38 (BEAKER) (test code = 670) LYMPHOCYTES ABSOLUTE COUNT 1.51 K/ L 1.32-3.57 (BEAKER) (test code = 414) MONOCYTES ABSOLUTE COUNT (BEAKER) 0.61 K/ L 0.30-0.82 (test code = 415) EOSINOPHILS ABSOLUTE COUNT 0.13 K/ L 0.04-0.54 (BEAKER) (test code = 416) BASOPHILS ABSOLUTE COUNT (BEAKER) 0.02 K/ L 0.01-0.08 (test code = 417) IMMATURE GRANULOCYTES-RELATIVE 0 % 0-1 PERCENT (BEAKER) (test code = 2801) BASIC METABOLIC [id number] 06:59:00 Test Item Value Reference Range Interpretation Comments SODIUM (BEAKER) 137 meq/L 136-145 (test code = 381) POTASSIUM (BEAKER) 4.2 meq/L 3.5-5.1 (test code = 379) CHLORIDE (BEAKER) 107 meq/L 98-107 (test code = 382) CO2 (BEAKER) (test 23 meq/L 22-29 code = 355) BLOOD UREA NITROGEN 24 mg/dL 7-21 H (BEAKER) (test code = 354) CREATININE (BEAKER) 0.79 mg/dL 0.57-1.25 (test code = 358) GLUCOSE RANDOM 99 mg/dL 70-105 (BEAKER) (test code = 652) CALCIUM (BEAKER) 9.1 mg/dL 8.4-10.2 (test code = 697) EGFR (BEAKER) (test 102 mL/min/1.73 ESTIM ATED GFR IS code = 1092) sq m NOT ACCURATE CREATININE CLEARANCE IN PREDICTING GLOMERULAR FILTRATION RATE . ESTIMATED GFR I S NOT APPLICABLE FOR DIALYSIS PATIEN TS. CBC W/PLT COUNT & AUTO [id number] 06:58:00 Test Item Value Reference Range Interpretation Comments WHITE BLOOD CELL COUNT (BEAKER) 7.0 K/ L 3.5-10.5 (test code = 775) RED BLOOD CELL COUNT (BEAKER) 4.91 M/ L 4.63-6.08 (test code = 761) HEMOGLOBIN (BEAKER) (test code = 15.1 GM/DL 13.7-17.5 410) HEMATOCRIT (BEAKER) (test code = 46.5 % 40.1-51.0 411) MEAN CORPUSCULAR VOLUME (BEAKER) 94.7 fL 79.0-92.2 H (test code = 753) MEAN CORPUSCULAR HEMOGLOBIN 30.8 pg 25.7-32.2 (BEAKER) (test code = 751) MEAN CORPUSCULAR HEMOGLOBIN CONC 32.5 GM/DL 32.3-36.5 (BEAKER) (test code = 752) RED CELL DISTRIBUTION WIDTH 12.7 % 11.6-14.4 (BEAKER) (test code = 412) PLATELET COUNT (BEAKER) (test 133 K/CU MM 150-450 L code = 756) MEAN PLATELET VOLUME (BEAKER) 10.2 fL 9.4-12.4 (test code = 754) NUCLEATED RED BLOOD CELLS 0 /100 WBC 0-0 (BEAKER) (test code = 413) NEUTROPHILS RELATIVE PERCENT 68 % (BEAKER) (test code = 429) LYMPHOCYTES RELATIVE PERCENT 19 % (BEAKER) (test code = 430) MONOCYTES RELATIVE PERCENT 10 % (BEAKER) (test code = 431) EOSINOPHILS RELATIVE PERCENT 2 % (BEAKER) (test code = 432) BASOPHILS RELATIVE PERCENT 0 % (BEAKER) (test code = 437) NEUTROPHILS ABSOLUTE COUNT 4.74 K/ L 1.78-5.38 (BEAKER) (test code = 670) LYMPHOCYTES ABSOLUTE COUNT 1.35 K/ L 1.32-3.57 (BEAKER) (test code = 414) MONOCYTES ABSOLUTE COUNT (BEAKER) 0.66 K/ L 0.30-0.82 (test code = 415) EOSINOPHILS ABSOLUTE COUNT 0.17 K/ L 0.04-0.54 (BEAKER) (test code = 416) BASOPHILS ABSOLUTE COUNT (BEAKER) 0.02 K/ L 0.01-0.08 (test code = 417) IMMATURE GRANULOCYTES-RELATIVE 0 % 0-1 PERCENT (BEAKER) (test code = 2801) MR, SPINE, LUMBAR, WITHOUT [id number] 21:50:00 Include Sacral spine Tarlov cystsFINAL REPORT [...] Verified Date/Time: 04/20/2019 21:50:08 Reading Location: [facility] [id number] Consult Reading Room C METABOLIC [id number] 04:59:00 Test Item Value Reference Range Interpretation Comments SODIUM (BEAKER) 136 meq/L 136-145 (test code = 381) POTASSIUM (BEAKER) 4.2 meq/L 3.5-5.1 Specimen slightly (test code = 379) hemolyzed CHLORIDE (BEAKER) 108 meq/L 98-107 H (test code = 382) CO2 (BEAKER) (test 23 meq/L 22-29 code = 355) BLOOD UREA NITROGEN 24 mg/dL 7-21 H (BEAKER) (test code = 354) CREATININE (BEAKER) 0.88 mg/dL 0.57-1.25 Specimen slightly (test code = 358) hemolyzed GLUCOSE RANDOM 105 mg/dL 70-105 (BEAKER) (test code = 652) CALCIUM (BEAKER) 9.1 mg/dL 8.4-10.2 (test code = 697) EGFR (BEAKER) (test 90 mL/min/1.73 ESTIMA CON GFR IS code = 1092) sq m NOT ACCURATE CREATININE CLEARANCE IN PREDICTING GLOMERULAR FILTRATION RATE . ESTIMATED GFR I S NOT APPLICABLE FOR DIALYSIS PATIEN TS. CBC W/PLT COUNT & AUTO [id number] 04:33:00 Test Item Value Reference Range Interpretation Comments WHITE BLOOD CELL COUNT (BEAKER) 5.2 K/ L 3.5-10.5 (test code = 775) RED BLOOD CELL COUNT (BEAKER) 4.52 M/ L 4.63-6.08 L (test code = 761) HEMOGLOBIN (BEAKER) (test code = 14.0 GM/DL 13.7-17.5 410) HEMATOCRIT (BEAKER) (test code = 42.6 % 40.1-51.0 411) MEAN CORPUSCULAR VOLUME (BEAKER) 94.2 fL 79.0-92.2 H (test code = 753) MEAN CORPUSCULAR HEMOGLOBIN 31.0 pg 25.7-32.2 (BEAKER) (test code = 751) MEAN CORPUSCULAR HEMOGLOBIN CONC 32.9 GM/DL 32.3-36.5 (BEAKER) (test code = 752) RED CELL DISTRIBUTION WIDTH 12.9 % 11.6-14.4 (BEAKER) (test code = 412) PLATELET COUNT (BEAKER) (test 145 K/CU MM 150-450 L code = 756) MEAN PLATELET VOLUME (BEAKER) 10.2 fL 9.4-12.4 (test code = 754) NUCLEATED RED BLOOD CELLS 0 /100 WBC 0-0 (BEAKER) (test code = 413) NEUTROPHILS RELATIVE PERCENT 54 % (BEAKER) (test code = 429) LYMPHOCYTES RELATIVE PERCENT 32 % (BEAKER) (test code = 430) MONOCYTES RELATIVE PERCENT 10 % (BEAKER) (test code = 431) EOSINOPHILS RELATIVE PERCENT 3 % (BEAKER) (test code = 432) BASOPHILS RELATIVE PERCENT 0 % (BEAKER) (test code = 437) NEUTROPHILS ABSOLUTE COUNT 2.84 K/ L 1.78-5.38 (BEAKER) (test code = 670) LYMPHOCYTES ABSOLUTE COUNT 1.66 K/ L 1.32-3.57 (BEAKER) (test code = 414) MONOCYTES ABSOLUTE COUNT (BEAKER) 0.52 K/ L 0.30-0.82 (test code = 415) EOSINOPHILS ABSOLUTE COUNT 0.16 K/ L 0.04-0.54 (BEAKER) (test code = 416) BASOPHILS ABSOLUTE COUNT (BEAKER) 0.02 K/ L 0.01-0.08 (test code = 417) IMMATURE GRANULOCYTES-RELATIVE 0 % 0-1 PERCENT (BEAKER) (test code = 2801) PROTHROMBIN [id number] 19:17:00 Test Item Value Reference Range Interpretation Comments PROTIME (BEAKER) (test code = 13.8 seconds 11.7-14.7 759) INR (BEAKER) (test code = 370) 1.1 <=5.9 RECOMMENDED COUMADIN/WARFARIN INR THERAPY RANGESSTANDARD DOSE: 2.0 - 3.0 Includes: PROPHYLAXIS forvenous thrombosis, systemic embolization; TREATMENT for venous thrombosis and/or pulmonary embolus.HIGH RISK: Target INR is 2.5-3.5 for patients with mechanical heart valves.
[2020-06-28] MEDS ORDERED: NA CHLORIDE 0.9% 100 ML IV ONE (11:04)
[2020-06-28] MEDS ORDERED: KETOROLAC 30 MG/ML INJ ONE (11:04)
[2020-06-28] MEDS ORDERED: dexAMETHasone 10 MG/ML VIAL ONE (11:04)
[2020-06-28] MEDS ORDERED: METHOCARBAMOL 1,000 MG/10 ML VIAL IV ONE (11:04)
[2020-06-28 11:21] LABS: Absolute Lymphocytes (CBC) 1.6 K/uL (0.7-4.9); Basophils % 0.4 % (0-1.3); Hematocrit 44.9 % (39.6-49.0); Lymphocytes % 23.8 % (15.3-44.8); MPV 8.7 fL (7.6-11.3); RBC Red Blood Cell Count 4.95 M/uL (4.33-5.43)
[2020-06-28] MEDS ORDERED: ONDANSETRON 4 MG/2 ML VIAL ONE (11:25)
[2020-06-28 11:36] LABS: BUN Blood Urea Nitrogen 17 mg/dL (7-18); Bicarbonate 27 mmol/L (21-32); Glucose Level 95 mg/dL (74-106); Potassium 4.2 mmol/L (3.5-5.1); Sodium Level 137 mmol/L (136-145)
--- NOTE | 2020-06-28 12:17 | RAD REPORT ---
EXAM DESCRIPTION: CT - C Spine Wo Con - 06/28/2020 12:04 pm CLINICAL HISTORY: Pain;Numbness/tingling Neck pain, radiculopathy COMPARISON: No comparisons FINDINGS: The cervical vertebral body heights are maintained. 2 mm degenerative anterolisthesis is s een of C4-5. Prominent posterior osteophyte is present at C6-7 with disc thinning. Probable disc nikki iations seen at C7-T1, incompletely assessed. No evidence of acute cervical spine fracture or subluxation. Prevertebral soft tissues are normal in thickness. IMPRESSION: Negative for acute cervical spine abnormality. Moderate lower cervical spondylosis is seen, most severe at C6-7 and C7-T1. Nonemergent MRI cervical spine followup would be suggested. . All CT scans are performed using dose optimization technique as appropriate and may include automated exposure control or mA/KV adjustment according to patient size.
--- NOTE | 2020-06-28 12:21 | RAD REPORT ---
EXAM DESCRIPTION: CT - Thoracic Spine W/o Cont - 06/28/2020 12:04 pm CLINICAL HISTORY: Radiculopathy. Pain;Numbness/tingling COMPARISON: C Spine Wo Con dated 06/28/2020; Lumbar Spine Wo Con dated 04/19/2019 TECHNIQUE: Axial CT imaging through the thoracic spine was performed with coronal and sagittal re-fo rmatted images. All CT scans are performed using dose optimization technique as appropriate and may include automated exposure control or mA/KV adjustment according to patient size. FINDINGS: Vertebral body heights and disc spaces are maintained. A compression fracture is not prese nt. Mild disc thinning is seen with anterior osteophytosis lower thoracic levels. Focal central disc herniation is suspected T7-8 level. Thoracic spine alignment is within normal limits. No paraspinal masses or hematoma. IMPRESSION: No acute thoracic spine abnormality. Focal central disc herniation suspected T7-8, incompletely assessed on CT. Followup nonemergent MR im aging of the thoracic spine may be of value.
--- NOTE | 2020-06-28 12:39 | ER ---
Nurse's Notes [facility] Name: Martin Napoles Age: 54 yrs Sex: Male : 1965 Arrival Date: 06/28/2020 Time: 10:14 Bed 2 Private MD: Michael Trinidad E Diagnosis: Pain in thoracic spine;Radiculopathy Presentation: 06/28 10:19 Chief complaint: Patient states: mid- upper back pain that began 2 days ago that is ss causing R arm to have intermittent numbness. Is better with repositioning. Coronavirus screen: Client denies travel out of the [place] in the last 14 days. At this time, the client does not indicate any symptoms associated with coronavirus-19. Ebola Screen: Patient denies exposure to infectious person. Patient denies travel to an Ebola-affected area in the 21 days before illness onset. Initial Sepsis Screen: Does the patient meet any 2 criteria? No. Patient's initial sepsis screen is negative. Does the patient have a suspected source of infection? No. Patient's initial sepsis screen is negative. Risk Assessment: Do you want to hurt yourself or someone else? Patient reports no desire to harm self or others. Onset of symptoms was June 26, 2020. 10:19 Method Of Arrival: Ambulatory ss 10:19 Acuity: ABBY 3 ss Historical: - Allergies: 10:26 No Known Allergies; ss - PMHx: 10:26 ADD/ADHD; ss - PSHx: 10:26 back surgery; ss - Immunization history:: Adult Immunizations up to date. - Social history:: Smoking status: Patient denies any tobacco usage or history of. Screenin:26 Abuse screen: Denies threats or abuse. Denies injuries from another. Nutritional hb screening: No deficits noted. Tuberculosis screening: No symptoms or risk factors identified. Fall Risk None identified. Assessment: 10:30 General: Appears in no apparent distress. Behavior is calm, cooperative. Pain: Pain hb currently is 8 out of 10 on a pain scale. Neuro: Level of Consciousness is awake, alert, obeys commands, Oriented to person, place, time, situation. Cardiovascular: Patient's skin is warm and dry. Respiratory: Respiratory effort is even, unlabored, Respiratory pattern is regular, symmetrical. GI: No signs and/or symptoms were reported involving the gastrointestinal system. : No signs and/or symptoms were reported regarding the genitourinary system. EENT: No signs and/or symptoms were reported regarding the EENT system. Derm: Skin is pink, warm \T\ dry. Musculoskeletal: Reports upper back and neck pain that radiates to right arm. 11:30 Reassessment: Patient appears in no apparent distress at this time. Patient and/or hb family updated on plan of care and expected duration. Pain level reassessed. Patient is alert, oriented x 3, equal unlabored respirations, skin warm/dry/pink. 12:17 Reassessment: Patient appears in no apparent distress at this time. Patient and/or hb family updated on plan of care and expected duration. Pain level reassessed. Patient is alert, oriented x 3, equal unlabored respirations, skin warm/dry/pink. Vital Signs: 10:19 BP 131 / 91; Pulse 56; Resp 16; Temp 98.0(TE); Pulse Ox 98% on R/A; Weight 90.72 kg; ss Height 5 ft. 11 in. (180.34 cm); Pain 7/10; 11:30 BP 128 / 92; Pulse 59; Resp 15; Pulse Ox 100% on R/A; hb 10:19 Body Mass Index 27.89 (90.72 kg, 180.34 cm) ED Course: 10:14 Patient arrived in ED. mr 10:14 Michael Trinidad MD is Private Physician. mr 10:16 [facility] Waldrop [facility]. jr8 10:16 Jae Draper MD is Attending Physician. jr8 10:25 Nora Ahumada, YUSUF is Primary Nurse. hb 10:25 Triage completed. ss 10:26 Arm band placed on left wrist. ss 10:26 Patient has correct armband on for positive identification. Bed in low position. Call hb light in reach. 12:04 CT C Spine In Process Unspecified. EDMS 12:04 CT Thoracic Spine Wo Cont In Process Unspecified. EDMS 12:53 No provider procedures requiring assistance completed. IV discontinued, intact, hb bleeding controlled, No redness/swelling at site. Administered Medications: 11:18 Drug: Robaxin 1 grams Route: IVPB; Infused Over: 1 hrs; Site: left forearm; hb 12:52 Follow up: Response: No adverse reaction; IV Status: Completed infusion; IV Intake: hb 100ml 11:18 Drug: TORadol - Ketorolac 15 mg Route: IVP; Site: left forearm; hb 11:44 Follow up: Response: No adverse reaction hb 11:18 Drug: Decadron - Dexamethasone 10 mg Route: IVP; Site: left forearm; hb 11:44 Follow up: Response: No adverse reaction hb Intake: 12:52 IV: 100ml; Total: 100ml. hb Outcome: 12:38 Discharge ordered by MD. vicente 12:53 Discharged to home ambulatory. hb 12:53 Condition: stable 12:53 Discharge instructions given to patient, Instructed on discharge instructions, follow up and referral plans. medication usage, Demonstrated understanding of instructions, follow-up care, medications, Prescriptions given X 3. 12:53 Patient left the ED. hb Signatures: Dispatcher [employer] Sabina Toledo Shelby, RN RN ss Roszak, Josh, PA PA jrNora Cano RN RN hb
--- NOTE | 2020-06-28 12:39 | EDPHYS ---
Physician Documentation [facility] Name: Martin Napoles Age: 54 yrs Sex: Male : 1965 Arrival Date: 06/28/2020 Time: 10:14 Bed 2 Private MD: Michael Trinidad E ED Physician Jae Draper HPI: 06/28 12:02 This 54 yrs old Male presents to ER via Ambulatory with complaints of Back jr8 Pain, Arm Pain. 12:02 Onset: The symptoms/episode began/occurred acutely, yesterday. The pain radiates. jr8 Associated signs and symptoms: The patient has no apparent associated signs or symptoms. The problem was sustained from unknown cause. Modifying factors: The patient symptoms are alleviated by nothing, the patient symptoms are aggravated by movement. Severity of symptoms: At their worst the symptoms were moderate, in the emergency department the symptoms are unchanged. The patient has not experienced similar symptoms in the past. The patient has not recently seen a physician. 12:04 Patient stated that he started to have upper back pain 2 days ago that now radiates jr8 down right arm and is causing weakness, numbness, and tingling. Denies trauma or complaints of this in past . Historical: - Allergies: 10:26 No Known Allergies; ss - PMHx: 10:26 ADD/ADHD; ss - PSHx: 10:26 back surgery; ss - Immunization history:: Adult Immunizations up to date. - Social history:: Smoking status: Patient denies any tobacco usage or history of. ROS: 12:04 Eyes: Negative for injury, pain, redness, and discharge, ENT: Negative for injury, jr8 pain, and discharge, Neck: Negative for injury, pain, and swelling, Cardiovascular: Negative for chest pain, palpitations, and edema, Respiratory: Negative for shortness of breath, cough, wheezing, and pleuritic chest pain, Abdomen/GI: Negative for abdominal pain, nausea, vomiting, diarrhea, and constipation, MS/Extremity: Negative for injury and deformity, Skin: Negative for injury, rash, and discoloration. 12:04 Back: Positive for pain at rest, pain with movement, radiated pain. 12:04 Neuro: Positive for numbness, tingling, weakness, of the right arm. Exam: 12:05 Eyes: Pupils equal round and reactive to light, extra-ocular motions intact. Lids and jr8 lashes normal. Conjunctiva and sclera are non-icteric and not injected. Cornea within normal limits. Periorbital areas with no swelling, redness, or edema. ENT: Nares patent. No nasal discharge, no septal abnormalities noted. Tympanic membranes are normal and external auditory canals are clear. Oropharynx with no redness, swelling, or masses, exudates, or evidence of obstruction, uvula midline. Mucous membranes moist. Neck: Trachea midline, no thyromegaly or masses palpated, and no cervical lymphadenopathy. Supple, full range of motion without nuchal rigidity, or vertebral point tenderness. No Meningismus. Cardiovascular: Regular rate and rhythm with a normal S1 and S2. No gallops, murmurs, or rubs. Normal PMI, no JVD. No pulse deficits. Respiratory: Lungs have equal breath sounds bilaterally, clear to auscultation and percussion. No rales, rhonchi or wheezes noted. No increased work of breathing, no retractions or nasal flaring. Abdomen/GI: Soft, non-tender, with normal bowel sounds. No distension or tympany. No guarding or rebound. No evidence of tenderness throughout. MS/ Extremity: Pulses equal, no cyanosis. Neurovascular intact. Full, normal range of motion. Neuro: Awake and alert, GCS 15, oriented to person, place, time, and situation. Cranial nerves II-XII grossly intact. Motor strength 5/5 in all extremities. Sensory grossly intact. Cerebellar exam normal. Normal gait. 12:05 Back: pain, that is mild, of the right scapular area, ROM is painful, normal spinal alignment noted, CVA tenderness, is absent, vertebral tenderness, is not appreciated. Vital Signs: 10:19 BP 131 / 91; Pulse 56; Resp 16; Temp 98.0(TE); Pulse Ox 98% on R/A; Weight 90.72 kg; ss Height 5 ft. 11 in. (180.34 cm); Pain 7/10; 11:30 BP 128 / 92; Pulse 59; Resp 15; Pulse Ox 100% on R/A; hb 10:19 Body Mass Index 27.89 (90.72 kg, 180.34 cm) MDM: 10:27 Patient medically screened. jr8 12:36 Data reviewed: vital signs, nurses notes, lab test result(s), radiologic studies, CT jr8 scan. Data interpreted: Pulse oximetry: on room air is 100 %. Interpretation: normal. Counseling: I had a detailed discussion with the patient and/or guardian regarding: the historical points, exam findings, and any diagnostic results supporting the discharge/admit diagnosis, lab results, radiology results, the need for outpatient follow up, a orthopedic surgeon, to return to the emergency department if symptoms worsen or persist or if there are any questions or concerns that arise at home. Response to treatment: the patient's symptoms have markedly improved after treatment. ED course: Discussed with patient his CT and blood work. Some spondylosis noted. Needs to f/u with his ortho spine doc. Will continue meds at home. If worse to come back. Patient good with plan . 06/28 10:47 Order name: CBC with Diff; Complete Time: 11:33 jr8 06/28 10:47 Order name: Basic Metabolic Panel; Complete Time: 11:43 8 06/28 11:28 Order name: CT C Spine; Complete Time: 12:22 jr8 06/28 11:28 Order name: CT Thoracic Spine Wo Cont; Complete Time: 12:22 jr8 06/28 10:47 Order name: IV; Complete Time: 11:18 jr8 Administered Medications: 11:18 Drug: Robaxin 1 grams Route: IVPB; Infused Over: 1 hrs; Site: left forearm; hb 12:52 Follow up: Response: No adverse reaction; IV Status: Completed infusion; IV Intake: hb 100ml 11:18 Drug: TORadol - Ketorolac 15 mg Route: IVP; Site: left forearm; hb 11:44 Follow up: Response: No adverse reaction hb 11:18 Drug: Decadron - Dexamethasone 10 mg Route: IVP; Site: left forearm; hb 11:44 Follow up: Response: No adverse reaction hb Disposition: 13:04 Co-signature as Attending Physician, Jae Draper MD I agree with the assessment and kdr plan of care. Disposition: 06/28/20 12:38 Discharged to Home. Impression: Pain in thoracic spine, Radiculopathy. - Condition is Stable. - Discharge Instructions: Back Pain, Adult, Radicular Pain. - Prescriptions for meloxicam 15 mg Oral tablet - take 1 tablet by ORAL route once daily As needed; 20 tablet. Robaxin 500 mg Oral Tablet - take 2 tablet by ORAL route every 6 hours As needed; 40 tablet. Medrol (Simone) 4 mg Oral Tablets, Dose Pack - take 1 tablet by ORAL route as directed - follow package instructions; 1 packet. - Medication Reconciliation Form, Thank You Letter, Antibiotic Education, Prescription Opioid Use form. - Follow up: Private Physician; When: 2 - 3 days; Reason: Recheck today's complaints, Continuance of care, Re-evaluation by your physician. - Problem is new. - Symptoms have improved. Signatures: Dispatcher [employer] EDMS Jae Draper MD MD [facility] Ting Matute RN RN ss Hossein Waldrop PA PA jr8 Nora Ahumada, RN RN hb Corrections: (The following items were deleted from the chart) 12:53 12:38 06/28/2020 12:38 Discharged to Home. Impression: Pain in thoracic spine; hb Radiculopathy. Condition is Stable. Forms are Medication Reconciliation Form, Thank You Letter, Antibiotic Education, Prescription Opioid Use. Follow up: Private Physician; When: 2 - 3 days; Reason: Recheck today's complaints, Continuance of care, Re-evaluation by your physician. Problem is new. Symptoms have improved. jr8
[2020-06-28 12:57] VITALS: TEMP 98
[2020-06-28 12:58] VITALS: BP 128/92; O2SAT 100
== END 2020-06-28 12:53 | disposition home or self-care (01) ==
LOC: ER 10:13
DX: M54.14 Radiculopathy, thoracic region (principal)
CPT/HCPCS: 96365; 85025; 80048; 36415; 72125; 72128; 96375; 99283; 96366; J1100; J2405; J2800

== ENCOUNTER 2022-01-01 05:42 | Emergency (ER) | payer BC ==
--- OUTSIDE RECORDS SUMMARY | 2022-01-01 05:47 | XMS REPORT | Continuity of Care Document ---
:1965 Author Organization [facility] t Address [address] [place] [address] Care Team Providers Name Role Phone Carlo RAWLS Primary Care Physician Seth ORELLANA Attending Clinician Unavailable Seth ORELLANA Attending Clinician Unavailable Carlo RAWLS Attending Clinician Gavin Dennis MD Attending Clinician MAGGY Attending Clinician Unavailable ABBEY LOCK Attending Clinician Unavailable ROSALIND DUFF Attending Clinician Unavailable DELMA HAWKINS Attending Clinician Unavailable DONNA ARCHIBALD Admitting Clinician Unavailable GAVIN DENNIS Admitting Clinician Unavailable DELMA HAWKINS Admitting Clinician Unavailable Payers Payer Name Policy Type Policy Number Effective Date Expiration Date S toribio Problems Condition Condition Condition Status Onset Resolution Last Treating Co mments Source Name Details Category Date Date Treatment Clinician Date Alcohol Alcohol Disease Active Overview: Univ ers use use 08-01 Formattin ity of disorder, disorder, 00:00: [place] mild, in mild, in 00 note Medica l early early might be Branch remission remission different from the original. Added automatic ally from request for surgery [id number] Colon Colon Disease Active Overview: [facility] [place] [facility] cancer cancer 08-01 Formattin ity of screening screening 00:00: g of this [place] 00 note Medical might be Branch different from the original. Added automatic ally from request for surgery [id number] Anemia Anemia Disease Active Univers 8-07 ity of 00:00: [address] Branch Back pain Back pain Disease [facility] Lumbosacra Lumbosacra Disease Active [facility] - herniation herniation 00:00: Me dical 00 [place] Acute pain Acute pain Disease Active [facility] Center Radiculopa Radiculopa Disease Active [facility] thy [facility] - 00:00: Medical 00 [place] ADHD ADHD Disease Active [facility] Medical 00 Center Allergies, Adverse Reactions, Alerts Allergy Allergy Status Severity Reaction(s) Onset Inactive Treating Comm ents Source Name Type Date Date Clinician NO KNOWN Drug Active [facility] ALLERGIE Class ity of Surgery [facility] Social History Social Habit Start Date Stop Date Quantity Comments Source Exposure to Not sure [facility] SARS-CoV-2 [place] Medical (event) Branch History SDOH [facility] - Alcohol Std Medical Cente r Drinks History SDOH [facility] - Alcohol Binge Medical Paz [facility] History SDOH [facility] - Alcohol Comment Medical C enter History of 2019-09-11 User of smokeless Univers ity of tobacco use 00:00:00 tobacco [facility] Alcohol intake 2019-06-15 2019-06-[address] [facility] - 00:00:00 00:00:00 non-drinker of Medical Ce nter alcohol (finding) Tobacco use and 2019-04-19 2019-04-[address] [facility] - exposure 00:00:00 00:00:00 Medical Center History SDOH 2019-04-19 2019-04-[address] [facility] - Alcohol Frequency 00:00:00 00:00:00 [facility] Sex Assigned At [address] [address] [facility] - 00:00:00 00:00:00 Medical Center Smoking Status Start Date Stop Date Source Former smoker 2020-08-18 00:00:00 2020-08-18 00:00:00 Universi ty of [facility] Never smoker [facility] o f Medicine Medications Ordered Filled Start Stop Current Ordering Indication Dosage Frequency Signature Comments Components Source Medication Medication Date Date Medication? Clinician (SIG) Name Name omeprazole Yes [id number] 40mg Take 1 Univers 40 mg 1-25 capsule by ity of capsule 00:00: mouth [place] 00 daily. Medical Branch omeprazole 2021-0 Yes [id number] 40mg Take 1 Univers 40 mg 1-25 capsule by ity of capsule 00:00: mouth [place] 00 daily. Medical Branch omeprazole 2021-0 Yes [id number] 40mg Take 1 Univers 40 mg 1-25 capsule by ity of capsule 00:00: mouth [place] 00 daily. Medical Branch levothyroxi 2020-1 Yes [id number] 25ug Take 1 Univers ne 25 mcg 1-09 tablet by ity o f tablet 00:00: mouth [place] 00 every Medical morning. Branch levothyroxi 2020-1 Yes [id number] 25ug Take 1 Univers ne 25 mcg 1-09 tablet by ity o f tablet 00:00: mouth [place] 00 every Medical morning. Branch levothyroxi 2020-1 Yes [id number] 25ug Take 1 Univers ne 25 mcg 1-09 tablet by ity o f tablet 00:00: mouth [place] 00 every Medical morning. Branch MULTIVITAMI 2020-0 Yes Take by Un ferny N ORAL 9-24 mouth. ity of 08:42: [place] [address] Medical Branch MULTIVITAMI 2020-0 Yes Take by Un ferny N ORAL 9-24 mouth. ity of 08:42: [place] [address] Medical Branch MULTIVITAMI 2020-0 Yes Take by Un ferny N ORAL 9-24 mouth. ity of 08:42: [place] [address] Medical Branch peg-electro 2020-0 Yes [id number] Take as Univers lyte soln 04 directed ity of 236-.74-6 00:00: [place] .74 -5.86 00 colonoscop Medi randy gram y Branch solution peg-electro 2020-0 Yes [id number] Take as Univers lyte soln -04 directed ity of 236-22.74-6 00:00: [place] .74 -5.86 00 colonoscop Medi randy gram y Branch solution peg-electro 2020-0 Yes [id number] Take as Univers lyte soln -04 directed ity of 236-22.74-6 00:00: [place] .74 -5.86 00 colonoscop Medi randy gram y Branch solution oxybutynin 2020-0 Yes [id number] 5mg Take 1 Univers XL 5 mg 24 9-03 tablet by [place]y of hr tablet 00:00: [place] 00 bedtime. Medical Branch oxybutynin 2020-0 Yes [id number] 5mg Take 1 Univers XL 5 mg 24 9-03 tablet by ity of hr tablet 00:00: [place] 00 bedtime. Medical Branch oxybutynin 2020-0 Yes [id number] 5mg Take 1 Univers XL 5 mg 24 9-03 tablet by [place]y of hr tablet 00:00: [place] 00 bedtime. Medical Branch HYDROcodone 2020-0 Yes TAKE ONE Un ferny -acetaminop 8-25 (1) TABLET it y of hen 5-325 00:00: BY [place]TH [place] mg tablet 00 EVERY 6 Medical (SIX) Branch HOURS NEEDED FOR PAIN (SCALE 4-10) FOR UP TO 7 DAYS. HYDROcodone 2020-0 Yes TAKE ONE Un ferny -acetaminop 8-25 (1) TABLET it y of hen 5-325 00:00: [place]TH [place] mg tablet 00 EVERY 6 Medical (SIX) Branch HOURS NEEDED FOR PAIN (SCALE 4-10) FOR UP TO 7 DAYS. HYDROcodone 2020-0 Yes TAKE ONE Un ferny -acetaminop 8-25 (1) TABLET it y of hen 5-325 00:00: [place]TH [place] mg tablet 00 EVERY 6 Medical (SIX) Branch HOURS NEEDED FOR PAIN (SCALE 4-10) FOR UP TO 7 DAYS. traMADol 50 2020-0 Yes [id number] 50mg Take 1 Univ ers mg tablet 8-14 tablet by ity o f 00:00: mouth [place] 00 every 6 Medical (six) Branch hours as needed for Pain (scale 7-10) for up to 28 doses. Indication s: acute pain cyclobenzap 2020-0 Yes [id number] 5mg Take 1 Univers rine 5 mg 8-14 tablet by ity o f tablet 00:00: mouth 3 [place] 00 (three) Medical times Branch daily as needed for Muscle Spasms for up to 30 doses. traMADol 50 2020-0 Yes [id number] 50mg Take 1 Univ ers mg tablet 8-14 tablet by ity o f 00:00: mouth [place] 00 every 6 Medical (six) Branch hours as needed for Pain (scale 7-10) for up to 28 doses. Indication s: acute pain cyclobenzap 2020-0 Yes [id number] 5mg Take 1 Univers rine 5 mg 8-14 tablet by ity o f tablet 00:00: mouth (three) Medical times Branch daily as needed for Muscle Spasms for up to 30 doses. traMADol 50 2020-0 Yes [id number] 50mg Take 1 Univ ers mg tablet 8-14 tablet by ity o f 00:00: mouth 00 every 6 Medical (six) Branch hours as needed for Pain (scale 7-10) for up to 28 doses. Indication s: acute pain cyclobenzap 2020-0 Yes [id number] 5mg Take 1 Univers rine 5 mg 8-14 tablet by ity o f tablet 00:00: mouth (three) Medical times Branch daily as needed for Muscle Spasms for up to 30 doses. gabapentin 2020-0 Yes [id number] 300mg Take 1 Univers 300 mg 8-07 capsule by ity of capsule 00:00: mouth (three) Medical times Branch daily. methylPREDN 2020-0 Yes [id number] Take by Univers ISolone 8-07 mouth ity of (METHYLPRED 00:00: SEE-INSTRU [place] DP) 4 mg 00 CTIONS. Medical tablets follow Branch package directions gabapentin 2020-0 Yes [id number] 300mg Take 1 Univers 300 mg 8-07 capsule by ity of capsule 00:00: mouth (three) Medical times Branch daily. methylPREDN 2020-0 Yes [id number] Take by Univers ISolone 8-07 mouth ity of (METHYLPRED 00:00: SEE-INSTRU [place] DP) 4 mg 00 CTIONS. Medical tablets follow Branch package directions gabapentin 2020-0 Yes [id number] 300mg Take 1 Univers 300 mg 8-07 capsule by ity of capsule 00:00: mouth (three) Medical times Branch daily. methylPREDN 2020-0 Yes [id number] Take by Univers ISolone 8-07 mouth ity of (METHYLPRED 00:00: SEE-INSTRU [place] DP) 4 mg 00 CTIONS. Medical tablets follow Branch package directions meloxicam 2020-0 Yes TAKE ONE Univ ers 15 mg 8-01 (1) ity of tablet 00:00: TABLET(S) BY MOUTH Medical ONCE A DAY Branch NEEDED. methocarbam 2020-0 Yes TAKE TWO Un ferny oL 500 mg 8-01 (2) ity of tablet 00:00: TABLET(S) [place] 00 BY MOUTH Medical EVERY SIX Branch HOURS NEEDED FOR MUSCLE SPASMS. meloxicam 2019-0 Yes TAKE ONE Univ ers 15 mg 8-01 (1) ity of tablet 00:00: TABLET(S) [place] 00 BY MOUTH Medical ONCE A DAY Branch NEEDED. methocarbam 2020-0 Yes TAKE TWO Un ferny oL 500 mg 8-01 (2) ity of tablet 00:00: TABLET(S) [place] 00 BY MOUTH Medical EVERY SIX Branch HOURS NEEDED FOR MUSCLE SPASMS. meloxicam 2020-0 Yes TAKE ONE Univ ers 15 mg 8-01 (1) ity of tablet 00:00: TABLET(S) [place] 00 BY MOUTH Medical ONCE A DAY Branch NEEDED. methocarbam 2020-0 Yes TAKE TWO Un ferny oL 500 mg 8-01 (2) ity of tablet 00:00: TABLET(S) [place] 00 BY MOUTH Medical EVERY SIX Branch HOURS NEEDED FOR MUSCLE SPASMS. Acetaminoph 2018- No Take by Rodney bryant (TYLENOL 07-19 mouth. Colle ge OR) 15:10: 00:00 of 49 :00 Medicin e gabapentin 2019- No [id number] 300mg Take 1 [place] (NEURONTIN) 07-09 106 by mouth 3 C [facility]lege 300 MG 00:00: 00:00 times of capsule 00 :00 daily. Medicin Start 1 e cap at night for 3 nights, then increase to twice a day for 3 days, and then 3 times per day cyclobenzap 2019- No TAKE 1 [place] fletcher rine 05-26 TABLET BY [place] (FLEXERIL) 00:00: 00:00 MOUTH of 10 MG 00 :00 EVERY 8 Medicin tablet HOURS e NEEDED FOR MUSCLE SPASMS methylPREDN 2018- No TAKE Arnaud neumann ISolone 4 05-26 DIRECTED Colle ge MG TBPK 00:00: 00:00 ON PACKAGE of 00 :00 Medicin e Immunizations Ordered Filled Immunization Date Status Comments Sourc e Immunization Name Name Zoster Vaccine 2021-12-22 Completed [facility] 00:00:00 [facility] Influenza Virus 2021-12-22 Completed Universit y of Vaccine Quad IM, 00:00:00 [facility] dical Preserv and ABX Branch Free 6 MO-64 YRS Zoster Vaccine 2021-12-22 Completed University of Recombinant 00:00:00 [facility] Influenza Virus 2021-12-22 Completed Universit y of Vaccine Quad IM, 00:00:00 [facility] dical Preserv and ABX Branch Free 6 MO-64 YRS Zoster Vaccine 2021-12-22 Completed University of Recombinant 00:00:00 [facility] Influenza Virus 2021-12-22 Completed Universit y of Vaccine Quad IM, 00:00:00 [facility] dical Preserv and ABX Branch Free 6 MO-64 YRS SARS-COV-2 COVID-19 2021-09-25 Completed Unive rsity of MODERNA VACCINE 00:00:00 [facility] SARS-COV-2 COVID-19 2021-09-25 Completed Unive rsity of MODERNA VACCINE 00:00:00 [facility] SARS-COV-2 COVID-19 2021-09-25 Completed Unive rsity of MODERNA VACCINE 00:00:00 [facility] SARS-COV-2 COVID-19 2021-01-31 Completed Unive rsity of MODERNA VACCINE 00:00:00 [facility] SARS-COV-2 COVID-19 2021-01-31 Completed Unive rsity of MODERNA VACCINE 00:00:00 [facility] SARS-COV-2 COVID-19 2021-01-31 Completed Unive rsity of MODERNA VACCINE 00:00:00 [facility] SARS-COV-2 COVID-19 2021-01-04 Completed Unive rsity of MODERNA VACCINE 00:00:00 [facility] SARS-COV-2 COVID-19 2021-01-04 Completed Unive rsity of MODERNA VACCINE 00:00:00 [facility] SARS-COV-2 COVID-19 2021-01-04 Completed Unive rsity of MODERNA VACCINE 00:00:00 [facility] Zoster Vaccine 2020-09-09 Completed University of Recombinant 00:00:00 [facility] Influenza Virus 2020-09-09 Completed Universit y of Vaccine Quad .5 mL 00:00:00 [facility] 6+ MO Branch Zoster Vaccine 2020-09-09 Completed University of Recombinant 00:00:00 [facility] Influenza Virus 2020-09-09 Completed Universit y of Vaccine [place] .5 mL 00:00:00 [facility] IM 6+ MO Branch Zoster Vaccine 2020-09-09 Completed University of Recombinant 00:00:00 [facility] Influenza Virus 2020-09-09 Completed Universit y of Vaccine Quad .5 mL 00:00:00 [facility] IM 6+ MO Branch Vital Signs Vital Name Observation Time Observation Value Comments Source Systolic blood 2021-12-22 15:01:00 110 mm[Hg] Univer sity of pressure [facility] Diastolic blood 2021-12-22 15:01:00 70 mm[Hg] Unive rsity of [facility] Heart rate 2021-12-22 15:01:00 65 /min Universi ty [facility] Body temperature 2021-12-22 15:01:00 36.67 Brittaney [facility] Res[facility] rate 2021-12-22 15:01:00 16 /min [facility] Body height 2021-12-22 15:01:00 177.8 cm Universi ty [facility] Body weight 2021-12-22 15:01:00 87.998 kg Universi ty [facility] BMI 2021-12-22 15:01:00 27.84 kg/m2 [facility] Oxygen saturation in 2021-12-22 15:01:00 95 /min [facility] Arterial blood by [facility] Pulse oximetry Branch Systolic blood 2019-07-19 15:09:00 109 mm[Hg] [facility] Medicine Diastolic blood 2019-07-19 15:09:00 72 mm[Hg] [facility] Medicine Heart rate 2019-07-19 15:09:00 56 /min [facility] Body temperature 2019-07-19 15:09:00 36.5 Brittaney [facility] Respiratory rate 2019-07-19 15:09:00 15 /min [facility] Body height 2019-07-19 15:09:00 182.9 cm [facility] Body weight 2019-07-19 15:09:00 90.719 kg [facility] BMI 2019-07-19 15:09:00 27.12 kg/m2 [facility] Systolic blood 2019-07-19 15:09:00 109 mm[Hg] [facility] pressure Medicine Diastolic blood 2019-07-19 15:09:00 72 mm[Hg] [facility] pressure Medicine Heart rate 2019-07-19 15:09:00 56 /min [facility] Body temperature 2019-07-19 15:09:00 36.5 Brittaney [facility] Respiratory rate 2019-07-19 15:09:00 15 /min [facility] Body height 2019-07-19 15:09:00 182.9 cm [facility] Body weight 2019-07-19 15:09:00 90.719 kg [facility] BMI 2019-07-19 15:09:00 27.12 kg/m2 [facility] Procedures Procedure Date / Time Performed Performing Clinician [facility] VARICELLA-ZOSTER 2021-12-22 15:59:[facility] Medical Bran ch 50 MCG/0.5 ML, IM FLU VACC (), 2021-12-22 15:59:[facility] .5ML, IM, Medical Bran ch QUAD (FLUCELVAX) Plan of Care Planned Activity Planned Date Details Comments Source Future Scheduled 2030-08-[address] [facility] [facility] Test 00:00:00 malignant neoplasm of Medica l Center colon (procedure) [code = 393251581] Future Scheduled 2025-09-[address] [facility] - Test 00:00:00 (procedure) [code = [facility] 11866661] Future Scheduled 2021-07-[address] [facility] - Test 00:00:00 (#1) [code = [facility] INFLUENZA VACCINE (#1)] Future Scheduled 2020-11-[address] [facility] - Test 00:00:00 (12+) [code = [facility] DEPRESSION SCREENING (12+)] Future Scheduled 2014 SHINGLES VACCINES ([address] [facility] - Test 00:00:00 of 2) [code = Medical Center SHINGLES VACCINES (1 of 2)] Future Scheduled 1983 DTAP/TDAP/TD VACCINES [facility] Test 00:00:00 (1 - Tdap) [code = Medical C enter DTAP/TDAP/TD VACCINES (1 - Tdap)] Future Scheduled 1982 HEPATITIS C SCREENING [facility] - Test 00:00:00 [code = HEPATITIS C Medical Center SCREENING] Future Scheduled 1976 COVID-19 VACCINE (1) [facility] - Test 00:00:00 [code = COVID-[address] VACCINE (1)] Future Scheduled COLON CANCER [facility] ege of Test SCREENING: Medicine COLONOSCOPY [code = COLON CANCER SCREENING: COLONOSCOPY] Future Scheduled TETANUS SHOT (ADULT) [facility] of Test [code = TETANUS SHOT Medicin e (ADULT)] Future Scheduled HEPATITIS C SCREENING [facility] Test [code = HEPATITIS C Medicine SCREENING] Future Scheduled HIV SCREENING [code = Ba [facility] of Test HIV SCREENING] Medicine Future Scheduled FLU VACCINE > 6 [facility] ollege of Test MONTHS [code = FLU Medicine VACCINE > 6 MONTHS] Future Scheduled BMI FOLLOW UP PLAN [facility] Test [code = BMI FOLLOW UP Medici ne PLAN] Encounters Start End Encounter Admission Attending Care Care Encounter Source Date/Time Date/Time Type Type Clinicians Facility Department ID 2022-01-25 2022-01-25 Outpatient R [facility]AN [facility] [id number] Univers 13:00:00 13:00:00 RAKAN ORELLANA [id number] ity of [facility] 2021-12-28 2021-12-28 Telephone Carlo, [facility] [id number] Univers 00:00:00 00:00:00 Yohmarie SPECIALTY [id number] ity of [place] 4.2.7.2.686 [place] [id number] [address] 2021-12-22 2021-12-22 Office [facility] [id number] Univers 09:00:00 09:20:00 Visit Yohmarie SPECIALTY [id number] ity of [place] 4[place]2.7.2.[place] [id number] [facility] 314 Branch 2020-09-23 2020-09-23 Telephone DEMETRIS Matos [id number] 00:00:00 00:00:00 Yohmarie SPECIALTY [id number] [place] 4.2.7.2.686 [place] [id number] 2019-07-19 2019-07-19 Office CHRISTINA Dennis [id number] 09:43:21 11:48:28 Visit Eliu AMBULATOR [id number] Gavin Y 0.2.7.2.686 [id number] 2019-07-19 2019-07-19 Office CHRISTINA Dennis [id number] [place] [address] 09:43:21 11:48:28 Visit Eliu AMBULATOR [id number] [place] Gavin Y 0.2.7.2.686 [id number] [facility] 300 e 2019-07-09 2019-07-09 Appointmen KEYLA WINTER Otorhinolar [id number] Univers 15:00:00 15:00:00 t; ARTEMIO WINTER yngology - i ty of [facility] [place] ans 2019-05-28 2019-05-28 Appointmen KEYLA WINTER UTP [id number] Univers 10:00:00 10:00:00 t; ARTEMIO WINTER ity of [facility] Results Test Description Test Time Test Comments Results Result Sourc e Comments NERVE CONDUCTION 2019-06-22 Reason for INTRAOPERATIVE STUDIES; 3-4 09:17:00 exam:->lumbar MONITORING REPORT STUDIES stenosis Patient Name: Estefani Mancini [facility] , [facility] Surgery Date: 06/08/2019 [place] Pro: [id number] Monitoring began at 0726 and ended at [...] in 5 days WOUND CULTURE + GRAM [id number] 10:18:00 Test Item Value Reference Interpretation Comments [...] No organisms seen (BEAKER) (test code = 335677) <1+ Skin floraBASIC METABOLIC [id number] 13:42:00 Test Item Value Reference Range Interpretation [...] PATIEN TS. CBC W/PLT COUNT & AUTO [id number] 13:26:00 Test Item Value Reference Range Interpretation [...] PERCENT (BEAKER) (test code = 2801) TISSUE [id number] 16:40:00Surgical Pathology Report Case: [id number] Authorizing Provider: Eliu Dennis MD Collected: 06/08/2019 1242 Ordering Location: [address] Received: 06/08/2019 1401 Service Pathologist: Rasheed Champagne MD Specimen: Disc L5-S1 VERTEBRAL COLUMN,INTERVERTEBRAL DISC, L5- S1, DISCECTOMY:FRAGMENTS OF FIBROCARTILAGE WITH MILD DEGENERATIVE CHANGES Signing Pathologist Direct Phone Line: [phone] signed by Rasheed Champagne MD on06/14/2019 at 4:40 [id number]; [id number] L5-F1Dewaojjr in formalin labeled "disc L5-S1" consists of a 3x 2 x 1.5 cm aggregate of white rubbery tissue. Electro Mechanical Technician portions of the tissue submitted in a single cassette A1 (about 60% of the tissue) for decal./bc PerformedFL, RESERVATIONS CLERK IN OR/30 MINUTE [id number] 12:59:00Reason for exam:->lumbar stenosis FLUOROSCOPIC UNIT UTILIZED-NO INTERPRETATION REQUESTED. RAD, SPINE, LUMBAR, 2 OR 3 [id number] 10:53:00Reason for exam:->s/p L5-S1 fusionFINAL REPORT LUMBAR [...] otherwise unchanged in appearance. Signed: Deshaun Cantrell MDReport Verified Date/Time: 06/09/2019 10:53:58 Reading Location: [address] Transitional Reading Room [place], RESERVATIONS CLERK IN OR/30 MINUTE [id number] 10:08:00Reason for exam:->lumbar stenosisFINAL REPORT Exam: Intraoperative fluoroscopic lumbar spine radiograph History: Lumbar stenosis Comparison: Lumbar spine MRI 06/05/2019 Discussion : Single portable lateral intraoperative fluoroscopic image of the lower lumbar spine demonstrates posterior surgical instrumentationand screw fixation at L5 and S1. Alignment is anatomic. No acute fracture. Impression:Intraoperativeimage with interval posterior screw fixation at L5 and S1. Signed: Zayda Cole MDReport Verified Date/Time: 06/08/2019 10:08:27 Reading Location: [facility] Radiology Reading Room BASIC METABOLIC [id number] 05:42:00 Test Item Value Reference Range Interpretation [...] PATIEN TS. CBC W/PLT COUNT & AUTO [id number] 04:52:00 Test Item Value Reference Range Interpretation [...] GRANULOCYTES-RELATIVE PERCENT (BEAKER) (test code = 2801) [id number] 09:32:00 Test Item Value Reference Range Interpretation [...] mechanical heart valves.CBC W/PLT COUNT & AUTO [id number] 08:50:00 Test Item Value Reference Range Interpretation [...] (BEAKER) (test code = 2801) BASIC METABOLIC [id number] 08:45:00 Test Item Value Reference Range Interpretation [...] APPLICABLE FOR DIALYSIS PATIEN TS. BASIC METABOLIC [id number] 07:28:00 Test Item Value Reference Range Interpretation [...] S NOT APPLICABLE FOR DIALYSIS PATIEN TS. [id number] 06:29:00 Test Item Value Reference Range Interpretation [...] mechanical heart valves.CBC W/PLT COUNT & AUTO [id number] 06:22:00 Test Item Value Reference Range Interpretation [...] 0-1 PERCENT (BEAKER) (test code = 2801) [id number] 15:26:00 Test Item Value Reference Range Interpretation [...] mechanical heart valves.CBC W/PLT COUNT & AUTO [id number] 15:14:00 Test Item Value Reference Range Interpretation [...] (BEAKER) (test code = 2801) BASIC METABOLIC [id number] 14:55:00 Test Item Value Reference Range Interpretation [...] DIALYSIS PATIEN TS. MR, SPINE, LUMBAR, WITHOUT [id number] 13:50:00FINAL REPORT MR, SPINE, LUMBAR, WITHOUT CONTRAST [...] nerve root edema. Signed: JR Zuniga Robert [facility] Verified Date/Time: 06/05/2019 13:50:56 Reading Location: [facility] Radiology Reading Room TISSUE [id number] 12:46:00Surgical Pathology Report Case: [id number] Authorizing Provider: Eliu Dennis MD Collected: 04/25/2019 1627 Ordering Location: [facility] PERIOPERATIVE Received: 04/26/2019 1011 SERVICES Pathologist: Rasheed Champagne MD Specimen: Disc L5-S1 VERTEBRAL COLUMN, INTERVERTEBRAL DISC, L5-S1, DISCECTOMY:FRAGMENTS OF FIBROCARTILAGE WITH MILD DEGENERATIVE CHANGES Signing Pathologist Direct Phone Line: [phone] signed by Rasheed Champagne MD on05/04/2019 at 12:46 [id number]; [id number] specimen is received in a single container with another smaller container within that container. Both specimens consist of off-white disc fragments, which are submitted entirely in cassette A1. The specimen measures 2.9 x 1.3 x 0.8 cm in aggregate. ?/ewPerformedFL, RESERVATIONS CLERK IN OR/30 MINUTE [id number] 13:38:00Reason for exam:->PAINPROCEDURE PERFORMED IN O.R. - PLEASE REFER TO THE INTRAOPERATIVE REPORT. NEEDLE EMG, 2 EXTREMITY 2019-04-29 09:16:00 INTRAOPERATIVE MONITORING REPORT Patient Name: Estefani Mancini [facility], [place], [place] Surgery Date: 04/25/2019 Alondra Pro: [id number] Monitoring began at 1547 and ended at [...] roots monitored remained undisturbed. Karishma Goss M.D.M51.27 [id number] 07:26:00 Test Item Value Reference Range Interpretation Comments PHOSPHORUS (BEAKER) (test code = 2.8 mg/dL 2.3-4.7 604) [id number] 07:26:00 Test Item Value Reference Range Interpretation Comments MAGNESIUM (BEAKER) (test code = 2.2 mg/dL 1.6-2.6 627) BASIC METABOLIC [id number] 07:26:00 Test Item Value Reference Range Interpretation [...] PATIEN TS. CBC W/PLT COUNT & AUTO [id number] 07:05:00 Test Item Value Reference Range Interpretation [...] 0-1 PERCENT (BEAKER) (test code = 2801) [id number] 14:04:00 Test Item Value Reference Range Interpretation Comments PHOSPHORUS (BEAKER) (test code = 3.5 mg/dL 2.3-4.7 604) [id number] 14:04:00 Test Item Value Reference Range Interpretation Comments MAGNESIUM (BEAKER) (test code = 2.1 mg/dL 1.6-2.6 627) BASIC METABOLIC [id number] 14:04:00 Test Item Value Reference Range Interpretation [...] S NOT APPLICABLE FOR DIALYSIS PATIEN TS. [id number] 13:39:00 Test Item Value Reference Range Interpretation [...] PERCENT (BEAKER) (test code = 2801) LIPID [id number] 06:34:00 Test Item Value Reference Range Interpretation [...] Borderline 130-159 High 160-189 Very High >=190TROPONIN [id number] 18:17:00 Test Item Value Reference Range Interpretation [...] acidosis, acute neurological disease, and persistent tachyarrhythmia.TROPONIN [id number] 12:14:00 Test Item Value Reference Range Interpretation [...] U/L 29-200 code = 380) BASIC METABOLIC [id number] 05:41:00 Test Item Value Reference Range Interpretation [...] PATIEN TS. CBC W/PLT COUNT & AUTO [id number] 05:13:00 Test Item Value Reference Range Interpretation [...] (BEAKER) (test code = 2801) BASIC METABOLIC [id number] 06:59:00 Test Item Value Reference Range Interpretation [...] PATIEN TS. CBC W/PLT COUNT & AUTO [id number] 06:58:00 Test Item Value Reference Range Interpretation [...] code = 2801) MR, SPINE, LUMBAR, WITHOUT [id number] 21:50:00 Include Sacral spine Tarlov cystsFINAL REPORT [...] MDReport Verified Date/Time: 04/20/2019 21:50:08 Reading Location: [facility] B1 C013W Consult Reading Room C METABOLIC [id number] 04:59:00 Test Item Value Reference Range Interpretation [...] PATIEN TS. CBC W/PLT COUNT & AUTO [id number] 04:33:00 Test Item Value Reference Range Interpretation [...] PERCENT (BEAKER) (test code = 2801) PROTHROMBIN [id number] 19:17:00 Test Item Value Reference Range Interpretation [...]
[2022-01-01] MEDS ORDERED: FLUORESCEIN SODIUM 1 MG/WRAP ONE (05:51)
[2022-01-01] MEDS ORDERED: TETRACAINE HCL 0.5% 4ML OPTH ONE (05:52)
--- NOTE | 2022-01-01 06:37 | EDPHYS ---
Physician Documentation [facility] Name: Martin Napoles Age: 56 yrs Sex: Male : 1965 Arrival Date: 01/01/2022 Time: 05:44 Bed 5 Private MD: ED Physician Vivi Shabazz Historical: - Allergies: 01/01 05:52 No Known Allergies; al4 - Immunization history:: Adult Immunizations up to date, Client reports receiving the 2nd dose of the Covid vaccine, Flu vaccine is up to date. - Social history:: Smoking status: Patient denies any tobacco usage or history of. Patient/guardian denies using alcohol. Vital Signs: 05:52 BP 106 / 72; Pulse 52; Resp 18 S; Pulse Ox 98% on R/A; Pain 8/10; al4 MDM: 06:02 Patient medically screened. pm1 06:27 ED course: No patient present in the room for examination. Per charge nurse she placed pm1 fluorescin and did not see a foreign body present. 06:37 ED course: No patient present in the room for examination. pm1 Administered Medications: No medications were administered Disposition: 07:33 Co-signature as Attending Physician, Vivi Shabazz MD I agree with the assessment and sp3 plan of care. Disposition Summary: 01/01/22 06:37 Eloped Disposition: before being seen by provider tw5 Reason: unknown tw5 Signatures: Sanju Moore, TOWER CRANE OPERATOR TOWER CRANE OPERATOR pm1 Vivi Shabazz MD MD sp3 Justina Parry tw5 Ford Chauhan al4
--- NOTE | 2022-01-01 06:37 | ER ---
Nurse's Notes [facility] Name: Martin Napoles Age: 56 yrs Sex: Male : 1965 Arrival Date: 01/01/2022 Time: 05:44 Bed 5 Private MD: Diagnosis: Presentation: 01/01 05:51 Chief complaint: Patient states: "I woke up and rubbed my eye and felt like something al4 was stuck in it.". Coronavirus screen: Vaccine status: Patient reports receiving the 2nd dose of the covid vaccine. Ebola Screen: No symptoms or risks identified at this time. Initial Sepsis Screen: Does the patient meet any 2 criteria? No. Patient's initial sepsis screen is negative. Does the patient have a suspected source of infection? No. Patient's initial sepsis screen is negative. Risk Assessment: Do you want to hurt yourself or someone else? Patient reports no desire to harm self or others. Onset of symptoms was January 01, 2022. 05:51 Method Of Arrival: Ambulatory al4 05:51 Acuity: ABBY 3 al4 Triage Assessment: 05:52 General: Appears in no apparent distress. uncomfortable, Behavior is calm, cooperative, al4 appropriate for age. Pain: Complains of pain in left eye Pain currently is 8 out of 10 on a pain scale. EENT: Eyes are tearing on outer aspect of conjuctiva of left eye, iris of left eye and inner aspect of conjunctiva of left eye. Neuro: Level of Consciousness is awake, alert, obeys commands, Oriented to person, place, time, situation. Cardiovascular: Capillary refill < 3 seconds Patient's skin is warm and dry. Musculoskeletal: Range of motion: intact in all extremities. 05:52 Respiratory: Airway is patent Respiratory effort is even, unlabored, Respiratory al4 pattern is regular, symmetrical. Historical: - Allergies: 05:52 No Known Allergies; al4 - Immunization history:: Adult Immunizations up to date, Client reports receiving the 2nd dose of the Covid vaccine, Flu vaccine is up to date. - Social history:: Smoking status: Patient denies any tobacco usage or history of. Patient/guardian denies using alcohol. Vital Signs: 05:52 BP 106 / 72; Pulse 52; Resp 18 S; Pulse Ox 98% on R/A; Pain 8/10; al4 ED Course: 05:44 Patient arrived in ED. kc5 05:52 Triage completed. al4 05:52 Arm band placed on. al4 05:56 Patient has correct armband on for positive identification. Bed in low position. Pulse al4 ox on. NIBP on. 06:02 Sanju Moore NP is PHCP. pm1 06:02 Vivi Shabazz MD is Attending Physician. pm1 06:35 Justina Parry is Primary Nurse. tw5 Administered Medications: No medications were administered Outcome: 06:37 Patient left the ED. tw5 Signatures: Sanju Moore NP PRESSURE CONTROL SUPERVISOR pm1 Justina Parry tw5 Shanna White kc5 Ford Chauhan al4
[2022-01-01 06:40] VITALS: BP 106/72; O2SAT 98
== END 2022-01-01 06:37 | disposition left against medical advice (07) ==
LOC: ER 05:42
DX: Z53.21 Procedure and treatment not carried out due to patient leaving prior to being seen by health care provider (principal)
CPT/HCPCS: 99282

== ENCOUNTER 2024-08-11 08:59 | Emergency (ER) | payer BC ==
[2024-08-11] MEDS ORDERED: NA CHLORIDE 0.9% 1,000 ML ONE (09:11)
[2024-08-11] MEDS ORDERED: KETOROLAC 30 MG/ML INJ ONE (09:11)
[2024-08-11 09:31] LABS: Absolute Eosinophils 0.1 K/uL (0-0.5); Absolute Monocytes 0.8 K/uL (0.1-1.3); Absolute Neutrophil 6.8 K/uL (1.8-8.0); Basophils % 0.2 % (0-1.3); Eosinophils % 0.6 % (0-4.4); Hemoglobin 14.1 g/dL (13.6-17.9); Lymphocytes % 11.2 % (15.3-44.8); MCHC 33.6 g/dL (32.0-36.0); MCV 92.4 fL (80-100); MPV 7.9 fL (7.6-11.3); Monocytes % 9.3 % (3.3-12.3); Neutrophils % 78.7 % (41.7-73.7); Platelets 197 thou/uL (152-406); RBC Red Blood Cell Count 4.55 M/uL (4.33-5.43); Red Cell Distribution Width 12.9 % (12.1-15.2)
[2024-08-11 09:38] LABS: Specific Gravity 1.021 (1.005-1.030); Urine Bilirubin NEGATIVE (Negative); Urine Blood Negative (Negative); Urine Clarity Clear (Clear); Urine Color Light-Yellow (Yellow); Urine Glucose NEGATIVE (Negative); Urine Ketones NEGATIVE (Negative); Urine Microscopic Reflex YN NO UMIC; Urine Nitrite NEGATIVE (Negative); Urine Protein NEGATIVE (Negative); Urine Urobilinogen Normal (Normal)
[2024-08-11 09:46] LABS: ALT/SGPT 26 U/L (16-61); Albumin 3.6 g/dL (3.4-5.0); Alkaline Phosphatase 86 U/L (45-117); Anion Gap 9.1 mEq/L (5.0-15.0); BUN Blood Urea Nitrogen 23 mg/dL (7-18); Bicarbonate 24 mEq/L (21-32); Bilirubin Total 0.5 mg/dL (0.2-1.0); Globulin 3.5 g/dL (2.3-3.5); Glomerular Filtration Rate 102 ml/min (=/>90); Glucose Level 112 mg/dL (74-106); Lipase 35 U/L (13-75); Potassium 4.1 mEq/L (3.5-5.1); Protein, Total 7.1 g/dL (6.4-8.2); Sodium Level 137 mEq/L (136-145)
[2024-08-11 09:49] LABS: AST/SGOT < 10 U/L (15-37)
--- NOTE | 2024-08-11 10:52 | RAD REPORT ---
EXAM DESCRIPTION: CT - Abdomen Pelvis W Contrast - 08/11/2024 10:32 am CLINICAL HISTORY: Abdominal pain COMPARISON: 2019 TECHNIQUE: Computed axial tomography of the abdomen pelvis was obtained. 100 cc Isovue-300 was admin istered intravenously. Oral contrast was not requested which limits evaluation of bowel and appendix All CT scans are performed using dose optimization technique as appropriate and may include automated exposure control or mA/KV adjustment according to patient size. FINDINGS: The liver, spleen, pancreas, adrenal and kidneys appear unremarkable. Postsurgical changes lumbar spine Normal appendix Diverticula stem from the colon. Moderate stranding adjacent sigmoid colon. No free air. No abscess Duodenal diverticulum. Mild prominence common bile IMPRESSION: Moderate sigmoid diverticulitis Mild prominence of the common bile duct should be correlated clinically and with appropriate labs
--- NOTE | 2024-08-11 10:59 | ER ---
Nurse's Notes [facility] Name: Martin Napoles Age: 59 yrs Sex: Male : 1965 Arrival Date: 08/11/2024 Time: 08:59 Bed 13 Private MD: Diagnosis: Diverticulitis of large intestine without perforation or abscess without bleeding Presentation: 08/11 09:11 Risk Assessment: Do you want to hurt yourself or someone else? Patient reports no mb9 desire to harm self or others. 09:11 Chief complaint: Lower abdominal pain x 2 days. Coronavirus screen: At this time, the hb client does not indicate any symptoms associated with coronavirus-19. Ebola Screen: No symptoms or risks identified at this time. Initial Sepsis Screen: Does the patient meet any 2 criteria? No. Patient's initial sepsis screen is negative. Does the patient have a suspected source of infection? No. Patient's initial sepsis screen is negative. Risk Assessment: Do you want to hurt yourself or someone else? Patient reports no desire to harm self or others. Onset of symptoms was August 10, 2024. 09:11 Method Of Arrival: Ambulatory 09:11 Acuity: ABBY 3 hb Historical: - Allergies: 09:25 No Known Allergies; mb9 - Home Meds: 09:25 None [Active]; mb9 - PMHx: 09:11 ADD/ADHD; mb9 - PSHx: 09:25 None; mb9 - Immunization history:: Adult Immunizations up to date. - Infectious Disease History:: Denies. - Social history:: Smoking status: Patient denies any tobacco usage or history of. Screenin:11 [facility] ED Fall Risk Assessment (Adult) History of falling in the last 3 months, mb9 including since admission No falls in past 3 months (0 pts) Confusion or Disorientation No (0 pts) Intoxicated or Sedated No (0 pts) Impaired Gait No (0 pts) Mobility Assist Device Used No (0 pt) Altered Elimination No (0 pt) Score/Fall Risk Level 0 - 2 = Low Risk Oriented to surroundings, Maintained a safe environment, Educated pt \T\ family on fall prevention, incl call for assistance when getting out of bed. Abuse screen: Denies threats or abuse. Nutritional screening: No deficits noted. Tuberculosis screening: No symptoms or risk factors identified. Assessment: 09:24 General: Appears in no apparent distress. Behavior is calm, cooperative. Pain: mb9 Complains of pain in abdomen Quality of pain is described as throbbing, Pain began suddenly, Is continuous. Neuro: Jordan Agitation-Sedation Scale (RASS): 0 - Alert and Calm Level of Consciousness is awake, alert, obeys commands, Oriented to person, place, time, situation, Appropriate for age. Cardiovascular: Patient's skin is warm and dry. Respiratory: Airway is patent Respiratory effort is even, unlabored, Respiratory pattern is regular, symmetrical. GI: Abdomen is flat, non-distended, Bowel sounds present X 4 quads. Abd is soft Abdomen is tender to palpation in right lower quadrant and left lower quadrant. : No signs and/or symptoms were reported regarding the genitourinary system. EENT: No signs and/or symptoms were reported regarding the EENT system. Derm: Skin is pink, warm \T\ dry. Musculoskeletal: Range of motion: intact in all extremities. 10:44 Reassessment: No changes from previously documented assessment. Patient and/or family mb9 updated on plan of care and expected duration. Pain level reassessed. Patient is alert, oriented x 3, equal unlabored respirations, skin warm/dry/pink. Vital Signs: 09:11 BP 115 / 69; Pulse 59; Resp 16; Temp 98; Pulse Ox 100% on R/A; Weight 90.72 kg; Height hb 5 ft. 11 in. ; Pain 6/10; 10:54 BP 129 / 88; Pulse 55; Resp 16; Pulse Ox 100% on R/A; mb9 09:11 Body Mass Index 27.89 (90.72 kg, 180.34 cm) hb 09:11 Pain Scale: Adult hb ED Course: 09:02 Patient arrived in ED. ra3 09:03 Hannah Weems PA-C is PHCP. sb4 09:03 Michael Landaverde MD is Attending Physician. sb4 09:03 Sabina Hernandez RN is Primary Nurse. mb9 09:10 Arm band placed on. mb9 09:11 Placed in gown. Bed in low position. Call light in reach. Side rails up X 1. Provided mb9 Education on: press call light if needing anything. Client placed on continuous cardiac and pulse oximetry monitoring. NIBP monitoring applied. 09:12 Triage completed. hb 09:23 CBC with Diff Sent. mb9 09:23 CMP Sent. mb9 09:23 Lipase Sent. mb9 09:23 No provider procedures requiring assistance completed. Initial lab(s) drawn, by sc, mb9 sent to lab. Inserted saline lock: 20 gauge in right forearm, using aseptic technique. Blood collected. Flushed with 10 mL NS. 09:35 Urinalysis w/ reflexes Sent. mb9 10:34 CT Abd/Pelvis - IV Contrast Only In Process Unspecified. EDMS 10:58 Michael Cotter MD is Referral Physician. sb4 11:00 IV discontinued, intact, bleeding controlled, No redness/swelling at site. Pressure mb9 dressing applied. Administered Medications: 09:23 Drug: NS 0.9% IV 1000 ml IV at 1 bolus Per protocol; 1000 mL bolus Route: IV; Rate: 1 mb9 bolus; Site: right forearm; 10:58 Follow up: Response: No adverse reaction; IV Status: Completed infusion mb9 09:23 Drug: TORadol - Ketorolac IVP 15 mg IVP once Route: IVP; Site: right forearm; mb9 09:42 Follow up: Response: No adverse reaction mb9 Medication: 09:11 VIS not applicable for this client. mb9 Outcome: :58 Discharge ordered by . sb4 11:00 Discharged to home ambulatory, mb9 11:00 Condition: stable 11:00 Discharge instructions given to patient, Instructed on discharge instructions, follow up and referral plans. Demonstrated understanding of instructions, follow-up care, medications, Prescriptions given X 3, 11:16 Patient left the ED. mb9 Signatures: Dispatcher [employer] EDMS Nora Ahumada, RN RN Hannah Mtz, PA-C PA-C ce4 Sabina Hernandez RN RN mb9 Ashley Jeffries ra3
--- NOTE | 2024-08-11 10:59 | EDPHYS ---
Physician Documentation [facility] Name: Martin Napoles Age: 59 yrs Sex: Male : 1965 Arrival Date: 08/11/2024 Time: 08:59 Bed 13 Private MD: ED Physician Michael Landaverde HPI: 08/11 09:12 This 59 yrs old Male presents to ER via Unassigned with complaints of Abdominal Pain. sb4 09:12 The patient presents with abdominal pain in the lower abdomen. Onset: The sb4 symptoms/episode began/occurred this morning. The symptoms do not radiate. Associated signs and symptoms: none. The symptoms are described as crampy. Modifying factors: The symptoms are alleviated by nothing, the symptoms are aggravated by bowel movement. The patient has not experienced similar symptoms in the past. The patient has not recently seen a physician. Historical: - Allergies: 09:25 No Known Allergies; mb9 - Home Meds: 09:25 None [Active]; mb9 - PMHx: 09:11 ADD/ADHD; mb9 - PSHx: 09:25 None; mb9 - Immunization history:: Adult Immunizations up to date. - Infectious Disease History:: Denies. - Social history:: Smoking status: Patient denies any tobacco usage or history of. ROS: 09:12 Constitutional: Negative for fever, chills, and weight loss, sb4 09:12 Abdomen/GI: Positive for abdominal pain, 09:12 All other systems are negative, Exam: 09:12 Constitutional: This is a well developed, well nourished patient who is awake, alert, sb4 and in no acute distress. Head/Face: Normocephalic, atraumatic. Eyes: Extra-ocular motions intact. Periorbital areas with no swelling, redness, or edema. ENT: Mucous membranes moist. Cardiovascular: Regular rate and rhythm with a normal S1 and S2. Respiratory: Lungs have equal breath sounds bilaterally, clear to auscultation and percussion. No rales, rhonchi or wheezes noted. No increased work of breathing, no retractions or nasal flaring. Abdomen/GI: Soft, non-tender, no distension. Skin: Warm, dry with normal turgor. Normal color with no rashes, no lesions, and no evidence of cellulitis. MS/ Extremity: Pulses equal, no cyanosis. Neurovascular intact. Full, normal range of motion. Vital Signs: 09:11 BP 115 / 69; Pulse 59; Resp 16; Temp 98; Pulse Ox 100% on R/A; Weight 90.72 kg; Height hb 5 ft. 11 in. ; Pain 6/10; 10:54 BP 129 / 88; Pulse 55; Resp 16; Pulse Ox 100% on R/A; mb9 09:11 Body Mass Index 27.89 (90.72 kg, 180.34 cm) hb 09:11 Pain Scale: Adult hb MDM: 09:04 Patient medically screened. sb4 10:58 Data reviewed: vital signs, nurses notes, lab test result(s), radiologic studies, and sb4 as a result, I will discharge patient. Counseling: I had a detailed discussion with the patient and/or guardian regarding the historical points, exam findings, and any diagnostic results supporting the discharge/admit diagnosis, lab results, radiology results, the need for outpatient follow up, a oyster opener, to return to the emergency department if symptoms worsen or persist or if there are any questions or concerns that arise at home. 08/11 09:11 Order name: CBC with Diff; Complete Time: 09:38 sb4 08/11 09:11 Order name: CMP; Complete Time: 09:49 sb4 08/11 09:11 Order name: Lipase; Complete Time: 09:49 sb4 08/11 09:11 Order name: Urinalysis w/ reflexes sb4 08/11 09:11 Order name: CT Abd/Pelvis - IV Contrast Only; Complete Time: 10:54 sb4 08/11 09:11 Order name: IV Saline Lock; Complete Time: 09:23 sb4 08/11 09:11 Order name: Labs collected and sent; Complete Time: 09:23 sb4 Administered Medications: 09:23 Drug: NS 0.9% IV 1000 ml IV at 1 bolus Per protocol; 1000 mL bolus Route: IV; Rate: 1 mb9 bolus; Site: right forearm; 10:58 Follow up: Response: No adverse reaction; IV Status: Completed infusion mb9 09:23 Drug: TORadol - Ketorolac IVP 15 mg IVP once Route: IVP; Site: right forearm; mb9 09:42 Follow up: Response: No adverse reaction mb9 Disposition: 10:58 Chart complete. sb4 16:00 Co-signature as Attending Physician, Michael Landaverde MD I agree with the assessment and jerome plan of care. Disposition Summary: 08/11/24 10:58 Discharge Ordered Notes: Location: Home sb4 Problem: new sb4 Symptoms: have improved sb4 Condition: Stable sb4 Diagnosis - Diverticulitis of large intestine without perforation or abscess without bleeding sb4 Followup: sb4 - With: Michael Cotter MD - When: 1 week - Reason: Further diagnostic work-up, Recheck today's complaints, Re-evaluation by your physician Discharge Instructions: - High-Fiber Eating Plan sb4 - Diverticulitis, Xabo-[id number] sb4 - Discharge Summary Sheet mb9 Forms: - Antibiotic Education sb4 - Patient Portal Instructions sb4 - Leadership Thank You Letter sb4 - Work release form mb9 Prescriptions: - Flagyl 500 mg Oral tablet - take 1 tablet ORAL route every 8 hours for 7 days; 21 tablet; Refills: 0, sb4 Product Selection Permitted - Cipro 500 mg Oral Tablet - take 1 tablet ORAL route every 12 hours for 7 days; 14 tablet; Refills: 0, sb4 Product Selection Permitted - dicyclomine 20 mg Oral tablet - take 1 tablet ORAL route 3 times per day; 20 tablet; Refills: 0, Product sb4 Selection Permitted Signatures: Dispatcher [employer] EDMichael Maria MD MD cha Baxter, Heather, RN RN Hannah Mtz, PA-C PACourtneyC sb4 Sabina Hernandez RN RN mb9 Corrections: (The following items were deleted from the chart) 09:12 09:11 CBC+H.LAB.BRZ ordered. EDMS EDMS 09:12 09:11 COMPREHENSIVE METABOLIC PANEL+C.LAB.BRZ ordered. EDMS EDMS 09:12 09:11 LIPASE+C.LAB.BRZ ordered. EDMS EDMS 09:12 09:11 Urinalysis+U.LAB.BRZ ordered. EDMS EDMS
[2024-08-11 11:21] VITALS: TEMP 98; O2SAT 100
[2024-08-11 11:22] VITALS: BP 129/88
== END 2024-08-11 11:16 | disposition home or self-care (01) ==
LOC: ER 08:59
DX: K57.32 Diverticulitis of large intestine without perforation or abscess without bleeding (principal)
CPT/HCPCS: 96361; 85025; 36415; 81003; 83690; 80053; 74177; 96374; 99284; Q9967; J7030

== ENCOUNTER 2024-11-27 13:45 | Emergency (ER) | payer SELFPAY ==
[2024-11-27] MEDS ORDERED: NA CHLORIDE 0.9% 100 ML ONE (15:00)
[2024-11-27] MEDS ORDERED: METHOCARBAMOL 1,000 MG/10 ML VIAL ONE (15:00)
[2024-11-27] MEDS ORDERED: KETOROLAC 30 MG/ML INJ ONE (15:00)
--- NOTE | 2024-11-27 16:14 | RAD REPORT ---
EXAM: C Spine Wo Con HISTORY: Neck pain. Radiculopathy. COMPARISON: 2019 TECHNIQUE: Multiple contiguous axial images were obtained in a CT of the cervical spine without contr ast. Sagittal and coronal reformats were performed. One or more of the following dose reduction techniques were used: Automated exposure control, adjustment of the mA and kV according to patient si ze, and iterative reconstruction. Unless otherwise specified, incidental findings do not require dedicated imaging follow-up. FINDINGS: No fracture or dislocation seen Anterior fusion involves C6-T1 by plate, screws and bone plugs. The hardware appears intact Slight anterior subluxation C4 on C5. Slight posterior subluxation C5 on C6. Right posterior lateral disc osteophyte complex C3-4 results in moderate narrowing of the right neura l foramina. Disc bulge and osteophytes C5-6 results in mild to moderate narrowing of the right Disc bulge and osteophytes C6-7 results in mild to moderate narrowing of the neural foramina. IMPRESSION: Postsurgical changes C6-T1 Right posterior lateral disc osteophyte complex C3-4 results in moderate right foraminal stenosis If patient continues to have symptoms to suggest significant spinal cord/spinal canal/neural patholog y then nonemergent MRI would be recommended
--- NOTE | 2024-11-27 16:14 | RAD REPORT ---
EXAMINATION: CT LUMBAR SPINE WITHOUT CONTRAST CLINICAL INDICATION: Lower back pain/radiculopathy TECHNIQUE: Axial CT images were obtained through the lumbar spine in soft tissue and bone windows wit hout intravenous contrast. Coronal and Sagittal reformatted images were created from the data set. One or more of the following dose reduction techniques were used: Automated exposure control, adjustm ent of the mA and/ or kV according to patient size, and/or iterative reconstruction. Unless otherwise specified, incidental findings do not require dedicated imaging follow-up. COMPARISON: No prior exam. FINDINGS: For purposes of this dictation, it is assumed that there are 5 non rib-bearing lumbar type vertebrae, and the most caudal fully segmented lumbar vertebra is labeled L5. No fracture or dislocation. Disc bulge, ligamentum flavum and facet hypertrophy L3 results in narrowing of the thecal sac to 9.5 mm. Mild narrowing of the neural foramina bilaterally Slight posterior subluxation L4 on L5. Facet hypertrophy is present mild to moderate narrowing left n eural foramina. Artifact from the artery where limits evaluation of portions of L5 prominent posterior osteophytes ar e present. Posterior screws united by rods have been placed L5-S1. A metallic fusion cage is present L5-S1. IMPRESSION: Postsurgical changes L5-S1 Spondylosis L3-4 results in minimal central spinal stenosis. Spondylosis L4-5 results in mild to moderate left foraminal stenosis If the patient continues to have symptoms to suggest significant spinal pathology then nonemergent MR I would be recommended
--- NOTE | 2024-11-27 16:36 | RAD REPORT ---
EXAM: Thoracic Spine W/o Cont HISTORY: COMPARISON: None TECHNIQUE: Multiple contiguous axial images were obtained in a CT of the thoracic spine without contr ast. Sagittal and coronal reformats were performed. One or more of the following dose reduction techniques were used: Automated exposure control, adjustment of the mA and kV according to patient si ze, and iterative reconstruction. Unless otherwise specified, incidental findings do not require dedicated imaging follow-up. FINDINGS: Moderate left paracentral disc herniation T8-9. Small left paracentral disc herniation T9-10. Small right paracentral calcified disc T10-11 herniation No fracture. No dislocation. Prominent anterior osteophytes lower thoracic spine. IMPRESSION: Moderate left paracentral disc herniation T8-9. It is recommended that patient have a nonemergent MRI thoracic spine for further evaluation
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
--- NOTE | 2024-11-27 16:59 | ER ---
Nurse's Notes [facility] Name: Martin Napoles Age: 59 yrs Sex: Male : 1965 Arrival Date: 11/27/2024 Time: 13:45 Bed 10 Private MD: Diagnosis: Low back pain;Muscle spasm of back Presentation: 11/27 13:48 Chief complaint: EMS states: toned out to [facility] for back pain. Pt reports "I was ld1 just walking and felt a pain in my back, I was unable to walk anymore." Pt states "I have had previous back surgery but MALI what it was for.". Coronavirus screen: At this time, the client does not indicate any symptoms associated with coronavirus-19. Ebola Screen: No symptoms or risks identified at this time. Initial Sepsis Screen: Does the patient meet any 2 criteria? No. Patient's initial sepsis screen is negative. Does the patient have a suspected source of infection? No. Patient's initial sepsis screen is negative. Risk Assessment: Do you want to hurt yourself or someone else? Patient reports no desire to harm self or others. Onset of symptoms was November 27, 2024. 13:48 Method Of Arrival: EMS: [facility] ld1 13:48 Acuity: ABBY 4 ld1 Triage Assessment: 13:51 General: Appears in no apparent distress. comfortable, Behavior is calm, cooperative, ld1 appropriate for age. Pain: Complains of pain in back Pain does not radiate. Pain currently is 9 out of 10 on a pain scale. Quality of pain is described as throbbing. EENT: No signs and/or symptoms were reported regarding the EENT system. Neuro: Level of Consciousness is awake, alert, obeys commands, Oriented to person, place, time, situation. Cardiovascular: Capillary refill < 3 seconds Patient's skin is warm and dry. Respiratory: Airway is patent Respiratory effort is even, unlabored. GI: Abdomen is flat, non-distended. : No signs and/or symptoms were reported regarding the genitourinary system. Derm: No signs and/or symptoms reported regarding the dermatologic system. Musculoskeletal: Range of motion: intact in all extremities. Historical: - Allergies: 13:51 No Known Allergies; ld1 - PMHx: 13:51 ADD/ADHD; Diverticulitis; ld1 - PSHx: 13:51 Back surgery; ld1 - Immunization history:: Adult Immunizations up to date. - Infectious Disease History:: Denies. - Social history:: Smoking status: Patient denies any tobacco usage or history of. Screenin:57 [facility] ED Fall Risk Assessment (Adult) History of falling in the last 3 months, ld1 including since admission No falls in past 3 months (0 pts) Confusion or Disorientation No (0 pts) Intoxicated or Sedated No (0 pts) Impaired Gait No (0 pts) Mobility Assist Device Used No (0 pt) Altered Elimination No (0 pt) Score/Fall Risk Level 0 - 2 = Low Risk Oriented to surroundings, Maintained a safe environment, Educated pt \\T\\ family on fall prevention, incl call for assistance when getting out of bed, Assessed \\T\\ reinforced patient's understanding of fall precautions, Provided non-skid footwear, Hourly rounding (assess needs \\T\\ fall precautionary measures) done, Used ambulatory aids as needed (educated on \\T\\ assisted with), Used gait belt as appropriate. Abuse screen: Denies threats or abuse. Denies injuries from another. Nutritional screening: No deficits noted. Tuberculosis screening: No symptoms or risk factors identified. Assessment: 13:57 Reassessment: See triage assessment. Neuro: Level of Consciousness is awake, alert, ld1 obeys commands, Oriented to person, place, time, situation, Appropriate for age. Cardiovascular: Capillary refill < 3 seconds Patient's skin is warm and dry. Vital Signs: 13:48 BP 165 / 93; Pulse 75; Resp 18; Temp 98.4(TE); Pulse Ox 100% on R/A; Weight 74.84 kg; ld1 Height 5 ft. 10 in. ; Pain 9/10; 13:48 Body Mass Index 23.67 (74.84 kg, 177.8 cm) ld1 13:48 Pain Scale: Adult ld1 ED Course: 13:47 Patient arrived in ED. ld1 13:50 Triage completed. ld1 13:51 Arm band placed on right wrist. ld1 13:52 Sean Glover MD is Attending Physician. bo1 13:57 Patient has correct armband on for positive identification. Placed in gown. Bed in low ld1 position. Call light in reach. Side rails up X2. Pulse ox on. NIBP on. Door closed. Noise minimized. 13:57 No provider procedures requiring assistance completed. ld1 14:54 David Francois, RN is Primary Nurse. jl7 14:58 Kim Tompkins, RN is Primary Nurse. ld1 15:47 CT C Spine In Process Unspecified. EDMS 15:47 CT Thoracic Spine Wo Cont In Process Unspecified. EDMS 15:47 CT Lumbar Spine Wo Con In Process Unspecified. EDMS 17:13 IV discontinued, intact, bleeding controlled, No redness/swelling at site. ld1 Administered Medications: 15:06 Drug: Methocarbamol IVPB 1 grams IVPB once over 1 hrs; (mix in NS 100 mL) Route: IVPB; ld1 Infused Over: 1 hrs; Site: right wrist; 15:06 Drug: Ketorolac IVP 60 mg IVP once Route: IVP; Site: right wrist; ld1 Medication: 13:57 VIS not applicable for this client. ld1 Outcome: 16:58 Discharge ordered by . bo1 17:13 Discharged to home ambulatory, ld1 17:13 Condition: stable 17:13 Discharge instructions given to patient, Instructed on discharge instructions, follow up and referral plans. Demonstrated understanding of instructions, follow-up care, 17:13 Patient left the ED. ld1 Signatures: Dispatcher [employer] David Tobar, YUSUF GOLDBERG jl7 Kim Tompkins, RN RN ld1 Sean Glover MD MD bo1 Corrections: (The following items were deleted from the chart) 13:52 13:51 PMHx: Back surgery; ld1 ld1 13:52 13:51 PSHx: None; ld1 ld1
[2024-11-27 23:47] VITALS: BP 165/93; TEMP 98.4; O2SAT 100
== END 2024-11-27 17:13 | disposition home or self-care (01) ==
LOC: ER 13:45
DX: M62.830 Muscle spasm of back (principal)
CPT/HCPCS: 72125; 72128; 72131; 96374; 96375; 99284; J2800

== ENCOUNTER 2025-08-27 19:44 | Emergency (ER) | payer OTHER, SELFPAY ==
[2025-08-27] MEDS ORDERED: TDAP (DIPHTH,PERTUSS(ACELL),TET VAC) 0.5 ML VIAL IMVAC ONE (20:01)
[2025-08-27] MEDS ORDERED: NA CHLORIDE 0.9% 1,000 ML ONE (20:01)
[2025-08-27 20:04] LABS: Absolute Lymphocytes (CBC) 1.4 K/uL (0.7-4.9); Hematocrit 40.4 % (39.6-49.0); Hemoglobin 13.7 g/dL (13.6-17.9); MCH 30.1 pg (27.0-35.0); MCHC 33.8 g/dL (32.0-36.0); MCV 88.8 fL (80-100); MPV 7.7 fL (7.6-11.3); Nucleated RBC Absolute Count 0.0 (0-0); Nucleated Red Blood Cells % 0.0 % (0-0); RBC Red Blood Cell Count 4.55 M/uL (4.33-5.43); White Blood Count 5.30 thou/uL (4.3-10.9)
[2025-08-27] MEDS ORDERED: HYDROMORPHONE HCL 1 MG/ML INJ ONE (20:10)
[2025-08-27] MEDS ORDERED: ONDANSETRON 4 MG/2 ML VIAL ONE (20:10)
[2025-08-27 20:20] LABS: Anion Gap 7.2 mEq/L (5.0-15.0); BUN Blood Urea Nitrogen 21.0 mg/dL (7-18); Glucose Level 100.0 mg/dL (74-106)
[2025-08-27 20:24] LABS: Potassium 4.2 mEq/L (3.5-5.1)
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
[2025-08-27 20:55] LABS: ALT/SGPT 29 U/L (16-61); AST/SGOT 25 U/L (15-37); Albumin 3.9 g/dL (3.4-5.0); Albumin/Globulin Ratio 1.2 (1.1-1.8); Alkaline Phosphatase 75 U/L (45-117); Bilirubin Indirect, Calculated 0.3 mg/dL (0.2-0.8); Globulin 3.3 g/dL (2.3-3.5)
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
[2025-08-27 21:37] VITALS: TEMP 97.3
[2025-08-27 21:40] VITALS: BP 120/89; O2SAT 98
== END 2025-08-27 21:33 | disposition home or self-care (01) ==
LOC: ER 19:44
DX: S09.90XA Unspecified injury of head, initial encounter (principal); S00.03XA Contusion of scalp, initial encounter; S80.812A Abrasion, left lower leg, initial encounter; S80.811A Abrasion, right lower leg, initial encounter; S93.401A Sprain of unspecified ligament of right ankle, initial encounter; S20.20XA Contusion of thorax, unspecified, initial encounter; S90.01XA Contusion of right ankle, initial encounter; V03.09XA Pedestrian with other conveyance injured in collision with car, pick-up truck or van in nontraffic accident, initial encounter; Y93.55 Activity, bike riding
CPT/HCPCS: 96361; 85025; 80048; 36415; 86900; 86850; 86901; 80076; 70450; 72125; 71260; 74177; 73590 ×2; 73610; 90715; 96375; 96372; 96374; 99284; Q9967; J1171; J2405; J7030